=== PATIENT | female | born 1960 | race Caucasian/White ===

== ENCOUNTER 2019-11-18 21:12 | Emergency (ER) | payer OTHER, SELFPAY ==
--- NOTE | ~2019-11-18 | XR_ITS ---
XR chest 2V DATE: 11/18/2019 22:25 INDICATION: Cough, pruritus. Dizziness, nausea. COPD, current smoker. TECHNIQUE: PA and lateral views COMPARISON: 08/21/2011 PA and lateral views FINDINGS: Heart size is normal. Coronary artery stent is noted. There is no hilar or mediastinal enla rgement. No pulmonary infiltrate or consolidation, pleural effusion or pulmonary vascular congestion or pneumo thorax is detected. Diffuse osteopenia. Thoracolumbar scoliosis. IMPRESSION: No active cardiopulmonary disease Coronary artery stent Reviewed, dictated and finalized at location A.
[2019-11-18 21:16] VITALS: BP 169/93; PULSE 107; RESP 20; TEMP 36.3; O2SAT 99
[2019-11-18] MEDS: methylPREDNISolone SOD SUCC 125 MG VIAL IV PUSH (21:58)
[2019-11-18] MEDS: diphenhydrAMINE HCl INJ 50 MG/ML VIAL IV PUSH (21:58)
[2019-11-18] MEDS: FAMOTIDINE 20 MG/2 ML VIAL IV PUSH (21:58)
[2019-11-18 22:10] LABS: Basophils Percent Auto 0.4 % (0.2-1.2); Eosinophils Absolute Auto 0.2 K/mm3 (0-0.3); Eosinophils Percent Auto 1.5 % (0-4.4); Hematocrit 42.3 % (37.0-47.0); Hemoglobin 13.6 g/dL (12.0-15.0); Immature Granulocyte Absolute 0.05 K/mm3 (0.00-0.031); Immature Granulocyte Percent A 0.5 % (0-0.5); Lymphocytes Absolute Auto 2.77 K/mm3 (0.9-3.2); Lymphocytes Percent Auto 27.7 % (18.3-44.2); Mean Corpuscular HGB Conc 32.2 g/dl (32-36); Mean Corpuscular Hemoglobin 30.1 pg (26-34); Mean Corpuscular Volume 93.6 fl (80-100); Mean Platelet Volume 12.4 fl (7.4-10.4); Monocytes Absolute Auto 0.7 K/mm3 (0.1-0.6); Monocytes Percent Auto 6.9 % (2.6-8.5); Neutrophils Absolute Auto 6.3 K/mm3 (1.3-6.7); Platelet Count Result 242 k/mm3 (150-375); Red Blood Count 4.52 M/mm3 (4.2-5.4); Red Cell Distribution Width 17.2 % (11.5-14.5)
[2019-11-18 22:22] LABS: Alanine Aminotransferase 29 U/L (4-35); Albumin Level 4.3 g/dL (3.5-5.1); Alkaline Phosphatase 52 U/L (38-126); Anion Gap 7 mmol/L (8-16); Aspartate Amino Transferase 37 U/L (14-36); Bilirubin,Total 0.4 mg/dL (0.2-1.3); Blood Urea Nitrogen 20 mg/dL (7-17); Carbon Dioxide 22 mmol/L (22-30); Chloride 108 mmol/L (98-107); Estimated CRCL calculation 43 ml/min; Estimated Glomerular Filt Rate 42; Glucose 108 mg/dL (65-105); Magnesium 1.2 mg/dL (1.6-2.3); Potassium 4.3 mmol/L (3.4-5.0); Sodium 137 mmol/L (137-145)
[2019-11-18] MEDS: LACTATED RINGERS 1,000 ML 999 ML IV CONT (23:00)
[2019-11-18] MEDS: MAGNESIUM SULFATE 3GM/D5W100ML 3 GM/100 ML BAG IVPB (23:30)
[2019-11-18 23:35] VITALS: BP 137/83; PULSE 84; RESP 16; O2SAT 99
--- NOTE | 2019-11-18 23:54 | ED.ALLEREA ---
HPI - Allergic Reaction General Chief complaint: Allergic Reaction Stated complaint: allergic reaction Time Seen by Provider: 11/18/19 21:31 Source: patient Mode of arrival: ambulatory History of Present Illness HPI narrative: This patient is a 59 year old female who presents for evaluation of pruritis. She reports she has been having intermittent itching for several months. It has been worse over the past week. She has been taking benadryl and ointments. She reports she recently was given a steroid shot and her itching improved. She does not know of any exacerbating factors. She has not taken any new medications or supplements. She has developed redness to her skin at area in which she is scratching. She denies nausea, vomiting or fever. Symptoms: itching Related Data Home Medications Medication Instructions Recorded Confirmed albuterol sulfate INHALATION DAILY PRN 11/18/19 carvedilol 3.125 mg PO BID 11/18/19 clonazepam 0.5 mg PO HS 11/18/19 fenofibrate 160 mg PO DAILY 11/18/19 fexofenadine 180 mg PO DAILY 11/18/19 gabapentin 800 mg PO TID 11/18/19 isosorbide mononitrate 60 mg PO DAILY 11/18/19 losartan 12.5 mg PO DAILY 11/18/19 magnesium oxide 400 mg PO DAILY 11/18/19 nitrofurantoin monohyd/m-cryst 11/18/19 omeprazole 20 mg PO DAILY 11/18/19 pravastatin 80 mg PO HS 11/18/19 quetiapine 50 mg PO DAILY 11/18/19 ranolazine [Ranexa] 1,000 mg PO BID 11/18/19 ticagrelor [Brilinta] 60 mg PO DAILY 11/18/19 tiotropium bromide [Spiriva with INHALATION 11/18/19 HandiHaler] Allergies Allergy/AdvReac Type Severity Reaction Status Date / Time No Known Allergies Allergy Verified 11/18/19 22:04 Review of Systems Review of Systems: All systems reviewed & are unremarkable except as noted in HPI and below Constitutional: Constitutional: Denies chills and Denies fever(s) ENT: Denies dysphagia, Denies dizziness and Denies sore throat Cardiovascular: Cardiovascular: Denies chest pain Respiratory: Respiratory: Reports dyspnea (chronic) Gastrointestinal: Gastrointestinal: Denies abdominal pain and Denies nausea [facility] Past Medical History Medical History (Updated 11/19/19 @ 00:24 by Joana Henson MD) Anxiety COPD (chronic obstructive pulmonary disease) Heart disease Hypertension Surgical History Surgical History (Updated 11/19/19 @ 00:02 by Joana Henson MD) H/O heart artery stent Social History Social History Smoking status: Smoker, status unknown Alcohol intake: current Gender identity (if verbalized by the patient): Female Exam Const: General: alert Orientation/consciousness: patient oriented x3 Other: patient actively scratching HENMT: Head: normocephalic and atraumatic Face and sinus: normal facial exam, sinuses nontender and face symmetric Mouth: Yes Normal oral and palatal mucosa present, Yes lip normal and Yes oropharynx normal Eyes: Conjunctivae: conjunctivae normal Pupils: Equal, round and reactive pupils present EOM: EOMs intact bilaterally Other: no icteric scleral Resp: Effort & Inspection: normal respiratory effort and no retractions Auscultation: clear to auscultation bilaterally Cardio: Rate: regular rate Rhythm: regular rhythm Heart sounds: no murmurs GI: GI Palp: Yes Soft to palpation, No Tenderness to palpation present (GI), No Guarding due to palpation present (GI), No Rigid due to palpation and No Hernia present Skin: General skin exam: no jaundice Rashes: no rashes Wounds: wound noted Neuro: General: patient oriented x3 and moves all extremities Extrem: General: no pedal edema Course Reevaluation(s) Reevaluation #1: PAtient is sleeping and she feels better. She is no longer scratching. no definite skin lesions seen as cause of itching. Date: 11/19/19 Time: 00:03 Vital Signs Vital signs: Vital Signs Temperature 97.3 F L 11/18/19 21:16 Pulse Rate 107 H 11/18/19 21:16 Respiratory Rate 20 11/18/19 21:16 Blood Pres
[2019-11-19 00:01] LABS: Amphetamine Screen Urine Negative (Negative); Barbiturate Screen Urine Negative (Negative); Benzodiazepines Screen Urine Negative (Negative); Cannabinoid Screen Urine Negative (Negative); Cocaine Screen Urine Negative (Negative); Methadone Screen Urine Negative (Negative); Opiate Screen Urine Negative (Negative); Phencyclidine Screen Urine Negative (Negative)
[2019-11-19 00:48] VITALS: BP 119/53; PULSE 77; RESP 16; O2SAT 97
== END 2019-11-19 00:50 | disposition home or self-care (01) ==
PROVIDERS: Emergency Provider General Practice; PCP Family Medicine
DX: L29.9 Pruritus, unspecified (principal); J44.9 Chronic obstructive pulmonary disease, unspecified; I11.9 Hypertensive heart disease without heart failure; F41.9 Anxiety disorder, unspecified; Z79.02 Long term (current) use of antithrombotics/antiplatelets; Z95.5 Presence of coronary angioplasty implant and graft
CPT/HCPCS: 36415; 51701; 71046; 80048; 80076; 80307; 83735; 84443; 85025; 96365; 96375; 99284; J1200; J2930; J3475; J7120

== ENCOUNTER 2019-11-20 18:59 | Emergency (ER) | payer OTHER, SELFPAY ==
[2019-11-20 19:02] VITALS: BP 192/115; PULSE 117; RESP 18; TEMP 36.7; O2SAT 96
--- NOTE | 2019-11-20 19:21 | PC.NURSE ---
Upon further evaluation, patient stated she denies any suicidal or homicidal ideations. Patient reports she was just upset at the time because she was itching so bad and did not actually mean to state that she wanted to harm herself. Per EDP Kang no psychiatric workup needed.
[2019-11-20] MEDS: FAMOTIDINE 20 MG/2 ML VIAL IV PUSH (20:13)
[2019-11-20] MEDS: SODIUM CHLORIDE 0.9% IV 1,000 ML 999 ML IV CONT (20:15)
[2019-11-20] MEDS: diphenhydrAMINE HCl INJ 50 MG/ML VIAL 25 MG IV PUSH (20:15)
[2019-11-20 20:17] VITALS: BP 173/102; PULSE 86; RESP 14; O2SAT 97
[2019-11-20 20:22] LABS: Anion Gap 9 mmol/L (8-16); Blood Urea Nitrogen 17 mg/dL (7-17); Calcium 10.1 mg/dL (8.4-10.2); Carbon Dioxide 22 mmol/L (22-30); Chloride 107 mmol/L (98-107); Estimated CRCL calculation 59 ml/min; Estimated Glomerular Filt Rate > 60; Glucose 134 mg/dL (65-105); Potassium 5.4 mmol/L (3.4-5.0); Sodium 138 mmol/L (137-145)
[2019-11-20 21:34] VITALS: BP 159/99; PULSE 76; RESP 16; O2SAT 100
--- NOTE | 2019-11-20 21:44 | ED.SKABFB ---
HPI - Skin/Abscess/Foreign Bdy General Chief complaint: Skin/Abscess/Foreign Body Stated complaint: Severe Itching Time Seen by Provider: 11/20/19 19:15 History of Present Illness HPI narrative: Patient is a 59-year-old female who presents ER with diffuse pruritus. Patient has been having this intermittently over the last 3 months. She was seen in the ER couple days ago. She received Solu-Medrol as well as Pepcid and Benadryl with resolution of symptoms. They have since returned. Patient has been taking Benadryl at home without relief. Patient saw her primary care doctor about a week ago and did not have a conversation about her pleuritic issues. She has not seen an picket labor union. No known exposures to chemicals/perfumes/allergens. No actual rash. Patient is developing bruising from constant scratching. Related Data Home Medications Medication Instructions Recorded Confirmed albuterol sulfate INHALATION DAILY PRN 11/18/19 carvedilol 3.125 mg PO BID 11/18/19 clonazepam 0.5 mg PO HS 11/18/19 fenofibrate 160 mg PO DAILY 11/18/19 fexofenadine 180 mg PO DAILY 11/18/19 gabapentin 800 mg PO TID 11/18/19 isosorbide mononitrate 60 mg PO DAILY 11/18/19 losartan 12.5 mg PO DAILY 11/18/19 magnesium oxide 400 mg PO DAILY 11/18/19 nitrofurantoin monohyd/m-cryst 11/18/19 omeprazole 20 mg PO DAILY 11/18/19 pravastatin 80 mg PO HS 11/18/19 quetiapine 50 mg PO DAILY 11/18/19 ranolazine [Ranexa] 1,000 mg PO BID 11/18/19 ticagrelor [Brilinta] 60 mg PO DAILY 11/18/19 tiotropium bromide [Spiriva with INHALATION 11/18/19 HandiHaler] Allergies Allergy/AdvReac Type Severity Reaction Status Date / Time No Known Allergies Allergy Verified 11/18/19 22:04 Review of Systems Review of Systems: All systems reviewed & are unremarkable except as noted in HPI and below Constitutional: Constitutional: Denies chills and Denies fever(s) ENT: Denies nasal congestion and Denies sore throat Respiratory: Respiratory: Denies cough and Denies dyspnea Integumentary/Breasts: Skin/Breast: Reports pruritus, Denies erythema and Denies rash PMFSH Past Medical History Medical History (Updated 11/20/19 @ 23:01 by Surjit Kapadia MD) Anxiety COPD (chronic obstructive pulmonary disease) Heart disease Hypertension Surgical History Surgical History (Updated 11/19/19 @ 00:02 by Joana Henson MD) H/O heart artery stent Social History Social History Smoking status: Smoker, status unknown Alcohol intake: current Gender identity (if verbalized by the patient): Female Exam Narrative: Exam Narrative: GENERAL: Uncomfortable-appearing, well-nourished, and in no acute distress. HEAD: Normocephalic, atraumatic. ENT: Mucous membranes moist. CHEST: Clear to auscultation. No respiratory distress. HEART: Tachycardic and regular. Normal peripheral pulses. EXTREMITIES: Normal range of motion. No edema. SKIN: Warm, dry, redness to the arms and legs as well as bruising related to the patient's constant itching. No urticarial rash or petechiae.. NEURO: Alert and oriented x3. Course Course Emergency Course: Patient feels much improved after steroids/Benadryl/Pepcid. Discharged with Atarax and Medrol Dosepak. Patient now reports that she has a dermatology referral for her skin issue. Vital Signs Vital signs: Vital Signs Temperature 98.1 F 11/20/19 19:02 Pulse Rate 117 H 11/20/19 19:02 Respiratory Rate 18 11/20/19 19:02 Blood Pressure 192/115 H 11/20/19 19:02 Pulse Oximetry 96 11/20/19 19:02 Temperature 98.1 F 11/20/19 19:02 Pulse Rate 76 11/20/19 21:34 Respiratory Rate 16 11/20/19 21:34 Blood Pressure 159/99 H 11/20/19 21:34 Pulse Oximetry 100 11/20/19 21:34 MDM - Skin/Abscess/Foreign Bdy Lab Data Result diagrams: 11/20/19 20:06 Labs: Lab Results 11/20/19 Range/Units 20:06 Sodium 138 (137-145) mmol/L Potassium 5.4 H (3.4-5.0) mmol/L Chloride 107
[2019-11-20] MEDS: methylPREDNISolone SOD SUCC 125 MG VIAL IV PUSH (21:47)
[2019-11-20 23:33] VITALS: BP 166/94; PULSE 84; RESP 12; TEMP 36.6; O2SAT 99
== END 2019-11-20 23:36 | disposition home or self-care (01) ==
PROVIDERS: Emergency Provider Emergency Medicine; PCP Family Medicine
DX: L29.9 Pruritus, unspecified (principal); F41.9 Anxiety disorder, unspecified; J44.9 Chronic obstructive pulmonary disease, unspecified; Z95.5 Presence of coronary angioplasty implant and graft; I11.9 Hypertensive heart disease without heart failure
CPT/HCPCS: 36415; 80048; 96361; 96374; 96375; 99284; J1200; J2930; J7030

== ENCOUNTER 2019-12-10 01:00 | Emergency (ER) | payer OTHER, SELFPAY ==
--- NOTE | ~2019-12-10 | CT_ITS ---
EXAMINATION: CT abdomen pelvis w con DATE: 12/10/2019 02:13 INDICATION: Right upper quadrant abdominal TECHNIQUE: Computed tomography (CT) of the abdomen and pelvis was performed with 100 cc Omnipaque 350 intravenous contrast. The dose-length product was 961.16 mGy-cm. Automated exposure control and iter ative reconstruction technique were employed. COMPARISON: 10/18/2018. FINDINGS: Lung bases are unremarkable. Heart size normal. No significant pleural or pericardial effus ion. No significant vascular abnormality. No lymphadenopathy. Normal appendix. No abnormal pelvic mas ses or fluid collections. Colonic diverticulosis without diverticulitis. Nonobstructive bowel gas pat tern. Fatty infiltration of the liver. The spleen, pancreas, adrenal glands and left kidney are unremarkabl e. There is mild right hydroureter. No obstructing stone or mass is identified. No osteolytic or oste oblastic lesions of the bones. Mild lower thoracic spondylosis. IMPRESSION: 1. No acute abdominal abnormality. Mild right hydroureter, nonspecific. Reviewed, dictated and finalized at location A.
--- NOTE | ~2019-12-10 | XR_ITS ---
EXAMINATION: XR chest 2V 12/10/2019 02:21 INDICATION: Right upper quadrant pain. Chest pain. PROCEDURE: PA and lateral views of the chest COMPARISON: Comparison to multiple prior studies sequentially, with oldest reviewed study dated 05/29. FINDINGS: The lungs are clear. The cardiomediastinal silhouette is within normal limits. There are no pleural effusions. There is no pneumothorax suspected. IMPRESSION: 1: NO ACUTE CARDIOPULMONARY DISEASE. Reviewed, dictated and finalized at location A.
[2019-12-10 01:06] VITALS: BP 123/88; PULSE 87; RESP 16; TEMP 36.5; O2SAT 98
--- NOTE | 2019-12-10 01:22 | ECG_ITS ---
Measurements Intervals [place] Rate: 76 P: 31 ID: [id number] QRS: 5 QRSD: 87 T: 61 QT: 396 QTc: 448 Interpretive Statements SINUS RHYTHM LOW QRS VOLTAGE IN PRECORDIAL LEADS BORDERLINE ST ABNORMALITY- HIGH LATERAL LEADS BASELINE ARTIFACT- III, V6 BORDERLINE ECG Electronically Signed On 12-10-2019 6:59:35 CDT by Tc Mcclelland D.O.
--- NOTE | 2019-12-10 01:22 | ED.ABDPAIN ---
HPI - Abdominal Pain General Chief Complaint: Abdominal Pain Stated Complaint: RUQ PAIN Time Seen by Provider: 12/10/19 01:22 Source: patient Mode of arrival: ambulatory Limitations: no limitations History of Present Illness HPI narrative: Patient is a 59-year-old female with a history of COPD, alcohol abuse who presents for evaluation of right upper quadrant abdominal pain. Patient reports 2 hours of worsening symptoms, pain is severe in the right upper quadrant. Cramping, sharp in nature. No radiation to the back. Patient reports mild associated chest pain. She reports chronic cough without shortness of breath. No fever or chills. Patient denies any vomiting, states she does spit up from from the beer she was drinking earlier. Patient reports approximately 5 alcoholic beverages this evening including beer and white Russians. Patient denies any drug use. She states she is a daily drinker. Patient is very tearful. She denies diarrhea or constipation. She denies any ripping or tearing sensation to the flanks. Related Data Home Medications Medication Instructions Recorded Confirmed albuterol sulfate INHALATION DAILY PRN 11/18/19 carvedilol 3.125 mg PO BID 11/18/19 clonazepam 0.5 mg PO HS 11/18/19 fenofibrate 160 mg PO DAILY 11/18/19 fexofenadine 180 mg PO DAILY 11/18/19 gabapentin 800 mg PO TID 11/18/19 isosorbide mononitrate 60 mg PO DAILY 11/18/19 losartan 12.5 mg PO DAILY 11/18/19 magnesium oxide 400 mg PO DAILY 11/18/19 nitrofurantoin monohyd/m-cryst 11/18/19 omeprazole 20 mg PO DAILY 11/18/19 pravastatin 80 mg PO HS 11/18/19 quetiapine 50 mg PO DAILY 11/18/19 ranolazine [Ranexa] 1,000 mg PO BID 11/18/19 ticagrelor [Brilinta] 60 mg PO DAILY 11/18/19 tiotropium bromide [Spiriva with INHALATION 11/18/19 HandiHaler] Allergies Allergy/AdvReac Type Severity Reaction Status Date / Time No Known Allergies Allergy Verified 11/18/19 22:04 Review of Systems Review of Systems: Narrative: CONSTITUTIONAL: Denies fever, chills, or sweats. ENT: Denies rhinorrhea, congestion CARDIOVASCULAR: Denies chest pain, palpitations, or edema. RESPIRATORY: Denies cough or dyspnea. GASTROINTESTINAL: Reports abdominal pain, nausea GENITOURINARY: Denies dysuria or hematuria. SKIN: Denies rash or itching. MUSCULOSKELETAL: Denies back pain, joint pain, or myalgia. NEUROLOGIC: Denies headache, numbness, or weakness. [facility] Past Medical History Medical History Anxiety COPD (chronic obstructive pulmonary disease) Heart disease Hypertension Surgical History Surgical History (Updated 11/19/19 @ 00:02 by Joana Henson MD) H/O heart artery stent Social History Social History Smoking status: Smoker, status unknown Alcohol intake: current Gender identity (if verbalized by the patient): Female Exam Narrative: Exam Narrative: GENERAL: Awake, alert, tearful HEAD: Normocephalic, atraumatic. EYES: PERRLA and EOMI. ENT: Nares clear, no rhinorrhea or epistaxis. Mucous membranes moist. NECK: Supple. CHEST: No respiratory distress, breathing even and non labored, no wheezing HEART: Regular rate, sinus rhythm ABDOMEN: Obese abdomen, mildly tender in the right upper quadrant, mild epigastric tenderness, no guarding, nonrigid EXTREMITIES: Normal range of motion. No edema. SKIN: Warm, dry, no rash. NEURO:No focal deficits. Alert and oriented x3 Course Vital Signs Vital signs: Vital Signs Temperature 36.5 C 12/10/19 01:06 Pulse Rate 87 12/10/19 01:06 Respiratory Rate 16 12/10/19 01:06 Blood Pressure 123/88 12/10/19 01:06 Pulse Oximetry 98 12/10/19 01:06 Temperature 36.5 C 12/10/19 01:06 Pulse Rate 72 12/10/19 02:55 Respiratory Rate 18 12/10/19 02:55 Blood Pressure 134/75 12/10/19 02:55 Pulse Oximetry 100 12/10/19 02:55 MDM - Abdominal Pain MDM Narrati
[2019-12-10 01:38] LABS: Basophils Percent Auto 0.5 % (0.2-1.2); Eosinophils Absolute Auto 0.2 K/mm3 (0-0.3); Eosinophils Percent Auto 3.7 % (0-4.4); Hematocrit 36.9 % (37.0-47.0); Hemoglobin 11.9 g/dL (12.0-15.0); Immature Granulocyte Absolute 0.04 K/mm3 (0.00-0.031); Immature Granulocyte Percent A 0.6 % (0-0.5); Lymphocytes Absolute Auto 2.49 K/mm3 (0.9-3.2); Lymphocytes Percent Auto 38.7 % (18.3-44.2); Mean Corpuscular HGB Conc 32.2 g/dl (32-36); Mean Corpuscular Hemoglobin 30.7 pg (26-34); Mean Corpuscular Volume 95.3 fl (80-100); Monocytes Absolute Auto 0.8 K/mm3 (0.1-0.6); Neutrophils Absolute Auto 2.9 K/mm3 (1.3-6.7); Neutrophils Percent Auto 44.5 % (45.5-73.1); Platelet Count Result 185 k/mm3 (150-375); Red Blood Count 3.87 M/mm3 (4.2-5.4); Red Cell Distribution Width 16.7 % (11.5-14.5); White Blood Count 6.4 K/mm3 (4.5-10.0)
[2019-12-10] MEDS: ONDANSETRON INJ 4 MG/2 ML VIAL IV PUSH (01:40)
[2019-12-10] MEDS: FAMOTIDINE 20 MG/2 ML VIAL IV PUSH (01:41)
[2019-12-10] MEDS: SODIUM CHLORIDE 0.9% IV 1,000 ML 999 ML IV CONT (01:41)
[2019-12-10] MEDS: MORPHINE SULFATE (*CRX) 4 MG/ML INJ IV PUSH (01:41)
[2019-12-10 01:52] LABS: Alanine Aminotransferase 24 U/L (4-35); Albumin Level 4.1 g/dL (3.5-5.1); Alkaline Phosphatase 47 U/L (38-126); Anion Gap 7 mmol/L (8-16); Aspartate Amino Transferase 30 U/L (14-36); Bilirubin,Total 0.4 mg/dL (0.2-1.3); Blood Urea Nitrogen 14 mg/dL (7-17); Calcium 10.3 mg/dL (8.4-10.2); Carbon Dioxide 21 mmol/L (22-30); Chloride 111 mmol/L (98-107); Estimated Glomerular Filt Rate > 60; Glucose 101 mg/dL (65-105); Lipase 96 U/L (23-300); Potassium 3.7 mmol/L (3.4-5.0); Sodium 139 mmol/L (137-145)
[2019-12-10 02:11] VITALS: TEMP 36.5
[2019-12-10 02:12] LABS: INR 0.9; Prothrombin Time 12.2 Seconds (11.1-14.7)
[2019-12-10 02:13] LABS: Partial Thromboplastin Time 28.1 SECONDS (22.3-36.8)
[2019-12-10 02:15] LABS: Ethanol 226 mg/dL (<10)
[2019-12-10 02:18] LABS: Troponin I < 0.012 ng/mL (0.000-0.034)
[2019-12-10] MEDS: fentaNYL CITRATE INJ (*CRX) 100 MCG/2 ML VIAL 50 MCG IV PUSH (02:30)
[2019-12-10 02:55] VITALS: BP 134/75; PULSE 72; RESP 18; O2SAT 100
[2019-12-10 03:00] VITALS: TEMP 36.5
[2019-12-10 04:44] VITALS: BP 130/85; PULSE 75; RESP 16; O2SAT 99
[2019-12-10 05:07] LABS: Troponin I < 0.012 ng/mL (0.000-0.034)
== END 2019-12-10 05:32 | disposition home or self-care (01) ==
PROVIDERS: Emergency Provider Emergency Medicine; PCP Family Medicine
DX: R10.11 Right upper quadrant pain (principal); F10.10 Alcohol abuse, uncomplicated; Y90.7 Blood alcohol level of 200-239 mg/100 ml; J44.9 Chronic obstructive pulmonary disease, unspecified; Z95.5 Presence of coronary angioplasty implant and graft; F41.9 Anxiety disorder, unspecified; I11.9 Hypertensive heart disease without heart failure; R94.31 Abnormal electrocardiogram [ECG] [EKG]
CPT/HCPCS: 36415; 71046; 74177; 80053; 80307; 83690; 84484; 85025; 85610; 85730; 93005; 96361; 96374; 96375; 99284; J2270; J2405; J3010; J7030; Q9967

== ENCOUNTER 2020-06-13 17:33 | Emergency (ER) | payer OTHER, SELFPAY ==
--- NOTE | 2020-06-13 18:40 | PC.NURSE ---
Patient's name called for triage multiple times, no response at this time.
== END 2020-06-13 18:30 | disposition left against medical advice (07) ==
LOC: ANHED 21:46
PROVIDERS: PCP Family Medicine
DX: Z53.21 Procedure and treatment not carried out due to patient leaving prior to being seen by health care provider (principal)
CPT/HCPCS: 99199

== ENCOUNTER 2021-05-06 11:10 | Emergency (ER) | payer OTHER, SELFPAY ==
[2021-05-06 11:38] VITALS: BP 145/97; PULSE 87; RESP 16; TEMP 36.7; O2SAT 98
[2021-05-06] MEDS: methylPREDNISolone SOD SUCC 125 MG VIAL IV PUSH (13:06)
[2021-05-06] MEDS: FAMOTIDINE 20 MG/2 ML VIAL IV PUSH (13:06)
[2021-05-06] MEDS: diphenhydrAMINE HCl INJ 50 MG/ML VIAL 25 MG IV PUSH ×2 (13:06→13:56)
[2021-05-06] MEDS: SODIUM CHLORIDE 0.9% IV 1,000 ML 999 ML IV CONT (13:13)
--- NOTE | 2021-05-06 13:51 | ED.SKABFB ---
HPI - Skin/Abscess/Foreign Bdy General Chief complaint: Skin/Abscess/Foreign Body <Lyudmila Adbul [employer] - Last Filed: 05/06/21 18:38> Stated complaint: itching, rash <Lyudmila Abdul APRN - Last Filed: 05/06/21 18:38> Time Seen by Provider: 05/06/21 11:48 <Lyudmila Abdul [employer] - Last Filed: 05/06/21 18:38> Source: patient <Lyudmila Abdul [employer] - Last Filed: 05/06/21 18:38> Mode of arrival: wheelchair <Lyudmila Abdul [employer] - Last Filed: 05/06/21 18:38> Limitations: no limitations <Lyudmila Abdul [employer] - Last Filed: 05/06/21 18:38> History of Present Illness HPI narrative: 60-year-old female presents today with complaints of itching and rash all over. Patient with history of similar symptoms in the last year. Patient denies any new soaps, laundry detergents, foods, or medications. Patient previously with similar episodes and unsure of what the cause was. Rash to back, stomach, bilateral legs, and left neck. Patient denies any shortness of breath, difficulty in swallowing. <Lyudmila Abdul APRN - Last Filed: 05/06/21 18:38> Related Data Home medications: Home Medications Medication Instructions Recorded Confirmed albuterol sulfate INHALATION DAILY PRN 11/18/19 carvedilol 3.125 mg PO BID 11/18/19 clonazepam 0.5 mg PO HS 11/18/19 fenofibrate 160 mg PO DAILY 11/18/19 fexofenadine 180 mg PO DAILY 11/18/19 gabapentin 800 mg PO TID 11/18/19 isosorbide mononitrate 60 mg PO DAILY 11/18/19 losartan 12.5 mg PO DAILY 11/18/19 magnesium oxide 400 mg PO DAILY 11/18/19 nitrofurantoin monohyd/m-cryst 11/18/19 omeprazole 20 mg PO DAILY 11/18/19 pravastatin 80 mg PO HS 11/18/19 quetiapine 50 mg PO DAILY 11/18/19 ranolazine [Ranexa] 1,000 mg PO BID 11/18/19 ticagrelor [Brilinta] 60 mg PO DAILY 11/18/19 tiotropium bromide [Spiriva with INHALATION 11/18/19 HandiHaler] <Lyudmila Abdul APRN - Last Filed: 05/06/21 18:38> Allergies/Adverse reactions: Allergies Allergy/AdvReac Type Severity Reaction Status Date / Time No Known Allergies Allergy Verified 11/18/19 22:04 <Lyudmila Abdul APRN - Last Filed: 05/06/21 18:38> Review of Systems Review of Systems: CONSTITUTIONAL: Denies fever, chills, or sweats. EYES: Denies visual changes, redness, or discharge. ENT: Denies rhinorrhea, congestion, sore throat, or otalgia. Denies difficutly in swallowing. CARDIOVASCULAR: Denies chest pain, palpitations, or edema. RESPIRATORY: Denies cough or dyspnea. GASTROINTESTINAL: Denies abdominal pain, nausea, vomiting, or diarrhea. GENITOURINARY: Denies dysuria or hematuria. SKIN: rash with itching to back, abdomen, lower extremities, and neck. MUSCULOSKELETAL: Denies back pain, joint pain, or myalgia. NEUROLOGIC: Denies headache, numbness, dizziness, or weakness. PSYCHIATRIC: Denies anxiety or depression. <Lyudmila Abdul APRN - Last Filed: 05/06/21 18:38> [facility] Past Medical History Medical History: Medical History Anxiety COPD (chronic obstructive pulmonary disease) Heart disease Hypertension <Lyudmila Abdul APRN - Last Filed: 05/06/21 18:38> Surgical History Surgical History: Surgical History H/O heart artery stent <Lyudmila Abdul APRN - Last Filed: 05/06/21 18:38> Social History Social History: Social History Smoking status: Smoker, status unknown Alcohol intake: current Gender identity (if verbalized by the patient): Female <Lyudmila Abdul APRN - Last Filed: 05/06/21 18:38> Exam Narrative: GENERAL: Well-appearing, well-nourished, and in no acute distress. HEAD: Normocephalic, atraumatic. EYES: PERRLA and EOMI. ENT: Nares clear, no rhinorrhea or epistaxis. Mucous membranes moist. Oropharynx without tonsillar hypertrophy exudate or other lesions. NECK: Supple. No adenopa
[2021-05-06 15:20] VITALS: BP 136/92; PULSE 82; RESP 18; TEMP 36.6; O2SAT 97
== END 2021-05-06 15:21 | disposition home or self-care (01) ==
PROVIDERS: Emergency Provider Nurse Practitioner Family; PCP Nurse Practitioner Adult Health
DX: L29.9 Pruritus, unspecified (principal); J44.9 Chronic obstructive pulmonary disease, unspecified; I11.9 Hypertensive heart disease without heart failure; F41.9 Anxiety disorder, unspecified
CPT/HCPCS: 96361; 96374; 96375; 96376; 99284; J1200; J2930; J7030

== ENCOUNTER 2021-07-06 14:47 | Emergency (ER) | payer OTHER, SELFPAY ==
--- NOTE | ~2021-07-06 | XR_ITS ---
EXAMINATION: XR wrist RT min 3V DATE: 07/06/2021 15:14 INDICATION: Right wrist pain and swelling post fall TECHNIQUE: Posteroanterior, ulnar deviation, oblique, and lateral views of the right wrist were obtai taqueria. COMPARISON: none FINDINGS: Nondisplaced fracture, likely intra-articular at the distal right radius with no significant fracture gap or incongruity at the articular surface. No other fractures identified. Alignment remains essent ially anatomic. Mild osteoarthritis at the triscaphe joint. Mild soft tissue swelling about the dista l forearm. IMPRESSION: 1. Nondisplaced intra-articular fracture of the distal right radius. Reviewed, dictated and finalized at location A.
[2021-07-06 14:56] VITALS: BP 114/66; PULSE 73; RESP 16; TEMP 36.4; O2SAT 100
--- NOTE | 2021-07-06 17:08 | ED.GENADULT ---
HPI - General Adult General Chief complaint: Extremity Injury, Upper Stated complaint: wrist injury Time Seen by Provider: 07/06/21 16:35 History of Present Illness HPI narrative: 60-year-old female presented to the emergency department for evaluation of right wrist pain after having a ground level fall approximately 1 week ago. Patient states that she fell backward landing on her outstretched hand injuring her wrist. Patient denies any pain in the elbow. Patient denies striking head denies any loss of consciousness. Patient did wait for the pain to improve but states that the pain has been persistent and is worsened with movement. Patient denies any associated numbness or weakness. Patient does have history of hypertension and COPD. Related Data Home Medications Medication Instructions Recorded Confirmed albuterol sulfate INHALATION DAILY PRN 11/18/19 carvedilol 3.125 mg PO BID 11/18/19 clonazepam 0.5 mg PO HS 11/18/19 fenofibrate 160 mg PO DAILY 11/18/19 fexofenadine 180 mg PO DAILY 11/18/19 gabapentin 800 mg PO TID 11/18/19 isosorbide mononitrate 60 mg PO DAILY 11/18/19 losartan 12.5 mg PO DAILY 11/18/19 magnesium oxide 400 mg PO DAILY 11/18/19 nitrofurantoin monohyd/m-cryst 11/18/19 omeprazole 20 mg PO DAILY 11/18/19 pravastatin 80 mg PO HS 11/18/19 quetiapine 50 mg PO DAILY 11/18/19 ranolazine [Ranexa] 1,000 mg PO BID 11/18/19 ticagrelor [Brilinta] 60 mg PO DAILY 11/18/19 tiotropium bromide [Spiriva with INHALATION 11/18/19 HandiHaler] Allergies Allergy/AdvReac Type Severity Reaction Status Date / Time No Known Allergies Allergy Verified 07/06/21 16:49 Review of Systems Review of Systems: CONSTITUTIONAL: Denies fever, chills, or sweats. EYES: Denies visual changes, redness, or discharge. ENT: Denies rhinorrhea, congestion, sore throat, or otalgia. CARDIOVASCULAR: Denies chest pain, palpitations, or edema. RESPIRATORY: Denies cough or dyspnea. GASTROINTESTINAL: Denies abdominal pain, nausea, vomiting, or diarrhea. GENITOURINARY: Denies dysuria or hematuria. SKIN: Denies rash or itching. MUSCULOSKELETAL: See HPI NEUROLOGIC: Denies headache, numbness, or weakness. [facility] Past Medical History Medical History Anxiety COPD (chronic obstructive pulmonary disease) Heart disease Hypertension Surgical History Surgical History H/O heart artery stent Social History Social History Smoking status: Smoker, status unknown Alcohol intake: current Gender identity (if verbalized by the patient): Female Exam Narrative: APPEARANCE: Well appearing, no pain, no distress, well-nourished. HEAD: normocephalic, atraumatic. EYES: PERRLA/EOMI, conjunctivae clear. NOSE: Normal no drainage NECK: Supple. No adenopathy, no masses. RESPIRATORY: Airway patent, respirations nonlabored. Clear to auscultation bilaterally, no rales, rhonchi, wheezing. CARDIOVASCULAR: Regular rate and rhythm without murmurs rubs or gallops. ABDOMINAL: Soft, nontender, nondistended, normal bowel sounds MUSCULOSKELETAL: Tenderness at wrist. Limited range of motion. Neurovascular intact. NEURO: Alert. Cranial nerves II through XII intact. Grossly intact SKIN: Warm, dry. Normal Color PSYCHIATRIC: Normal affect/mood. Course Course Emergency Course: X-ray did show a fracture of the wrist. Patient was splinted and encouraged to have close follow-up with orthopedics. All questions and concerns were addressed. Patient was well-appearing at time of discharge from the emergency department. Vital Signs Vital signs: Vital Signs Temperature 97.6 F 07/06/21 14:56 Pulse Rate 73 07/06/21 14:56 Respiratory Rate 16 07/06/21 14:56 Blood Pressure 114/66 07/06/21 14:56 Pulse Oximetry 100 07/06/21 14:56 Temperature 97.6 F 07/06/21 14:56 Pulse Rate
[2021-07-06] MEDS: HYDROcodone/acetaminophen (*CRX) 5-325 MG TABLET 1 TAB PO (18:11)
== END 2021-07-06 18:29 | disposition home or self-care (01) ==
PROVIDERS: Emergency Provider Emergency Medicine; PCP Nurse Practitioner Adult Health
DX: S52.571A Other intraarticular fracture of lower end of right radius, initial encounter for closed fracture (principal); J44.9 Chronic obstructive pulmonary disease, unspecified; I11.9 Hypertensive heart disease without heart failure; F41.9 Anxiety disorder, unspecified; Z95.5 Presence of coronary angioplasty implant and graft; W18.30XA Fall on same level, unspecified, initial encounter
CPT/HCPCS: 29125; 73110; 99284; A9270

== ENCOUNTER 2022-06-18 13:55 | Outpatient (CLI) | payer OTHER, SELFPAY ==
[2022-06-18 21:31] LABS: Thyroid Stimulating Hormone 0.801 uIU/mL (0.465-4.680)
== END 2022-06-18 13:56 | disposition home or self-care (01) ==
LOC: ANHGOSHLAB 13:56
PROVIDERS: PCP Internal Medicine; Visit Provider Nurse Practitioner
DX: R41.3 Other amnesia (principal)
CPT/HCPCS: 36415; 82607; 84443

== ENCOUNTER 2022-06-21 14:57 | Outpatient (CLI) | payer OTHER, SELFPAY ==
--- NOTE | ~2022-06-21 | CT_ITS ---
EXAMINATION: CT abdomen pelvis w con INDICATION: Left sided abdominal pain TECHNIQUE: Computed tomographic images of the abdomen and pelvis were obtained after the administrati on of 100 cc of Omnipaque 350 intravenous contrast. The dose-length product (DLP) was 1086.86 mGy-cm. Automated exposure control and iterative reconstruction technique were employed. COMPARISON: 12/10/2019 FINDINGS: Minimal dependent atelectasis is present in the lung bases. The heart size is normal. Stone s are present in the nondistended gallbladder. The liver, spleen, pancreas, and adrenal glands are no rmal. The kidneys are unremarkable. No pathologically enlarged abdominal or pelvic lymph nodes are id entified. There is calcified atherosclerosis of the aorta and many of the other arteries. No free int raperitoneal gas or evidence of bowel obstruction. Sigmoid diverticulosis is present without evidence of diverticulitis. The appendix is normal. There is mild lumbar spondylosis. IMPRESSION: 1. No CT correlate for the patient's symptoms. Reviewed, dictated and finalized at location B.
[2022-06-21 15:43] LABS: Estimated Glomerular Filt Rate 46
== END 2022-06-21 14:58 | disposition home or self-care (01) ==
PROVIDERS: PCP Internal Medicine; Visit Provider Clinical Nurse Specialist
DX: R10.9 Unspecified abdominal pain (principal)
CPT/HCPCS: 74177; Q9967

== ENCOUNTER 2022-09-13 11:23 | Outpatient (CLI) | payer OTHER, SELFPAY ==
[2022-09-13 15:25] LABS: Basophils Absolute Auto 0.1 K/mm3 (0.0-0.1); Basophils Percent Auto 0.9 % (0.2-1.2); Eosinophils Absolute Auto 0.2 K/mm3 (0-0.3); Eosinophils Percent Auto 3.2 % (0-4.4); Hemoglobin 11.9 g/dL (12.0-15.0); Immature Granulocyte Absolute 0.04 K/mm3 (0.00-0.031); Immature Granulocyte Percent A 0.7 % (0-0.5); Lymphocytes Absolute Auto 1.42 K/mm3 (0.9-3.2); Mean Corpuscular HGB Conc 31.3 g/dl (32-36); Mean Corpuscular Hemoglobin 29.3 pg (26-34); Mean Corpuscular Volume 93.6 fl (80-100); Monocytes Absolute Auto 0.5 K/mm3 (0.1-0.6); Monocytes Percent Auto 9.3 % (2.6-8.5); Neutrophils Absolute Auto 3.5 K/mm3 (1.3-6.7); Neutrophils Percent Auto 60.9 % (45.5-73.1); Platelet Count Result 193 k/mm3 (150-375); Red Blood Count 4.06 M/mm3 (4.2-5.4); Red Cell Distribution Width 15.8 % (11.5-14.5); White Blood Count 5.7 K/mm3 (4.5-10.0)
[2022-09-13 15:51] LABS: Alanine Aminotransferase 32 U/L (6-35); Albumin Level 4.2 g/dL (3.5-5.1); Alkaline Phosphatase 38 U/L (38-126); Anion Gap 6 mmol/L (8-16); Aspartate Amino Transferase 70 U/L (14-36); Bilirubin,Total 0.6 mg/dL (0.2-1.3); Blood Urea Nitrogen 22 mg/dL (7-17); Calcium 9.8 mg/dL (8.4-10.2); Carbon Dioxide 28 mmol/L (22-30); Chloride 104 mmol/L (98-107); Estimated Glomerular Filt Rate 56; Glucose 93 mg/dL (65-110); Potassium 4.7 mmol/L (3.4-5.0); Sodium 138 mmol/L (137-145)
== END 2022-09-13 11:24 | disposition home or self-care (01) ==
LOC: ANHGOSHLAB 11:24
PROVIDERS: PCP Internal Medicine; Visit Provider Clinical Nurse Specialist
DX: K82.9 Disease of gallbladder, unspecified (principal); I10 Essential (primary) hypertension
CPT/HCPCS: 36415; 80053; 85025

== ENCOUNTER 2022-09-24 09:22 | Emergency (ER) | payer OTHER, SELFPAY ==
--- NOTE | ~2022-09-24 | CT_ITS ---
EXAMINATION: CT abdomen pelvis wo con DATE: 09/24/2022 10:59 INDICATION: Right flank pain. TECHNIQUE: Computed tomography (CT) of the abdomen and pelvis was performed without intravenous contr ast. Automated exposure control and iterative reconstruction technique were employed. The dose-length product was 495.59 mGy-cm. COMPARISON: 06/21/2022 FINDINGS: Groundglass opacities at the bilateral dependent lung bases, right greater than left most likely rela pee to atelectasis or linear discoid atelectasis in the right middle lobe and lingula. Heart size is normal. Atherosclerotic coronary artery calcific location. No pericardial or pleural effusion. Severa l small calcified nodules in the partially decompressed normal gallbladder. Liver, spleen, pancreas a nd bilateral adrenal glands are normal. Kidneys and ureters are normal with no urolithiasis, hydroure teronephrosis or perinephric/ureteral stranding. Unchanged tiny phleboliths versus atherosclerotic ca lcifications along the bilateral misty ligaments. Mild sigmoid diverticulosis without adjacent from tra ce stranding to suggest appendicitis. Small bowel and appendix are normal. Bladder, uterus and bilate ral adnexa are unremarkable. No free intraperitoneal gas or fluid. No pathologically enlarged abdomin al or pelvic lymphadenopathy. Mild thoracolumbar levocurvature with mild to moderate spondylosis. IMPRESSION: 1. No urolithiasis or other acute intra-abdominal/pelvic process. 2. Cholelithiasis. Reviewed, dictated and finalized at location A.
[2022-09-24 09:24] VITALS: BP 151/116; PULSE 70; RESP 16; TEMP 35.7; O2SAT 100
[2022-09-24 09:44] VITALS: BP 130/92; PULSE 60; RESP 14; O2SAT 98
--- NOTE | 2022-09-24 09:48 | ED.BACK ---
HPI - Back Pain/Injury General Chief Complaint: Back Pain/Injury Stated Complaint: BACK PAIN X2D, DIFF URINATING Time Seen by Provider: 09/24/22 09:29 Source: patient Mode of arrival: ambulatory Limitations: no limitations History of Present Illness HPI Narrative: This is a 61-year-old female that presents to the emergency department for right-sided low back pain. Present over the last 2 days. No known injury or trauma. Reports the pain is worse with movement and relieved with rest. She has not been taking any pain medication. She was initially evaluated at urgent care and sent to the emergency department. They were concerned she may have a kidney stone. Does report history of kidney stones. Denies fevers, abdominal pain, vomiting, diarrhea, dysuria, or hematuria. Related Data Home Medications Medication Instructions Recorded Confirmed albuterol sulfate 90 mcg/actuation inhalation DAILY PRN Shortness Of 11/18/19 09/13/22 aerosol inhaler Breath carvedilol 3.125 mg tablet 3.125 mg PO BID 11/18/19 09/13/22 fenofibrate 160 mg tablet 160 mg PO DAILY 11/18/19 09/13/22 ranolazine 1,000 mg 1,000 mg PO BID 11/18/19 09/13/22 tablet,extended release,12 hr (Ranexa) ticagrelor 60 mg tablet (Brilinta) 60 mg PO DAILY 11/18/19 09/13/22 albuterol sulfate 2.5 mg/3 mL 2.5 mg continuous nebulization QID 03/20/22 09/13/22 (0.083 %) solution for nebulization ezetimibe 10 mg tablet 10 mg PO DAILY 03/20/22 09/13/22 losartan 25 mg tablet 25 mg PO DAILY 03/20/22 09/13/22 melatonin 10 mg capsule 10 mg PO QHS 03/20/22 09/13/22 nitroglycerin 0.4 mg sublingual 0.4 mg sublingual Q5M PRN chest 03/20/22 09/13/22 tablet pain tiotropium 2.5 mcg-olodaterol 2.5 2 puff inhalation BID 03/20/22 09/13/22 mcg/actuation mist for inhalation (Stiolto Respimat) cholecalciferol (vitamin D3) 25 2,000 unit PO DAILY 05/02/22 09/13/22 mcg (1,000 unit) capsule isosorbide mononitrate 60 mg 60 mg PO BID 05/02/22 09/13/22 tablet,extended release 24 hr omega-3 fatty acids 1,000 mg 1,000 mg PO BID 05/02/22 09/13/22 capsule Allergies Allergy/AdvReac Type Severity Reaction Status Date / Time No Known Allergies Allergy Verified 09/24/22 09:47 Review of Systems Review of Systems: CONSTITUTIONAL: Denies fever GASTROINTESTINAL: Denies abdominal pain, nausea, vomiting, or diarrhea. GENITOURINARY: Denies dysuria or hematuria. SKIN: Denies rash MUSCULOSKELETAL: Reports back pain NEUROLOGIC: Denies numbness, or weakness. All systems reviewed & are unremarkable except as noted in HPI and below PMFSH Past Medical History Medical History Anxiety COPD (chronic obstructive pulmonary disease) Coronary artery disease Gallbladder disease GERD (gastroesophageal reflux disease) Heart disease Hypertension Nondisplaced fracture of distal end of right radius radial styloid Surgical History Surgical History H/O heart artery stent Family History Family History Father Alcoholism Cancer Depression Anxiety Mother Cancer Anxiety Alcoholism Depression Sibling Alcoholism Anxiety Cancer Depression Hypertension Heart disease Other Alcoholism Anxiety Depression Social History Social History Smoking status: Current every day smoker Tobacco type: e-cigarettes/vaping Alcohol intake: current Alcohol use details: beer once or twice a week Substance use: never Lack of Transportation: No Lack of Food: Never True Current Housing: I Have Housing Concerned About Future Housing: No Difficulty Paying Gas/Electric Bills: No Difficulty Paying for Meds: No Currently Unemployed: No Education: High School Diploma/GED Difficulty w/ Childcare or Family Care: No Living arrangements: alone Occupat
[2022-09-24 09:59] LABS: Basophils Percent Auto 0.8 % (0.2-1.2); Eosinophils Absolute Auto 0.2 K/mm3 (0-0.3); Eosinophils Percent Auto 3.2 % (0-4.4); Hematocrit 40.1 % (37.0-47.0); Hemoglobin 12.5 g/dL (12.0-15.0); Immature Granulocyte Absolute 0.04 K/mm3 (0.00-0.031); Immature Granulocyte Percent A 0.8 % (0-0.5); Lymphocytes Absolute Auto 1.21 K/mm3 (0.9-3.2); Lymphocytes Percent Auto 24.3 % (18.3-44.2); Mean Corpuscular HGB Conc 31.2 g/dl (32-36); Mean Corpuscular Hemoglobin 29.4 pg (26-34); Mean Corpuscular Volume 94.4 fl (80-100); Mean Platelet Volume 12.6 fl (7.4-10.4); Monocytes Absolute Auto 0.4 K/mm3 (0.1-0.6); Monocytes Percent Auto 7.6 % (2.6-8.5); Neutrophils Absolute Auto 3.1 K/mm3 (1.3-6.7); Neutrophils Percent Auto 63.3 % (45.5-73.1); Platelet Count Result 177 k/mm3 (150-375); Red Blood Count 4.25 M/mm3 (4.2-5.4); Red Cell Distribution Width 16.6 % (11.5-14.5)
[2022-09-24 10:07] LABS: Alanine Aminotransferase 30 U/L (6-35); Albumin Level 4.5 g/dL (3.5-5.1); Alkaline Phosphatase 37 U/L (38-126); Anion Gap 6 mmol/L (8-16); Aspartate Amino Transferase 42 U/L (14-36); Bilirubin,Total 0.6 mg/dL (0.2-1.3); Blood Urea Nitrogen 20 mg/dL (7-17); Calcium 9.2 mg/dL (8.4-10.2); Carbon Dioxide 25 mmol/L (22-30); Chloride 105 mmol/L (98-107); Estimated CRCL calculation 54 ml/min; Estimated Glomerular Filt Rate 56; Glucose 96 mg/dL (65-110); Lipase 96 U/L (23-300); Potassium 4.4 mmol/L (3.4-5.0); Sodium 136 mmol/L (137-145)
[2022-09-24] MEDS: ACETAMINOPHEN 500 MG TABLET 1000 MG PO (10:22)
[2022-09-24] MEDS: diazePAM INJ (*CRX) 10 MG/2 ML SYRINGE 5 MG IV PUSH (10:22)
[2022-09-24 11:58] VITALS: BP 130/95; PULSE 84; RESP 18; O2SAT 100
[2022-09-24 12:40] LABS: Appearance Urine Clear (Clear); Bacteria Urine None Seen /hpf; Bilirubin Urine Negative (Negative); Blood Urine Negative (Negative); Color Urine Yellow (Yellow); Glucose Urine UA Negative (Negative); Ketones Urine Negative (Negative); Leukocyte Esterase Ur Trace LEU/UL (Negative); Nitrate Urine Negative (Negative); Non Pathogenic Casts 0-2; Protein Urine Negative (Negative); RBC Urine 0-2 /hpf (0-2); Specific Grav Ur 1.011 (1.001-1.035); Squamous Epithelial Cell Urine None seen /hpf (Few); WBC Urine 0-5 /hpf; pH Urine 6.5 (5.0-9.0)
[2022-09-24 12:47] LABS: Add Urine Microscopic? YES
[2022-09-24 13:30] VITALS: BP 130/90; PULSE 80; RESP 18; TEMP 36.3; O2SAT 100
== END 2022-09-24 13:31 | disposition home or self-care (01) ==
PROVIDERS: Emergency Provider Physician Assistant; PCP Internal Medicine
DX: M54.50 Low back pain, unspecified (principal); F17.290 Nicotine dependence, other tobacco product, uncomplicated; F41.9 Anxiety disorder, unspecified; J44.9 Chronic obstructive pulmonary disease, unspecified; I25.10 Atherosclerotic heart disease of native coronary artery without angina pectoris; K21.9 Gastro-esophageal reflux disease without esophagitis; I10 Essential (primary) hypertension
CPT/HCPCS: 36415; 74176; 80053; 81001; 83690; 85025; 96374; 99284; A9270; J3360

== ENCOUNTER 2022-11-11 00:38 | Inpatient (IN) | payer OTHER, SELFPAY ==
[2022-11-11] VITALS (25 sets, daily range): BP systolic 105–140; BP diastolic 70–94; PULSE 60–91; RESP 13–23; TEMP 36.2–36.9; O2SAT 91–100; BMI 36.8
--- NOTE | ~2022-11-11 | CT_ITS ---
Non-contrast Head CT History: Status post fall COMPARISON: 06/28/2016 Technique: Axial non-contrast imaging of the brain was performed. Dose reduction technique was used on this scan by utilizing automated exposure control and iterative reconstruction technique. The dose -length product (DLP) was 681.00 mGy-cm. Findings: There is no evidence of intracranial hemorrhage, mass lesion, or acute infarct. Brain par enchyma appears normal. The ventricles and subarachnoid spaces are normal in size. The calvarium ap pears normal. The visualized paranasal sinuses and mastoid air cells are clear. Impression: No significant abnormality seen. Reviewed, dictated and finalized at location . Impression: No significant abnormality seen.
--- NOTE | ~2022-11-11 | CT_ITS ---
Non-contrast CT scan of the Pelvis Clinical indication: Status post fall Technique: 2.5 mm axial scans were obtained through the abdomen and pelvis without intravenous or or al contrast. Dose reduction technique was used on this scan by utilizing automated exposure control a nd iterative reconstruction technique. The dose-length product (DLP) was 778.28 mGy-cm. Findings: There are atherosclerotic calcifications of the aorta. Visualized bowel loops are unremarka ble. No ascites. Urinary bladder unremarkable. No adnexal mass seen. There are focal nondisplaced fractures of left superior and inferior pubic rami. Focal irregularity l eft sacral alae suggest nondisplaced fracture. Visualized musculature is grossly unremarkable for non contrast CT scan. No soft tissue mass or fluid collection identified. Impression: Focal nondisplaced fractures of the left superior and inferior pubic rami. Focal irregularity of the left sacral alae suggest nondisplaced fracture. Reviewed, dictated and finalized at [facility]. Impression: Focal nondisplaced fractures of the left superior and inferior pubic rami. Focal irregularity of the left sacral alae suggest nondisplaced fracture.
--- NOTE | ~2022-11-11 | XR_ITS ---
AP view of the pelvis and AP and lateral views of the left hip Clinical history: Pain Findings: Questional focal irregularity at the superior left pubic ramus, which could indicate nondis placed fracture. No femoral neck fracture seen. Bilateral hip and SI joint spaces are preserved. Soft tissues are unremarkable. Impression: Questionable nondisplaced left superior pubic ramus fracture. No femoral neck fracture seen. Reviewed, dictated and finalized at location . Impression: Questionable nondisplaced left superior pubic ramus fracture. No femoral neck fracture seen.
[2022-11-11] MEDS: HYDROcodone/acetaminophen (*CRX) 7.5-325 MG TABLET 1 TAB PO (02:10)
--- NOTE | 2022-11-11 02:29 | ED.FALL ---
HPI - Fall General Chief Complaint: Fall <Mj Chowdhury PA-C - Last Filed: 11/11/22 03:56> Stated Complaint: fall, hip pain <Mj Chowdhury PA-C - Last Filed: 11/11/22 03:56> Time Seen by Provider: 11/11/22 00:55 <Mj Chowdhury PA-C - Last Filed: 11/11/22 03:56> Source: patient <EDILMA Pompa Last Filed: 11/11/22 03:56> Mode of arrival: EMS <EDILMA Pompa Last Filed: 11/11/22 03:56> Limitations: no limitations <EDILMA Pompa Last Filed: 11/11/22 03:56> History of Present Illness HPI Narrative: This is a 62-year-old female who presents to the ED via EMS with chief complaint of a ground-level mechanical fall that occurred just prior to arrival. Patient states that she went outside to smoke. She was on the back porch area. She states she bent over to mixing picker tender her ladder off the ground when she lost her balance and slipped off the edge of the porch area. She reports that the porch is about 2 inches off the ground. She reports that she fell onto her left side and now has left hip pain along with some headache. Denies LOC. She is not on blood thinners. Denies any numbness, weakness, neck pain or any further site of pain or injury. <EDILMA Pompa Last Filed: 11/11/22 03:56> Related Data Home Medications: Home Medications Medication Instructions Recorded Confirmed albuterol sulfate 90 mcg/actuation inhalation DAILY PRN Shortness Of 11/18/19 09/13/22 aerosol inhaler Breath carvedilol 3.125 mg tablet 3.125 mg PO BID 11/18/19 09/13/22 ranolazine 1,000 mg 1,000 mg PO BID 11/18/19 09/13/22 tablet,extended release,12 hr (Ranexa) ticagrelor 60 mg tablet (Brilinta) 60 mg PO DAILY 11/18/19 09/13/22 albuterol sulfate 2.5 mg/3 mL 2.5 mg continuous nebulization QID 03/20/22 09/13/22 (0.083 %) solution for nebulization ezetimibe 10 mg tablet 10 mg PO DAILY 03/20/22 09/13/22 losartan 25 mg tablet 25 mg PO DAILY 03/20/22 09/13/22 melatonin 10 mg capsule 10 mg PO QHS 03/20/22 09/13/22 nitroglycerin 0.4 mg sublingual 0.4 mg sublingual Q5M PRN chest 03/20/22 09/13/22 tablet pain tiotropium 2.5 mcg-olodaterol 2.5 2 puff inhalation BID 03/20/22 09/13/22 mcg/actuation mist for inhalation (Stiolto Respimat) cholecalciferol (vitamin D3) 25 2,000 unit PO DAILY 05/02/22 09/13/22 mcg (1,000 unit) capsule isosorbide mononitrate 60 mg 60 mg PO BID 05/02/22 09/13/22 tablet,extended release 24 hr omega-3 fatty acids 1,000 mg 1,000 mg PO BID 05/02/22 09/13/22 capsule <Mj Chowdhury PA-C - Last Filed: 11/11/22 03:56> Allergies/Adverse Reactions: Allergies Allergy/AdvReac Type Severity Reaction Status Date / Time No Known Allergies Allergy Verified 11/11/22 00:44 <Mj Chowdhury PA-C - Last Filed: 11/11/22 03:56> Review of Systems Review of Systems: All systems as dictated in HPI <Mj Chowdhury PA-C - Last Filed: 11/11/22 03:56> [facility] Past Medical History Medical History: Medical History (Updated 11/11/22 @ 05:09 by Michael Jean-Baptiste MD) Anxiety COPD (chronic obstructive pulmonary disease) Coronary artery disease Depression Emphysema lung Gallbladder disease GERD (gastroesophageal reflux disease) Heart disease History of blood transfusion Hyperlipemia Hypertension Kidney stones Nondisplaced fracture of distal end of right radius radial styloid <Mj Chowdhury PA-C - Last Filed: 11/11/22 03:56> Surgical History Surgical History: Surgical History (Updated 10/11/22 @ 13:42 by Jo Delgado) H/O heart artery stent S/P foot surgery <Mj Chowdhury PA-C - Last Filed: 11/11/22 03:56> Family History Family History: Family History Father Alcoholism Cancer Depression Anxiety Mother Cancer Anxiety Alcoholism Depression Sibling Alcoholism Anxiety Cancer Depression Hypertension Heart disease Other [place]
[2022-11-11] MEDS: MORPHINE SULFATE (*CRX) 2 MG/ML INJ IV PUSH ×2 (04:46→21:57)
[2022-11-11 04:51] LABS: Basophils Percent Auto 0.5 % (0.2-1.2); Eosinophils Absolute Auto 0.2 K/mm3 (0-0.3); Eosinophils Percent Auto 2.6 % (0-4.4); Hematocrit 39.1 % (37.0-47.0); Hemoglobin 12.5 g/dL (12.0-15.0); Immature Granulocyte Absolute 0.11 K/mm3 (0.00-0.031); Immature Granulocyte Percent A 1.3 % (0-0.5); Lymphocytes Absolute Auto 1.81 K/mm3 (0.9-3.2); Lymphocytes Percent Auto 21.6 % (18.3-44.2); Mean Corpuscular Hemoglobin 30.9 pg (26-34); Mean Corpuscular Volume 96.8 fl (80-100); Monocytes Absolute Auto 0.6 K/mm3 (0.1-0.6); Monocytes Percent Auto 7.5 % (2.6-8.5); Neutrophils Absolute Auto 5.6 K/mm3 (1.3-6.7); Neutrophils Percent Auto 66.5 % (45.5-73.1); Platelet Count Result 214 k/mm3 (150-375); Red Blood Count 4.04 M/mm3 (4.2-5.4); Red Cell Distribution Width 16.4 % (11.5-14.5); White Blood Count 8.4 K/mm3 (4.5-10.0)
[2022-11-11 05:01] LABS: Alanine Aminotransferase 43 U/L (6-35); Albumin Level 4.3 g/dL (3.5-5.1); Alkaline Phosphatase 23 U/L (38-126); Anion Gap 5 mmol/L (8-16); Aspartate Amino Transferase 80 U/L (14-36); Bilirubin,Total 0.8 mg/dL (0.2-1.3); Blood Urea Nitrogen 14 mg/dL (7-17); Calcium 9.2 mg/dL (8.4-10.2); Carbon Dioxide 21 mmol/L (22-30); Chloride 103 mmol/L (98-107); Estimated CRCL calculation 65 ml/min; Estimated Glomerular Filt Rate > 60; Glucose 84 mg/dL (65-110); Potassium 4.5 mmol/L (3.4-5.0); Sodium 129 mmol/L (137-145)
[2022-11-11 05:07] LABS: INR 0.9; Prothrombin Time 12.8 Seconds (11.1-14.7)
--- NOTE | 2022-11-11 05:58 | PC.NURSE ---
Patient called nurse to the room. Patient had pulled out her IV. Patient had IV with tip intact on floor. Patient was yelling at this nurse and heavy truck technician stating give me more fucking pain medicine! This nurse informed her that the physician did not have anything ordered at this time, but I will let the provider know. Patient did allow this RN to place another IV in her right AC. ERP notified of patients request for pain medication. This nurse and heavy truck technician went back into room to change patient from wet clothes and place on an air mattress. Patient then began yelling at this nurse I want to fucking leave, I want a fucking drink and I can take my own fucking pain medicine when I fucking want to!! This nurse informed patient that she has a room upstairs and is about to go upstairs. Patient continues to yell at this nurse Get me the fucking doctor! I want to leave cause I can take my own fucking pain medication when I fucking want to!! This RN walked out of room and informed ERP and patients primary nurse. ERP went to speak with patient.
--- NOTE | 2022-11-11 06:03 | PC.NURSE ---
clarified medication with Ray significant other confirmed medication list is up to date.
[2022-11-11] MEDS: MORPHINE SULFATE (*CRX) 4 MG/ML INJ 2 MG IV PUSH ×3 (06:14→11:32)
--- NOTE | 2022-11-11 08:07 | PM.IMHP ---
H&P: HPI History of Present Illness Date/Time: 11/11/22 08:07 Chief Complaint: Left hip pain Narrative: This is a 62-year-old female who presents to the ED via EMS with chief complaint of a ground-level mechanical fall that occurred just prior to arrival.? Patient states that she went outside to smoke.? She was on the back porch area.? She states she bent over to waste picker her ladder off the ground when she lost her balance and slipped off the edge of the porch area.? She reports? that the porch is about 2 inches off the ground.? She reports that she fell onto her left side and now has left hip pain along with some headache.? Denies LOC.? She is not on blood thinners.? Denies any numbness, weakness, neck pain or any further site of pain or injury.? Vitals stable. CT head was negative for any acute findings. Patient unable to ambulate without significant pain. X-ray showed probable pelvic fracture without evidence of hip fracture. CT pelvis without contrast showed left pubic body nondisplaced fracture and left sacral ala fracture. Admitted for further evaluation and management. Review of Systems Review of Systems: - CONSTITUTIONAL: Denies weight loss, fever and chills. - HEENT: Denies changes in vision and hearing - RESPIRATORY: Denies SOB and cough. - CV: Denies palpitations and CP. - GI: Denies abdominal pain, nausea, vomiting and diarrhea. - : Denies dysuria and urinary frequency. - MSK: Denies myalgia and reports left hip pain - SKIN: Denies rash and pruritus. - NEUROLOGICAL: Denies headache and syncope. - PSYCHIATRIC: Denies recent changes in mood. Denies anxiety and depression. [facility] Past Medical History Medical History (Updated 11/11/22 @ 05:09 by Michael Jean-Baptiste MD) Anxiety COPD (chronic obstructive pulmonary disease) Coronary artery disease Depression Emphysema lung Gallbladder disease GERD (gastroesophageal reflux disease) Heart disease History of blood transfusion Hyperlipemia Hypertension Kidney stones Nondisplaced fracture of distal end of right radius radial styloid Surgical History Surgical History (Updated 10/11/22 @ 13:42 by Jo Delgado) H/O heart artery stent S/P foot surgery Family History Family History Father Alcoholism Cancer Depression Anxiety Mother Cancer Anxiety Alcoholism Depression Sibling Alcoholism Anxiety Cancer Depression Hypertension Heart disease Other Alcoholism Anxiety Depression Social History Social History Smoking status: Current every day smoker Tobacco type: e-cigarettes/vaping Alcohol intake: current Alcohol use details: beer once or twice a week Substance use: never Substance use type: does not use Lack of Transportation: No Lack of Food: Never True Current Housing: I Have Housing Concerned About Future Housing: No Difficulty Paying Gas/Electric Bills: No Difficulty Paying for Meds: No Currently Unemployed: No Education: High School Diploma/GED Difficulty w/ Childcare or Family Care: No Living arrangements: alone Occupation/Education: other Gender identity (if verbalized by the patient): Female Spiritual care concerns: No Meds Home Medications and Allergies Home Medications Medication Instructions Recorded Confirmed Type albuterol sulfate 90 mcg/actuation inhalation DAILY PRN Shortness Of 11/18/19 09/13/22 History aerosol inhaler Breath carvedilol 3.125 mg tablet 3.125 mg PO BID 11/18/19 11/11/22 History ranolazine 1,000 mg 1,000 mg PO BID 11/18/19 11/11/22 History tablet,extended release,12 hr (Ranexa) ticagrelor 60 mg tablet (Brilinta) 60 mg PO DAILY 11/18/19 11/11/22 History albuterol sulfate 2.5 mg/3 mL 2.5 mg continuous nebulization QID 03/20/22 11/11/22 History (0.083 %) solution for nebulization ezetimibe 10 mg ta
[2022-11-11] MEDS: carvediloL 3.125 MG TABLET PO ×2 (08:47→20:33)
[2022-11-11] MEDS: GABAPENTIN 400 MG CAPSULE 800 MG PO ×3 (08:47→16:27)
[2022-11-11] MEDS: RANOLAZINE 500 MG TAB.ER.12H 1000 MG PO ×2 (08:47→20:33)
[2022-11-11] MEDS: OMEGA 3 POLYUNSAT FATTY ACIDS 1 GM CAP PO ×2 (08:47→16:27)
[2022-11-11] MEDS: LOSARTAN POTASSIUM 25 MG TABLET PO (08:47)
[2022-11-11] MEDS: CHOLECALCIFEROL 1,000 UNITS TABLET 2000 UNITS PO (08:48)
[2022-11-11] MEDS: PANTOPRAZOLE 40 MG TABLET PO (08:48)
[2022-11-11] MEDS: EZETIMIBE 10 MG TABLET PO (08:55)
[2022-11-11] MEDS: TICAGRELOR 60 MG TABLET PO (08:55)
[2022-11-11] MEDS: FLUTICASONE PROPIONATE 0.05% NA SPR 16 GM BTL (*BKC) 2 SPRAY NASAL (09:30)
[2022-11-11] MEDS: ISOSORBIDE MONONITRATE 60 MG TAB.ER.24H PO ×2 (09:30→16:27)
[2022-11-11] MEDS: HYDROcodone/acetaminophen (*CRX) 10-325 MG TABLET 1 TAB PO ×3 (12:08→20:41)
[2022-11-11] MEDS: UMECLIDINIUM/VILANTEROL 62.5-25 MCG ELLIPTA 1 PUFF INHALATION (14:19)
--- NOTE | 2022-11-11 16:15 | PM.CNOR ---
Assessment and Plan Assessment and plan (1) Closed pelvic fracture: Code(s): S32.9XXA - Fracture of unspecified parts of lumbosacral spine and pelvis, initial encounter for closed fracture <EMILIA Hawkins - Last Filed: 11/12/22 11:03> Status: Acute <EMILIA Hawkins - Last Filed: 11/12/22 11:03> Assessment and Plan: Patient seen and examined. Discussed care plan with Leonora Arora PA-C. Radiographic images reviewed personally. Agree with conservative care plan. <Michel Arzate MD - Last Filed: 11/11/22 17:13> (2) Tobacco abuse: Code(s): Z72.0 - Tobacco use <EMILIA Hawkins - Last Filed: 11/12/22 11:03> Status: Acute <EMILIA Hawkins - Last Filed: 11/12/22 11:03> Assessment and Plan: Left nondisplaced superior and inferior pubic rami fractures confirmed on CT scan. Possible non-displaced sacral fracture. These can be treated non-operatively. She may start PT/OT as able. Will likely need inpatient rehab at discharge. Will follow up in office in 1 month with xrays. <EMILIA Hawkins - Last Filed: 11/12/22 11:03> History of Present Illness HPI Consult date: 11/12/22 <EMILIA Hawkins - Last Filed: 11/12/22 11:03> 11/11/22 <Michel Arzate MD - Last Filed: 11/11/22 17:13> Chief complaint: Left pubic body fracture left sacral alae fracture <EMILIA Hawkins - Last Filed: 11/12/22 11:03> Narrative: Patient fell 11/10/22. She states she was outside smoking. She dropped her gallery host off her deck that is about 2 inches off the ground. She went to grab it, got dizzy and fell. She fell onto her left side. She states she is on a blood thinner. She states she hit her head but did not lose consciousness. Pain in her left groin and pelvic area. She has other bruises on her legs and mosquito bites on her legs. Notes increased pain. Not controlled well with medications. <EMILIA Hawkins - Last Filed: 11/12/22 11:03> Review of Systems Review of Systems: All systems reviewed & are unremarkable except as noted in HPI and below <EMILIA Hawkins - Last Filed: 11/12/22 11:03> [facility] Past Medical History Medical History: Medical History (Updated 11/11/22 @ 05:09 by Michael Jean-Baptiste MD) Anxiety COPD (chronic obstructive pulmonary disease) Coronary artery disease Depression Emphysema lung Gallbladder disease GERD (gastroesophageal reflux disease) Heart disease History of blood transfusion Hyperlipemia Hypertension Kidney stones Nondisplaced fracture of distal end of right radius radial styloid <EMILIA Hawkins - Last Filed: 11/12/22 11:03> Surgical History Surgical History: Surgical History (Updated 10/11/22 @ 13:42 by Jo Delgado) H/O heart artery stent S/P foot surgery <EMILIA Hawkins - Last Filed: 11/12/22 11:03> Family History Family History: Family History Father Alcoholism Cancer Depression Anxiety Mother Cancer Anxiety Alcoholism Depression Sibling Alcoholism Anxiety Cancer Depression Hypertension Heart disease Other Alcoholism Anxiety Depression <EMILIA Hawkins - Last Filed: 11/12/22 11:03> Social History Social History: Social History Smoking status: Current every day smoker Tobacco type: e-cigarettes/vaping Alcohol intake: current Alcohol use details: beer once or twice a week Substance use: never Substance use type: does not use Lack of Transportation: No Lack of Food: Never True Current Housing: I Have Housing Concerned About Future Housing: No Difficulty Paying Gas/Electric Bills: No Difficulty Paying for Meds: No Currently Unemployed: No Education: High School Diploma/GED Difficulty w/ Childcare or Family Car
[2022-11-11] MEDS: MELATONIN 5 MG TABLET 10 MG PO (20:33)
[2022-11-11] MEDS: rOPINIRole HCL 1 MG TABLET PO (20:33)
[2022-11-12] MEDS: BENZONATATE 100 MG CAPSULE 200 MG PO ×4 (00:46→16:20)
[2022-11-12] MEDS: HYDROcodone/acetaminophen (*CRX) 10-325 MG TABLET 1 TAB PO ×5 (00:46→20:12)
[2022-11-12] MEDS: guaiFENesin 600 MG/DEXTROMETHORPHAN 30 MG SR TAB 12 HR 1 TAB PO ×3 (00:46→22:25)
[2022-11-12] MEDS: MORPHINE SULFATE (*CRX) 2 MG/ML INJ IV PUSH ×4 (02:30→16:26)
[2022-11-12 06:00] VITALS: BP 125/78; PULSE 80; RESP 20; TEMP 36.8; O2SAT 99
[2022-11-12 06:31] LABS: Basophils Percent Auto 0.6 % (0.2-1.2); Eosinophils Absolute Auto 0.2 K/mm3 (0-0.3); Eosinophils Percent Auto 3.9 % (0-4.4); Hematocrit 37.2 % (37.0-47.0); Hemoglobin 11.8 g/dL (12.0-15.0); Immature Granulocyte Absolute 0.04 K/mm3 (0.00-0.031); Immature Granulocyte Percent A 0.8 % (0-0.5); Lymphocytes Absolute Auto 1.28 K/mm3 (0.9-3.2); Lymphocytes Percent Auto 24.1 % (18.3-44.2); Mean Corpuscular HGB Conc 31.7 g/dl (32-36); Mean Corpuscular Hemoglobin 30.8 pg (26-34); Mean Corpuscular Volume 97.1 fl (80-100); Mean Platelet Volume 12.6 fl (7.4-10.4); Monocytes Absolute Auto 0.6 K/mm3 (0.1-0.6); Monocytes Percent Auto 10.9 % (2.6-8.5); Neutrophils Absolute Auto 3.2 K/mm3 (1.3-6.7); Neutrophils Percent Auto 59.7 % (45.5-73.1); Platelet Count Result 157 k/mm3 (150-375); Red Blood Count 3.83 M/mm3 (4.2-5.4); Red Cell Distribution Width 16.4 % (11.5-14.5); White Blood Count 5.3 K/mm3 (4.5-10.0)
[2022-11-12 06:41] LABS: Alanine Aminotransferase 32 U/L (6-35); Albumin Level 4.1 g/dL (3.5-5.1); Alkaline Phosphatase 35 U/L (38-126); Anion Gap 7 mmol/L (8-16); Aspartate Amino Transferase 45 U/L (14-36); Bilirubin,Total 0.8 mg/dL (0.2-1.3); Blood Urea Nitrogen 18 mg/dL (7-17); Calcium 9.6 mg/dL (8.4-10.2); Carbon Dioxide 21 mmol/L (22-30); Chloride 106 mmol/L (98-107); Estimated CRCL calculation 46 ml/min; Estimated Glomerular Filt Rate 46; Glucose 105 mg/dL (65-110); Magnesium 1.9 mg/dL (1.6-2.3); Potassium 4.3 mmol/L (3.4-5.0); Sodium 134 mmol/L (137-145)
[2022-11-12] MEDS: RANOLAZINE 500 MG TAB.ER.12H 1000 MG PO ×2 (08:37→22:25)
[2022-11-12] MEDS: CHOLECALCIFEROL 1,000 UNITS TABLET 2000 UNITS PO (08:38)
[2022-11-12] MEDS: PANTOPRAZOLE 40 MG TABLET PO (08:38)
[2022-11-12] MEDS: LOSARTAN POTASSIUM 25 MG TABLET PO (08:38)
[2022-11-12] MEDS: ISOSORBIDE MONONITRATE 60 MG TAB.ER.24H PO ×2 (08:38→16:20)
[2022-11-12] MEDS: OMEGA 3 POLYUNSAT FATTY ACIDS 1 GM CAP PO ×2 (08:38→16:20)
[2022-11-12] MEDS: TICAGRELOR 60 MG TABLET PO (08:38)
[2022-11-12] MEDS: GABAPENTIN 400 MG CAPSULE 800 MG PO ×3 (08:38→16:20)
[2022-11-12] MEDS: EZETIMIBE 10 MG TABLET PO (08:38)
[2022-11-12 08:39] VITALS: PULSE 60
[2022-11-12] MEDS: carvediloL 3.125 MG TABLET PO ×2 (08:39→22:26)
[2022-11-12] MEDS: UMECLIDINIUM/VILANTEROL 62.5-25 MCG ELLIPTA 1 PUFF INHALATION (09:13)
--- NOTE | 2022-11-12 10:43 | PCOTNOTE ---
Initiated occupational therapy evaluation. Pt. currently refusing to get out of bed due to pain and anxiety. Nursing aware.
--- NOTE | 2022-11-12 11:03 | PM.PNORT ---
Progress Note: A&P Assessment and Plan (1) Closed pelvic fracture: Qualifiers: Encounter type: subsequent encounter Pelvic bone location: pubis Code(s): S32.9XXA - Fracture of unspecified parts of lumbosacral spine and pelvis, initial encounter for closed fracture Status: Acute (2) Fall: Code(s): W19.XXXA - Unspecified fall, initial encounter Status: Acute Plan ? Left nondisplaced superior and inferior pubic rami fractures confirmed on CT scan. Possible non-displaced sacral fracture. These can be treated non-operatively. She may start PT/OT as able. Will likely need inpatient rehab at discharge. Will follow up in office in 1 month with xrays.?? Pain more tolerable today. She feels ready to work with formal physical therapy. She is more optimistic today. Subjective Subjective Date/Time Seen: 11/12/22 11:03 Interval history: Patient resting comfortably in bed today. She states pain is better controlled. She feels like she could do some therapy today. Review of Systems Review of Systems: All systems reviewed & are unremarkable except as noted in HPI and below Exam Narrative: 62 y/o overweight female. Resting in bed comfortably. Scattered bruises and mosquito bites on her legs. Pain at the pelvis. Able to wiggle toes. Light touch sensation intact. Distal neurovascularly intact. Objective Data Vital Signs Vital Signs: Vital Signs - 24 hr 11/11/22 14:00 11/11/22 20:33 11/11/22 20:00 Temperature 97.1 F L Pulse Rate 73 78 Respiratory Rate 17 Blood Pressure 125/82 Pulse Oximetry 96 Oxygen Delivery Room Air 11/11/22 22:00 11/11/22 22:00 11/12/22 06:00 Temperature 97.7 F 98.2 F Pulse Rate 91 80 Respiratory Rate 22 H 20 Blood Pressure 140/70 125/78 Pulse Oximetry 98 99 Oxygen Delivery 11/12/22 08:39 11/12/22 09:13 Temperature Pulse Rate 60 Respiratory Rate Blood Pressure Pulse Oximetry Oxygen Delivery Room Air Intake/Output Intake/Output: Intake & Output 11/09/22 11/10/22 11/11/22 11/12/22 23:59 23:59 23:59 23:59 Intake Total 681 448 Output Total 500 125 Balance 181 323 Meds/Results Medications: Active Medications Generic Name Dose Route Start Last Admin Trade Name Freq PRN Reason Stop Dose Admin Hydrocodone Bitart/Acetaminophen 1 tab 11/11/22 11:52 11/12/22 08:55 Hydrocodone/Acetaminophen (*Crx) 10-325 Mg Tablet PO 1 tab Q4H PRN Administration Pain Rated 7-10 Albuterol 2.5 mg 11/11/22 17:34 Albuterol Sulfate Neb 2.5 Mg/3 Ml Inh INHALATION Q6HRT PRN Wheezing Benzonatate 200 mg 11/12/22 00:00 11/12/22 08:38 Benzonatate 100 Mg Capsule PO 200 mg TID DAVID Administration Carvedilol 3.125 mg 11/11/22 09:00 11/12/22 08:39 Carvedilol 3.125 Mg Tablet PO 3.125 mg Q12HR DAVID Administration Ezetimibe 10 mg 11/11/22 09:00 11/12/22 08:38 Ezetimibe 10 Mg Tablet PO 10 mg DAILY DAVID Administration Fish Oil 1 gm 11/11/22 09:00 11/12/22 08:38 [place] 3 Polyunsat Fatty Acids 1 Gm Cap PO 1 gm BID DAVID Administration Fluticasone Propionate 2 spray 11/11/22 09:00 11/11/22 09:30 Fluticasone Propionate 0.05% Na Spr 16 Gm Btl (*Bkc) NASAL 2 spray DAILY DAVID Administration Gabapentin 800 mg 11/11/22 09:00 11/12/22 08:38 Gabapentin 400 Mg Capsule PO 800 mg TID DAVID Administration Guaifenesin/Dextromethorphan 1 tab 11/12/22 00:00 11/12/22 08:38 Guaifenesin 600 Mg/Dextromethorphan 30 Mg Sr Tab 12 Hr PO 1 tab Q12HR DAVID Administration Isosorbide Mononitrate 60 mg 11/11/22 09:00 11/12/22 08:38 Isosorbide Mononitrate 60 Mg Tab.Er.24h PO 60 mg BID DAVID Administration Losartan Potassium 25 mg 11/11/22 09:00 11/12/22 08:38 Losartan Potassium 25 Mg Tablet PO 25 mg DAILY DAVID Administration Melatonin 10 mg 11/11/22 21:00 11/11/22 20:33 Melatonin 5 Mg Tablet PO 10 mg QHS DAVID Administration [place]
--- NOTE | 2022-11-12 13:59 | PM.IMPN ---
Progress Note: A&P Assessment and Plan (1) Closed pelvic fracture: Code(s): S32.9XXA - Fracture of unspecified parts of lumbosacral spine and pelvis, initial encounter for closed fracture Status: Acute (2) Restless leg syndrome: Code(s): G25.81 - Restless legs syndrome Status: Acute (3) Back Pain: Qualifiers: Back pain location: low back pain Chronicity: chronic Back pain laterality: bilateral Sciatica presence: without sciatica Qualified Code(s): M54.50 - Low back pain, unspecified; G89.29 - Other chronic pain Code(s): M54.9 - Dorsalgia, unspecified Status: Acute (4) Fall: Code(s): W19.XXXA - Unspecified fall, initial encounter Status: Acute Plan Mechanical fall Left superior and inferior pubic rami fracture and left sacral ala fracture. Orthopedic consulted. Pain control and non operative management. PT OT evaluating. Needs rehab placement Hypertension History of osteopenia/osteoporosis on alendronate which will be held Elevated LFTs mild hyponatremia mild COPD Coronary artery disease Hyperlipidemia GERD Restless leg syndrome DVT prophylaxis Lovenox Code status full code Subjective Date/time seen: 11/12/22 13:59 Interval history: Working with therapy today. Pain is controlled. Denies any chest pain or shortness of breath. Review of Systems Review of Systems: All systems reviewed & are unremarkable except as noted in HPI and below Exam Narrative: GENERAL: Well-appearing, well-nourished, and in no acute distress. HEAD: Normocephalic, atraumatic. EYES: PERRLA and EOMI. ENT: Nares clear, no rhinorrhea or epistaxis.? Mucous membranes moist.? Oropharynx without tonsillar hypertrophy exudate or other lesions. NECK: Supple.? No adenopathy or masses.? CHEST: No respiratory distress. Clear to auscultation. No wheezes rales or rhonchi HEART: Regular rate and rhythm.? No murmur heard.? Normal peripheral pulses. ABDOMEN: Soft, nontender, nondistended, normal active bowel sounds. MSK: LLE: Pain with logroll of the left hip.? Lateral tenderness of the left hip.? Passive range of motion limited due to pain.? Leg lengths equal.? No deformities throughout the extremity.? No knee tenderness. RLE: Benign SKIN: Warm, dry, no rash.? No skin wounds or ecchymotic lesions. NEURO: Alert and oriented x3. No focal deficits.? PSYCH: Normal mood and affect. Objective Data Vital Signs Vital Signs: Vital Signs - 24 hr 11/11/22 14:00 11/11/22 20:33 11/11/22 20:00 Temperature 97.1 F L Pulse Rate 73 78 Respiratory Rate 17 Blood Pressure 125/82 Pulse Oximetry 96 Oxygen Delivery Room Air 11/11/22 22:00 11/11/22 22:00 11/12/22 06:00 Temperature 97.7 F 98.2 F Pulse Rate 91 80 Respiratory Rate 22 H 20 Blood Pressure 140/70 125/78 Pulse Oximetry 98 99 Oxygen Delivery 11/12/22 08:39 11/12/22 09:13 Temperature Pulse Rate 60 Respiratory Rate Blood Pressure Pulse Oximetry Oxygen Delivery Room Air Intake/Output Intake/Output: Intake & Output 11/09/22 11/10/22 11/11/22 11/12/22 23:59 23:59 23:59 23:59 Intake Total 681 568 Output Total 500 125 Balance 181 443 Meds/Results Medications: Active Medications Generic Name Dose Route Start Last Admin Trade Name Freq PRN Reason Stop Dose Admin Hydrocodone Bitart/Acetaminophen 1 tab 11/11/22 11:52 11/12/22 08:55 Hydrocodone/Acetaminophen (*Crx) 10-325 Mg Tablet PO 1 tab Q4H PRN Administration Pain Rated 7-10 Albuterol 2.5 mg 11/11/22 17:34 Albuterol Sulfate Neb 2.5 Mg/3 Ml Inh INHALATION Q6HRT PRN Wheezing Benzonatate 200 mg 11/12/22 00:00 11/12/22 12:17 Benzonatate 100 Mg Capsule PO 200 mg TID DAVID Administration Carvedilol 3.125 mg 11/11/22 09:00 11/12/22 08:39 Carvedilol 3.125 Mg Tablet PO 3.125 mg Q12HR DAVID Administration Ezetimibe 10 mg 11/11/22 09:00 11/12/22 08:38 Ezetimibe 10 Mg Tablet
[2022-11-12 14:00] VITALS: BP 127/85; PULSE 70; RESP 14; TEMP 36.8; O2SAT 100
--- NOTE | 2022-11-12 16:45 | PC.NURSE ---
pt angry in room throughout the day. pt not happy with food selection. pt not happy with pain control. pt requesting Q1hr pain medicine. pt states she wants to be able to sleep through the pain. pt educated on pain management. pt states she is unhappy with bed alarm. pt was educated that she was admitted because of a fx from a fall. pt states she is being treated like a baby because she is on fall precautions. pt refusing to let staff in room while she is placed on a commode. pt will tell therapy to come back later when they attempt to see her. pt refused dinner stating she just had her morphine and wants no one in her room so she can sleep.
--- NOTE | 2022-11-12 19:07 | PC.NURSE ---
This nurse has reviewed the charting of the orienting license pending nurse and agree with the findings
[2022-11-12 21:37] VITALS: O2SAT 96
[2022-11-12 22:00] VITALS: BP 119/64; PULSE 81; RESP 18; TEMP 36; O2SAT 96
[2022-11-12 22:26] VITALS: PULSE 81
[2022-11-12] MEDS: rOPINIRole HCL 1 MG TABLET PO (22:26)
[2022-11-12] MEDS: MELATONIN 5 MG TABLET 10 MG PO (22:27)
[2022-11-12] MEDS: ONDANSETRON INJ 4 MG/2 ML VIAL IV PUSH (23:28)
[2022-11-12] MEDS: polyethylene glycoL 3350 17 GM POWD.PACK PO (23:34)
[2022-11-13] MEDS: HYDROcodone/acetaminophen (*CRX) 10-325 MG TABLET 1 TAB PO ×6 (00:17→20:12)
[2022-11-13 06:00] VITALS: BP 122/89; PULSE 78; RESP 18; TEMP 35.9; O2SAT 95
[2022-11-13] MEDS: FLUTICASONE PROPIONATE 0.05% NA SPR 16 GM BTL (*BKC) 2 SPRAY NASAL (08:43)
[2022-11-13] MEDS: EZETIMIBE 10 MG TABLET PO (08:44)
[2022-11-13] MEDS: CHOLECALCIFEROL 1,000 UNITS TABLET 2000 UNITS PO (08:44)
[2022-11-13 08:45] VITALS: PULSE 80
[2022-11-13] MEDS: TICAGRELOR 60 MG TABLET PO (08:45)
[2022-11-13] MEDS: LOSARTAN POTASSIUM 25 MG TABLET PO (08:45)
[2022-11-13] MEDS: guaiFENesin 600 MG/DEXTROMETHORPHAN 30 MG SR TAB 12 HR 1 TAB PO (08:45)
[2022-11-13] MEDS: carvediloL 3.125 MG TABLET PO ×2 (08:45→20:13)
[2022-11-13] MEDS: ISOSORBIDE MONONITRATE 60 MG TAB.ER.24H PO ×2 (08:45→16:09)
[2022-11-13] MEDS: GABAPENTIN 400 MG CAPSULE 800 MG PO ×3 (08:45→16:08)
[2022-11-13] MEDS: PANTOPRAZOLE 40 MG TABLET PO (08:45)
[2022-11-13] MEDS: BENZONATATE 100 MG CAPSULE 200 MG PO ×3 (08:45→16:09)
[2022-11-13] MEDS: RANOLAZINE 500 MG TAB.ER.12H 1000 MG PO ×2 (08:45→20:12)
[2022-11-13] MEDS: OMEGA 3 POLYUNSAT FATTY ACIDS 1 GM CAP PO ×2 (08:47→16:09)
[2022-11-13] MEDS: UMECLIDINIUM/VILANTEROL 62.5-25 MCG ELLIPTA 1 PUFF INHALATION (08:47)
--- NOTE | 2022-11-13 11:21 | PM.PNORT ---
Progress Note: A&P Assessment and Plan (1) Closed pelvic fracture: Qualifiers: Encounter type: subsequent encounter Pelvic bone location: pubis Code(s): S32.9XXA - Fracture of unspecified parts of lumbosacral spine and pelvis, initial encounter for closed fracture Status: Acute (2) Fall: Code(s): W19.XXXA - Unspecified fall, initial encounter Status: Acute Plan ? Left nondisplaced superior and inferior pubic rami fractures confirmed on CT scan. Possible non-displaced sacral fracture. These can be treated non-operatively. She may start PT/OT as able. Will likely need inpatient rehab at discharge. Okay for discharge from orthopedic standpoint. Will follow up in office in 1 month with xrays.?? Pain intermittent, worse with activity. Pain tolerable with oral pain medications. She has been working with formal physical therapy. She is motivated. She understands that smoking cigarette and nicotine can delay healing. Subjective Subjective Date/Time Seen: 11/13/22 11:21 Interval history: Patient resting comfortably in bed. Notes pain is intermittent but controlled with pain medications. She has been walking with formal physical therapy. No other complaints. Review of Systems Review of Systems: All systems reviewed & are unremarkable except as noted in HPI and below Exam Narrative: 62 y/o overweight female. Resting in bed comfortably. Scattered bruises and mosquito bites on her legs. Pain at the pelvis. Able to wiggle toes. Decreased range of motion due to pain. Fires quad. Light touch sensation intact. Distal neurovascularly intact. Objective Data Vital Signs Vital Signs: Vital Signs - 24 hr 11/12/22 14:00 11/12/22 22:00 11/12/22 22:26 Temperature 98.2 F 96.8 F L Pulse Rate 70 81 81 Respiratory Rate 14 18 Blood Pressure 127/85 119/64 Pulse Oximetry 100 96 Oxygen Delivery 11/12/22 20:00 11/12/22 21:37 11/13/22 06:00 Temperature 96.7 F L Pulse Rate 78 Respiratory Rate 18 Blood Pressure 122/89 Pulse Oximetry 96 95 Oxygen Delivery Room Air Room Air 11/13/22 08:45 Temperature Pulse Rate 80 Respiratory Rate Blood Pressure Pulse Oximetry Oxygen Delivery Intake/Output Intake/Output: Intake & Output 11/10/22 11/11/22 11/12/22 11/13/22 23:59 23:59 23:59 23:59 Intake Total 681 1268 590 Output Total 500 1025 350 Balance 181 243 240 Meds/Results Medications: Active Medications Generic Name Dose Route Start Last Admin Trade Name Freq PRN Reason Stop Dose Admin Hydrocodone Bitart/Acetaminophen 1 tab 11/11/22 11:52 11/13/22 08:46 Hydrocodone/Acetaminophen (*Crx) 10-325 Mg Tablet PO 1 tab Q4H PRN Administration Pain Rated 7-10 Albuterol 2.5 mg 11/11/22 17:34 Albuterol Sulfate Neb 2.5 Mg/3 Ml Inh INHALATION Q6HRT PRN Wheezing Benzonatate 200 mg 11/12/22 00:00 11/13/22 08:45 Benzonatate 100 Mg Capsule PO 200 mg TID DAVID Administration Carvedilol 3.125 mg 11/11/22 09:00 11/13/22 08:45 Carvedilol 3.125 Mg Tablet PO 3.125 mg Q12HR DAVID Administration Ezetimibe 10 mg 11/11/22 09:00 11/13/22 08:44 Ezetimibe 10 Mg Tablet PO 10 mg DAILY DAVID Administration Fish Oil 1 gm 11/11/22 09:00 11/13/22 08:47 [place] 3 Polyunsat Fatty Acids 1 Gm Cap PO 1 gm BID DAVID Administration Fluticasone Propionate 2 spray 11/11/22 09:00 11/13/22 08:43 Fluticasone Propionate 0.05% Na Spr 16 Gm Btl (*Bkc) NASAL 2 spray DAILY DAVID Administration Gabapentin 800 mg 11/11/22 09:00 11/13/22 08:45 Gabapentin 400 Mg Capsule PO 800 mg TID DAVID Administration Guaifenesin/Dextromethorphan 1 tab 11/12/22 00:00 11/13/22 08:45 Guaifenesin 600 Mg/Dextromethorphan 30 Mg Sr Tab 12 Hr PO 1 tab Q12HR DAVID Administration Isosorbide Mononitrate 60 mg 11/11/22 09:00 11/13/22 08:45 Isosorbide Mononitrate 60 Mg Tab.Er.24h PO 60 mg BID DAVID Administration Losartan
--- NOTE | 2022-11-13 12:22 | PCOTNOTE ---
Attempted to see Patient at this time. Patient refused to participate in any activities at this time due to her pain is bad and she will attempt again when given morphine. Per RN, Patient just recently received oral pain medications and she would like to to try to participating. Will check back at a later time.
--- NOTE | 2022-11-13 12:44 | PM.IMPN ---
Progress Note: A&P Assessment and Plan (1) Closed pelvic fracture: Qualifiers: Encounter type: subsequent encounter Pelvic bone location: pubis Code(s): S32.9XXA - Fracture of unspecified parts of lumbosacral spine and pelvis, initial encounter for closed fracture Status: Acute Assessment and Plan: Stable on current medication. Continue current treatment. Ortho consult noted. (2) Restless leg syndrome: Code(s): G25.81 - Restless legs syndrome Status: Acute Assessment and Plan: Stable on current medication. Continue current treatment. (3) Back Pain: Qualifiers: Back pain location: low back pain Chronicity: chronic Back pain laterality: bilateral Sciatica presence: without sciatica Qualified Code(s): M54.50 - Low back pain, unspecified; G89.29 - Other chronic pain Code(s): M54.9 - Dorsalgia, unspecified Status: Acute Assessment and Plan: Stable on current medication. Continue current treatment. (4) Fall: Code(s): W19.XXXA - Unspecified fall, initial encounter Status: Acute Assessment and Plan: Pain control, gait training. Plan Mechanical fall Left superior and inferior pubic rami fracture and left sacral ala fracture. Orthopedic consulted. Pain control and non operative management. PT OT evaluating. Needs rehab placement Hypertension History of osteopenia/osteoporosis on alendronate which will be held Elevated LFTs mild hyponatremia mild COPD Coronary artery disease Hyperlipidemia GERD Restless leg syndrome DVT prophylaxis Lovenox Code status full code Subjective Date/time seen: 11/13/22 12:44 Interval history: Patient was seen during the morning rounds today. Pain is under control. No shortness of breath or chest pain. No Abdominal pain, no nausea, no vomiting. Mood stable. Review of Systems Review of Systems: - CONSTITUTIONAL: Denies weight loss, fever and chills. - HEENT: Denies changes in vision and hearing - RESPIRATORY: Denies SOB and cough. - CV: Denies palpitations and CP. - GI: Denies abdominal pain, nausea, vomiting and diarrhea. - : Denies dysuria and urinary frequency. - MSK: Denies myalgia and reports left hip pain - SKIN: Denies rash and pruritus. - NEUROLOGICAL: Denies headache and syncope. - PSYCHIATRIC: Denies recent changes in mood. Denies anxiety and depression. All systems reviewed & are unremarkable except as noted in HPI and below Exam Narrative: GENERAL: Well-appearing, well-nourished, and in no acute distress. HEAD: Normocephalic, atraumatic. EYES: PERRLA and EOMI. ENT: Nares clear, no rhinorrhea or epistaxis.? Mucous membranes moist.? Oropharynx without tonsillar hypertrophy exudate or other lesions. NECK: Supple.? No adenopathy or masses.? CHEST: No respiratory distress. Clear to auscultation. No wheezes rales or rhonchi HEART: Regular rate and rhythm.? No murmur heard.? Normal peripheral pulses. ABDOMEN: Soft, nontender, nondistended, normal active bowel sounds. MSK: LLE: Pain with logroll of the left hip.? Lateral tenderness of the left hip.? Passive range of motion limited due to pain.? Leg lengths equal.? No deformities throughout the extremity.? No knee tenderness. RLE: Benign SKIN: Warm, dry, no rash.? No skin wounds or ecchymotic lesions. NEURO: Alert and oriented x3. No focal deficits.? PSYCH: Normal mood and affect. Objective Data Vital Signs Vital Signs: Vital Signs - 24 hr 11/12/22 14:00 11/12/22 22:00 11/12/22 22:26 Temperature 36.8 C 36.0 C L Pulse Rate 70 81 81 Respiratory Rate 14 18 Blood Pressure 127/85 119/64 Pulse Oximetry 100 96 Oxygen Delivery 11/12/22 20:00 11/12/22 21:37 11/13/22 06:00 Temperature 35.9 C L Pulse Rate 78 Respiratory Rate 18 Blood Pressure 122/89 Pulse Oximetry 96 95 Oxygen Delivery Room Air Room Air 11/13/22 08:45 Temperature Pulse Rate 80 Respiratory Rate B
[2022-11-13 14:28] VITALS: BP 104/91; PULSE 71; RESP 18; TEMP 36.6; O2SAT 99
[2022-11-13 20:13] VITALS: PULSE 80
[2022-11-13] MEDS: rOPINIRole HCL 1 MG TABLET PO (20:13)
[2022-11-13] MEDS: MELATONIN 5 MG TABLET 10 MG PO (20:13)
[2022-11-13 21:07] VITALS: BP 106/68; PULSE 70; RESP 17; TEMP 35.9; O2SAT 94
[2022-11-14] MEDS: HYDROcodone/acetaminophen (*CRX) 10-325 MG TABLET 1 TAB PO ×4 (02:08→15:26)
[2022-11-14] MEDS: polyethylene glycoL 3350 17 GM POWD.PACK PO (02:10)
[2022-11-14 04:45] VITALS: BP 99/66; PULSE 76; RESP 20; TEMP 35.9; O2SAT 97
[2022-11-14 07:07] LABS: Alanine Aminotransferase 28 U/L (6-35); Albumin Level 4.3 g/dL (3.5-5.1); Alkaline Phosphatase 39 U/L (38-126); Anion Gap 10 mmol/L (8-16); Aspartate Amino Transferase 37 U/L (14-36); Bilirubin,Total 0.7 mg/dL (0.2-1.3); Blood Urea Nitrogen 33 mg/dL (7-17); Calcium 9.5 mg/dL (8.4-10.2); Carbon Dioxide 23 mmol/L (22-30); Chloride 98 mmol/L (98-107); Estimated CRCL calculation 27 ml/min; Estimated Glomerular Filt Rate 24; Glucose 109 mg/dL (65-110); Potassium 4.7 mmol/L (3.4-5.0); Sodium 131 mmol/L (137-145)
--- NOTE | 2022-11-14 08:27 | PM.IMPN ---
Progress Note: A&P Assessment and Plan (1) Closed pelvic fracture: Qualifiers: Encounter type: subsequent encounter Pelvic bone location: pubis Code(s): S32.9XXA - Fracture of unspecified parts of lumbosacral spine and pelvis, initial encounter for closed fracture Status: Acute Assessment and Plan: Stable on current medication. Continue current treatment. Ortho consult noted. (2) Restless leg syndrome: Code(s): G25.81 - Restless legs syndrome Status: Acute Assessment and Plan: Stable on current medication. Continue current treatment. (3) Back Pain: Qualifiers: Back pain laterality: bilateral Back pain location: low back pain Chronicity: chronic Sciatica presence: without sciatica Qualified Code(s): M54.50 - Low back pain, unspecified; G89.29 - Other chronic pain Code(s): M54.9 - Dorsalgia, unspecified Status: Acute Assessment and Plan: Stable on current medication. Continue current treatment. (4) Fall: Code(s): W19.XXXA - Unspecified fall, initial encounter Status: Acute Assessment and Plan: Pain control, gait training. Plan Mechanical fall Left superior and inferior pubic rami fracture and left sacral ala fracture. Orthopedic consulted. Pain control and non operative management. PT OT evaluating. Needs rehab placement Hypertension History of osteopenia/osteoporosis on alendronate which will be held Elevated LFTs mild hyponatremia mild COPD Coronary artery disease, stable, no chest pain, Hold Imdur because of soft blood pressure Hypertension Hold losartan because blood pressure is soft Hyperlipidemia GERD Restless leg syndrome DVT prophylaxis Lovenox Code status full code Patient will be discharged to rehab today Subjective Date/time seen: 11/14/22 08:27 Interval history: Pain is uncontrolled, blood pressure soft, new issue even the night. Patient ambulates with assistance Exam Narrative: GENERAL: Well-appearing, well-nourished, and in no acute distress. HEAD: Normocephalic, atraumatic. EYES: PERRLA and EOMI. ENT: Nares clear, no rhinorrhea or epistaxis.? Mucous membranes moist.? Oropharynx without tonsillar hypertrophy exudate or other lesions. NECK: Supple.? No adenopathy or masses.? CHEST: No respiratory distress. Clear to auscultation. No wheezes rales or rhonchi HEART: Regular rate and rhythm.? No murmur heard.? Normal peripheral pulses. ABDOMEN: Soft, nontender, nondistended, normal active bowel sounds. MSK: LLE: Pain with logroll of the left hip.? Lateral tenderness of the left hip.? Passive range of motion limited due to pain.? Leg lengths equal.? No deformities throughout the extremity.? No knee tenderness. Patient ambulates with assistance RLE: Benign SKIN: Warm, dry, no rash.? No skin wounds or ecchymotic lesions. NEURO: Alert and oriented x3. No focal deficits.? PSYCH: Normal mood and affect. Objective Data Vital Signs Vital Signs: Vital Signs - 24 hr 11/13/22 08:45 11/13/22 14:28 11/13/22 20:13 Temperature 97.9 F Pulse Rate 80 71 80 Respiratory Rate 18 Blood Pressure 104/91 H Pulse Oximetry 99 Oxygen Delivery 11/13/22 21:07 11/13/22 20:00 11/14/22 04:45 Temperature 96.6 F L 96.7 F L Pulse Rate 70 76 Respiratory Rate 17 20 Blood Pressure 106/68 99/66 L Pulse Oximetry 94 97 Oxygen Delivery Room Air Intake/Output Intake/Output: Intake & Output 11/11/22 11/12/22 11/13/22 11/14/22 23:59 23:59 23:59 23:59 Intake Total 681 1268 1310 600 Output Total 500 1025 425 150 Balance 181 243 885 450 Meds/Results Medications: Active Medications Generic Name Dose Route Start Last Admin Trade Name Freq PRN Reason Stop Dose Admin Hydrocodone Bitart/Acetaminophen 1 tab 11/11/22 11:52 11/14/22 06:27 Hydrocodone/Acetaminophen (*Crx) 10-325 Mg Tablet PO 1 tab Q4H PRN Administration Pain Rated 7-10 Albuterol 2.5 mg 11/11
[2022-11-14 08:32] VITALS: O2SAT 97
[2022-11-14 09:31] VITALS: BP 121/74; PULSE 74
[2022-11-14] MEDS: CHOLECALCIFEROL 1,000 UNITS TABLET 2000 UNITS PO (09:32)
[2022-11-14] MEDS: TICAGRELOR 60 MG TABLET PO (09:32)
[2022-11-14] MEDS: OMEGA 3 POLYUNSAT FATTY ACIDS 1 GM CAP PO (09:32)
[2022-11-14] MEDS: EZETIMIBE 10 MG TABLET PO (09:32)
[2022-11-14] MEDS: RANOLAZINE 500 MG TAB.ER.12H 1000 MG PO (09:32)
[2022-11-14] MEDS: PANTOPRAZOLE 40 MG TABLET PO (09:33)
[2022-11-14] MEDS: BENZONATATE 100 MG CAPSULE 200 MG PO ×2 (09:33→14:20)
[2022-11-14] MEDS: GABAPENTIN 400 MG CAPSULE 800 MG PO ×2 (09:33→14:19)
[2022-11-14 09:34] VITALS: PULSE 74
[2022-11-14] MEDS: carvediloL 3.125 MG TABLET PO (09:34)
--- NOTE | 2022-11-14 11:00 | PM.PNORT ---
Progress Note: A&P Assessment and Plan (1) Closed pelvic fracture: Qualifiers: Encounter type: subsequent encounter Pelvic bone location: pubis Code(s): S32.9XXA - Fracture of unspecified parts of lumbosacral spine and pelvis, initial encounter for closed fracture Status: Acute (2) Fall: Code(s): W19.XXXA - Unspecified fall, initial encounter Status: Acute Plan ? Left nondisplaced superior and inferior pubic rami fractures confirmed on CT scan. Possible non-displaced sacral fracture. These can be treated non-operatively. She may start PT/OT as able. Will likely need inpatient rehab at discharge. Okay for discharge from orthopedic standpoint. Will follow up in office in 1 month with xrays.?? Pain intermittent, worse with activity. Pain tolerable with oral pain medications. She has been working with formal physical therapy. She is motivated. She understands that smoking cigarette and nicotine can delay healing. No changes in condition since yesterday. Subjective Subjective Date/Time Seen: 11/14/22 11:00 Interval history: Patient resting comfortably in bed. Notes pain is intermittent but controlled with pain medications. She has been walking with formal physical therapy. Was able to walk the halls yesterday. No other complaints. Review of Systems Review of Systems: All systems reviewed & are unremarkable except as noted in HPI and below Exam Narrative: 62 y/o overweight female. Resting in bed comfortably. Scattered bruises and mosquito bites on her legs. Pain at the pelvis. Able to wiggle toes. Decreased range of motion due to pain. Fires quad. Light touch sensation intact. Distal neurovascularly intact. Objective Data Vital Signs Vital Signs: Vital Signs - 24 hr 11/13/22 14:28 11/13/22 20:13 11/13/22 21:07 Temperature 97.9 F 96.6 F L Pulse Rate 71 80 70 Respiratory Rate 18 17 Blood Pressure 104/91 H 106/68 Pulse Oximetry 99 94 Oxygen Delivery 11/13/22 20:00 11/14/22 04:45 11/14/22 08:32 Temperature 96.7 F L Pulse Rate 76 Respiratory Rate 20 Blood Pressure 99/66 L Pulse Oximetry 97 97 Oxygen Delivery Room Air Room Air 11/14/22 09:31 11/14/22 09:34 11/14/22 08:00 Temperature Pulse Rate 74 74 Respiratory Rate Blood Pressure 121/74 Pulse Oximetry Oxygen Delivery Room Air Intake/Output Intake/Output: Intake & Output 11/11/22 11/12/22 11/13/22 11/14/22 23:59 23:59 23:59 23:59 Intake Total 681 1268 1310 720 Output Total 500 1025 425 150 Balance 181 243 885 570 Meds/Results Medications: Active Medications Generic Name Dose Route Start Last Admin Trade Name Freq PRN Reason Stop Dose Admin Hydrocodone Bitart/Acetaminophen 1 tab 11/11/22 11:52 11/14/22 06:27 Hydrocodone/Acetaminophen (*Crx) 10-325 Mg Tablet PO 1 tab Q4H PRN Administration Pain Rated 7-10 Albuterol 2.5 mg 11/11/22 17:34 Albuterol Sulfate Neb 2.5 Mg/3 Ml Inh INHALATION Q6HRT PRN Wheezing Benzonatate 200 mg 11/12/22 00:00 11/14/22 09:33 Benzonatate 100 Mg Capsule PO 200 mg TID DAVID Administration Carvedilol 3.125 mg 11/11/22 09:00 11/14/22 09:34 Carvedilol 3.125 Mg Tablet PO 3.125 mg Q12HR DAVID Administration Ezetimibe 10 mg 11/11/22 09:00 11/14/22 09:32 Ezetimibe 10 Mg Tablet PO 10 mg DAILY DAVID Administration Fish Oil 1 gm 11/11/22 09:00 11/14/22 09:32 [place] 3 Polyunsat Fatty Acids 1 Gm Cap PO 1 gm BID DAVID Administration Fluticasone Propionate 2 spray 11/11/22 09:00 11/13/22 08:43 Fluticasone Propionate 0.05% Na Spr 16 Gm Btl (*Bkc) NASAL 2 spray DAILY DAVID Administration Gabapentin 800 mg 11/11/22 09:00 11/14/22 09:33 Gabapentin 400 Mg Capsule PO 800 mg TID DAVID Administration Guaifenesin/Dextromethorphan 1 tab 11/12/22 00:00 11/14/22 09:34 Guaifenesin 600 Mg/Dextromethorphan 30 Mg Sr Tab 12 Hr PO Not Given Q12HR DAVID Melatonin 10
--- NOTE | 2022-11-14 11:46 | PM.DS ---
DS: Admitting Diagnosis Discharge Date 11/14/22 Admitting Diagnosis (1) Closed pelvic fracture: ?Qualifiers: ?Encounter type:?subsequent encounter??Pelvic bone location:?pubis ?Code(s): S32.9XXA - Fracture of unspecified parts of lumbosacral spine and pelvis, initial encounter for closed fracture ?Status:?Acute ?Assessment and Plan: Stable on current medication.? Continue current treatment. Ortho consult noted. (2) Restless leg syndrome: ?Code(s): G25.81 - Restless legs syndrome ?Status:?Acute ?Assessment and Plan: Stable on current medication.? Continue current treatment. (3) Back Pain: ?Qualifiers: ?Back pain laterality:?bilateral??Back pain location:?low back pain??Chronicity:?chronic??Sciatica presence:?without sciatica? Qualified Code(s):?M54.50 - Low back pain, unspecified; G89.29 - Other chronic pain ?Code(s): M54.9 - Dorsalgia, unspecified ?Status:?Acute ?Assessment and Plan: Stable on current medication.? Continue current treatment. (4) Fall: ?Code(s): W19.XXXA - Unspecified fall, initial encounter DS: Discharge Diagnosis Discharge Diagnosis (1) Closed pelvic fracture: Qualifiers: Encounter type: subsequent encounter Pelvic bone location: pubis Code(s): S32.9XXA - Fracture of unspecified parts of lumbosacral spine and pelvis, initial encounter for closed fracture Status: Acute Assessment and Plan: Stable on current medication. Continue current treatment. Ortho consult noted. (2) Restless leg syndrome: Code(s): G25.81 - Restless legs syndrome Status: Acute Assessment and Plan: Stable on current medication. Continue current treatment. (3) Back Pain: Qualifiers: Back pain location: low back pain Chronicity: chronic Back pain laterality: bilateral Sciatica presence: without sciatica Qualified Code(s): M54.50 - Low back pain, unspecified; G89.29 - Other chronic pain Code(s): M54.9 - Dorsalgia, unspecified Status: Acute Assessment and Plan: Stable on current medication. Continue current treatment. (4) Fall: Code(s): W19.XXXA - Unspecified fall, initial encounter Status: Acute Assessment and Plan: Pain control, gait training. DS: Summary Hospital Course Hospital Course: Per H&P, this is a 62-year-old female who presented to the ED via EMS with chief complaint of a ground-level mechanical fall that occurred just prior to arrival.? Patient states that she went outside to smoke.? She was on the back porch area.? 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 She reports? that the porch is about 2 inches off the ground.? She reports that she fell onto her left side and now has left hip pain along with some headache.? Denies LOC.? She is not on blood thinners.? Denies any numbness, weakness, neck pain or any further site of pain or injury.? Vitals stable.? CT head was negative for any acute findings.? Patient unable to ambulate without significant pain.? X-ray showed probable pelvic fracture without evidence of hip fracture.? CT pelvis without contrast showed left pubic body nondisplaced fracture and left sacral ala fracture.? Admitted for further evaluation and management. The following medical issues have been addressed during hospitalization Mechanical fall Left superior and inferior pubic rami fracture and left sacral ala fracture. Orthopedic consulted. Pain control and non operative management. PT OT evaluating. Needs rehab placement Hypertension History of osteopenia/osteoporosis on alendronate which will be held Elevated LFTs mild hyponatremia mild COPD Coronary artery disease, stable, no chest pain, Hold Imdur because of soft blood pressure Hypertension Hold losartan because blood pressure is soft Hyperlipidemia GERD Restless leg syndrome D
[2022-11-14 14:56] LABS: SARS-CoV-2 RNA PCR Negative (Negative)
== END 2022-11-14 15:56 | DRG 341 ==
LOC: ANHED 05:09 → ANH3MEDSUR 05:45
PROVIDERS: Internal Medicine; Physician Assistant; Admitting Provider Internal Medicine; Emergency Provider Emergency Medicine; PCP Internal Medicine; Visit Provider Hospitalist
DX: S32.89XA Fracture of other parts of pelvis, initial encounter for closed fracture (principal); E87.1 Hypo-osmolality and hyponatremia; S32.19XA Other fracture of sacrum, initial encounter for closed fracture; W19.XXXA Unspecified fall, initial encounter; E78.5 Hyperlipidemia, unspecified; F17.210 Nicotine dependence, cigarettes, uncomplicated; G25.81 Restless legs syndrome; I25.10 Atherosclerotic heart disease of native coronary artery without angina pectoris; I10 Essential (primary) hypertension; J43.9 Emphysema, unspecified; K21.9 Gastro-esophageal reflux disease without esophagitis; M81.0 Age-related osteoporosis without current pathological fracture; Z95.5 Presence of coronary angioplasty implant and graft; Z20.822 Contact with and (suspected) exposure to COVID-19
CPT/HCPCS: 36415; 70450; 72192; 73502; 80053; 83735; 85025; 85610; 87635; 94640; 96374; 96376; 97116; 97161; 97165; 97530; 97535; 99285; A9270; G0378; G0379; J2270; J2405

== ENCOUNTER 2022-12-04 14:49 | Outpatient (CLI) | payer OTHER, SELFPAY ==
[2022-12-04 19:01] LABS: Basophils Percent Auto 0.5 % (0.2-1.2); Eosinophils Absolute Auto 0.2 K/mm3 (0-0.3); Eosinophils Percent Auto 3.4 % (0-4.4); Hematocrit 40.4 % (37.0-47.0); Hemoglobin 12.4 g/dL (12.0-15.0); Immature Granulocyte Absolute 0.03 K/mm3 (0.00-0.031); Immature Granulocyte Percent A 0.5 % (0-0.5); Lymphocytes Absolute Auto 1.58 K/mm3 (0.9-3.2); Lymphocytes Percent Auto 28.4 % (18.3-44.2); Mean Corpuscular HGB Conc 30.7 g/dl (32-36); Mean Corpuscular Hemoglobin 30.2 pg (26-34); Mean Corpuscular Volume 98.3 fl (80-100); Mean Platelet Volume 12.7 fl (7.4-10.4); Monocytes Absolute Auto 0.5 K/mm3 (0.1-0.6); Monocytes Percent Auto 9.7 % (2.6-8.5); Neutrophils Absolute Auto 3.2 K/mm3 (1.3-6.7); Neutrophils Percent Auto 57.5 % (45.5-73.1); Platelet Count Result 230 k/mm3 (150-375); Red Blood Count 4.11 M/mm3 (4.2-5.4); Red Cell Distribution Width 15.3 % (11.5-14.5); White Blood Count 5.6 K/mm3 (4.5-10.0)
[2022-12-04 20:08] LABS: Alanine Aminotransferase 27 U/L (6-35); Albumin Level 4.5 g/dL (3.5-5.1); Alkaline Phosphatase 98 U/L (38-126); Anion Gap 7 mmol/L (8-16); Aspartate Amino Transferase 83 U/L (14-36); Bilirubin,Total 0.7 mg/dL (0.2-1.3); Blood Urea Nitrogen 16 mg/dL (7-17); Calcium 10.3 mg/dL (8.4-10.2); Carbon Dioxide 29 mmol/L (22-30); Chloride 104 mmol/L (98-107); Estimated Glomerular Filt Rate 42; Glucose 100 mg/dL (65-110); Potassium 4.8 mmol/L (3.4-5.0); Sodium 140 mmol/L (137-145)
[2022-12-04 20:18] LABS: Iron 76 ug/dL (37-170)
[2022-12-04 20:27] LABS: Percent Iron Saturation 16 % (20-50)
[2022-12-04 21:03] LABS: Folic Acid 14.7 ng/mL (2.76->20)
== END 2022-12-04 14:50 | disposition home or self-care (01) ==
LOC: ANHGOSHLAB 14:50
PROVIDERS: PCP Internal Medicine; Visit Provider Clinical Nurse Specialist
DX: D64.9 Anemia, unspecified (principal)
CPT/HCPCS: 36415; 80053; 82607; 82728; 82746; 83540; 83550; 85025; 97110; 97112; 97530

== ENCOUNTER → 2022-12-09 14:07 | Outpatient (CLI) | payer OTHER, SELFPAY ==
--- NOTE | ~2022-12-09 | XR_ITS ---
EXAMINATION: [id number] DATE: 12/09/2022 14:21 INDICATION: Left foot pain. TECHNIQUE: 4 views of left foot including standing views were obtained. COMPARISON: None. FINDINGS: Bone alignment is normal. There is diffuse osteopenia. There is plate and screw fixation of distal fibula and screw fixation of medial malleolus. There is mild osteoarthritis of first metatars ophalangeal joint and some of the interphalangeal joints and midfoot joints. There are enthesophytes at the posterior and plantar aspects of calcaneal tuberosity. IMPRESSION: 1. Mild polyarticular osteoarthritis. Reviewed, dictated and finalized at location A.
== END ==
PROVIDERS: PCP Orthopaedic Surgery; Visit Provider Nurse Practitioner
DX: M19.072 Primary osteoarthritis, left ankle and foot (principal)
CPT/HCPCS: 73630

== ENCOUNTER 2022-12-30 15:45 | Outpatient (RCR) | payer OTHER, SELFPAY ==
--- NOTE | 2022-09-26 08:04 | PCPTNOTE ---
Patient called & cancelled scheduled initial evaluation this date due to being in the ER yesterday d/t a pinched nerve. States she will call back to reschedule.
--- NOTE | 2022-11-20 16:49 | OPREHPOC ---
Outpatient Therapy Plan of Care This is a Multidisciplinary Plan of Care that may contain components documented by all disciplines (PT, OT, and ST.) PT Problem 1 PT Problem #1 Knowledge Deficit PT Goal 1 Goal Pt to be IND with issued HEP Target Visit 16 PT Problem 2 PT Problem #2 Pain PT Goal 1 Goal Pt to report hip pain no greater than 3/10 in the last week Target Visit 16 PT Goal 2 Goal Pt to report 75% improvement in overall symptoms. PT Problem 3 PT Problem #3 Impaired Strength PT Goal 1 Goal Pt to demonstrate hip strength grossly 4+/5 to improve functional transfers. Target Visit 16 PT Goal 2 Goal Pt to be able to complete a sit <> stand without UE support Target Visit 16 PT Problem 4 PT Problem #4 Impaired Gait PT Goal 1 Goal Pt to improve 2 min walk distance from 105ft to 225ft Target Visit 16 PT Goal 2 Goal Pt to demonstrate no gait deviations on level surface Target Visit 16 PT Problem 5 PT Problem #5 Impaired Functional Mobil PT Goal 1 Goal Pt to be able to demonstrate bed mobility without assist Target Visit 16 PT Goal 2 Goal Pt to ambulate 5 stairs with a reciprocal pattern Target Visit 16
--- NOTE | 2022-11-20 16:49 | PTOPEVAL1 ---
Assessment and note entered by Javon Zhang, PT, DPT Evaluation Information Assessment Status Evaluation Diagnosis dorsalgia, pelvic fracture Subjective Information Pt states she want bending over to pick something up and lost her balance. She reports 2 weeks ago onto her L side resulting in 3 pelvic fracture. She elected for the non-operative route. She states she went to a SNF for rehab and was there for 2 days before she checked herself out. Pt states she is looking for a home caregiver assisted living. She states 2 years ago she fell backwards down 10 steps and was just not getting recovered. Pt states she would like to get back to cooking and cleaning for herself. She also like to be able to ambulate without a walker. Reported Pain Level Pain Score 5: Self Report Assessment PT Clinical Summary Julia presents to therapy today for her initial evaluation with a diagnosis of back pain after a ground level fall resulting in 3 pelvic fractures. Today she demonstrates significant pain that limits her mobility for the evaluation. She demonstrates hip strength that is grossly 3/5 limited by pain, she is unable to tolerate laying down or on her side d/t pain. She ambulates with decreased swing phase, decreased stride length, and decreased gait speed. Skilled therapy services are indicated to address deficits noted above, to manage pain, and to return to PLOF. Plan of Care Interventions Aquatic Therapy,Electrical Stimulation,Gait Training,Hot Pack/Cold Pack,Manual Therapy,Neuro Re-education,Patient/Caregiver Educati,Therapeutic Activities,Therapeutic Exercise PT Services Indicated Yes Treatment Frequency and 2x/wk for 16 visits Duration These treatments will address the objective and functional deficits as defined above. The patient will be advanced safely and appropriately in order for the patient to progress towards his/her prior level of function. Additional exercises will be introduced and as well as a comprehensive home exercise program upon discharge, if needed, ?to ensure carryover of functional gains achieved in the clinic. This treatment plan has been reviewed and agreement upon by the patient.
--- NOTE | 2022-11-25 10:58 | PCPTNOTE ---
Pt cancelled due to being too sore today.
--- NOTE | 2022-12-06 15:10 | PCPTNOTE ---
Patient called & cancelled scheduled appointment this date due to being in too much pain.
--- NOTE | 2022-12-18 13:26 | PTOPPROGNS ---
Assessment and note entered by Javon Zhang, PT, DPT Evaluation Information Assessment Status Progress Diagnosis dorsalgia, pelvic fracture Subjective Information Pt states her R hip, L shoulder, and L foot have increased in pain in the last few weeks. She states she is still having excruciating pain in her hips. She states she is still taking the pain pills multiple times a day. She rates her L hip pain as a 7/10, R hip as a 10/10, L shoulder as a 5/10, and L ankle as a 7/10. Assessment PT Clinical Summary Julia presents to therapy today for her progress report following 8 visits of skilled therapy to treat with a diagnosis of back pain after a ground level fall resulting in 3 pelvic fractures. Today she demonstrates hip strength that is grossly 3/5. She continues to ambulate with a standard walker and today demonstrates a decreased gait speed d/t not onset of L ankle pain. She does demonstrates improved functional strength today as she is able to perform a sit to stand and bed mobility without assistance. Continuation of skilled therapy services are indicated to address deficits noted above, to manage pain, and to return to [facility]. Plan of Care Interventions Aquatic Therapy,Electrical Stimulation,Gait Training,Hot Pack/Cold Pack,Manual Therapy,Neuro Re-education,Patient/Caregiver Educati,Therapeutic Activities,Therapeutic Exercise PT Services Indicated Yes Treatment Frequency and 2x/wk for 8 visits Duration These treatments will address the objective and functional deficits as defined above. The patient will be advanced safely and appropriately in order for the patient to progress towards his/her prior level of function. Additional exercises will be introduced and as well as a comprehensive home exercise program upon discharge, if needed, ?to ensure carryover of functional gains achieved in the clinic. This treatment plan has been reviewed and agreement upon by the patient.
--- NOTE | 2023-02-07 11:40 | PTOPDC ---
Assessment and note entered by Javon Zhang, PT, DPT Evaluation Information Assessment Status Discharge - Pt Not Present Diagnosis dorsalgia, pelvic fracture Subjective Information Called pt to follow up today. She states therapy was making pain worse and she and her provider decided she does not need to continue therapy. She states she is still using a walker and still afraid of falling but does not want to return. She will be discharged at this time per her request. Assessment PT Clinical Summary Julia completed 9 visits of skilled therapy from to 12/30/22.
== END 2023-02-07 14:08 | disposition home or self-care (01) ==
LOC: ANHGOSHPT 15:45
PROVIDERS: PCP Internal Medicine; Visit Provider Clinical Nurse Specialist
DX: M54.9 Dorsalgia, unspecified (principal)
CPT/HCPCS: 97110; 97112; 97161; 97530

== ENCOUNTER 2023-01-13 13:18 | Outpatient (CLI) | payer OTHER, SELFPAY ==
--- NOTE | ~2023-01-13 | MMUS_ITS ---
EXAMINATION: MM diagnostic star BI w isabel, US breast LT limited HISTORY: Intermittent chest pain in the upper left breast/axilla TECHNIQUE: Craniocaudal, mediolateral, and mediolateral oblique 3-D tomosynthesis images of the breas ts were performed and synthetic 2-D images were generated. CAD analysis was submitted and interpreted . High resolution limited left breast ultrasound was performed. COMPARISON: 11/28/2020, 02/27/2015 BREAST PARENCHYMAL COMPOSITION: The breasts are almost entirely fatty. FINDINGS: MAMMOGRAPHIC FINDINGS: No suspicious mass, calcification, or architectural distortion are identified in either breast to sug gest malignancy. There has been no suspicious interval change. Mammographic correlate is identified f or the patient's reported left breast/axilla pain. ULTRASOUND: There is no evidence of focal abnormal solid or cystic mass in the vicinity of the patient's reported left breast/axilla pain. IMPRESSION: 1. No specific mammographic or sonographic correlate is identified for the patient's reported left br east/axilla pain. Further evaluation at this time should be based on clinical assessment. Continued f ollow-up physical examination is recommended. 2. Recommend routine screening mammography in one year. BI-RADS Category 1: Negative Reviewed, dictated and finalized at location A. IMPRESSION: 1. No specific mammographic or sonographic correlate is identified for the doni ent's reported left breast/axilla pain. Further evaluation at this time should be based on clinical assessment. Continued follow-up physical examination is re commended. 2. Recommend routine screening mammography in one year. BI-RADS Category 1: Negative
== END 2023-01-13 13:19 | disposition home or self-care (01) ==
LOC: ANHIMG 13:20
PROVIDERS: PCP Internal Medicine; Visit Provider Nurse Practitioner
DX: N64.4 Mastodynia (principal)
CPT/HCPCS: 76642; 77062; 77066; G0279

== ENCOUNTER 2023-07-22 15:17 | Outpatient (CLI) | payer OTHER, SELFPAY ==
[2023-07-22 18:48] LABS: Basophils Absolute Auto 0.1 K/mm3 (0.0-0.1); Basophils Percent Auto 0.8 % (0.2-1.2); Eosinophils Absolute Auto 0.2 K/mm3 (0-0.3); Eosinophils Percent Auto 3.5 % (0-4.4); Hematocrit 40.4 % (37.0-47.0); Hemoglobin 12.5 g/dL (12.0-15.0); Immature Granulocyte Absolute 0.05 K/mm3 (0.00-0.031); Immature Granulocyte Percent A 0.8 % (0-0.5); Lymphocytes Absolute Auto 1.38 K/mm3 (0.9-3.2); Lymphocytes Percent Auto 22.1 % (18.3-44.2); Mean Corpuscular HGB Conc 30.9 g/dl (32-36); Mean Corpuscular Hemoglobin 29.6 pg (26-34); Mean Corpuscular Volume 95.7 fl (80-100); Monocytes Absolute Auto 0.7 K/mm3 (0.1-0.6); Monocytes Percent Auto 10.9 % (2.6-8.5); Neutrophils Absolute Auto 3.9 K/mm3 (1.3-6.7); Neutrophils Percent Auto 61.9 % (45.5-73.1); Platelet Count Result 190 k/mm3 (150-375); Red Blood Count 4.22 M/mm3 (4.2-5.4); Red Cell Distribution Width 16.3 % (11.5-14.5); White Blood Count 6.2 K/mm3 (4.5-10.0)
[2023-07-22 19:42] LABS: Iron 79 ug/dL (37-170)
[2023-07-22 19:51] LABS: Percent Iron Saturation 18 % (20-50)
[2023-07-22 20:01] LABS: Alanine Aminotransferase 29 U/L (6-35); Albumin Level 4.2 g/dL (3.5-5.1); Alkaline Phosphatase 52 U/L (38-126); Anion Gap 5 mmol/L (4-12); Aspartate Amino Transferase 76 U/L (14-36); Bilirubin,Total 0.6 mg/dL (0.2-1.3); Blood Urea Nitrogen 16 mg/dL (7-17); Calcium 10.2 mg/dL (8.4-10.2); Carbon Dioxide 27 mmol/L (22-30); Chloride 105 mmol/L (98-107); Estimated Glomerular Filt Rate 50; Glucose 111 mg/dL (65-110); Potassium 4.7 mmol/L (3.4-5.0); Sodium 137 mmol/L (137-145)
[2023-07-23 15:39] LABS: Hemoglobin A1C 4.9 % (<5.7)
== END 2023-07-22 15:18 | disposition home or self-care (01) ==
LOC: ANHGOSHLAB 15:19
PROVIDERS: PCP Internal Medicine; Visit Provider Nurse Practitioner
DX: D64.9 Anemia, unspecified (principal); R73.9 Hyperglycemia, unspecified
CPT/HCPCS: 36415; 80053; 82728; 83036; 83540; 83550; 85025

== ENCOUNTER 2023-10-09 14:45 | Outpatient (CLI) | payer OTHER, SELFPAY ==
--- NOTE | ~2023-10-09 | US_ITS ---
EXAMINATION: US renal BI DATE: 10/09/2023 15:18 INDICATION: N18.31 - Chronic kidney disease, stage 3a TECHNIQUE: Multiple grayscale and Doppler ultrasound images of the kidneys were obtained. COMPARISON: 09/24/2022 FINDINGS: The right kidney measures 9.8 x 5.1 x 5.7 cm. The left kidney measures 10.0 x 4.4 x 4.2 cm. The kidne ys demonstrate normal parenchymal echogenicity. There is no hydronephrosis. The bladder is normal. IMPRESSION: Unremarkable renal sonogram findings. Reviewed, dictated and finalized at location K.
== END 2023-10-09 14:46 | disposition home or self-care (01) ==
LOC: ANHIMG 14:48
PROVIDERS: PCP Internal Medicine; Visit Provider Internal Medicine Nephrology
DX: N18.31 Chronic kidney disease, stage 3a (principal); I12.9 Hypertensive chronic kidney disease with stage 1 through stage 4 chronic kidney disease, or unspecified chronic kidney disease
CPT/HCPCS: 36415; 76775; 80069; 83520; 84155; 84165; 86036; 86038; 86039; 86160; 86225

== ENCOUNTER 2023-10-09 15:25 | Outpatient (CLI) | payer OTHER, SELFPAY ==
[2023-10-09 19:41] LABS: Albumin Level 4.3 g/dL (3.5-5.1); Anion Gap 9 mmol/L (4-12); Blood Urea Nitrogen 12 mg/dL (7-17); Carbon Dioxide 23 mmol/L (22-30); Chloride 103 mmol/L (98-107); Estimated Glomerular Filt Rate > 60; Glucose 103 mg/dL (65-110); Phosphorus 3.2 mg/dL (2.5-4.5); Potassium 3.9 mmol/L (3.4-5.0); Sodium 135 mmol/L (137-145)
[2023-10-09 19:56] LABS: Complement C3 132 mg/dL (88-165)
[2023-10-10 13:13] LABS: Protein, Total 6.3 g/dL (6.1-8.1)
[2023-10-10 16:04] LABS: Albumin 3.9 g/dL (3.8-4.8); Alpha 1 Globulin 0.2 g/dL (0.2-0.3); Alpha 2 Globulin 0.6 g/dL (0.5-0.9); Beta 1 Globulin 0.5 g/dL (0.4-0.6); Gamma Globulin 0.8 g/dL (0.8-1.7)
[2023-10-11 13:34] LABS: Anti Glomerular Basement Memb <1.0 AI
[2023-10-11 14:42] LABS: ANCA Screen NEGATIVE (NEGATIVE)
== END 2023-10-09 15:26 | disposition home or self-care (01) ==
LOC: ANHGOSHLAB 15:26
PROVIDERS: PCP Internal Medicine; Visit Provider Internal Medicine Nephrology
DX: N18.31 Chronic kidney disease, stage 3a (principal); I12.9 Hypertensive chronic kidney disease with stage 1 through stage 4 chronic kidney disease, or unspecified chronic kidney disease
CPT/HCPCS: 36415; 80069; 83520; 84155; 84165; 86036; 86038; 86039; 86160; 86225

== ENCOUNTER 2023-10-10 09:32 | Outpatient (NON) | payer OTHER, SELFPAY ==
[2023-10-10 19:39] LABS: Creatinine Urine 24.9 mg/dL; Total Protein Urine Random 13 mg/dL; Ur Ttl Prot Creatinine Ratio 0.52 mg/mg (0-0.20)
[2023-10-13 14:54] LABS: Creatinine, Random Urine 24 mg/dL (20-275); Total Protein/Creatinine Ratio NOTE mg/g creat (24-184)
== END 2023-10-10 09:33 | disposition home or self-care (01) ==
LOC: ANHGOSHLAB 09:34
PROVIDERS: PCP Internal Medicine; Visit Provider Internal Medicine Nephrology
DX: I12.9 Hypertensive chronic kidney disease with stage 1 through stage 4 chronic kidney disease, or unspecified chronic kidney disease (principal); N18.31 Chronic kidney disease, stage 3a
CPT/HCPCS: 82570; 84156; 84166

== ENCOUNTER 2023-11-21 14:09 | Outpatient (CLI) | payer OTHER, SELFPAY ==
--- NOTE | ~2023-11-21 | MR_ITS ---
EXAMINATION: MR lumbar spine wo con DATE: 11/21/2023 14:35 INDICATION: Dorsalgia, unspecified. TECHNIQUE: Magnetic resonance imaging (MRI) of the lumbar spine was performed without intravenous con trast. Sequences included sagittal T2-weighted FSE, sagittal T2-weighted FS FSE, sagittal T1-weighted FSE, and axial T2-weighted FSE. COMPARISON: None FINDINGS: There is 6 degrees levocurvature of lumbar spine. There is mild chronic anterior wedging of T12 vertebral body. There is mildly decreased disc height at T12-L1. The distal spinal cord signal i ntensity is normal. The conus medullaris is at L1. The following disc levels are specifically discuss ed: L1-L2: The disc does not extend beyond the endplate margin. There is moderate bilateral facet joint o steoarthritis. There is no neural foraminal stenosis. There is no central canal stenosis. L2-L3: The disc does not extend beyond the endplate margin. There is moderate bilateral facet joint o steoarthritis. There is no neural foraminal stenosis. There is no central canal stenosis. L3-L4: The disc is bulging. There is mild bilateral facet joint osteoarthritis. There is mild bilater al neural foraminal stenosis. There is no central canal stenosis. L4-L5: The disc is bulging. There is moderate bilateral facet joint osteoarthritis. There is mild hira ateral neural foraminal stenosis. There is mild central canal stenosis. L5-S1: The disc is bulging. There is severe bilateral facet joint osteoarthritis. There is mild bilat eral neural foraminal stenosis. There is mild central canal stenosis. IMPRESSION: 1. Mild lumbar spondylosis. Reviewed, dictated and finalized at location A. IMPRESSION: 1. Mild lumbar spondylosis.
== END 2023-11-21 14:10 | disposition home or self-care (01) ==
LOC: ANHIMG 14:10
PROVIDERS: PCP Internal Medicine; Visit Provider Anesthesiology Pain Medicine
DX: M47.817 Spondylosis without myelopathy or radiculopathy, lumbosacral region (principal); Z79.01 Long term (current) use of anticoagulants
CPT/HCPCS: 72148

== ENCOUNTER 2023-12-08 08:36 | Inpatient (IN) | payer OTHER, SELFPAY ==
[2023-12-08] VITALS (7 sets, daily range): BP systolic 123–166; BP diastolic 78–130; PULSE 69–81; RESP 14–18; TEMP 36.1–36.6; O2SAT 93–100; BMI 36.5
--- NOTE | ~2023-12-08 | CT_ITS ---
CTA chest PE abdomen pel Ordering provider: Marium Carter PA-C History: . upper abd pain, pleuritic, +dimer, r/o PE . Comparison: None. Technique: CT angiogram chest was performed following timed intravenous injection of contrast. Thin s lice axial images and reformatted coronal images were obtained. Three dimensional reformatted images of the chest were also obtained using a [employer] workstation. Also, CT of the abdomen and pelvis was pe rformed with IV contrast. . Automated exposure control and iterative reconstruction technique were e mployed. The dose-length product was 1910.11 mGy-cm. 100 mL Omnipaque 350 was given IV. FINDINGS: CHEST: --PULMONARY ARTERIES: No pulmonary embolus. --VISUALIZED THORACIC INLET: Normal. --MEDIASTINUM: Aorta/coronary arteries: Mild atheromatous disease. Heart/other: The heart is not enlarged. Heart/other: The heart is not enlarged. Lymph nodes: No mediastinal or hilar adenopathy. --LUNGS: Dependent atelectatic changes. No pulmonary nodules or masses. No infiltrates or effusions. No pneumo thorax. --MUSCULOSKELETAL: Bones: Age appropriate degenerative changes of the spine. Healing ribs fractures in the left hemithor ax. Compression fracture which may be acute or chronic seen in T7. Superficial soft tissues: The superficial soft tissues are normal. ABDOMEN/PELVIS: --MUSCULOSKELETAL: Superficial soft tissues: The superficial soft tissues are normal. Bones: Age appropriate degenerative changes of the spine. Bilateral sacroiliitis. Healing fracture in the left inferior pubic ramus. --UPPER ABDOMINAL ORGANS: Liver: Normal. Gallbladder: Cholelithiasis. Spleen: Normal. Stomach/duodenum: Slightly thickened wall of the stomach. Evaluation for cholecystitis advised. Pancreas: Fat stranding is seen around the head and tail of the pancreas suggestive of pancreatitis. Clinical correlation advised. No evidence of collection seen around the pancreas. Minimal fluid is se en posterior to the duodenum. Adrenals: Normal. Kidneys: Tiny cyst in the right kidney lower pole. --PELVIC ORGANS: The bladder shows slightly thickened wall anteriorly. No bladder stones. --BOWEL AND MESENTERY: Colon: Mild diverticulosis without diverticulitis sigmoid colon. Normal appendix. Small Bowel: Normal. No obstruction. Peritoneum/mesentery: No free air or free fluid. No mesenteric lymphadenopathy. --RETROPERITONEUM: Mild atheromatous disease of the abdominal aorta. Atherosclerotic changes of the origin of the superior mesenteric artery. Narrowing is not excluded. No retroperitoneal lymphadenopat hy. IMPRESSION: CHEST: 1. No pulmonary embolism. 2. No acute cardiopulmonary pathology. ABDOMEN/PELVIS: 1. Acute pancreatitis involving the head and tail of the pancreas. Fat stranding and minimal fluid i s seen around the pancreas. 2. Cholelithiasis. 3. No evidence of appendicitis, diverticulitis or intestinal obstruction. Reviewed, dictated and finalized at location A. IMPRESSION: CHEST: 1. No pulmonary embolism. 2. No acute cardiopulmonary pathology. ABDOMEN/PELVIS: 1. Acute pancreatitis involving the head and tail of the pancreas. Fat strandi ng and minimal fluid is seen around the pancreas. 2. Cholelithiasis. 3. No evidence of appendicitis, diverticulitis or intestinal obstruction.
--- NOTE | ~2023-12-08 | CT_ITS ---
CT abdomen pelvis wo/w con Ordering provider: uJlius Castillo MD History: 63 years Female with . PANCREATITIS, ANEMIA . Comparison: None. Technique: CT abdomen and pelvis without and with IV and without oral contrast. Automated exposure co ntrol and iterative reconstruction technique were employed. The dose-length product was 2438.74 mGy-c m. 100 mL Omnipaque 350 was given IV. Findings: VISUALIZED LOWER CHEST: Dependent atelectatic changes. UPPER ABDOMINAL ORGANS: Liver: Normal. Gallbladder: Status post cholecystectomy. Spleen: Normal. Stomach/duodenum: Normal. Pancreas: Minimal fat stranding is seen around the head of the pancreas which may indicate residual p ancreatitis. The fat stranding is seen in the coronal images. Adrenals: Normal. Kidneys: Fullness of the right renal pelvis and ureter. No definite stones seen in the lower ureter. PELVIC ORGANS: The bladder is normal. Uterus: Normal. BOWEL AND MESENTERY: Colon: Mild sigmoid diverticulosis without diverticulitis. Normal appendix. Fecal material is seen in the right side of the colon suggestive of contrast patient. Small Bowel: Normal. No obstruction. Peritoneum/mesentery: No free air. Minimal Free fluid is seen in the pelvis which is slightly hyperde nse and can be hemorrhagic. Clinical correlation and follow-up advised. No mesenteric lymphadenopathy . RETROPERITONEUM: Mild atheromatous disease of the abdominal aorta. Atherosclerotic changes of the or igin of the celiac and superior mesenteric arteries. No retroperitoneal lymphadenopathy. MUSCULOSKELETAL: Superficial soft tissues: Edema in the subcutaneous tissues which may indicate volume overload. Other gabriel, The superficial soft tissues are normal. Bones: Age appropriate degenerative changes of the spine. 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 IMPRESSION: 1. Minimal fat stranding around the head of the pancreas which may indicate residual of pancreatitis . 2. Minimal fluid which is slightly hypodense cysts seen in the pelvis suggestive of hemorrhagic flui d. Follow-up advised. 3. 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 Further evaluation advised. 4. Constipation. Reviewed, dictated and finalized at location A. IMPRESSION: 1. Minimal fat stranding around the head of the pancreas which may indicate re sidual of pancreatitis. 2. Minimal fluid which is slightly hypodense cysts seen in the pelvis suggesti ve of hemorrhagic fluid. Follow-up advised. 3. Atherosclerotic changes at the origin of the superior mesenteric artery whi ch may be causing mild to moderate narrowing. Further evaluation advised. 4. Constipation.
--- NOTE | ~2023-12-08 | US_ITS ---
Limited ABDOMINAL ULTRASOUND Ordering provider: Marium Carter PA-C History: . choelithiasis, pancreatitis . Comparison: None. FINDINGS: LIVER: Normal size and echotexture. Measures 16.4 cm. No focal hepatic lesions or perihepatic fluid c ollections are identified. Hepatopetal. GALLBLADDER: Cholelithiasis. No evidence for sludge, gallbladder wall thickening or pericholecystic f luid collections. The wall measures 2.4 mm. A negative sonographic Frey's sign was noted. BILIARY DUCTS: No evidence for intra or extrahepatic biliary dilation. Common bile duct measures 3.6 mm in diameter which is within normal limits. PANCREAS: Not well visualized. UPPER ABDOMINAL AORTA: Normal in caliber. IVC: Patent. FREE FLUID: None. IMPRESSION: Cholelithiasis Pancreas is not well demonstrated. Reviewed, dictated and finalized at location A.
--- NOTE | ~2023-12-08 | XR_ITS ---
XR chest 1V portable 12/13/2023 04:47 Indication: Shortness of breath Procedure: AP portable chest Comparison: Comparison to multiple prior studies sequentially, with oldest reviewed study dated 02/14. Findings: Borderline heart size. Mild interstitial edema. No pleural effusion or pneumothorax. No acu te osseous abnormality. Impression: 1: Mild interstitial edema. Reviewed, dictated and finalized at location B. Impression: 1: Mild interstitial edema.
[2023-12-08 09:09] LABS: Basophils Percent Auto 0.6 % (0.2-1.2); Eosinophils Absolute Auto 0.2 K/mm3 (0-0.3); Eosinophils Percent Auto 4.3 % (0-4.4); Hematocrit 41.5 % (37.0-47.0); Hemoglobin 13.9 g/dL (12.0-15.0); Immature Granulocyte Absolute 0.03 K/mm3 (0.00-0.031); Immature Granulocyte Percent A 0.6 % (0-0.5); Immature Platelet Fraction Pct 9.8 % (0.9-11.2); Lymphocytes Absolute Auto 0.95 K/mm3 (0.9-3.2); Lymphocytes Percent Auto 20.3 % (18.3-44.2); Mean Corpuscular HGB Conc 33.5 g/dl (32-36); Mean Corpuscular Hemoglobin 34.8 pg (26-34); Mean Corpuscular Volume 103.8 fl (80-100); Mean Platelet Volume 11.7 fl (7.4-10.4); Monocytes Absolute Auto 0.4 K/mm3 (0.1-0.6); Neutrophils Absolute Auto 3.1 K/mm3 (1.3-6.7); Neutrophils Percent Auto 65.2 % (45.5-73.1); Platelet Count Result 134 k/mm3 (150-375); Red Cell Distribution Width 14.4 % (11.5-14.5); White Blood Count 4.7 K/mm3 (4.5-10.0)
[2023-12-08 09:12] LABS: Alanine Aminotransferase 29 U/L (6-35); Albumin Level 4.3 g/dL (3.5-5.1); Alkaline Phosphatase 46 U/L (38-126); Anion Gap 7 mmol/L (4-12); Aspartate Amino Transferase 50 U/L (14-36); Bilirubin,Total 0.9 mg/dL (0.2-1.3); Blood Urea Nitrogen 13 mg/dL (7-17); Calcium 9.9 mg/dL (8.4-10.2); Carbon Dioxide 24 mmol/L (22-30); Chloride 103 mmol/L (98-107); Estimated CRCL calculation 72 ml/min; Estimated Glomerular Filt Rate > 60; Glucose 100 mg/dL (65-110); Lipase 1256 U/L (23-300); Potassium 4.1 mmol/L (3.4-5.0); Sodium 134 mmol/L (137-145)
[2023-12-08] MEDS: SODIUM CHLORIDE 0.9% IV 1,000 ML 999 ML IV CONT ×2 (09:25→13:16)
--- NOTE | 2023-12-08 09:25 | ECG_ITS ---
Test Date: 2023-12-08 09:39:29 Measurements Intervals Watkins Rate: 63 P: 23 VA: 159 QRS: 1 QRSD: 93 T: 41 QT: 392 QTc: 404 Interpretive Statements SINUS RHYTHM LOW QRS VOLTAGE IN PRECORDIAL LEADS BASELINE ARTIFACT- I, II, AVR BORDERLINE ECG No previous ECG available for comparison Electronically Signed On 12-08-2023 12:19:04 CDT by Tc Mcclelland D.O.
--- NOTE | 2023-12-08 09:28 | ED.ABDPAIN ---
HPI - Abdominal Pain General Chief Complaint: Abdominal Pain Stated Complaint: abd pain Time Seen by Provider: 12/08/23 08:38 Source: patient Mode of arrival: ambulatory Limitations: no limitations History of Present Illness HPI narrative: Patient is a 63-year-old female who presents the ED with report of abdominal pain. Patient reports having left upper abdominal pain, radiating around to her back since last night. She thinks she has had similar pain like this previously related to her gallbladder. She states her gallbladder has needed to be removed for 3 years, but she has had to reschedule several times. Patient has not taken anything for the pain. Pain is worse with deep breathing. Denies CP or feeling SOB. Denies nausea, vomiting, diarrhea, constipation, rectal bleeding, fevers. Denies previous hx of kidney stones. Denies hx of pancreatitis. Does drink ETOH almost daily, up to 15 beers a day at times. Last drink was 2 days ago. Denies hx of WD sxs/sz. Related Data Home Medications Medication Instructions Recorded Confirmed ticagrelor 60 mg tablet (Brilinta) 60 mg PO DAILY 11/18/19 10/21/23 melatonin 10 mg capsule 10 mg PO QHS 03/20/22 10/21/23 nitroglycerin 0.4 mg sublingual 0.4 mg sublingual Q5M PRN chest 03/20/22 10/21/23 tablet pain tiotropium 2.5 mcg-olodaterol 2.5 2 puff inhalation BID 03/20/22 10/21/23 mcg/actuation mist for inhalation (Stiolto Respimat) omega-3 fatty acids 1,000 mg 1,000 mg PO BID 05/02/22 10/21/23 capsule losartan 25 mg tablet 25 mg PO DAILY 11/27/22 10/21/23 albuterol sulfate 2.5 mg/3 mL 2.5 mg continuous nebulization QID 12/23/22 10/21/23 (0.083 %) solution for nebulization PRN isosorbide mononitrate 60 mg 30 mg PO DAILY 12/23/22 10/21/23 tablet,extended release 24 hr carvedilol 3.125 mg tablet 3.125 mg PO DAILY 07/22/23 10/21/23 ranolazine 1,000 mg 1,000 mg PO DAILY 07/22/23 10/21/23 tablet,extended release,12 hr (Ranexa) diphenhydramine HCl 25 mg capsule 50 mg PO QHS PRN 08/19/23 10/21/23 (Benadryl) aspirin 81 mg tablet,delayed 81 mg PO DAILY 10/21/23 10/21/23 release (Adult Low Dose Aspirin) Allergies Allergy/AdvReac Type Severity Reaction Status Date / Time No Known Allergies Allergy Verified 12/08/23 08:36 Review of Systems Review of Systems: All systems reviewed & are unremarkable except as noted in HPI. All systems reviewed & are unremarkable except as noted in HPI and below PMFSH Past Medical History Medical History Anxiety COPD (chronic obstructive pulmonary disease) Coronary artery disease Depression Emphysema lung Gallbladder disease GERD (gastroesophageal reflux disease) Heart disease History of blood transfusion Hyperlipemia Hypertension Kidney stones Nondisplaced fracture of distal end of right radius radial styloid Pubic ramus fracture (~11/11/22) Surgical History Surgical History H/O colonoscopy H/O heart artery stent S/P foot surgery Family History Family History Father Alcoholism Cancer Depression Anxiety Mother Cancer Anxiety Alcoholism Depression Sibling Alcoholism Anxiety Cancer Depression Hypertension Heart disease Other Alcoholism Anxiety Depression Social History Social History Social History: Caffeine- daily Smoking packs per day: 1 Smoking cigarettes per day: 20.0 Smoking status: Current every day smoker Tobacco type: cigarettes Alcohol intake: current Alcohol use details: beer once or twice a week Substance use: never Substance use type: does not use Do You Feel Safe in your Home?: Yes Lack of Transportation: No Lack of Food: Never True Current Housing: I Have Housing Concerned About Future Housing: No Difficul
[2023-12-08] MEDS: MORPHINE SULFATE (*CRX) 4 MG/ML INJ IV PUSH (09:33)
[2023-12-08] MEDS: ONDANSETRON INJ 4 MG/2 ML VIAL IV PUSH (09:33)
[2023-12-08 09:51] LABS: Magnesium 1.7 mg/dL (1.6-2.3); Triglycerides 93 mg/dL (<150)
[2023-12-08] MEDS: PANTOPRAZOLE SODIUM IV 40 MG VIAL IV PUSH (09:51)
[2023-12-08] MEDS: THIAMINE HCL 200 MG/2 ML VIAL 100 MG IV PUSH (09:51)
[2023-12-08 09:56] LABS: Prothrombin Time 13.2 Seconds (11.1-14.7)
[2023-12-08 09:57] LABS: Partial Thromboplastin Time 26.5 Seconds (22.3-36.8)
[2023-12-08 10:03] LABS: Troponin I < 0.012 ng/mL (0.000-0.034)
[2023-12-08 10:04] LABS: D Dimer 0.77 ug/mL (<0.48)
[2023-12-08] MEDS: HYDROmorphone HCL INJ (*CRX) 1 MG/ML SYR 0.5 MG IV PUSH ×3 (10:49→19:40)
[2023-12-08 11:27] LABS: Add Urine Microscopic? NO; Appearance Urine Clear (Clear); Bilirubin Urine Negative (Negative); Blood Urine Negative (Negative); Color Urine Yellow (Yellow); Glucose Urine UA Negative (Negative); Ketones Urine Negative (Negative); Leukocyte Esterase Ur Negative LEU/UL (Negative); Nitrate Urine Negative (Negative); Protein Urine Negative (Negative); Specific Grav Ur > 1.045 (1.001-1.035); pH Urine 6.5 (5.0-9.0)
--- NOTE | 2023-12-08 15:03 | ADMGEN ---
This patient, Julia Lema, was admitted to 3 [facility] Surg Room 327-01. Patient/family oriented to hospital policies and general routines including ID bracelet, bed and alarms, visiting hours, pain management, procedures, bathroom and other care routines, personal items, smoking policy, room service/diet, and visiting hours. Information on how to activate the Rapid Response Team has been discussed. Patient/Family are encouraged to report perceived risks to care and to ask questions if they do not understand what they are told or what they should do.
--- NOTE | 2023-12-08 15:34 | PM.IMHP ---
H&P: HPI History of Present Illness Date/Time: 12/08/23 15:34 Chief Complaint: Abdominal pain Narrative: This is a 63-year-old female with a significant past medical history of anxiety, COPD, emphysema, coronary artery disease status post stent placement, depression, GERD, hyperlipidemia, hypertension, kidney stones, current 1 pack per day smoker who presented to the hospital for evaluation of abdominal pain. Patient reports the following history of presenting illness. Patient states she drank 15 beers on Friday and then started having abdominal pain yesterday with worsening abdominal pain today. Patient denies any fever, chills, nausea, vomiting, diarrhea, shortness of breath, or chest pain. Patient endorses abdominal pain, epigastric region that radiates to back and waxes and wanes in nature. Workup in the hospital includes a chest/abdomen/pelvis CTA which is negative for PE, showed acute pancreatitis involving the head and tail of the pancreas, fat stranding and minimal fluid is seen around the pancreas, cholelithiasis, no evidence of appendicitis, diverticulitis, or intestinal obstruction seen on imaging. Abdominal ultrasound shows cholelithiasis however no evidence of sludge or gallbladder wall thickening or fluid collection. Initial labs showed a normal white blood cell count of 4.7, platelet count 134, D-dimer 0.77, sodium 134, AST 50, troponin negative, lipase 1256. UA showed a urine specific gravity of greater than 1.045. EKG showed sinus rhythm with a rate of 63, QTC 404. Patient was given 2 L of normal saline, 40 mg IV push Protonix, pain medication and anti nausea medication while in the ED. Review of Systems Review of Systems: All systems reviewed & are unremarkable except as noted in HPI and below Constitutional: Constitutional: Reports as per HPI and Reports no additional constitutional complaints Eyes: Eyes: Reports as per HPI and Reports no additional eye complaints ENT: Reports system reviewed and no additional complaints, except as documented and Reports as per HPI Cardiovascular: Cardiovascular: Reports as per HPI and Reports no additional cardiovascular complaints Respiratory: Respiratory: Reports as per HPI and Reports no additional respiratory complaints Gastrointestinal: Gastrointestinal: Reports as per HPI and Reports no additional gastrointestinal complaints Genitourinary: Genitourinary: Reports no additional female genitourinary complaints and Reports as per HPI Musculoskeletal: Musculoskeletal: Reports no additional musculoskeletal complaints and Reports as per HPI Integumentary/Breasts: Skin/Breast: Reports system reviewed and no additional complaints, except as docu and Reports as per HPI Neurologic: Reports system reviewed and no additional complaints, except as documented and Reports as per HPI Psychiatric: Psychiatric: Reports no additional psychiatric complaints and Reports as per HPI [facility] Past Medical History Medical History (Updated 12/08/23 @ 16:15 by Roxie Jerez APRN) Anxiety COPD (chronic obstructive pulmonary disease) Coronary artery disease Depression Emphysema lung Gallbladder disease GERD (gastroesophageal reflux disease) Heart disease History of blood transfusion Hyperlipemia Hypertension Kidney stones Nondisplaced fracture of distal end of right radius radial styloid Pubic ramus fracture (~11/11/22) Surgical History Surgical History H/O colonoscopy H/O heart artery stent S/P foot surgery Family History Family History Father Alcoholism Cancer Depression Anxiety Mother Cancer Anxiety Alcoholism Depression Sibling Alcoholism Anxiety Cancer Depression Hypertension Heart disease Other Alcoholism Anxiety Depression Social History Social History Social History: Caffeine
--- NOTE | 2023-12-08 15:53 | PM.CNGS ---
Assessment and Plan Assessment and plan (1) Acute pancreatitis: Qualifiers: Acute pancreatitis complication: unspecified Pancreatitis type: unspecified pancreatitis type Qualified Code(s): K85.90 - Acute pancreatitis without necrosis or infection, unspecified Code(s): K85.90 - Acute pancreatitis without necrosis or infection, unspecified Status: Acute Assessment and Plan: Continue medical management, IV fluids, and will adjust her analgesics for better pain control. Etiology could be alcohol-induced vs biliary. Cholelithiasis on imaging. May need interval cholecystectomy. Will repeat labs and exam tomorrow and re-evaluate. (2) Gallstones: Code(s): K80.20 - Calculus of gallbladder without cholecystitis without obstruction Status: Acute Assessment and Plan: Cholelithiasis on imaging without evidence of cholecystitis. Likely will need interval cholecystectomy. Will follow along. (3) COPD (chronic obstructive pulmonary disease): Qualifiers: COPD type: unspecified COPD Qualified Code(s): J44.9 - Chronic obstructive pulmonary disease, unspecified Code(s): J44.9 - Chronic obstructive pulmonary disease, unspecified Status: Acute (4) Hypertension: Qualifiers: Hypertension type: primary hypertension Qualified Code(s): I10 - Essential (primary) hypertension Code(s): I10 - Essential (primary) hypertension Status: Chronic (5) Coronary artery disease: Qualifiers: Coronary Disease-Associated Artery/Lesion type: [place] artery [place] vs. transplanted heart: [place] heart Associated angina: without angina Qualified Code(s): I25.10 - Atherosclerotic heart disease of [place] coronary artery without angina pectoris Code(s): I25.10 - Atherosclerotic heart disease of [place] coronary artery without angina pectoris Status: Acute Assessment and Plan: Hx of cardiac stent years ago and was taking Brilinta up until 1 week ago when her Residential Building Inspector stopped this medication. This would be worn off by this time if cholecystectomy is warranted. (6) Tobacco abuse: Code(s): Z72.0 - Tobacco use Status: Acute Assessment and Plan: Recommended cessation (7) Alcohol abuse: Code(s): F10.10 - Alcohol abuse, uncomplicated Status: Acute Assessment and Plan: Recommended cessation Plan I have discussed the patient's case and plan of care with Dr. Chadwick. Thank you for allowing us to see the patient in consultation and we will continue to follow along with you. History of Present Illness Consult details Consult date: 12/08/23 Reason for consult: other (Pancreatitis, cholelithiasis) Requesting physician: Marium Carter PA-C Narrative: This is a 63-year-old woman who we have been asked to see in surgical consultation for cholelithiasis with pancreatitis. She presented to the ED today with complaints of abdominal pain. She reports bloating and epigastric abdominal pain starting yesterday during the day. She cannot recall if the pain started after eating and cannot recall what she ate yesterday. Her pain progressively became more severe throughout the night and it seemed to spread across her entire abdomen. She decided to come into the ED for evaluation this morning. Labs showed a white blood cell count of 4700, LFTs essentially normal, troponin negative, and lipase 1256. UA negative for UTI. D-dimer mildly elevated at 0.77. CTA chest, abdomen, and pelvis was negative for PE, but showed acute pancreatitis involving the head and tail of the pancreas with fat stranding and minimal fluid seen around the pancreas, and findings of cholelithiasis. Right upper quadrant abdominal ultrasound showed cholelithiasis. She was admitted to the hospitalist service. She is now seen on the medical floor in consultation. She has been started on IV fluids. She reports her abdominal pain is currently uncontrolled with IV
[2023-12-08] MEDS: HYDROmorphone HCL INJ (*CRX) 1 MG/ML SYR IV PUSH ×2 (15:56→23:27)
[2023-12-08] MEDS: SODIUM CHLORIDE 0.9% IV 1,000 ML 125 ML IV CONT (15:56)
[2023-12-08] MEDS: GABAPENTIN 400 MG CAPSULE 800 MG PO (17:29)
[2023-12-08 18:04] LABS: Glucose Point of Care 110 mg/dl (65-105)
[2023-12-08] MEDS: MELATONIN 5 MG TABLET 10 MG PO (20:00)
[2023-12-08] MEDS: rOPINIRole HCL 1 MG TABLET PO (20:00)
[2023-12-08] MEDS: traZODone HCL 50 MG TABLET 100 MG PO (20:00)
[2023-12-09] VITALS (22 sets, daily range): BP systolic 112–183; BP diastolic 63–108; PULSE 63–110; RESP 14–20; TEMP 35.9–37.2; O2SAT 93–100
[2023-12-09 00:03] LABS: Glucose Point of Care 120 mg/dl (65-105)
[2023-12-09] MEDS: HYDROmorphone HCL INJ (*CRX) 1 MG/ML SYR 0.5 MG IV PUSH (03:35)
[2023-12-09] MEDS: HYDROmorphone HCL INJ (*CRX) 1 MG/ML SYR IV PUSH ×2 (06:32→21:03)
[2023-12-09 07:09] LABS: Basophils Percent Auto 0.4 % (0.2-1.2); Eosinophils Absolute Auto 0.2 K/mm3 (0-0.3); Eosinophils Percent Auto 3.5 % (0-4.4); Hemoglobin 11.2 g/dL (12.0-15.0); Immature Granulocyte Absolute 0.02 K/mm3 (0.00-0.031); Immature Granulocyte Percent A 0.4 % (0-0.5); Lymphocytes Absolute Auto 1.09 K/mm3 (0.9-3.2); Lymphocytes Percent Auto 22.6 % (18.3-44.2); Mean Corpuscular HGB Conc 31.1 g/dl (32-36); Mean Corpuscular Hemoglobin 33.5 pg (26-34); Mean Corpuscular Volume 107.8 fl (80-100); Mean Platelet Volume 11.9 fl (7.4-10.4); Monocytes Absolute Auto 0.4 K/mm3 (0.1-0.6); Monocytes Percent Auto 7.9 % (2.6-8.5); Neutrophils Absolute Auto 3.2 K/mm3 (1.3-6.7); Neutrophils Percent Auto 65.2 % (45.5-73.1); Platelet Count Result 122 k/mm3 (150-375); Red Blood Count 3.34 M/mm3 (4.2-5.4); Red Cell Distribution Width 14.3 % (11.5-14.5); White Blood Count 4.8 K/mm3 (4.5-10.0)
[2023-12-09 07:20] LABS: Alanine Aminotransferase 24 U/L (6-35); Albumin Level 3.9 g/dL (3.5-5.1); Alkaline Phosphatase 46 U/L (38-126); Anion Gap 5 mmol/L (4-12); Aspartate Amino Transferase 39 U/L (14-36); Bilirubin,Total 0.6 mg/dL (0.2-1.3); Blood Urea Nitrogen 10 mg/dL (7-17); Carbon Dioxide 24 mmol/L (22-30); Chloride 106 mmol/L (98-107); Estimated CRCL calculation 74 ml/min; Estimated Glomerular Filt Rate > 60; Glucose 98 mg/dL (65-110); Lipase 1131 U/L (23-300); Potassium 4.1 mmol/L (3.4-5.0); Sodium 135 mmol/L (137-145)
[2023-12-09 08:02] LABS: Macrocytosis 2+ (NORMAL); Platelet Estimate Slightly Decreased (Adequate); Schistocytes None Seen
[2023-12-09 08:03] LABS: Vitamin D 25 Hydroxy 47.8 ng/mL
[2023-12-09] MEDS: FERROUS SULFATE 325 MG TABLET DR PO (08:11)
[2023-12-09] MEDS: ASPIRIN 81 MG ENTERIC TABLET PO (08:11)
[2023-12-09] MEDS: carvediloL 3.125 MG TABLET PO (08:11)
[2023-12-09] MEDS: ATORVASTATIN 40 MG TABLET PO (08:11)
[2023-12-09] MEDS: GABAPENTIN 400 MG CAPSULE 800 MG PO (08:12)
[2023-12-09] MEDS: THIAMINE HCL 200 MG/2 ML VIAL 400 MG IVPB (08:12)
[2023-12-09] MEDS: ENOXAPARIN 40 MG/0.4 ML SYRINGE SUB-Q (08:12)
[2023-12-09] MEDS: LOSARTAN POTASSIUM 25 MG TABLET PO (08:15)
--- NOTE | 2023-12-09 10:30 | PM.PNGS ---
Progress Note: A&P Assessment and Plan (1) Acute pancreatitis: Qualifiers: Acute pancreatitis complication: unspecified Pancreatitis type: unspecified pancreatitis type Qualified Code(s): K85.90 - Acute pancreatitis without necrosis or infection, unspecified Code(s): K85.90 - Acute pancreatitis without necrosis or infection, unspecified Status: Acute Assessment and Plan: Resolving. Biliary vs alcohol-induced pancreatitis. Lipase down to 1100. Abdominal pain and exam much improved this morning. With cholelithiasis on imaging, Dr. Chadwick would still recommend proceeding with a laparoscopic cholecystectomy. Discussed the option of surgery vs nonoperative management with the patient. She wishes to proceed with surgery. Description of the procedure, risks, benefits, expected outcomes, and expected recovery were discussed with the patient in detail. We discussed the risks of bile leak and bile duct injury, liver/bowel injury, bleeding, and infection. Also discussed the possibility of having to convert to an open procedure if necessary. Will keep her NPO and place pre-operative orders. Proceed with lap cholecystectomy later today. (2) Gallstones: Code(s): K80.20 - Calculus of gallbladder without cholecystitis without obstruction Status: Acute Assessment and Plan: See plan above. (3) COPD (chronic obstructive pulmonary disease): Qualifiers: COPD type: unspecified COPD Qualified Code(s): J44.9 - Chronic obstructive pulmonary disease, unspecified Code(s): J44.9 - Chronic obstructive pulmonary disease, unspecified Status: Acute (4) Coronary artery disease: Qualifiers: Coronary Disease-Associated Artery/Lesion type: [place] artery [place] vs. transplanted heart: [place] heart Associated angina: without angina Qualified Code(s): I25.10 - Atherosclerotic heart disease of [place] coronary artery without angina pectoris Code(s): I25.10 - Atherosclerotic heart disease of [place] coronary artery without angina pectoris Status: Acute Assessment and Plan: She confirms that she has been off of Brilinta for at least 7 days. She is only taking 81 mg aspirin daily. (5) Tobacco abuse: Code(s): Z72.0 - Tobacco use Status: Acute (6) Alcohol abuse: Code(s): F10.10 - Alcohol abuse, uncomplicated Status: Acute Assessment and Plan: Discussed again today the recommendation of avoiding any alcohol use after discharge, which could also cause pancreatitis in the future. Plan I have discussed the patient's case and plan of care with Dr. Chadwick. Subjective Subjective Date/Time Seen: 12/09/23 10:30 Patient reports: feels better, pain is less, tolerating liquids well and afebrile Interval history: Patient had pain throughout the night that was better controlled with the 1mg IV Dilaudid. Her pain has improved this morning and she is actually not feeling any tenderness today. She denies any nausea or vomiting. Labs improved. Lipase down slightly to 1100. She did have a liquid diet at 8 am and ate what was on her tray. Anesthesia is aware. Exam Const: General: comfortable and no acute distress Orientation/consciousness: patient oriented x3 GI: Inspection: non-distended GI Palp: Yes Soft to palpation, No Tenderness to palpation present (GI), No Guarding due to palpation present (GI) and No Rebound tenderness present Auscultation: normal bowel sounds Objective Data Vital Signs Vital Signs: Vital Signs - 24 hr 12/08/23 10:50 12/08/23 13:22 12/08/23 14:51 Temperature 97.8 F 97.0 F L Pulse Rate 70 70 69 Respiratory Rate 14 14 17 Blood Pressure 130/111 H 123/88 160/98 H Pulse Oximetry 100 98 99 Oxygen Delivery 12/08/23 20:03 12/08/23 20:00 12/09/23 05:54 Temperature 97 F L 96.6 F L Pulse Rate 70 70 85 Respiratory Rate 18 18 20 Blood Pressure 138/78 124/79 Pulse Oximetry 93 93 98 Oxygen Delivery Room Air
--- NOTE | 2023-12-09 12:13 | P.PNIM_ITS ---
Progress Note: A&P Assessment and Plan (1) Cholelithiasis: Qualifiers: Biliary obstruction: without biliary obstruction Cholecystitis presence: without cholecystitis Cholelithiasis location: gallbladder Qualified Code(s): K80.20 - Calculus of gallbladder without cholecystitis without obstruction Code(s): K80.20 - Calculus of gallbladder without cholecystitis without obstruction Status: Acute Assessment and Plan: 12/09/23: * Chest/abdomen/pelvis CTA was negative for PE, showed acute pancreatitis involving the head and tail of the pancreas with fat stranding and minimal fluid around the pancreas. Cholelithiasis. No evidence of appendicitis, diverticulitis, or intestinal obstruction. * Abdomen ultrasound showing cholelithiasis, pancreas was not well demonstrated * General surgery consulted * Continue NPO status * Plan for lap cholecystectomy today (2) Acute pancreatitis: Qualifiers: Acute pancreatitis complication: unspecified Pancreatitis type: unspecified pancreatitis type Qualified Code(s): K85.90 - Acute pancreatitis without necrosis or infection, unspecified Code(s): K85.90 - Acute pancreatitis without necrosis or infection, unspecified Status: Acute Assessment and Plan: 12/08/23: * Acute pancreatitis likely due to alcohol abuse * Chest/abdomen/pelvis CTA was negative for PE, showed acute pancreatitis involving the head and tail of the pancreas with fat stranding and minimal fluid around the pancreas. Cholelithiasis. No evidence of appendicitis, diverticulitis, or intestinal obstruction. * Abdomen ultrasound showing cholelithiasis, pancreas was not well demonstrated * Lipase 1256 initially * Continue pain control * Continue nausea control * UA was negative, troponin was negative * Advance diet as tolerated to a heart healthy diet 12/09/23: * Lipase down to 1131 * Continue pain control * Continue nausea control (3) Alcohol abuse: Code(s): F10.10 - Alcohol abuse, uncomplicated Status: Acute Assessment and Plan: 12/08/23: * Continue CIWA protocol * Patient given 2 L of normal saline and 5 minutes while in the ED * Continue thiamin for 100 mg IV piggyback * banana bag ordered * Ativan ordered p.r.n. * Seizure precautions ordered 12/09/23: * No change to current treatment plan (4) Thrombocytopenia: Code(s): D69.6 - Thrombocytopenia, unspecified Status: Acute Assessment and Plan: 12/08/23: * Likely due to alcohol abuse, liver disease * Platelet count 134 on arrival * Patient does not have history of thrombocytopenia in the past * Will check vitamin B12, folate, TSH, BERENICE 12/09/23: * Platelet count 122 * Vitamin B12 414, vitamin-D 47.8, TSH 1.56, BERENICE pending * Continue to trend * Consider hematology/oncology consult (5) Hypertension: Qualifiers: Hypertension type: primary hypertension Qualified Code(s): I10 - Essential (primary) hypertension Code(s): I10 - Essential (primary) hypertension Status: Chronic Assessment and Plan: 12/08/23: * Blood pressure ranging 123/88-130/111 * Continue isosorbide and losartan 12/09/23: * No change to current treatment plan (6) Hyperlipemia: Qualifiers: Hyperlipidemia type: mixed hyperlipidemia Qualified Code(s): E78.2 - Mixed hyperlipidemia Code(s): E78.5 - Hyperlipidemia, unspecified Status: Acute Assessment and Plan: 12/08/23: * Continue aspirin, Zetia, and atorvastatin 12/09/23: * No change to current treatment
--- NOTE | 2023-12-09 12:13 | PM.IMPN ---
Progress Note: A&P Assessment and Plan (1) Cholelithiasis: Qualifiers: Biliary obstruction: without biliary obstruction Cholecystitis presence: without cholecystitis Cholelithiasis location: gallbladder Qualified Code(s): K80.20 - Calculus of gallbladder without cholecystitis without obstruction Code(s): K80.20 - Calculus of gallbladder without cholecystitis without obstruction Status: Acute Assessment and Plan: 12/09/23: Chest/abdomen/pelvis CTA was negative for PE, showed acute pancreatitis involving the head and tail of the pancreas with fat stranding and minimal fluid around the pancreas. Cholelithiasis. No evidence of appendicitis, diverticulitis, or intestinal obstruction. Abdomen ultrasound showing cholelithiasis, pancreas was not well demonstrated General surgery consulted Continue NPO status Plan for lap cholecystectomy today (2) Acute pancreatitis: Qualifiers: Acute pancreatitis complication: unspecified Pancreatitis type: unspecified pancreatitis type Qualified Code(s): K85.90 - Acute pancreatitis without necrosis or infection, unspecified Code(s): K85.90 - Acute pancreatitis without necrosis or infection, unspecified Status: Acute Assessment and Plan: 12/08/23: Acute pancreatitis likely due to alcohol abuse Chest/abdomen/pelvis CTA was negative for PE, showed acute pancreatitis involving the head and tail of the pancreas with fat stranding and minimal fluid around the pancreas. Cholelithiasis. No evidence of appendicitis, diverticulitis, or intestinal obstruction. Abdomen ultrasound showing cholelithiasis, pancreas was not well demonstrated Lipase 1256 initially Continue pain control Continue nausea control UA was negative, troponin was negative Advance diet as tolerated to a heart healthy diet 12/09/23: Lipase down to 1131 Continue pain control Continue nausea control (3) Alcohol abuse: Code(s): F10.10 - Alcohol abuse, uncomplicated Status: Acute Assessment and Plan: 12/08/23: Continue CIWA protocol Patient given 2 L of normal saline and 5 minutes while in the ED Continue thiamin for 100 mg IV piggyback banana bag ordered Ativan ordered p.r.n. Seizure precautions ordered 12/09/23: No change to current treatment plan (4) Thrombocytopenia: Code(s): D69.6 - Thrombocytopenia, unspecified Status: Acute Assessment and Plan: 12/08/23: Likely due to alcohol abuse, liver disease Platelet count 134 on arrival Patient does not have history of thrombocytopenia in the past Will check vitamin B12, folate, TSH, BERENICE 12/09/23: Platelet count 122 Vitamin B12 414, vitamin-D 47.8, TSH 1.56, BERENICE pending Continue to trend Consider hematology/oncology consult (5) Hypertension: Qualifiers: Hypertension type: primary hypertension Qualified Code(s): I10 - Essential (primary) hypertension Code(s): I10 - Essential (primary) hypertension Status: Chronic Assessment and Plan: 12/08/23: Blood pressure ranging 123/88-130/111 Continue isosorbide and losartan 12/09/23: No change to current treatment plan (6) Hyperlipemia: Qualifiers: Hyperlipidemia type: mixed hyperlipidemia Qualified Code(s): E78.2 - Mixed hyperlipidemia Code(s): E78.5 - Hyperlipidemia, unspecified Status: Acute Assessment and Plan: 12/08/23: Continue aspirin, Zetia, and atorvastatin 12/09/23: No change to current treatment plan (7) Insomnia: Qualifiers: Insomnia type: primary Qualified Code(s): F51.01 - Primary insomnia Code(s): G47.00 - Insomnia, unspecified Status: Acute Assessment and Plan: 12/08/23: Continue trazodone 12/09/23: No change to current treatment plan (8) H/O heart artery stent: Code(s): Z95.5 - Presence of coronary angioplasty implant and graft Status: Acute Assessment and Plan: 12/07
[2023-12-09 12:22] LABS: Glucose Point of Care 101 mg/dl (65-105)
--- NOTE | 2023-12-09 12:54 | WPDHPUPDATE1 ---
History and Physical Update Update Date/Time: 12/09/23 12:54 History and Physical has been reviewed, including an updated exam of the patient. There are NO changes in the patient's condition. Risks, benefits, and alternatives have been discussed and questions answered. Patient agrees to proceed with procedure.
[2023-12-09 14:55] LABS: Glucose Point of Care 86 mg/dl (65-105)
[2023-12-09] MEDS: ACETAMINOPHEN 500 MG TABLET 1000 MG PO (15:03)
--- NOTE | 2023-12-09 15:14 | WPDANESEPPF ---
Anes - Initial Pre Proc Eval Procedure: Operation Date: 12/09/23 15:00 Proposed Procedures p Laparoscopic Cholecystectomy - Muna Chadwick MD Date/Time: 12/09/23 15:14 Surgeon: Carrington Calhoun MD Pre Op Diagnosis: Pancreatitis,cholelithiasis,ETOH abuse Patient Data Age: 63 Gender: F Height: 1.57 m Weight: 90.5 kg Last Vital Signs Temp 98.9 F 12/09/23 15:10 Pulse 63 12/09/23 15:10 Resp 20 12/09/23 05:54 BP 136/63 12/09/23 15:10 Pulse Ox 100 12/09/23 15:10 O2 Del Method Room Air 12/09/23 15:10 Allergies Allergy/AdvReac Type Severity Reaction Status Date / Time No Known Allergies Allergy Verified 12/08/23 08:36 Home Medications Medication Instructions Recorded Confirmed Type melatonin 10 mg capsule 10 mg PO QHS 03/20/22 12/08/23 History nitroglycerin 0.4 mg sublingual 0.4 mg sublingual Q5M PRN chest 03/20/22 12/08/23 History tablet pain tiotropium 2.5 mcg-olodaterol 2.5 2 puff inhalation BID 03/20/22 12/08/23 History mcg/actuation mist for inhalation (Stiolto Respimat) losartan 25 mg tablet 25 mg PO DAILY 11/27/22 12/08/23 History albuterol sulfate 2.5 mg/3 mL 2.5 mg continuous nebulization QID 12/23/22 12/08/23 History (0.083 %) solution for nebulization PRN Wheezing fluticasone propionate 50 2 spray intranasal DAILY PRN nasal 05/08/23 12/08/23 Rx mcg/actuation nasal congestion #16 grams spray,suspension (Flonase Allergy Relief) atorvastatin 40 mg tablet 40 mg PO DAILY #90 tabs 07/22/23 12/08/23 Rx carvedilol 3.125 mg tablet 3.125 mg PO DAILY 07/22/23 12/08/23 History ropinirole 1 mg tablet 1 mg PO QHS #90 tabs 07/22/23 12/08/23 Rx trazodone 100 mg tablet 100 mg PO QHS PRN insomnia #90 tabs 07/22/23 12/08/23 Rx ferrous sulfate 325 mg (65 mg 325 mg PO DAILY #90 tabs 07/25/23 12/08/23 Rx iron) tablet (Iron (ferrous sulfate)) diphenhydramine HCl 25 mg capsule 50 mg PO QHS PRN Itching 08/19/23 12/08/23 History (Benadryl) gabapentin 800 mg tablet 800 mg PO TID #270 tabs 09/17/23 12/08/23 Rx omeprazole 20 mg capsule,delayed 20 mg PO DAILY #90 caps 10/20/23 12/08/23 Rx release aspirin 81 mg tablet,delayed 81 mg PO DAILY 10/21/23 12/08/23 History release (Adult Low Dose Aspirin) fenofibrate 160 mg PO DAILY 12/08/23 12/08/23 History Laboratory Tests 12/08/23 12/08/23 12/08/23 08:46 18:01 23:57 WBC RBC Hgb Hct MCV MCH MCHC RDW Plt Count MPV Immature Gran % (Auto) Neut % (Auto) Lymph % (Auto) [place] % (Auto) Eos % (Auto) Baso % (Auto) Lymph # (Auto) [place] # (Auto) Eos # (Auto) Baso # (Auto) Abs Immat Gran (auto) Absolute Neuts (auto) Absolute Nucleated RBC Nucleated RBC % Platelet Estimate Macrocytosis Schistocytes Sodium Potassium Chloride Carbon Dioxide Anion Gap BUN Creatinine Estim Creat Clear Calc Estimated GFR Glucose POC Capillary Glucose 110 H mg/dl 120 H mg/dl (65-105) (65-105) Calcium Total Bilirubin AST ALT Alkaline Phosphatase Total Protein Albumin Lipase Vitamin B12 414.0 pg/mL (239-931) Vitamin D 25-Hydroxy TSH 1.560 uIU/mL (0.465-4.680) BERENICE Screen Pending 12/09/23 12/09/23 12/09/23 06:47 12:13 14:53 WBC 4.8 K/mm3 (4.5-10.0) RBC 3.34 L M/mm3 (4.2-5.4) Hgb 11.2 L g/dL (12.0-15.0) Hct 36.0 L % (37.0-47.0) MCV 107.8 H fl (80-100) MCH 33.5 pg
[2023-12-09] MEDS: IPRATROPIUM 0.5 MG/ALBUTEROL SULFATE 2.5 MG AMPUL.NEB 3 ML INHALATION ×2 (15:20→18:10)
[2023-12-09] MEDS: ceFAZolin 2 GM/D5W 50 ML 2 GM/50 ML BAG IVPB (15:37)
--- NOTE | 2023-12-09 16:30 | W.PM.PROC2 ---
Procedure Note - Detailed Date of Procedure 12/09/23 Pre-op Diagnosis Biliary pancreatitis Post-op Diagnosis Same Procedure Performed Laparoscopic cholecystectomy Surgeon Muna Chadwick MD Anesthesia General and Local Indications 63-year-old female presenting with acute biliary pancreatitis. After admission and supportive care, patient's enzymes are stabilizing and now set up for interval cholecystectomy. Findings Moderate cholecystitis, cholelithiasis Description of Procedure The patient was taken to the operating room placed in the supine position. After adequate induction of general anesthesia, the patient was prepped and draped in normal sterile fashion. A time-out was then performed to verify the patient's identity as well as the procedure being performed. I then made a 5 mm incision in the infraumbilical region. Through this, a Veress needle was placed into the peritoneal cavity and CO2 gas was then insufflated. After adequate pneumoperitoneum was achieved, the Veress needle was removed and a 5 mm optiview trocar was placed through this incision under direct visualization. I then placed the laparoscope through this trocar site and under direct visualization placed a further 12 mm subxiphoid port as well as 2 additional 5 mm ports in the right upper abdomen. The gallbladder was then identified and was noted to be moderately inflamed, distended, and full of gallstones. I was able to place a grasper at the dome of the gallbladder and this was retracted anterior and cephalad up over the liver. A 2nd retractor was then placed at the infundibulum and retracted laterally, this allowed visualization of the triangle of Calot. I then was able to visualize the cystic duct in its entirety from its proximal insertion into the gallbladder, to its distal junction with the common hepatic/common bile duct junction. At this point, I carefully skeletonized the proximal cystic duct with the [place] dissector. I then clipped and transected the proximal cystic duct. Next I visualized the cystic artery. Again the artery was skeletonized, clipped, and transected. I then used the Bovie cautery to take down the peritoneal attachments of the gallbladder off the liver bed. This was somewhat difficult given the amount of inflammation in the posterior space. Once the gallbladder specimen was completely detached, an endo-pouch was placed through the 12 mm port site. I then placed the gallbladder specimen into the Endo pouch and removed the endo-pouch from the 12 mm port site. The specimen will now be sent to pathology for further review. I then copiously irrigated the right upper quadrant. Some mild oozing was noted in the liver bed and this was controlled with the bovie cautery. Hemostasis was noted in the liver bed, the clips were noted to be in good position on both the cystic duct stump and the cystic artery stump. No other pathology was noted in the right upper quadrant. I then moved the laparoscope to the subxiphoid port. No iatrogenic injury or other pathology was noted in the lower abdomen. I then closed the 12 mm trocar site under direct visualization using the Valentin cone and 0 Vicryl suture. At this point, the abdomen was desufflated and all ports removed. All port sites were then closed with 4.O Monocryl subcuticular sutures. Dermabond was placed on each incision. The patient tolerated the procedure well, was extubated in the operating room postoperative and will be transferred to the recovery room in stable condition Estimated Blood Loss 20 Drains No Packing No Pathology Yes Complications No immediate complications Condition Stable Disposition PACU [facility] Billing Surgery - Charge Forward: Surgery Billing
[2023-12-09] MEDS: HYDROmorphone HCL INJ (*CRX) 1 MG/ML SYR 0.25 MG IV PUSH ×8 (16:55→18:28)
[2023-12-09] MEDS: LACTATED RINGERS 1,000 ML 30 ML IV CONT (16:59)
[2023-12-09 17:11] LABS: Glucose Point of Care 91 mg/dl (65-105)
[2023-12-09 20:48] LABS: Glucose Point of Care 89 mg/dl (65-105)
[2023-12-09] MEDS: MELATONIN 5 MG TABLET 10 MG PO (21:03)
[2023-12-09] MEDS: rOPINIRole HCL 1 MG TABLET PO (21:03)
[2023-12-09] MEDS: traZODone HCL 50 MG TABLET 100 MG PO (22:24)
[2023-12-09] MEDS: ALBUTEROL SULFATE (*SP) AEROSOL 1 PUFF 2 PUFF INHALATION (22:45)
[2023-12-09 23:27] LABS: Glucose Point of Care 170 mg/dl (65-105)
[2023-12-10 00:48] VITALS: BP 120/80; PULSE 84; RESP 16; TEMP 36.3; O2SAT 97
[2023-12-10] MEDS: HYDROmorphone HCL INJ (*CRX) 1 MG/ML SYR IV PUSH ×4 (00:56→16:38)
[2023-12-10] MEDS: ONDANSETRON INJ 4 MG/2 ML VIAL IV PUSH (03:19)
[2023-12-10 05:53] VITALS: BP 92/76; PULSE 85; RESP 12; TEMP 36.2; O2SAT 96
[2023-12-10] MEDS: guaiFENesin 12 HR 600 MG TABCR 1200 MG PO ×2 (06:00→20:47)
[2023-12-10 06:11] LABS: Glucose Point of Care 116 mg/dl (65-105)
[2023-12-10 06:29] LABS: Basophils Percent Auto 0.4 % (0.2-1.2); Hematocrit 31.9 % (37.0-47.0); Hemoglobin 9.6 g/dL (12.0-15.0); Immature Granulocyte Absolute 0.05 K/mm3 (0.00-0.031); Immature Granulocyte Percent A 0.6 % (0-0.5); Lymphocytes Absolute Auto 0.78 K/mm3 (0.9-3.2); Lymphocytes Percent Auto 9.5 % (18.3-44.2); Mean Corpuscular HGB Conc 30.1 g/dl (32-36); Mean Corpuscular Hemoglobin 34.2 pg (26-34); Mean Corpuscular Volume 113.5 fl (80-100); Mean Platelet Volume 12.3 fl (7.4-10.4); Monocytes Absolute Auto 0.5 K/mm3 (0.1-0.6); Monocytes Percent Auto 6.5 % (2.6-8.5); Neutrophils Absolute Auto 6.8 K/mm3 (1.3-6.7); Platelet Count Result 146 k/mm3 (150-375); Red Blood Count 2.81 M/mm3 (4.2-5.4); Red Cell Distribution Width 14.2 % (11.5-14.5); White Blood Count 8.2 K/mm3 (4.5-10.0)
[2023-12-10 07:03] LABS: Macrocytosis 2+ (NORMAL); Platelet Estimate Slightly Decreased (Adequate)
[2023-12-10 07:04] LABS: Schistocytes None Seen
[2023-12-10 07:37] LABS: Sodium 131 mmol/L (137-145)
[2023-12-10 07:39] LABS: Alanine Aminotransferase 33 U/L (6-35); Albumin Level 3.8 g/dL (3.5-5.1); Alkaline Phosphatase 33 U/L (38-126); Anion Gap 24 mmol/L (4-12); Aspartate Amino Transferase 97 U/L (14-36); Bilirubin,Total 0.9 mg/dL (0.2-1.3); Blood Urea Nitrogen 13 mg/dL (7-17); Calcium 8.7 mg/dL (8.4-10.2); Carbon Dioxide 12 mmol/L (22-30); Chloride 95 mmol/L (98-107); Estimated CRCL calculation 39 ml/min; Estimated Glomerular Filt Rate 38; Glucose 106 mg/dL (65-110); Potassium 4.7 mmol/L (3.4-5.0)
[2023-12-10] MEDS: THIAMINE HCL 200 MG/2 ML VIAL 400 MG IVPB (07:59)
[2023-12-10] MEDS: FERROUS SULFATE 325 MG TABLET DR PO (07:59)
[2023-12-10] MEDS: GABAPENTIN 400 MG CAPSULE 800 MG PO ×3 (07:59→15:57)
[2023-12-10] MEDS: ASPIRIN 81 MG ENTERIC TABLET PO (07:59)
[2023-12-10] MEDS: ATORVASTATIN 40 MG TABLET PO (08:01)
[2023-12-10 08:06] VITALS: PULSE 75; RESP 20
[2023-12-10 08:08] VITALS: BP 103/65; O2SAT 100
--- NOTE | 2023-12-10 09:48 | PM.PNGS ---
Progress Note: A&P Assessment and Plan (1) Acute biliary pancreatitis: Code(s): K85.10 - Biliary acute pancreatitis without necrosis or infection Status: Acute Assessment and Plan: doing well, cont routine postop care, ok to dc home from surgical standpoint, f/u in 2 wks Subjective Subjective Date/Time Seen: 12/10/23 09:48 Interval history: feels better, some incisional soreness, wants to go home Review of Systems Review of Systems: All systems reviewed & are unremarkable except as noted in HPI and below Exam Const: General: cooperative, comfortable and no acute distress Resp: Auscultation: clear to auscultation bilaterally Cardio: Rate: regular rate Rhythm: regular rhythm GI: Inspection: normal to inspection, distended and incision GI Palp: Yes abdominal tenderness, Yes Soft to palpation and Yes Tenderness to palpation present (GI) Other: incisions C/D/I Objective Data Vital Signs Vital Signs: Vital Signs - 24 hr 12/09/23 15:10 12/09/23 15:20 12/09/23 15:30 Temperature 37.2 C Pulse Rate 63 67 67 Respiratory Rate 20 20 Blood Pressure 136/63 Pulse Oximetry 100 Oxygen Delivery Room Air Oxygen Flow Rate 12/09/23 14:00 12/09/23 16:38 12/09/23 16:45 Temperature 36.2 C L 37.1 C Pulse Rate 79 109 H 99 Respiratory Rate 18 14 14 Blood Pressure 123/70 154/86 H 163/98 H Pulse Oximetry 95 100 100 Oxygen Delivery Simple Face Mask Simple Face Mask Oxygen Flow Rate 8 8 12/09/23 17:00 12/09/23 17:15 12/09/23 17:30 Temperature Pulse Rate 98 98 82 Respiratory Rate 14 16 16 Blood Pressure 183/94 H 172/100 H 140/99 H Pulse Oximetry 99 95 95 Oxygen Delivery Room Air Room Air Room Air Oxygen Flow Rate 12/09/23 17:37 12/09/23 17:45 12/09/23 18:00 Temperature Pulse Rate 82 87 Respiratory Rate 16 16 Blood Pressure 149/102 H 152/108 H Pulse Oximetry 96 96 96 Oxygen Delivery Nasal Cannula Nasal Cannula Room Air Oxygen Flow Rate 2 2 12/09/23 18:15 12/09/23 18:29 12/09/23 18:10 Temperature Pulse Rate 79 83 76 Respiratory Rate 16 15 18 Blood Pressure 130/94 H 133/75 Pulse Oximetry 100 96 Oxygen Delivery Room Air Oxygen Flow Rate 12/09/23 18:20 12/09/23 19:00 12/09/23 19:15 Temperature 36.2 C L 36.1 C L Pulse Rate 79 88 90 Respiratory Rate 18 18 19 Blood Pressure 130/64 125/85 Pulse Oximetry 100 93 Oxygen Delivery Oxygen Flow Rate 12/09/23 21:50 12/09/23 20:00 12/09/23 22:45 Temperature 36.4 C L 36.2 C L Pulse Rate 86 91 110 H Respiratory Rate 18 16 18 Blood Pressure 125/95 H 112/72 Pulse Oximetry 97 97 Oxygen Delivery Oxygen Flow Rate 12/09/23 20:00 12/10/23 00:48 12/10/23 05:53 Temperature 36.3 C L 36.2 C L Pulse Rate 84 85 Respiratory Rate 16 12 Blood Pressure 120/80 92/76 L Pulse Oximetry 97 96 Oxygen Delivery Room Air Oxygen Flow Rate 12/10/23 08:08 12/10/23 08:06 Temperature Pulse Rate 75 Respiratory Rate 20 Blood Pressure 103/65 Pulse Oximetry 100 Oxygen Delivery Oxygen Flow Rate Intake/Output Intake/Output: Intake & Output 12/07/23 12/08/23 12/09/23 12/10/23 23:59 23:59 23:59 23:59 Intake Total 1590 690 250 Balance 1590 690 250 Meds/Results Medications: Active Medications Generic Name Dose Route Start Last Admin Trade Name Freq PRN Reason Stop Dose Admin Acetaminophen 650 mg 12/10/23 09:05 Acetaminophen 325 Mg Tablet PO Q6H PRN Mild Pain (1-3) or Fever Hydrocodone Bitart/Acetaminophen 1 tab 12/09/23 18:36 Hydrocodone/Acetaminophen (*Crx) 5-325 Mg Tablet PO Q4H PRN Pain Rated 4-6 Hydrocodone Bitart/Acetaminophen 1 tab 12/10/23 09:04 Hydrocodone/Acetaminophen (*Crx) 10-325 Mg Tablet PO Q6H PRN Pain Rated 7-10 Albuterol 2 puff 12/09/23 22:32 12/09/23 22:45 Albuterol Sulfate (*Sp) Aerosol 1 Puff INHALATION 2 puff QIDRT PRN Administration Shortness Of Breath Aspirin
[2023-12-10] MEDS: HYDROcodone/acetaminophen (*CRX) 10-325 MG TABLET 1 TAB PO ×2 (12:15→20:47)
--- NOTE | 2023-12-10 12:57 | PM.DS ---
DS: Admitting Diagnosis Discharge Date 12/11/23 Admitting Diagnosis Abdominal pain DS: Discharge Diagnosis Discharge Diagnosis (1) Cholelithiasis: Qualifiers: Biliary obstruction: without biliary obstruction Cholecystitis presence: without cholecystitis Cholelithiasis location: gallbladder Qualified Code(s): K80.20 - Calculus of gallbladder without cholecystitis without obstruction Code(s): K80.20 - Calculus of gallbladder without cholecystitis without obstruction Status: Acute (2) Acute pancreatitis: Qualifiers: Acute pancreatitis complication: unspecified Pancreatitis type: unspecified pancreatitis type Qualified Code(s): K85.90 - Acute pancreatitis without necrosis or infection, unspecified Code(s): K85.90 - Acute pancreatitis without necrosis or infection, unspecified Status: Acute (3) Alcohol abuse: Code(s): F10.10 - Alcohol abuse, uncomplicated Status: Acute (4) Thrombocytopenia: Code(s): D69.6 - Thrombocytopenia, unspecified Status: Acute (5) Hypertension: Qualifiers: Hypertension type: primary hypertension Qualified Code(s): I10 - Essential (primary) hypertension Code(s): I10 - Essential (primary) hypertension Status: Chronic (6) Hyperlipemia: Qualifiers: Hyperlipidemia type: mixed hyperlipidemia Qualified Code(s): E78.2 - Mixed hyperlipidemia Code(s): E78.5 - Hyperlipidemia, unspecified Status: Acute (7) Insomnia: Qualifiers: Insomnia type: primary Qualified Code(s): F51.01 - Primary insomnia Code(s): G47.00 - Insomnia, unspecified Status: Acute (8) H/O heart artery stent: Code(s): Z95.5 - Presence of coronary angioplasty implant and graft Status: Acute DS: Summary Hospital Course Hospital Course: 12/09/23 Chest/abdomen/pelvis CTA was negative for PE, showed acute pancreatitis involving the head and tail of the pancreas with fat stranding and minimal fluid around the pancreas. Cholelithiasis. No evidence of appendicitis, diverticulitis, or intestinal obstruction. Abdomen ultrasound showing cholelithiasis, pancreas was not well demonstrated lap cholecystectomy lipase 1131 12/10/23- home today Status at Discharge Functional status at discharge: independent ambulation Overall status at discharge: patient is progressing back to baseline Time Spent with Patient Time attestation: Total time spent providing and/or coordinating discharge services: Time spent: Greater than 30 minutes Exam Const: General: no acute distress Eyes: Sclera: sclerae normal Neck: Neck: supple Resp: Auscultation: clear to auscultation bilaterally Cardio: Rate: regular rate Rhythm: regular rhythm GI: GI Palp: Yes Soft to palpation Auscultation: normal bowel sounds Skin: Other: Incisions clean dry and intact with ecchymosis around incision sites. Psych: Affect: normal affect DS: Data Data Completed and Pending Pending studies at discharge: Pending at discharge 12/09/23 16:05 Surgical [PTH] Routine Labs on day of discharge: Labs from last 24 hours 12/10/23 12/09/23 12/09/23 06:09 23:24 17:09 WBC 8.2 RBC 2.81 L Hgb 9.6 L Hct 31.9 L MCV 113.5 H D MCH 34.2 H MCHC 30.1 L RDW 14.2 Plt Count 146 L MPV 12.3 H Immature Gran % (Auto) 0.6 H Neut % (Auto) 83.0 H Lymph % (Auto) 9.5 L [place] % (Auto) 6.5 Eos % (Auto) 0.0 Baso % (Auto) 0.4 Lymph # (Auto) 0.78 L [place] # (Auto) 0.5 Eos # (Auto) 0.0 Baso # (Auto) 0.0 Abs Immat Gran (auto) 0.05 H Absolute Neuts (auto) 6.8 H Absolute Nucleated RBC 0.000 Nucleated RBC % 0.0 Platelet Estimate Slightly decreased Macrocytosis 2+ Schistocytes None seen Sodium 131 L Potassium 4.7 Chloride 95 L Carbon Dioxide 12 L Anion Gap 24 H BUN 13 Creatinine 1.40 H Estim Creat Clear Calc
[2023-12-10 13:10] VITALS: BP 94/61
[2023-12-10 15:29] LABS: Alanine Aminotransferase 31 U/L (6-35); Albumin Level 3.6 g/dL (3.5-5.1); Alkaline Phosphatase 41 U/L (38-126); Anion Gap 8 mmol/L (4-12); Aspartate Amino Transferase 66 U/L (14-36); Bilirubin,Total 0.7 mg/dL (0.2-1.3); Blood Urea Nitrogen 17 mg/dL (7-17); Calcium 9.5 mg/dL (8.4-10.2); Carbon Dioxide 22 mmol/L (22-30); Chloride 104 mmol/L (98-107); Estimated CRCL calculation 29 ml/min; Estimated Glomerular Filt Rate 27; Glucose 108 mg/dL (65-110); Potassium 4.7 mmol/L (3.4-5.0); Sodium 134 mmol/L (137-145)
[2023-12-10] MEDS: SODIUM CHLORIDE 0.9% IV 250 ML 100 ML IV CONT (15:53)
--- NOTE | 2023-12-10 16:09 | PM.IMPN ---
Progress Note: A&P Assessment and Plan (1) Cholelithiasis: Qualifiers: Biliary obstruction: without biliary obstruction Cholecystitis presence: without cholecystitis Cholelithiasis location: gallbladder Qualified Code(s): K80.20 - Calculus of gallbladder without cholecystitis without obstruction Code(s): K80.20 - Calculus of gallbladder without cholecystitis without obstruction Status: Acute Assessment and Plan: 12/09/23 Chest/abdomen/pelvis CTA was negative for PE, showed acute pancreatitis involving the head and tail of the pancreas with fat stranding and minimal fluid around the pancreas. Cholelithiasis. No evidence of appendicitis, diverticulitis, or intestinal obstruction. Abdomen ultrasound showing cholelithiasis, pancreas was not well demonstrated lap cholecystectomy lipase 1131 12/10/23 continue pain medications. (2) Acute pancreatitis: Qualifiers: Acute pancreatitis complication: unspecified Pancreatitis type: unspecified pancreatitis type Qualified Code(s): K85.90 - Acute pancreatitis without necrosis or infection, unspecified Code(s): K85.90 - Acute pancreatitis without necrosis or infection, unspecified Status: Acute Assessment and Plan: Acute pancreatitis likely due to alcohol abuse Chest/abdomen/pelvis CTA was negative for PE, showed acute pancreatitis involving the head and tail of the pancreas with fat stranding and minimal fluid around the pancreas. Cholelithiasis. No evidence of appendicitis, diverticulitis, or intestinal obstruction. Abdomen ultrasound showing cholelithiasis, pancreas was not well demonstrated Lipase 1256 initially, decreased to 1131 Continue pain control was negative, troponin was negative - Advance diet as tolerated to a heart healthy diet - monitor labs (3) ION (acute kidney injury): Code(s): N17.9 - Acute kidney failure, unspecified Status: Acute Assessment and Plan: - BUN 17, Creatinine 1.90, GFR 27. - Add NS @100 ml/hr - Encourage hydration - Monitor labs Subjective Date/time seen: 12/10/23 16:09 Interval history: Patient reports abdominal pain that is a 3 , constant, sore, and aching. Patient reports one episode of vomiting tea this morning. Denies chest pain, palpitations, headache, or dizziness. Patient asking about going home today. Review of Systems Review of Systems: All systems reviewed & are unremarkable except as noted in HPI and below Exam Const: Other: Const: General: no acute distress Eyes: Sclera: sclerae no rmal Neck: Neck: supple Resp: Auscultation: shaun r to auscultation bilaterally Cardio: Rate: regular rate Rhythm: regular rhythm GI: GI Palp: Yes Soft to palpation Ausc ultation: normal b owel sounds Skin: Other: Incisions clean dry and int act with ecchymosi s around incision sites. Psych: Affect: normal aff ect Objective Data Vital Signs Vital Signs: Vital Signs - 24 hr 12/09/23 16:38 12/09/23 16:45 12/09/23 17:00 Temperature 98.8 F Pulse Rate 109 H 99 98 Respiratory Rate 14 14 14 Blood Pressure 154/86 H 163/98 H 183/94 H Pulse Oximetry 100 100 99 Oxygen Delivery Simple Face Mask Simple Face Mask Room Air Oxygen Flow Rate 8 8 12/09/23 17:15 12/09/23 17:30 12/09/23 17:37 Temperature Pulse Rate 98 82 Respiratory Rate 16 16 Blood Pressure 172/100 H 140/99 H Pulse Oximetry 95 95 96 Oxygen Delivery Room Air Room Air Nasal Cannula Oxygen Flow Rate 2 12/09/23 17:45 12/09/23 18:00 12/09/23 18:15 [place]
[2023-12-10] MEDS: SODIUM CHLORIDE 0.9% IV 1,000 ML 100 ML IV CONT (18:22)
[2023-12-10 18:55] LABS: Glucose Point of Care 122 mg/dl (65-105)
[2023-12-10] MEDS: rOPINIRole HCL 1 MG TABLET PO (20:46)
[2023-12-10] MEDS: MELATONIN 5 MG TABLET 10 MG PO (20:47)
[2023-12-10 21:04] VITALS: BP 116/74; PULSE 98; RESP 16; TEMP 36.3; O2SAT 100
[2023-12-11] VITALS (7 sets, daily range): BP systolic 90–110; BP diastolic 53–61; PULSE 72–91; RESP 14–20; TEMP 36.4–36.9; O2SAT 97–100
[2023-12-11] MEDS: HYDROcodone/acetaminophen (*CRX) 10-325 MG TABLET 1 TAB PO ×4 (02:44→23:04)
[2023-12-11] MEDS: ACETAMINOPHEN 500 MG TABLET PO ×4 (05:59→23:06)
[2023-12-11 06:00] LABS: Glucose Point of Care 113 mg/dl (65-105)
[2023-12-11] MEDS: SODIUM CHLORIDE 0.9% IV 1,000 ML 100 ML IV CONT (06:08)
[2023-12-11 07:46] LABS: Alanine Aminotransferase 28 U/L (6-35); Albumin Level 3.5 g/dL (3.5-5.1); Alkaline Phosphatase 46 U/L (38-126); Anion Gap 6 mmol/L (4-12); Aspartate Amino Transferase 59 U/L (14-36); Bilirubin,Total 0.6 mg/dL (0.2-1.3); Blood Urea Nitrogen 16 mg/dL (7-17); Calcium 9.6 mg/dL (8.4-10.2); Carbon Dioxide 22 mmol/L (22-30); Chloride 106 mmol/L (98-107); Estimated CRCL calculation 49 ml/min; Estimated Glomerular Filt Rate 50; Glucose 93 mg/dL (65-110); Lipase 402 U/L (23-300); Potassium 4.4 mmol/L (3.4-5.0); Sodium 134 mmol/L (137-145)
[2023-12-11 08:17] LABS: Basophils Percent Auto 0.5 % (0.2-1.2); Eosinophils Absolute Auto 0.2 K/mm3 (0-0.3); Eosinophils Percent Auto 3.1 % (0-4.4); Hematocrit 24.7 % (37.0-47.0); Hemoglobin 7.5 g/dL (12.0-15.0); Immature Granulocyte Absolute 0.02 K/mm3 (0.00-0.031); Immature Granulocyte Percent A 0.3 % (0-0.5); Mean Corpuscular HGB Conc 30.4 g/dl (32-36); Mean Corpuscular Hemoglobin 33.3 pg (26-34); Mean Corpuscular Volume 109.8 fl (80-100); Mean Platelet Volume 12.4 fl (7.4-10.4); Monocytes Absolute Auto 0.5 K/mm3 (0.1-0.6); Monocytes Percent Auto 8.9 % (2.6-8.5); Neutrophils Absolute Auto 3.5 K/mm3 (1.3-6.7); Neutrophils Percent Auto 61.2 % (45.5-73.1); Platelet Count Result 110 k/mm3 (150-375); Red Blood Count 2.25 M/mm3 (4.2-5.4); Red Cell Distribution Width 14.3 % (11.5-14.5); White Blood Count 5.8 K/mm3 (4.5-10.0)
[2023-12-11 08:57] LABS: Hypochromasia 1+; Macrocytosis 2+ (NORMAL); Platelet Estimate Increased (Adequate); Schistocytes None Seen
[2023-12-11] MEDS: ASPIRIN 81 MG ENTERIC TABLET PO (09:11)
[2023-12-11] MEDS: guaiFENesin 12 HR 600 MG TABCR 1200 MG PO ×2 (09:11→21:23)
[2023-12-11] MEDS: ATORVASTATIN 40 MG TABLET PO (09:11)
[2023-12-11] MEDS: PANTOPRAZOLE 40 MG TABLET PO (09:11)
[2023-12-11] MEDS: FERROUS SULFATE 325 MG TABLET DR PO (09:11)
[2023-12-11] MEDS: carvediloL 3.125 MG TABLET PO (09:11)
[2023-12-11] MEDS: GABAPENTIN 400 MG CAPSULE 800 MG PO ×3 (09:11→17:02)
[2023-12-11] MEDS: THIAMINE HCL 200 MG/2 ML VIAL 400 MG IVPB (09:13)
[2023-12-11] MEDS: LOSARTAN POTASSIUM 25 MG TABLET PO (09:16)
[2023-12-11 11:33] LABS: Glucose Point of Care 96 mg/dl (65-105)
[2023-12-11 12:23] LABS: Hematocrit 22.3 % (37.0-47.0); Hemoglobin 7.1 g/dL (12.0-15.0); Immature Platelet Fraction Pct 10.9 % (0.9-11.2); Mean Corpuscular HGB Conc 31.8 g/dl (32-36); Mean Corpuscular Hemoglobin 34.8 pg (26-34); Mean Corpuscular Volume 109.3 fl (80-100); Mean Platelet Volume 12.1 fl (7.4-10.4); Platelet Count Result 101 k/mm3 (150-375); Red Blood Count 2.04 M/mm3 (4.2-5.4); Red Cell Distribution Width 14.3 % (11.5-14.5); White Blood Count 5.1 K/mm3 (4.5-10.0)
[2023-12-11 12:34] LABS: Alanine Aminotransferase 28 U/L (6-35); Albumin Level 3.5 g/dL (3.5-5.1); Alkaline Phosphatase 40 U/L (38-126); Anion Gap 4 mmol/L (4-12); Aspartate Amino Transferase 58 U/L (14-36); Bilirubin,Total 0.7 mg/dL (0.2-1.3); Blood Urea Nitrogen 15 mg/dL (7-17); Calcium 9.3 mg/dL (8.4-10.2); Carbon Dioxide 24 mmol/L (22-30); Chloride 108 mmol/L (98-107); Estimated CRCL calculation 59 ml/min; Estimated Glomerular Filt Rate > 60; Glucose 85 mg/dL (65-110); Potassium 4.4 mmol/L (3.4-5.0); Sodium 136 mmol/L (137-145)
--- NOTE | 2023-12-11 13:58 | PM.IMPN ---
Progress Note: A&P Assessment and Plan (1) Cholelithiasis: Qualifiers: Biliary obstruction: without biliary obstruction Cholecystitis presence: without cholecystitis Cholelithiasis location: gallbladder Qualified Code(s): K80.20 - Calculus of gallbladder without cholecystitis without obstruction Code(s): K80.20 - Calculus of gallbladder without cholecystitis without obstruction Status: Acute Assessment and Plan: 12/09/23 Chest/abdomen/pelvis CTA was negative for PE, showed acute pancreatitis involving the head and tail of the pancreas with fat stranding and minimal fluid around the pancreas. Cholelithiasis. No evidence of appendicitis, diverticulitis, or intestinal obstruction. Abdomen ultrasound showing cholelithiasis, pancreas was not well demonstrated lap cholecystectomy lipase 1131 12/10/23 continue pain medications. 12/11/23 Increase ecchymosis across abdominal wall and abdominal tenderness. Surgery Dr. Castillo aware and seen patient. Will check an abdominal CT with and without IV contrast, monitor patient, and monitor labs. Lipase 402 today. (2) Acute pancreatitis: Qualifiers: Acute pancreatitis complication: unspecified Pancreatitis type: unspecified pancreatitis type Qualified Code(s): K85.90 - Acute pancreatitis without necrosis or infection, unspecified Code(s): K85.90 - Acute pancreatitis without necrosis or infection, unspecified Status: Acute Assessment and Plan: Acute pancreatitis likely due to alcohol abuse Chest/abdomen/pelvis CTA was negative for PE, showed acute pancreatitis involving the head and tail of the pancreas with fat stranding and minimal fluid around the pancreas. Cholelithiasis. No evidence of appendicitis, diverticulitis, or intestinal obstruction. Abdomen ultrasound showing cholelithiasis, pancreas was not well demonstrated Lipase 1256 initially, >1131, Today 402 Continue pain control was negative, troponin was negative - Regular diet with ensure compact - monitor labs (3) ION (acute kidney injury): Code(s): N17.9 - Acute kidney failure, unspecified Status: Acute Assessment and Plan: - 12/10/23:BUN 17, Creatinine 1.90, GFR 27. - 12/11/23:BUN 15, Creatinine 0.90, GFR >60 (Improved) - stop IV fluids - Encourage hydration - Monitor labs (4) Anemia: Qualifiers: Anemia type: iron deficiency Iron deficiency anemia type: unspecified iron deficiency Qualified Code(s): D50.9 - Iron deficiency anemia, unspecified Code(s): D64.9 - Anemia, unspecified Status: Acute Assessment and Plan: 12/09/23: H&H 11.2/36.0 12/10/23: H&H 9.6/31.9 12/11/23: H&H 7.5/24.7> 7.1/22.3>6.5/21.1 (Dr. Castillo aware, will transfuse 1 unit of PRBC's). -Monitor labs. Subjective Date/time seen: 12/11/23 13:58 Interval history: Patient reports abdominal pain that is a 5 , constant, sore, and aching. Patient reports that abdomen feels camejo like pulling and is tender. Denies chest pain, palpitations, nausea, vomiting, headache, or dizziness. Review of Systems Review of Systems: All systems reviewed & are unremarkable except as noted in HPI and below Exam Const: General: uncomfortable Eyes: Sclera: sclerae normal Cardio: Rate: regular rate Rhythm: regular rhythm GI: GI Palp: Yes Firmness to palpation present (GI), Yes Tenderness to palpation present (GI) and Yes Guarding due to palpation present (GI) Auscultation: normal bowel sounds Other: Abdominal wall ecchymosis increased. : Other: voiding without difficulty Skin: Other: incisions clean, dry, and intact. Ecchymosis has spread from around incisions to across abdominal wall. Extrem: General: normal to inspection Psych: Affect: normal affect Objective Data Vital Signs Vital Signs: Vital Signs - 24 hr 12/10/23 21:04 12/11/23 05:35 12/11/23 09:11 Temperature 97.4 F L 97.7 F Pulse Rate 98 84 76 Re
--- NOTE | 2023-12-11 14:51 | PM.PNGS ---
Progress Note: A&P Assessment and Plan (1) Diffuse abdominal pain: Code(s): R10.84 - Generalized abdominal pain Status: Acute Assessment and Plan: Having more pain than I would expect at this point following laparoscopic cholecystectomy. The bruising she has seems to be limited to the abdominal wall and mostly from the trocar sites. With no flank or back ecchymosis, it does not seem to be retroperitoneal such as associated with pancreatitis. Two most likely reasons, other than prolonged postoperative pain, would seem to be persistent pancreatitis or intra-abdominal bleeding. Bile leak post cholecystectomy also possible but usually patients are not eating and are not up walking when this occurs. Will get CT scan with and without IV contrast to better clarify. Discussed with hospitalist, Yun Acosta. (2) Acute biliary pancreatitis: Qualifiers: Acute pancreatitis complication: no infection or necrosis Qualified Code(s): K85.10 - Biliary acute pancreatitis without necrosis or infection Code(s): K85.10 - Biliary acute pancreatitis without necrosis or infection Status: Acute Assessment and Plan: Eating without making pain worse. Lipase today is 420. CT scan pending (3) Anemia: Qualifiers: Anemia type: iron deficiency Iron deficiency anemia type: unspecified iron deficiency Qualified Code(s): D50.9 - Iron deficiency anemia, unspecified Code(s): D64.9 - Anemia, unspecified Status: Acute Assessment and Plan: Hemoglobin and hematocrit have been progressively decreasing since surgery 2 days ago. Patient has a lot of ecchymosis on the anterior abdominal wall as well as significant abdominal pain. CT scan abdomen and pelvis with and without contrast has been ordered. If no evidence of bleeding, decrease in H&H is probably dilutional as patient is 5 L ahead since the . Discussed with hospitalist and, in that case, may consider diuretics. (4) S/P cholecystectomy: Code(s): Z90.49 - Acquired absence of other specified parts of digestive tract Status: Acute Assessment and Plan: Does not appear to be ill enough to have a bile leak or other complication of cholecystectomy. CT scan should help to rule this out as well. Subjective Subjective Date/Time Seen: 12/11/23 14:51 Post Op day: 3 Patient reports: still having pain (Taking hydrocodone as soon as possible around the clock. Pain is diffuse), tolerating a regular diet, no bowel movement and afebrile Interval history: Although eating well, patient has developed large amount of bruising anterior abdominal wall and H&H continues to slowly decrease. Review of Systems Review of Systems: All systems reviewed & are unremarkable except as noted in HPI and below (HPI) Exam Const: General: cooperative, comfortable, no acute distress, alert, awake and obese Orientation/consciousness: patient oriented x3 and No confusion GI: Inspection: abdominal wall ecchymosis (Anterior abdominal wall, most around epigastric trocar), Abdominal wall edema, incision (Dry and healing), obesity and other (No ecchymosis flanks or CVA) GI Palp: Yes Firmness to palpation present (GI), Yes Tenderness to palpation present (GI) (Diffusely tender, more in epigastric area), Yes Guarding due to palpation present (GI), No Hernia present, No Palpable mass present and No Ascites present Neuro: General: patient oriented x3, no focal motor deficits and other (Was walking in room, about to get in wheelchair when I arrived.) Speech: normal speech Gait exam (Neuro): Shuffling gait present and Wide-based gait present Extrem: General: no calf tenderness, no calf tenderness bilaterally and edema Psych: Affect: normal affect Attitude: cooperative Insight: Fair insight present (Psych) Judgement: Fair judgement present (Psych) Objective Data Vital Signs Vital Signs: Vital Signs - 24 hr 12/10/23 21:04 12/11/23 05:35 12/11/23
[2023-12-11 16:22] LABS: Basophils Percent Auto 0.5 % (0.2-1.2); Eosinophils Absolute Auto 0.1 K/mm3 (0-0.3); Eosinophils Percent Auto 3.4 % (0-4.4); Hematocrit 21.1 % (37.0-47.0); Immature Granulocyte Absolute 0.01 K/mm3 (0.00-0.031); Immature Granulocyte Percent A 0.2 % (0-0.5); Lymphocytes Absolute Auto 1.06 K/mm3 (0.9-3.2); Lymphocytes Percent Auto 26.1 % (18.3-44.2); Mean Corpuscular HGB Conc 30.8 g/dl (32-36); Mean Corpuscular Hemoglobin 33.7 pg (26-34); Mean Corpuscular Volume 109.3 fl (80-100); Mean Platelet Volume 12.2 fl (7.4-10.4); Monocytes Absolute Auto 0.4 K/mm3 (0.1-0.6); Monocytes Percent Auto 9.9 % (2.6-8.5); Neutrophils Absolute Auto 2.4 K/mm3 (1.3-6.7); Neutrophils Percent Auto 59.9 % (45.5-73.1); Platelet Count Result 85 k/mm3 (150-375); Red Blood Count 1.93 M/mm3 (4.2-5.4); Red Cell Distribution Width 14.5 % (11.5-14.5); White Blood Count 4.1 K/mm3 (4.5-10.0)
[2023-12-11 16:32] LABS: Hemoglobin 6.5 g/dL (12.0-15.0)
[2023-12-11 16:56] LABS: Hypochromasia 1+; Platelet Estimate Decreased (Adequate); Schistocytes None Seen
[2023-12-11] MEDS: SODIUM CHLORIDE 0.9% IV 250 ML 30 ML IV CONT (17:09)
[2023-12-11 18:09] LABS: Glucose Point of Care 142 mg/dl (65-105)
[2023-12-11] MEDS: MELATONIN 5 MG TABLET 10 MG PO (21:23)
[2023-12-11] MEDS: rOPINIRole HCL 1 MG TABLET PO (21:23)
[2023-12-11] MEDS: traZODone HCL 50 MG TABLET 100 MG PO (21:26)
[2023-12-12] MEDS: ACETAMINOPHEN 500 MG TABLET PO ×4 (05:17→23:31)
[2023-12-12] MEDS: HYDROcodone/acetaminophen (*CRX) 5-325 MG TABLET 1 TAB PO (05:17)
[2023-12-12 05:32] LABS: Glucose Point of Care 88 mg/dl (65-105)
[2023-12-12 05:43] VITALS: BP 107/68; PULSE 69; RESP 18; TEMP 35.7; O2SAT 98
[2023-12-12 06:26] LABS: Basophils Percent Auto 0.6 % (0.2-1.2); Eosinophils Absolute Auto 0.1 K/mm3 (0-0.3); Eosinophils Percent Auto 3.6 % (0-4.4); Hematocrit 27.6 % (37.0-47.0); Hemoglobin 8.5 g/dL (12.0-15.0); Immature Granulocyte Absolute 0.02 K/mm3 (0.00-0.031); Immature Granulocyte Percent A 0.6 % (0-0.5); Immature Platelet Fraction Pct 11.9 % (0.9-11.2); Lymphocytes Absolute Auto 1.18 K/mm3 (0.9-3.2); Lymphocytes Percent Auto 33.1 % (18.3-44.2); Mean Corpuscular HGB Conc 30.8 g/dl (32-36); Mean Corpuscular Hemoglobin 32.1 pg (26-34); Mean Corpuscular Volume 104.2 fl (80-100); Mean Platelet Volume 12.6 fl (7.4-10.4); Monocytes Absolute Auto 0.4 K/mm3 (0.1-0.6); Monocytes Percent Auto 10.6 % (2.6-8.5); Neutrophils Absolute Auto 1.8 K/mm3 (1.3-6.7); Neutrophils Percent Auto 51.5 % (45.5-73.1); Platelet Count Result 89 k/mm3 (150-375); Red Blood Count 2.65 M/mm3 (4.2-5.4); Red Cell Distribution Width 18.2 % (11.5-14.5); White Blood Count 3.6 K/mm3 (4.5-10.0)
[2023-12-12 06:36] LABS: Alanine Aminotransferase 29 U/L (6-35); Albumin Level 3.4 g/dL (3.5-5.1); Alkaline Phosphatase 44 U/L (38-126); Anion Gap 5 mmol/L (4-12); Aspartate Amino Transferase 52 U/L (14-36); Bilirubin,Total 0.6 mg/dL (0.2-1.3); Blood Urea Nitrogen 12 mg/dL (7-17); Calcium 9.5 mg/dL (8.4-10.2); Carbon Dioxide 22 mmol/L (22-30); Chloride 111 mmol/L (98-107); Estimated CRCL calculation 74 ml/min; Estimated Glomerular Filt Rate > 60; Glucose 84 mg/dL (65-110); Lipase 310 U/L (23-300); Potassium 4.1 mmol/L (3.4-5.0); Sodium 138 mmol/L (137-145)
[2023-12-12 08:36] VITALS: PULSE 74
[2023-12-12] MEDS: LOSARTAN POTASSIUM 25 MG TABLET PO (08:36)
[2023-12-12] MEDS: ATORVASTATIN 40 MG TABLET PO (08:36)
[2023-12-12] MEDS: GABAPENTIN 400 MG CAPSULE 800 MG PO ×3 (08:36→17:12)
[2023-12-12] MEDS: FERROUS SULFATE 325 MG TABLET DR PO (08:36)
[2023-12-12] MEDS: guaiFENesin 12 HR 600 MG TABCR 1200 MG PO ×2 (08:36→20:47)
[2023-12-12] MEDS: ASPIRIN 81 MG ENTERIC TABLET PO (08:36)
[2023-12-12] MEDS: carvediloL 3.125 MG TABLET PO (08:36)
[2023-12-12] MEDS: PANTOPRAZOLE 40 MG TABLET PO (08:36)
[2023-12-12] MEDS: polyethylene glycoL 3350 17 GM POWD.PACK PO (08:37)
[2023-12-12] MEDS: THIAMINE HCL 200 MG/2 ML VIAL 400 MG IVPB (08:37)
--- NOTE | 2023-12-12 10:14 | PM.IMPN ---
Progress Note: A&P Assessment and Plan (1) Cholelithiasis: Qualifiers: Biliary obstruction: without biliary obstruction Cholecystitis presence: without cholecystitis Cholelithiasis location: gallbladder Qualified Code(s): K80.20 - Calculus of gallbladder without cholecystitis without obstruction Code(s): K80.20 - Calculus of gallbladder without cholecystitis without obstruction Status: Inactive Assessment and Plan: 12/09/23 Chest/abdomen/pelvis CTA was negative for PE, showed acute pancreatitis involving the head and tail of the pancreas with fat stranding and minimal fluid around the pancreas. Cholelithiasis. No evidence of appendicitis, diverticulitis, or intestinal obstruction. Abdomen ultrasound showing cholelithiasis, pancreas was not well demonstrated lap cholecystectomy lipase 1131 12/10/23 continue pain medications. 12/11/23 Increase ecchymosis across abdominal wall and abdominal tenderness. Surgery Dr. Castillo aware and seen patient. -Checked an abdominal CT with and without IV contrast: IMPRESSION: 1. Minimal fat stranding around the head of the pancreas which may indicate residual of pancreatitis. 2. Minimal fluid which is slightly hypodense cysts seen in the pelvis suggestive of hemorrhagic fluid. Follow-up advised. 3. 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 Further evaluation advised. 4. Constipation. -Lipase 310 today. \ -Bumex 2 mg ivp ordered today by Dr. Castillo. -Monitor labs. (2) Acute pancreatitis: Qualifiers: Acute pancreatitis complication: unspecified Pancreatitis type: unspecified pancreatitis type Qualified Code(s): K85.90 - Acute pancreatitis without necrosis or infection, unspecified Code(s): K85.90 - Acute pancreatitis without necrosis or infection, unspecified Status: Inactive Assessment and Plan: Acute pancreatitis likely due to alcohol abuse Chest/abdomen/pelvis CTA was negative for PE, showed acute pancreatitis involving the head and tail of the pancreas with fat stranding and minimal fluid around the pancreas. Cholelithiasis. No evidence of appendicitis, diverticulitis, or intestinal obstruction. Abdomen ultrasound showing cholelithiasis, pancreas was not well demonstrated Lipase 1256 initially, >1131> 402> today 310 Continue pain control was negative, troponin was negative - Regular diet with ensure compact - monitor labs (3) ION (acute kidney injury): Code(s): N17.9 - Acute kidney failure, unspecified Status: Acute Assessment and Plan: - 12/10/23:BUN 17, Creatinine 1.90, GFR 27. - 12/11/23:BUN 15, Creatinine 0.90, GFR >60. - 12/12/23:BUN 12, Creatinine 0.70, GFR >60 (improved). - Encourage hydration - Monitor labs (4) Anemia: Qualifiers: Anemia type: iron deficiency Iron deficiency anemia type: unspecified iron deficiency Qualified Code(s): D50.9 - Iron deficiency anemia, unspecified Code(s): D64.9 - Anemia, unspecified Status: Acute Assessment and Plan: 12/09/23: H&H 11.2/36.0 12/10/23: H&H 9.6/31.9 12/11/23: H&H 7.5/24.7> 7.1/22.3>6.5/21.1 (Dr. Castillo aware, will transfuse 1 unit of PRBC's). 12/12/23: H&H 8.5/27.6. -Monitor labs. Subjective Date/time seen: 12/12/23 10:14 Interval history: Patient upset this morning when she still had a question for surgeon after he walked out of the room and called desk. Patient heard conversation with surgeon asking if you just want us to tell her that you have already left for the meeting. Patient first wanted to leave AMA. Explained to patient that if she left AMA that she could be stuck paying her hospital bill, I also explained the concerns about her health that I had if she left before stable for discharge. Patient stated she did not feel that she could trust us and wanted to leave and go to [facility] after overhea
[2023-12-12] MEDS: BUMETANIDE INJ 1 MG/4 ML VIAL 2 MG IV PUSH (10:41)
[2023-12-12] MEDS: IBUPROFEN IV 400 MG in SODIUM CHLORIDE 0.9% IV 100 ML 208 MG IVPB (10:44)
--- NOTE | 2023-12-12 10:52 | PM.PNGS ---
Progress Note: A&P Assessment and Plan (1) Diffuse abdominal pain: Code(s): R10.84 - Generalized abdominal pain Status: Acute Assessment and Plan: Still having quite a bit of abdominal pain. Possibly this is from the ecchymosis as well as the surgery. Patient does have a protuberant abdomen and a history of chronic pain especially dorsalgia. Will start IV Calot the lower q.6 hours and changed from hydrocodone to oxycodone with Percocet. Continue morphine backup. Increase ambulation. It also appears that she does have fluid overload 1 being 5 L ahead on KAMLESH and also the subcutaneous findings on CT scan. Will give 2 mg Bumex. Continue to watch CBC and electrolytes. Supplement potassium. (2) Acute biliary pancreatitis: Qualifiers: Acute pancreatitis complication: no infection or necrosis Qualified Code(s): K85.10 - Biliary acute pancreatitis without necrosis or infection Code(s): K85.10 - Biliary acute pancreatitis without necrosis or infection Status: Acute Assessment and Plan: Improved on CT. Lipase decreasing. The this is continuing to cause much in the way of abdominal pain. Suspect chronic pain syndrome playing a role. (3) Anemia: Qualifiers: Anemia type: iron deficiency Iron deficiency anemia type: unspecified iron deficiency Qualified Code(s): D50.9 - Iron deficiency anemia, unspecified Code(s): D64.9 - Anemia, unspecified Status: Acute Assessment and Plan: Still anemic but significantly better after 1 unit packed cells. I suspect the diuresis will improve this also. (4) S/P cholecystectomy: Code(s): Z90.49 - Acquired absence of other specified parts of digestive tract Status: Acute Assessment and Plan: No evidence of complications on CT scan yesterday. Tolerating regular diet. Home when comfortable on oral analgesics but I suspect this may be Friday or Friday. Subjective Subjective Date/Time Seen: 12/12/23 10:52 Post Op day: 4 Patient reports: still having pain, tolerating a regular diet, voiding w/o difficulty, flatus, no bowel movement and afebrile Review of Systems Review of Systems: All systems reviewed & are unremarkable except as noted in HPI and below (HPI) Exam Const: General: cooperative, comfortable, no acute distress, alert, awake and obese; No ill appearing Orientation/consciousness: patient oriented x3 and No confusion GI: Inspection: abdominal wall ecchymosis (At least the same sizes yesterday, possibly a little more extensive), Abdominal wall edema, non-distended, incision (Dry and healing), obesity and other (No hematoma or mass, no oozing from trocar sites) GI Palp: Yes Firmness to palpation present (GI), Yes Tenderness to palpation present (GI) (Diffuse but worse in the upper abdomen near epigastric trocar site), No Guarding due to palpation present (GI), No Hernia present, No Palpable mass present and No Rebound tenderness present Auscultation: normal bowel sounds Neuro: General: patient oriented x3 and no focal motor deficits Extrem: General: no calf tenderness and no edema Psych: Affect: normal affect Insight: Good insight present (Psych) Judgement: Good judgement present (Psych) Objective Data Vital Signs Vital Signs: Vital Signs - 24 hr 12/11/23 19:44 12/11/23 20:00 12/11/23 20:35 Temperature 36.4 C 36.9 C 36.4 C Pulse Rate 72 91 72 Respiratory Rate 20 18 20 Blood Pressure 106/61 91/53 L 106/61 Pulse Oximetry 99 97 99 Oxygen Delivery 12/11/23 21:00 12/11/23 21:19 12/11/23 20:00 Temperature 36.7 C 36.9 C Pulse Rate 78 86 Respiratory Rate 16 20 Blood Pressure 90/60 L 110/60 Pulse Oximetry 98 Oxygen Delivery Room Air 12/12/23 05:43 12/12/23 08:36 Temperature 35.7 C L Pulse Rate 69 74 Respiratory Rate 18 Blood Pressure 107/68 Pulse Oximetry 98 Oxygen Delivery Intake/Output Intake/Output: Intake & Output 12/09/23 12/10/23 12/11/23
[2023-12-12] MEDS: HYDROcodone/acetaminophen (*CRX) 10-325 MG TABLET 1 TAB PO ×2 (11:10→20:51)
[2023-12-12] MEDS: POTASSIUM CHLORIDE 20 MEQ ER TABLET PO (11:10)
[2023-12-12 14:15] VITALS: BP 90/54; PULSE 66; RESP 17; TEMP 36; O2SAT 100
[2023-12-12] MEDS: IBUPROFEN IV 800 MG/200 ML 800 MG/200 ML BAG 400 MG IVPB ×2 (17:12→23:31)
[2023-12-12 20:17] VITALS: BP 130/85; PULSE 76; RESP 18; TEMP 36.8; O2SAT 98
[2023-12-12] MEDS: traZODone HCL 50 MG TABLET 100 MG PO (20:46)
[2023-12-12] MEDS: rOPINIRole HCL 1 MG TABLET PO (20:46)
[2023-12-12] MEDS: SENNA/DOCUSATE SODIUM TABLET 1 TAB PO (20:47)
[2023-12-12] MEDS: MELATONIN 5 MG TABLET 10 MG PO (20:47)
[2023-12-13] MEDS: ALBUTEROL SULFATE (*SP) AEROSOL 1 PUFF 2 PUFF INHALATION (04:35)
[2023-12-13] MEDS: ACETAMINOPHEN 500 MG TABLET PO ×2 (05:08→14:30)
[2023-12-13] MEDS: HYDROcodone/acetaminophen (*CRX) 10-325 MG TABLET 1 TAB PO (05:09)
[2023-12-13 06:00] VITALS: BP 136/86; PULSE 64; RESP 20; TEMP 36.8; O2SAT 100
[2023-12-13 06:30] LABS: Basophils Percent Auto 0.2 % (0.2-1.2); Eosinophils Absolute Auto 0.2 K/mm3 (0-0.3); Eosinophils Percent Auto 3.7 % (0-4.4); Hematocrit 26.7 % (37.0-47.0); Hemoglobin 8.7 g/dL (12.0-15.0); Immature Granulocyte Absolute 0.03 K/mm3 (0.00-0.031); Immature Granulocyte Percent A 0.7 % (0-0.5); Lymphocytes Absolute Auto 0.86 K/mm3 (0.9-3.2); Lymphocytes Percent Auto 21.4 % (18.3-44.2); Mean Corpuscular HGB Conc 32.6 g/dl (32-36); Mean Corpuscular Hemoglobin 33.5 pg (26-34); Mean Corpuscular Volume 102.7 fl (80-100); Monocytes Absolute Auto 0.4 K/mm3 (0.1-0.6); Monocytes Percent Auto 9.5 % (2.6-8.5); Neutrophils Absolute Auto 2.6 K/mm3 (1.3-6.7); Neutrophils Percent Auto 64.5 % (45.5-73.1); Platelet Count Result 106 k/mm3 (150-375); Red Cell Distribution Width 17.9 % (11.5-14.5)
[2023-12-13 06:47] LABS: Alanine Aminotransferase 28 U/L (6-35); Albumin Level 3.5 g/dL (3.5-5.1); Alkaline Phosphatase 49 U/L (38-126); Anion Gap 4 mmol/L (4-12); Aspartate Amino Transferase 52 U/L (14-36); Bilirubin,Total 0.8 mg/dL (0.2-1.3); Blood Urea Nitrogen 11 mg/dL (7-17); Calcium 10.1 mg/dL (8.4-10.2); Carbon Dioxide 25 mmol/L (22-30); Chloride 108 mmol/L (98-107); Estimated CRCL calculation 59 ml/min; Estimated Glomerular Filt Rate > 60; Glucose 99 mg/dL (65-110); Sodium 137 mmol/L (137-145)
[2023-12-13] MEDS: MORPHINE SULFATE (*CRX) 2 MG/ML INJ IV PUSH (06:48)
[2023-12-13] MEDS: diphenhydrAMINE HCl INJ 50 MG/ML VIAL 25 MG IV PUSH (06:55)
[2023-12-13 07:15] VITALS: O2SAT 95
[2023-12-13] MEDS: UMECLIDINIUM/VILANTEROL 62.5-25 MCG ELLIPTA 1 PUFF INHALATION (07:15)
[2023-12-13] MEDS: THIAMINE HCL 200 MG/2 ML VIAL 400 MG IVPB (10:12)
[2023-12-13] MEDS: ATORVASTATIN 40 MG TABLET PO (10:12)
[2023-12-13 10:13] VITALS: PULSE 64
[2023-12-13] MEDS: PANTOPRAZOLE 40 MG TABLET PO (10:13)
[2023-12-13] MEDS: FERROUS SULFATE 325 MG TABLET DR PO (10:13)
[2023-12-13] MEDS: carvediloL 3.125 MG TABLET PO (10:13)
[2023-12-13] MEDS: LOSARTAN POTASSIUM 25 MG TABLET PO (10:14)
[2023-12-13] MEDS: POTASSIUM CHLORIDE 20 MEQ ER TABLET PO (10:14)
[2023-12-13] MEDS: ASPIRIN 81 MG ENTERIC TABLET PO (10:14)
[2023-12-13] MEDS: polyethylene glycoL 3350 17 GM POWD.PACK PO (10:15)
[2023-12-13] MEDS: GABAPENTIN 400 MG CAPSULE 800 MG PO ×2 (10:15→14:30)
--- NOTE | 2023-12-13 11:53 | PM.PNGS ---
Progress Note: A&P Assessment and Plan (1) Acute biliary pancreatitis: Qualifiers: Acute pancreatitis complication: no infection or necrosis Qualified Code(s): K85.10 - Biliary acute pancreatitis without necrosis or infection Code(s): K85.10 - Biliary acute pancreatitis without necrosis or infection Status: Resolved (2) S/P cholecystectomy: Code(s): Z90.49 - Acquired absence of other specified parts of digestive tract Status: Acute Assessment and Plan: Doing better. Patient comfortable on oral analgesics and would like to go home today. Her H&H is stable. She did diuresed significantly yesterday. She appears much more comfortable than she did yesterday. Okay to discharge from surgical standpoint. (3) Diffuse abdominal pain: Code(s): R10.84 - Generalized abdominal pain Status: Acute Assessment and Plan: Much improved. Okay to discharge (4) Tobacco abuse: Code(s): Z72.0 - Tobacco use Status: Chronic Assessment and Plan: Smoking cessation recommended. Increases risks from surgery. Subjective Subjective Date/Time Seen: 12/13/23 11:53 Patient reports: pain is less, tolerating a regular diet, voiding w/o difficulty, flatus and afebrile Interval history: Wants to go home Exam Const: General: comfortable, no acute distress, alert, awake and obese Orientation/consciousness: patient oriented x3 and No confusion GI: Inspection: abdominal wall ecchymosis (No larger but is extensive), Abdominal wall edema, incision (Dry and healing) and obesity GI Palp: Yes Firmness to palpation present (GI), Yes Tenderness to palpation present (GI) (Less than before, mostly in area of ecchymosis and incision), No Hernia present and No Palpable mass present Auscultation: normal bowel sounds Objective Data Vital Signs Vital Signs: Vital Signs - 24 hr 12/12/23 14:15 12/12/23 20:17 12/13/23 06:00 Temperature 36.0 C L 36.8 C 36.8 C Pulse Rate 66 76 64 Respiratory Rate 17 18 20 Blood Pressure 90/54 L 130/85 136/86 Pulse Oximetry 100 98 100 Oxygen Delivery Fraction of Inspired Oxygen 12/13/23 07:15 12/13/23 10:13 Temperature Pulse Rate 64 Respiratory Rate Blood Pressure Pulse Oximetry 95 Oxygen Delivery Room Air Fraction of Inspired Oxygen 21 Intake/Output Intake/Output: Intake & Output 12/10/23 12/11/23 12/12/23 12/13/23 23:59 23:59 23:59 23:59 Intake Total 730 2830 2860 908 Balance 730 2830 2860 908 Meds/Results Medications: Active Medications Generic Name Dose Route Start Last Admin Trade Name Freq PRN Reason Stop Dose Admin Acetaminophen 500 mg 12/11/23 18:00 12/13/23 05:08 Acetaminophen 500 Mg Tablet PO 500 mg Q6HR DAVID Administration Hydrocodone Bitart/Acetaminophen 1 tab 12/12/23 10:45 12/13/23 05:09 Hydrocodone/Acetaminophen (*Crx) 10-325 Mg Tablet PO 1 tab Q6H PRN Administration Pain Rated 7-10 Albuterol 2 puff 12/09/23 22:32 12/13/23 04:35 Albuterol Sulfate (*Sp) Aerosol 1 Puff INHALATION 2 puff QIDRT PRN Administration Shortness Of Breath Aspirin 81 mg 12/09/23 09:00 12/13/23 10:14 Aspirin 81 Mg Enteric Tablet PO 81 mg DAILY DAVID Administration Atorvastatin Calcium 40 mg 12/09/23 09:00 12/13/23 10:12 Atorvastatin 40 Mg Tablet PO 40 mg DAILY DAVID Administration Carvedilol 3.125 mg 12/09/23 09:00 12/13/23 10:13 Carvedilol 3.125 Mg Tablet PO 3.125 mg DAILY DAVID Administration Diphenhydramine HCl 50 mg 12/08/23 17:07 Diphenhydramine Hcl Cap 25 Mg Capsule PO QHS PRN Itching Diphenhydramine HCl 25 mg 12/12/23 10:45 12/13/23 06:55 Diphenhydramine Hcl Inj 50 Mg/Ml Vial IV PUSH 25 mg Q6H PRN Administration Itching Enoxaparin Sodium 40 mg 12/09/23 09:00 12/13/23 09:54 Enoxaparin 40 Mg/0.4 Ml Syringe SUB-Q Not Given DAILY DAVID Ferrous Sulfate 325 mg 12/09/23 09:00 12/13/23 10:13 F
--- NOTE | 2023-12-13 13:24 | PM.DS ---
DS: Admitting Diagnosis Discharge Date 12/13/23 Admitting Diagnosis Abdominal pain DS: Discharge Diagnosis Discharge Diagnosis (1) S/P cholecystectomy: Code(s): Z90.49 - Acquired absence of other specified parts of digestive tract Status: Acute (2) Diffuse abdominal pain: Code(s): R10.84 - Generalized abdominal pain Status: Acute (3) Acute pancreatitis without necrosis or infection, unspecified: Code(s): K85.90 - Acute pancreatitis without necrosis or infection, unspecified Status: Acute (4) ION (acute kidney injury): Code(s): N17.9 - Acute kidney failure, unspecified Status: Acute (5) Anemia: Qualifiers: Anemia type: iron deficiency Iron deficiency anemia type: unspecified iron deficiency Qualified Code(s): D50.9 - Iron deficiency anemia, unspecified Code(s): D64.9 - Anemia, unspecified Status: Acute DS: Summary Hospital Course Hospital Course: 12/09/23 Chest/abdomen/pelvis CTA was negative for PE, showed acute pancreatitis involving the head and tail of the pancreas with fat stranding and minimal fluid around the pancreas. Cholelithiasis. No evidence of appendicitis, diverticulitis, or intestinal obstruction. Abdomen ultrasound showing cholelithiasis, pancreas was not well demonstrated lap cholecystectomy lipase 1131 12/11/23 Increase ecchymosis across abdominal wall and abdominal tenderness. Blood counts decreased to 7.1/21.1. Patient was transfused 1 unit of PRBC's. H&H today 8.7/26.7 (12/13/23). -Checked an abdominal CT with and without IV contrast: IMPRESSION: 1. Minimal fat stranding around the head of the pancreas which may indicate residual of pancreatitis. 2. Minimal fluid which is slightly hypodense cysts seen in the pelvis suggestive of hemorrhagic fluid. Follow-up advised. 3. 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 Further evaluation advised. Pain has improved, no nausea or vomiting. Blood counts stable at 8.7/26.7. Lipase improved to 310. Signed off by surgery. Status at Discharge Functional status at discharge: independent ambulation Overall status at discharge: patient is progressing back to baseline Time Spent with Patient Time attestation: Total time spent providing and/or coordinating discharge services: Time spent: Greater than 30 minutes Exam Const: General: no acute distress Eyes: Sclera: sclerae normal Resp: Effort & Inspection: normal respiratory effort Auscultation: clear to auscultation bilaterally Cardio: Rate: regular rate Rhythm: regular rhythm GI: GI Palp: Yes Firmness to palpation present (GI) (improving) and Yes Tenderness to palpation present (GI) Auscultation: normal bowel sounds Other: ecchymosis across abdominal wall Skin: Other: Incisions clean, dry, and intact. Ecchymosis has spread from around incisions to across abdominal wall. Neuro: General: gait normal Psych: Mental Status: mental status grossly normal Affect: normal affect DS: Data Data Completed and Pending Completed studies during hospitalization: Pending at discharge 12/09/23 16:05 Surgical [PTH] Routine Labs on day of discharge: Labs from last 24 hours 12/13/23 12/13/23 06:12 06:12 WBC 4.0 L RBC 2.60 L Hgb 8.7 L Hct 26.7 L MCV 102.7 H MCH 33.5 MCHC 32.6 RDW 17.9 H Plt Count 106 L MPV 12.0 H Immature Gran % (Auto) 0.7 H Neut % (Auto) 64.5 Lymph % (Auto) 21.4 [place] % (Auto) 9.5 H Eos % (Auto) 3.7 Baso % (Auto) 0.2 Lymph # (Auto) 0.86 L [place] # (Auto) 0.4 Eos # (Auto) 0.2 Baso # (Auto) 0.0 Abs Immat Gran (auto) 0.03 Absolute Neuts (auto) 2.6 Absolute Nucleated RBC 0.000 Nucleated RBC % 0.0 Sodium 137 Potassium 4.0 4.0 Chloride 108 H Carbon Dioxide 25 Anion Gap 4 BUN 11 Creatinine 0.90 Estim Creat Clear Calc 59 Estimated GFR > 60
[2023-12-13 14:03] VITALS: BP 125/66; PULSE 74; RESP 16; TEMP 36.3; O2SAT 99
[2023-12-13] MEDS: oxyCODONE/ACETAMINOPHEN (*CRX) 5-325 MG TABLET 1 TABLET PO (14:39)
== END 2023-12-13 15:05 | disposition home or self-care (01) | DRG 263 ==
LOC: ANHED 09:10 → ANH3MEDSUR 13:33
PROVIDERS: Emergency Medicine; Nurse Practitioner Acute Care; Surgery; Admitting Provider Internal Medicine; Emergency Provider Physician Assistant; PCP Internal Medicine; Visit Provider Nurse Practitioner Family
PROC: 0FT44ZZ Resection of Gallbladder, Percutaneous Endoscopic Approach (ICD-10-PCS; CPT 47562; principal; 2023-12-09 15:00)
DX: K85.10 Biliary acute pancreatitis without necrosis or infection (principal); K85.20 Alcohol induced acute pancreatitis without necrosis or infection; K80.10 Calculus of gallbladder with chronic cholecystitis without obstruction; N17.9 Acute kidney failure, unspecified; F10.10 Alcohol abuse, uncomplicated; D50.9 Iron deficiency anemia, unspecified; J44.9 Chronic obstructive pulmonary disease, unspecified; I25.10 Atherosclerotic heart disease of native coronary artery without angina pectoris; K21.9 Gastro-esophageal reflux disease without esophagitis; E78.5 Hyperlipidemia, unspecified; F41.9 Anxiety disorder, unspecified; F17.210 Nicotine dependence, cigarettes, uncomplicated; Z95.5 Presence of coronary angioplasty implant and graft; E66.9 Obesity, unspecified; Z68.36 Body mass index [BMI] 36.0-36.9, adult; I10 Essential (primary) hypertension; Z87.442 Personal history of urinary calculi; D69.59 Other secondary thrombocytopenia; G47.00 Insomnia, unspecified
CPT/HCPCS: 36415; 36430; 71045; 71275; 74177; 74178; 76705; 80053; 81003; 82306; 82607; 82948; 83690; 83735; 84132; 84443; 84478; 84484; 85025; 85027; 85055; 85380; 85610; 85730; 86038; 86039; 86850; 86900; 86901; 86923; 88304; 93005; 94640; 96361; 96374; 96375; 96376; 99285; A9270; J0330; J0690; J1100; J1170; J1200; J1596; J1650; J1741; J1939; J2250; J2270; J2405; J2470; J2704; J3010; J3411; J3475; J7030; J7050; J7120; P9016; Q9967

== ENCOUNTER 2024-01-06 12:41 | Outpatient (CLI) | payer OTHER, SELFPAY ==
--- NOTE | ~2024-01-06 | US_ITS ---
Please refer to diagnostic mammogram report dated 01/06/2024 for details. Reviewed, dictated and finalized at location B.
--- NOTE | ~2024-01-06 | MM_ITS ---
EXAMINATION: MM diagnostic star BI w isabel HISTORY: Breast pain. Palpable lump right axilla. TECHNIQUE: Additional 3-D tomosynthesis images of the breasts were performed and synthetic 2-D images were generated. CAD analysis was submitted and interpreted. High resolution right Limited breast ult rasound including the axilla was performed. COMPARISON: Comparison to multiple prior studies sequentially, with oldest reviewed study dated 02/14. BREAST PARENCHYMAL COMPOSITION: Not Dense: The breasts are almost entirely fatty. FINDINGS: MAMMOGRAPHIC FINDINGS: There are no suspicious masses, calcifications or architectural distortion in either breast to sugges t malignancy. ULTRASOUND: Limited right breast/axillary ultrasound: There are normal right axillary lymph nodes with no evidenc e for cortical thickening. IMPRESSION: 1. No evidence for malignancy in either breast. 2. Routine yearly screening mammogram and regular clinical breast examination are recommended. BI-RADS Category 2: Benign finding(s). Reviewed, dictated and finalized at location B. IMPRESSION: 1. No evidence for malignancy in either breast. 2. Routine yearly screening mammogram and regular clinical breast examination a re recommended. BI-RADS Category 2: Benign finding(s).
== END 2024-01-06 12:42 | disposition home or self-care (01) ==
LOC: ANHIMG 12:42
PROVIDERS: PCP Obstetrics & Gynecology; Visit Provider Obstetrics & Gynecology
DX: N64.4 Mastodynia (principal)
CPT/HCPCS: 76642; 77062; 77066; G0279

== ENCOUNTER 2024-04-29 13:14 | Outpatient (CLI) | payer OTHER, SELFPAY ==
--- OUTSIDE RECORDS SUMMARY | 2024-04-29 13:20 | XMS_ITS | Referral Summary ---
Author Organization [facility] Address [address] [place] [address] Care Team Providers Care Hvac Commercial Salesperson Name Role Phone Robby Dee MD Unavailable [phone] Surinder Walters DO Primary Care Provider [phone] Encounters Date Type Department Care Team Description 04/20/2024 1:00 PM CHURCH ADMINISTRATOR Office Visit [facility] Pulmonary at [address] [place] [address] Mirian Nickerson NP Centrilobular emphysema (HCC) (Primary Dx); Heterozygous alpha 1-antitrypsin deficiency (CMS/HCC) (HCC); Cigarette nicotine dependence without complication 04/15/2024 3:00 PM CHURCH ADMINISTRATOR Office Visit [facility] [place] [address] [place] [id number] Terrie Napier NP Acute bacterial sinusitis (Primary Dx); COPD exacerbation (HCC); Hordeolum internum left lower eyelid 03/30/2024 Telephone [facility] [address] [place] [address] [address] [place] [address] Marcus Redd MD Med Refill 03/30/2024 Telephone [facility] [address] [facility] [address] [place] [address] Marcus Redd MD 03/02/2024 4:23 PM CHURCH ADMINISTRATOR - 03/02/2024 11:59 PM CHURCH ADMINISTRATOR Hospital Encounter [facility] [address] [place] [address] Nicotine dependence, cigarettes, uncomplicated Discharge Disposition: Discharge to home or self care 03/01/2024 Telephone [facility] [address] [place] [address] Mirian Magana RN from Last 3 Months Allergies No known active allergies Medications fish lke-hoeyl-6-vit C-vit E 2,000-650-12 mg/2.5 gram emulsion in packet Take by mouth. Activ e methocarbamol (ROBAXIN) 750 mg tablet Take 750 mg by mouth 4 (four) times a day. Active cholecalciferol (VITAMIN D-3) 1,000 unit capsule Take by mouth. 05/07/19 17 Active zolpidem CR (AMBIEN CR) 12.5 mg CR tabletIndication s:Insomnia Take by mouth Activ e clonazePAM (KlonoPIN) 0.5 mg tablet Take by mouth 10/18/19 17 Active escitalopram (LEXAPRO) 5 mg tablet Take by mouth. 05/07/19 17 Active melatonin tablet Take 10 tablets (10 mg total) by mouth nightly Active nicotine (NICODERM CQ) 21 mg 06/28/19 18 Active diphenhydrAMINE (BENADRYL) 25 mg capsule Benadryl 25mg 2 tab qhs 05/17/19 17 Active fenofibrate (TRIGLIDE) 160 mg tablet daily. Active aspirin 81 mg tablet daily. Active pentosan polysulfate (ELMIRON) 100 mg capsule Elmiron 100 mg capsule Active gabapentin (NEURONTIN) 100 mg capsule every 8 hours. Acti ve nitroglycerin (NITROSTAT) 0.4 mg SL tablet nitroglycerin 0.[address] 1 tablet by sublingual route. Active gabapentin (NEURONTIN) 300 mg capsule Take 1 capsule (300 mg total) by mouth every 8 hours 06/07/19 18 Active omeprazole (PriLOSEC) 20 mg capsule omeprazole 20 mg capsule,delayed release Active rOPINIRole (REQUIP) 1 mg tablet Take 1 tablet (1 mg total) by mouth 12/05/19 17 Active alendronate (FOSAMAX) 70 mg tablet Take 1 tablet (70 mg total) by mouth every 7 days Take in the morning with a full glass of water, on an empty stomach, and do not take anything else by mouth or lie down for the next 30 min. Active atorvastatin (LIPITOR) 40 mg tablet Take 1 tablet (40 mg total) by mouth daily 90 tablet 3 12/11/19 23 Active FeroSuL 325 mg (65 mg iron) tablet Take 1 tablet (325 mg total) by mouth daily 09/20/19 24 Active fluticasone propionate (FLONASE) 50 mcg/actuation nasal spray Administer 1 spray into each nostril daily Active tiotropium-oloda teroL (Stiolto Respimat) 2.5-2.5 mcg/actuation inhaler Inhale 2 puffs daily 1 each 10/16/19 24 Active losartan (COZAAR) 25 mg tablet Take 1 tablet (25 mg total) by mouth daily 90 tablet 3 01/29/20 24 Active carvediloL (COREG) 3.125 mg tablet Take 1 tablet (3.125 mg total) by mouth daily 90 tablet 1 03/30/19 25 Active ezetimibe (ZETIA) 10 mg tablet Take 1 tablet (10 mg total) by mouth daily 90 tablet 1 03/30/19 25 Active albuterol 2.5 mg /3 mL (0.083 %) nebulizer solution USE 1 VIAL IN NEBULIZER 4 TIMES DAILY NEEDED FOR WHEEZING 02/19/20 24 Active traZODone (DESYREL) 100 mg tablet TAKE 1 TABLET BY MOUTH EVERY DAY AT BEDTIME NEEDED FOR INSOMNIA 04/08/19 25 Active albuterol HFA (PROVENTIL HFA,VENTOLIN HFA,PROAIR HFA) 90 mcg/actuation inhalerIndicatio ns:COPD exacerbation (HCC) Inhale 2 puffs every 4 (four) hours as needed for shortness of breath or wheezing (cough) 18 g 04/15/19 25 Active inhalational spacing device (Aerochamber MV) spacerIndication s:COPD exacerbation (HCC) Use with albuterol inhaler 1 each 04/15/19 25 Active albuterol HFA (PROVENTIL HFA,VENTOLIN HFA) 90 mcg/actuation inhaler Inhale 2 puffs every 6 (six) hours as needed for wheezing 025 Discontinu ed(Alterna te therapy) traZODone (DESYREL) 50 mg tablet Take 1 tablet (50 mg total) by mouth daily as needed 12/11/19 23 025 Discontinu ed(Alterna te therapy) methylPREDNISolo ne (MEDROL DOSEPACK) 4 mg Dosepack Take 1 tablet (4 mg total) by mouth cycled 10/10/19 24 025 Discontinu ed(Therapy completed) amoxicillin-clav ulanate (AUGMENTIN) 875-125 mg per tabletIndication s:Acute bacterial sinusitis Take 1 tablet by mouth 2 (two) times a day for 7 days 14 tablet 04/15/19 25 025 predniSONE (DELTASONE) 20 mg tabletIndication s:COPD exacerbation (HCC) Take 1 tablet (20 mg) by mouth 2 (two) times a day for 5 days 10 tablet 04/15/19 25 025 Additional Information Patient not taking.Reported on 04/20/2024 erythromycin (ILOTYCIN) ophthalmic ointmentIndicati ons:Hordeolum internum left lower eyelid Apply to left eye 4 (four) times a day for 5 days 3.5 g 04/15/19 25 025 Active Problems Problem Noted Date Diagnosed Date Cigarette nicotine dependence without complicati on 04/20/2024 Assessment & Plan (04/20/2024 2:45 PM CHURCH ADMINISTRATOR): - Smoking cessation counseling and techniques reviewed at length - Avoid triggers and use distraction techniques - Information given regarding [place] [employer] [facility]uit line: [phone] for free services - 5 minutes spent discussing cessation She remains pre-contemplative She qualifies for annual screening, next due 02/2025 Heterozygous alpha 1-antitrypsin deficiency (CMS /HCC) 04/20/2024 Assessment & Plan (04/20/2024 2:49 PM CHURCH ADMINISTRATOR): She is MZ with good last levels We have discussed that level should be checked periodically and would changes in condition I will check an alpha-1 level today She is well aware to have siblings and children tested Primary hypertension 12/10/2022 Systolic murmur 12/10/2022 S/P coronary artery stent placement 12/10/2022 Abdominal pain 07/03/2017 Acute gastritis without bleeding 07/03/2017 Body mass index 31.0-31.9, adult 07/03/2017 Coronary atherosclerosis of absentee-[place]nee coronary emily ry 07/03/2017 Cervicalgia 07/03/2017 Chronic pain syndrome 07/03/2017 Closed fracture of part of fibula with tibia Chronic obstructive pulmonary disease 07/03/2017 Assessment & Plan (04/20/2024 2:48 PM CHURCH ADMINISTRATOR): Continue Stiolto two puffs daily for now Check CBC for peripheral eosinophilia. Albuterol as needed only, she is aware of indications for use Alpha1 MZ We have discussed signs and symptoms that would require earlier evaluation or change to her plan of care Disorder of bone density and structure, unspecif ied 07/03/2017 Dizziness 07/03/2017 Encounter for general adult medical examination without abnormal findings 07/03/2017 Encounter for general adult medical examination with abnormal findings 07/03/2017 Esophageal reflux 07/03/2017 Gastritis, unspecified, without bleeding 018 Gastro-esophageal reflux disease without esophag itis 07/03/2017 Generalized anxiety disorder 07/03/2017 Hematuria 07/03/2017 Hypopotassemia 07/03/2017 Impacted cerumen, left ear 07/03/2017 Insomnia, unspecified 07/03/2017 Liver disease 07/03/2017 Lumbago 07/03/2017 Lumbago with sciatica, left side 07/03/2017 Meralgia paresthetica, bilateral lower limbs Mixed hyperlipidemia 07/03/2017 Disorder of bone and cartilage 07/03/2017 Other specified disorders of bone density and structure, multiple sites 07/03/2017 Other spondylosis, lumbar region 07/03/2017 Pain in joint, pelvic region and thigh 8 Pain in right lower leg 07/03/2017 Disorder of pancreatic internal secretion 2017 Restless legs syndrome 07/03/2017 Routine general medical exam ination at a health care facility 07/03/2017 Sleep apnea 07/03/2017 Sleep disorder 07/03/2017 Tobacco use 07/03/2017 Trigger little finger of left hand 04/07/2015 Overview (07/03/2017): Overview: IMO load Trigger middle finger of left hand 04/07/2015 Overview (07/03/2017): Overview: IMO load Trigger middle finger of right hand 04/07/2015 Overview (07/03/2017): Overview: IMO load Dietary counseling and surveillance 10/12/2014 Primary osteoarthritis of fi rst carpometacarpal joint of left hand 08/23/2014 Radial styloid tenosynovitis 08/23/2014 Other chronic pain 06/01/2014 Pain in left wrist 06/01/2014 Pain in right wrist 06/01/2014 Obesity with body mass index 30 or greater 05/19 Hip pain 05/19/2014 Neck pain 05/19/2014 Blood in urine 04/21/2014 Chronic liver disease 02/15/2014 Gastroesophageal reflux disease 02/15/2014 Insomnia 02/15/2014 Mixed incontinence 01/28/2014 Resolved Problems Problem Noted Date Diagnosed Date Resolved Date Atherosclerotic heart diseas e of absentee-shawnee coronary artery without angina pectoris 07/03/2017 12/10/2022 Hyperlipidemia 07/03/2017 12/10/2022 Pure hypertriglyceridemia 07/03/2017 Pure hyperglyceridemia 04/21/201402/11 Coronary arteriosclerosis in absentee-shawnee artery 02/15/2014 02/11/2023 Social History Tobacco Use Types Packs/Day Years Used Date Smoking Tobacco: Every Day Cigarettes 1 53.1 Started: 1971 Smokeless Tobacco: Current Tobacco Cessation:Ready to Q uit: Not Asked; Counseling Given: Not Answered Alcohol Use Standard Drinks/Week Comments Yes 0 (1 standard drink = 0.6 oz pur e alcohol) AUDIT-C Answer Date Recorded Q1: How often do you have a drink containing alc ohol? 2-3 times a week 04/20/2024 Average Number of Drinks Not on file 025 Frequency of Binge Drinking Not on file 06/2024 Comments No Sex and Gender Information Value Date Recorded Sex Assigned at Not on file Legal Sex Female 5:32 PM CHURCH ADMINISTRATOR Gender Identity Not on file Sexual Orientation Not on file Last Filed Vital Signs Vital Sign Reading Time Taken Comments Blood Pressure 129/84 04/20/2024 12:53 PM CHURCH ADMINISTRATOR Pulse 83 04/20/2024 12:53 PM CHURCH ADMINISTRATOR Temperature 36.2 C (97.2 F) 04/20/2024 12:53 PM CHURCH ADMINISTRATOR Respiratory Rate 18 04/20/2024 12:53 PM CHURCH ADMINISTRATOR Oxygen Saturation 99% 04/20/2024 12:53 PM CHURCH ADMINISTRATOR Inhaled Oxygen Concentration - - Weight 84.1 kg (185 lb 6.4 oz) 04/20/2024 12:53 PM CHURCH ADMINISTRATOR Height 157.5 cm (5' 2 ) 04/20/2024 12:53 PM CHURCH ADMINISTRATOR Body Mass Index 33.91 04/20/2024 12:53 PM CHURCH ADMINISTRATOR Plan of Treatment Not on file Medical Devices Implanted Type Area Curriculum Coach Device Identifier Shelf Expiration Date Model / Serial / Lot [employer] Angio-Seal Vip 6fr Closere Device [id number] - [id number] Implanted:Qty: 1 on 01/21/2022 by Blake Ham MD at [facility] [employer] 10/14/2022 [id number] / / [id number] Procedures Procedure Name Priority Date/Time Associated Diagnosis Comments POC INFLUENZA A/B, COVID-19 ANTIGEN Routine 04/15/2024 3:46 PM CHURCH ADMINISTRATOR COPD exacerbation (HCC) CT LUNG CANCER SCREENING Schedule Routine, Read Routine (OP Routine) 03/02/2024 4:42 PM CHURCH ADMINISTRATOR Nicotine dependence, cigarettes, uncomplicated from Last 3 Months Results * POC Influenza A/B, COVID-19 antigen (04/15/2024 3:46 PM CHURCH ADMINISTRATOR) Influenza A Ag, POC Negative Negative [facility] Influenza B Ag, POC Negative Negative [facility] COVID-19 Ag POC Presumptive Negative Presumptive Negative, Invalid [facility] Nasal 04/15/2024 3:46 PM CHURCH ADMINISTRATOR us Terrie Napier NP POINT OF CARE TEST ORDERABLES Final Result [facility] [address] [place] [address] * CT Lung Cancer Screening (03/02/2024 4:42 PM CHURCH ADMINISTRATOR) Anatomical Region Laterality Modality Chest N/A Computed Tomogra phy 03/09/2024 1:20 PM CHURCH ADMINISTRATOR Narrative 03/09/2024 1:25 PM CHURCH ADMINISTRATOR EXAM DESCRIPTION: CT LUNG CANCER SCREENING REASON FOR STUDY: Screening CT of the chest in a current smoker with a 50 pack year smoking history. Additional history: None. TECHNIQUE: Low dose CT scan of the chest was performed without intravenous contrast using helical scanning technique. The exam extends from the lung apices through the lung bases. Automatic exposure control was used as a dose optimization technique. NOTE: This study was performed for the specific purposes of lung cancer screening and is not an alternative to diagnostic chest CT. RADIATION DOSE: CT dose index volume (CTDIvol) = 2.44 mGy COMPARISON: 11/15/2021 FINDINGS: SMOKING RELATED LUNG DISEASE: There are mild emphysematous changes of lungs with scattered mild subsegmental atelectasis and scarring. There are scattered ground-glass centrilobular airspace opacities in the bilateral lungs, which is most significant in the bilateral upper lobes, and probably due to smoking related respiratory bronchiolitis. There is no definite evidence of a pneumothorax. The central airways are grossly patent. There is scattered mild bronchial wall thickening, which is likely related to mild chronic bronchitis/bronchiolitis. There is no definite evidence of a focal consolidation or pleural effusion. LUNG NODULES: There are scattered small pulmonary nodules noted, similar to the prior study. For example, there is a stable subtle subpleural 0.2 cm right upper lobe pulmonary nodule (axial image 26). There is a stable subtle peribronchovascular nodule in the posterior right upper lobe measuring 0.4 cm (axial image 71). There is a stable 0.4 cm right lower lobe pulmonary nodule abutting the right major fissure (axial image 120). There is a stable 0.3 cm pulmonary nodule in the posterior right lower lobe (axial image 183). There is a stable 0.3 cm left lower lobe pulmonary nodule abutting the left major fissure (axial image 106). There is a stable 0.4 cm pulmonary nodule in the central left lower lobe (axial image 177). CORONARY ARTERY CALCIFICATION: Present. OTHER: The heart size is upper limits of normal. There is no definite evidence of pericardial effusion. There are atherosclerotic changes of the thoracic aorta and coronary vessels. There is dilatation of main pulmonary artery measuring up to 3.9 cm, which is concerning for pulmonary arterial hypertension. There is no definite unenhanced CT evidence of mediastinal, hilar, or axillary lymphadenopathy. There are scattered subcentimeter mediastinal lymph nodes noted with largest measuring 0.5 cm in the precarinal region (axial image 96). There is small hiatal hernia. The bilateral adrenal glands are grossly stable and unremarkable. The gallbladder is surgically absent. There is a mild dextroscoliotic curvature of the spine with degenerative changes. IMPRESSION: Redemonstration of scattered small pulmonary nodules measuring up to 0.4 cm, similar to the prior study. No definite evidence of a new suspicious pulmonary nodule. Mild emphysematous changes of lungs with scattered mild subsegmental atelectasis and scarring. Scattered mild bronchial wall thickening, which is likely related to mild chronic bronchitis/bronchiolitis. Scattered ground-glass centrilobular airspace opacities in the bilateral lungs, which is most significant in the bilateral upper lobes, and probably due to smoking related respiratory bronchiolitis. Lung-RADS category 2: Benign appearance or behavior. Recommendation: Low dose Screening CT of chest in 12 months. THIS IS AN ELECTRONICALLY VERIFIED FINAL REPORT 03/09/2024 1:25 PM - Electronically signed by Jnaet Franco D.O. PS: PS Report ID: [id number] Reading Location: [place] [address] Procedure Note Janet Franco DO - 03/09/2024 EXAM DESCRIPTION: CT LUNG CANCER SCREENING REASON FOR STUDY: Screening CT of the chest in a current smoker with a50 pack year smoking history. Additional history: None. TECHNIQUE: Low dose CT scan of the chest was performed without intravenous contrast using helical scanning technique. The exam extends from the lung apices through the lung bases. Automatic exposure control was used as adose optimization technique. NOTE: This study was performed for the specific purposes of lung cancer screening and is not an alternative to diagnostic chest CT. RADIATION DOSE: CT dose index volume (CTDIvol) = 2.44 mGy COMPARISON: 11/15/2021 FINDINGS: SMOKING RELATED LUNG DISEASE: There are mild emphysematous changes oflungs with scattered mild subsegmental atelectasis and scarring. There are scattered ground-glass centrilobular airspace opacities in the bilateral lungs, which is most significant in the bilateral upper lobes, andprobably due to smoking related respiratory bronchiolitis. There is no definite evidence of a pneumothorax. The central airways are grossly patent.There is scattered mild bronchial wall thickening, which is likely related to mild chronic bronchitis/bronchiolitis. There is no definite evidence of afocal consolidation or pleural effusion. LUNG NODULES: There are scattered small pulmonary nodules noted, similarto the prior study. For example, there is a stable subtle subpleural 0.2 cm right upper lobe pulmonary nodule (axial image 26). There is a stablesubtle peribronchovascular nodule in the posterior right upper lobe measuring 0.4cm (axial image 71). There is a stable 0.4 cm right lower lobe pulmonarynodule abutting the right major fissure (axial image 120). There is a stable 0.3cm pulmonary nodule in the posterior right lower lobe (axial image 183).There is a stable 0.3 cm left lower lobe pulmonary nodule abutting the leftmajor fissure (axial image 106). There is a stable 0.4 cm pulmonary nodule inthe central left lower lobe (axial image 177). CORONARY ARTERY CALCIFICATION: Present. OTHER: The heart size is upper limits of normal. There is no definite evidence of pericardial effusion. There are atherosclerotic changes ofthe thoracic aorta and coronary vessels. There is dilatation of mainpulmonary artery measuring up to 3.9 cm, which is concerning for pulmonary arterial hypertension. There is no definite unenhanced CT evidence of mediastinal, hilar, oraxillary lymphadenopathy. There are scattered subcentimeter mediastinal lymphnodes noted with largest measuring 0.5 cm in the precarinal region (axial image96). There is small hiatal hernia. The bilateral adrenal glands are grosslystable and unremarkable. The gallbladder is surgically absent. There is a mild dextroscoliotic curvature of the spine with degenerative changes. IMPRESSION: Redemonstration of scattered small pulmonary nodules measuring up to 0.4cm, similar to the prior study. No definite evidence of a new suspiciouspulmonary nodule. Mild emphysematous changes of lungs with scattered mild subsegmental atelectasis and scarring. Scattered mild bronchial wall thickening, which is likely related to mild chronic bronchitis/bronchiolitis. Scattered ground-glass centrilobular airspace opacities in the bilateral lungs, which is most significant in the bilateral upper lobes, andprobably due to smoking related respiratory bronchiolitis. Lung-RADS category 2: Benign appearance or behavior. Recommendation: Low dose Screening CT of chest in 12 months. THIS IS AN ELECTRONICALLY VERIFIED FINAL REPORT 03/09/2024 1:25 PM - Electronically signed by Janet Franco D.O. PS: PS Report ID: [id number] Reading Location: [place] [address] Ben Stratton MD IMG CT PROCEDURES Final Result from Last 3 Months Insurance [facility] Advance Directives For more information, please contact: [phone] * Full Code (Latest Code Status on File) Date Activated Date Inactivated Comments 01/21/2022 4:32 PM 01/21/2022 8:36 PM Care Teams Hvac Commercial Salesperson Relationship Specialty Start Date End Date Surinder Walters DO PCP - General Internal Medicine 10/30/23 Robby Dee MD Family Medicine 06/27/22
--- OUTSIDE RECORDS SUMMARY | 2024-04-29 13:20 | XMS_ITS | Clinical Summary ---
Author Organization [facility] Address [address] [facility] [place] [address] Care Team Providers Care Base Brander Name Role Phone Unavailable Primary Care Provider Unavailabl e Social History Tobacco Use Types Packs/Day Years Used Date Smoking Tobacco: Never Assessed Comments Unknown Sex and Gender Information Value Date Recorded Sex Assigned at Not on file Legal Sex Female 11:21 AM CDT Gender Identity Not on file Sexual Orientation Not on file Plan of Treatment Health Maintenance Due Date Last Done Comments DTAP/TDAP/TD VACCINES (1 - Tdap) 11/01/1979 CERVICAL CANCER SCREENING 1990 BREAST CANCER SCREENING 2000 COLORECTAL SCREENING 2005 Colorectal Cancer Screening 2005 FIT-DNA Q 3 years 2005 FIT/FOBT Q 1 year 2005 Flex Sig/CT Colonography Q 5 years 2005 ZOSTER VACCINE (1 of 2) 2010 INFLUENZA VACCINE (#1) 2023 RSV VACCINE (60+ or ) (1 - 1-dose 75+ series) 11/01/[address] [facility] PLAN MEDICAID
--- OUTSIDE RECORDS SUMMARY | 2024-04-29 13:20 | XMS_ITS | Clinical Summary ---
Author Organization [facility] Address [address] [place] [address] Care Team Providers Care Social Work Associate Name Role Phone Diana Simmons NP Primary Care Provider [phone] Allergies No known active allergies Medications ezetimibe 10 MG tablet Take 10 mg by mouth daily. Active hydrOXYzine 25 MG tablet Take 25 mg by mouth 2 (two) times daily as needed for Itching. Active rOPINIRole 2 MG tablet Take 1 mg by mouth nightly at bedtime. Active carvedilol 3.125 MG tablet Take 1 tablet (3.125 mg total) by mouth 2 (two) times daily. 60 tablet 1 Active isosorbide mononitrate ER 30 MG 24 hr tablet Take 1 tablet (30 mg total) by mouth daily. 30 tablet 1 Active Additional Information Patient taking differently: 60 mgOralBID, Reported on 03/29/2022 albuterol sulfate HFA 108 (90 Base) MCG/ACT inhaler Inhale 2 puffs into the lungs every 4 (four) hours as needed for Shortness of breath. 18 g 1 Active aspirin EC (ASPIRIN EC) 81 MG tablet Take 81 mg by mouth daily. Active Active Problems Problem Noted Date Diagnosed Date Ankle fracture 04/06/2021 Hypophosphatemia 02/27/2021 Fall from stairs 02/23/2021 Scalp hematoma 02/23/2021 Multiple bruises 02/23/2021 Open fracture dislocation of left ankle 02/24/20 21 Closed fracture of sacrum with routine healing 1 04/26/2020 Open trimalleolar fracture of ankle 02/23/2021 Immunizations Name Administration Dates Next Due Fluzone 6 Months+ Quad (0.5 mL Prefilled Syringe ) 04/09/2021 Tdap (Boostrix) 02/23/2021 Family History Medical History Relation Comments Cancer Father Relation Status Comments Father Mother Social History Tobacco Use Types Packs/Day Years Used Date Smoking Tobacco: Every Day Cigarettes Smokeless Tobacco: Never Tobacco Cessation:Ready to Q uit: Not Asked; Counseling Given: Not Answered Alcohol Use Standard Drinks/Week Comments Yes 25 (1 standard drink = 0.6 oz pu re alcohol) Comments No Sex and Gender Information Value Date Recorded Sex Assigned at Not on file Legal Sex Female 5:50 PM CDT Gender Identity Not on file Sexual Orientation Not on file Last Filed Vital Signs Vital Sign Reading Time Taken Comments Blood Pressure 123/73 10/02/2021 11:59 AM CDT Pulse 64 10/02/2021 11:59 AM CDT Temperature 36.6 C (97.8 F) 10/02/2021 11:59 AM CDT Respiratory Rate 16 10/02/2021 11:59 AM CDT Oxygen Saturation 98% 10/02/2021 11:59 AM CDT Inhaled Oxygen Concentration - - Weight 88.5 kg (195 lb) 03/29/2022 3:22 PM SIGN OUT CLERK Height 158.8 cm (5' 2.5 ) 03/29/2022 3:22 PM SIGN OUT CLERK Body Mass Index 35.1 03/29/2022 3:22 PM SIGN OUT CLERK Plan of Treatment Health Maintenance Due Date Last Done Comments Cervical Cancer Screening Pa p Smear (Age 30 to 64) Every 3 Years 1960 Colorectal Cancer Screening Colonoscopy (10 Years) 1960 Annual Physical 11/01/1963 Pneumococcal Vaccine: Pediatrics (0 to 5 Years) and At-Risk Patients (6 to 64 Years) (1 of 2 - PCV) 1966 Hepatitis C 1978 Cervical Cancer Screening Pa p with HPV Testing (Age 30 to 64) Every 5 Years 1990 Cervical Cancer Screening wi th HPV 1990 Mammogram Screening 2000 Zoster Vaccines (1 of 2) 2010 COVID-19 Vaccine (2023-2 5 season) 2023 08/23/2020, 08/23/2020, 07/26/2020 Influenza Adult (#1) 2023 04/09/2021 DTaP, Tdap and Td Vaccines ( 2 - Td or Tdap) 02/23/2031 02/23/2021 RSV Immunization or 60+ Years (1 - 1-dose 75+ series) 11/01/2035 Meningococcal B Vaccine Aged Out No l onger eligible based on patient's age to complete this topic Meningococcal Vaccine Aged Out No darell brennon eligible based on patient's age to complete this topic RSV Immunizations Under 20 Months Aged Out No longer eligible b ased on patient's age to complete this topic Goals Goal Patient Goal Type Associated Problems Recent Progress Patient-Stated? Author Safety Patient/family will have appropriate support at home upon discharge Izabella Miranda RN Medical Devices Implanted Type Area Polishing Wheel Repairer Device Identifier Shelf Expiration Date Model / Serial / Lot Graft Bone Bonus Triad Cancellous Cortical 5cc Allograft - [id number] Implanted:Qty: 1 on 04/07/2021 by Yuko Nguyễn MD at [facility] [employer] 07/19/2025 [id number] / [id number] / NA Plate Myranda Fibular Distal Lateral 8h 132mm Left - [id number] Implanted:Qty: 1 on 04/07/2021 by Yuko Nguyễn MD at [facility] Plate Left: Ankle [employer] [id number] / / NA Screw Locking Myranda 2.7 X 12mm - [id number] Implanted:Qty: 2 on 04/07/2021 by Yuko Nguyễn MD at [facility] Screw Left: Ankle [employer] [id number] / / NA Screw Locking Myranda 2.7 X 14mm - [id number] Implanted:Qty: 2 on 04/07/2021 by Yuko Nguyễn MD at [facility] Screw Left: Ankle [employer] [id number] / / NA Screw Biomet 4.0 Cancellous Fully Threaded 46mm - [id number] Implanted:Qty: 1 on 04/07/2021 by Yuko Nguyễn MD at [facility] Screw Left: Ankle [employer] [id number] / / NA Screw Biomet 3.5 Cortical 50mm - [id number] Implanted:Qty: 1 on 04/07/2021 by Yuko Nguyễn MD at [facility] Screw Left: Ankle [employer] [id number] / / NA Screw Myranda Elb Fib Periloc 3.8 X 10mm - [id number] Implanted:Qty: 1 on 04/07/2021 by Yuko Nguyễn MD at [facility] Screw Left: Ankle [employer] [id number] / / NA Screw Myranda Elb Fib Periloc 3.5 X 12mm - [id number] Implanted:Qty: 2 on 04/07/2021 by Yuko Nguyễn MD at [facility] Screw Left: Ankle [employer] [id number] / / NA Screw Biomet 4.0 Cancellous Fully Threaded 60mm - [id number] Implanted:Qty: 2 on 04/07/2021 by Yuko Nguyễn MD at [facility] Screw Left: Ankle [employer] [id number] / / NA Glidden Pins 5 X 150 X 40mm Implanted:Qty: 2 on 02/23/2021 by Ben Baig MD at [facility] Left: Ankle [employer] AMY JUDITH [id number] / / Self-Drilling Hybrid Half-Pin, 4/5 X 150mm Implanted:Qty: 1 on 02/23/2021 by Ben Baig MD at [facility] Left: Ankle [employer] 5026-1-150 / / Transfixing Pin, Threaded, 5/6 X 300mm Implanted:Qty: 1 on 02/23/2021 by Ben Baig MD at [facility] Left: Ankle [employer] 5050-4-300 / / End Caps Implanted:Qty: 1 on 02/23/2021 by Ben Baig MD at [facility] Left: Ankle [employer] [id number] / / Delta Coupling, Ferny-To-Ferny Or Ferny-To-Pin, 07/22/10 Ferny Or 5mm Pin Implanted:Qty: 4 on 02/23/2021 by Ben Baig MD at [facility] Left: Ankle [employer] 4922-1-010 / / Delta Coupling, Pin-To-Ferny, 07/22/10 Ferny Or 4/5/6mm Pin Implanted:Qty: 2 on 02/23/2021 by Ben Baig MD at [facility] Left: Ankle [employer] 4922-1-020 / / Connecting Rods Implanted:Qty: 1 on 02/23/2021 by Ben Baig MD at [facility] Left: Ankle [employer] 4922-8-150 / / 5-Hole Pin Clamp W/ Two 11mm 30deg Angled Posts, [id number] Implanted:Qty: 1 on 02/23/2021 by Ben Baig MD at [facility] Left: Ankle [employer] 4922-2-240 / / 11 X 350mm Connecting Rods Implanted:Qty: 2 on 02/23/2021 by Ben Baig MD at [facility] Left: Ankle [employer] 4922-8-350 / / Explanted Type Area Polishing Wheel Repairer Device Identifier Shelf Expiration Date Model / Serial / Lot Drill Bit Myranda 2.7mm - [id number] Explanted:Qty: 1 on 04/07/2021 by Yuko Nguyễn MD at [facility] Drill Left: Ankle [employer] [id number] / / NA Drill Bit Myranda 2.0mm Qc - [id number] Explanted:Qty: 1 on 04/07/2021 by Yuko Nguyễn MD at [facility] Drill Left: Ankle [employer] [id number] / / NA Drill Bit Myranda 2.5mm - [id number] Explanted:Qty: 1 on 04/07/2021 by Yuko Nguyễn MD at [facility] Drill Left: Ankle [employer] [id number] / / NA Drill Cannulated 2.9 X 70mm - [id number] Explanted:Qty: 2 on 04/07/2021 by Yuko Nguyễn MD at [facility] Drill Left: Ankle [employer] [id number] / / NA Wire Myranda Ayala 1.6mm X 150mm - [id number] Explanted:Qty: 3 on 04/07/2021 by Yuko Nguyễn MD at [facility] Wire Left: Ankle [employer] [id number] / / NA K-Wire Threaded Tip 1.6mm - [id number] Explanted:Qty: 3 on 04/07/2021 by Yuko Nguyễn MD at [facility] Wire Left: Ankle [employer] [id number] / / NA Cortical Screw 3.5 X 55mm Explanted:Qty: 1 on 04/07/2021 at [facility] Left: Ankle [employer] [id number] / / NA Description:[facility] [employer] Care Teams Social Work Associate Relationship Specialty Start Date End Date Diana Simmons NP [address] [place] [address] PCP - General NURSE PRACTITIONER 10/02/21
--- OUTSIDE RECORDS SUMMARY | 2024-04-29 13:20 | XMS_ITS | Referral Summary ---
Author Organization [facility] Address [address] [place] [address] Care Team Providers Care Carousel Operator Name Role Phone Robby Dee MD Primary Care Provider [phone] Source Comments [facility],non-owned Affiliates and Associated Physician Practices is amultiple site organization consisting of ambulatory clinics and hospital sitesin [place], [place], [place] and [place]. This disclosure is being madepursuant to the Care Everywhere program and may not contain all information available regarding this patient. Last updated 17.[facility] Active Problems Problem Noted Date Diagnosed Date Trigger middle finger of right hand 04/07/2015 Overview (06/16/2017): IMO load Trigger little finger of left hand 04/07/2015 Overview (06/16/2017): IMO load Trigger middle finger of left hand 04/07/2015 Overview (06/16/2017): IMO load Primary osteoarthritis of fi rst carpometacarpal joint of left hand 08/23/2014 Radial styloid tenosynovitis 08/23/2014 Pain in left wrist 06/01/2014 Other chronic pain 06/01/2014 Pain in right wrist 06/01/2014 Social History Tobacco Use Types Packs/Day Years Used Date Smoking Tobacco: Former Cigarettes Q uit: 08/04/2012 Smokeless Tobacco: Never Alcohol Use Standard Drinks/Week Comments Yes 16.7 (1 standard drink = 0.6 oz pure alcohol) Sex and Gender Information Value Date Recorded Sex Assigned at Not on file Gender Identity Not on file Sexual Orientation Not on file Last Filed Vital Signs Vital Sign Reading Time Taken Comments Blood Pressure 132/92 08/31/2014 12:01 PM CDT Pulse 77 08/31/2014 12:01 PM CDT Temperature 36.1 C (97 F) 08/31/2014 12:01 PM CDT Respiratory Rate 16 08/12/2014 11:25 AM CDT Oxygen Saturation 99% 08/12/2014 11:25 AM CDT Inhaled Oxygen Concentration - - Weight 84.8 kg (187 lb) 08/31/2014 12:01 PM CDT Height 160 cm (5' 3 ) 08/31/2014 12:01 PM CDT Body Mass Index 33.13 08/31/2014 12:01 PM CDT Plan of Treatment Not on file Care Teams Carousel Operator Relationship Specialty Start Date End Date Robby Dee MD [address] [facility] [address] [place] [address] PCP - General 05/10/14
--- OUTSIDE RECORDS SUMMARY | 2024-04-29 13:20 | XMS_ITS | Encounter Summary ---
Author Organization [facility] Address [address] [place] [address] Care Team Providers Care Acute Care Physician Name Role Phone Uziel López MD Primary Care Provider Evan mccain None, Provider Primary Care Provider Diana Zhang NP Primary Care Provider [phone] Encounter Details Date Type Department Care Team (Latest Contact Info) Description 01/20/2018 Abstract [facility] Dano Viveros MD Social History Tobacco Use Types Packs/Day Years Used Date Smoking Tobacco: Never Assessed Comments Unknown Sex and Gender Information Value Date Recorded Sex Assigned at Not on file Legal Sex Female 5:50 PM CDT Gender Identity Not on file Sexual Orientation Not on file documented as of this encounter Plan of Treatment Not on file documented as of this encounter Visit Diagnoses Not on filedocumented in this encounter Additional Health Concerns Infection Onset Date Last Indicated Resolved Time COVID-19 Rule Out 03/02/2021 03/02/2021 03/02/2021 1:20 PM HEDGE FUND MANAGER COVID-19 Rule Out 04/06/2021 04/06/2021 04/07/2021 3:47 PM HEDGE FUND MANAGER COVID-19 Rule Out 10/02/2021 10/02/2021 10/02/2021 1:14 PM CDT documented as of this encounter Care Teams Acute Care Physician Relationship Specialty Start Date End Date Uziel López MD PCP - General 09/27/15 02/20/21 None, ProviderMD PCP - General 02/21/21 10/01/21 Diana Simmons NP [address] [place] [address] PCP - General NURSE PRACTITIONER 10/02/21 documented as of this encounter
--- OUTSIDE RECORDS SUMMARY | 2024-04-29 13:20 | XMS_ITS | Clinical Summary ---
Author Organization [facility] Address [address] [place] [address] Care Team Providers Care Otr Van Cdl Truck Driver Name Role Phone Robby Dee MD Unavailable [phone] Surinder Walters DO Primary Care Provider [phone] Allergies No known active allergies Medications fish pqx-ufbah-5-vit C-vit E 2,000-650-12 mg/2.5 gram emulsion in [...] 04/20/2024 Assessment & Plan (04/20/2024 2:45 PM CABINET BUILDER): - Smoking cessation counseling and techniques reviewed at length - Avoid triggers and use distraction techniques - Information given regarding [place] Tobacco Quit line: [phone] for free services - 5 minutes spent discussing cessation She remains pre-contemplative She qualifies for annual screening, next due 02/2025 Heterozygous alpha 1-antitrypsin deficiency (CMS /HCC) 04/20/2024 Assessment & Plan (04/20/2024 2:49 PM CABINET BUILDER): She is MZ with good last levels [...] index 31.0-31.9, adult 07/03/2017 Coronary atherosclerosis of [place] coronary emily ry 07/03/2017 Cervicalgia 07/03/2017 Chronic pain syndrome 07/03/2017 Closed fracture of part of fibula with tibia Chronic obstructive pulmonary disease 07/03/2017 Assessment & Plan (04/20/2024 2:48 PM CABINET BUILDER): Continue Stiolto two puffs daily for now [...] Resolved Date Atherosclerotic heart diseas e of [place] coronary artery without angina pectoris 07/03/2017 12/10/2022 Hyperlipidemia 07/03/2017 12/10/2022 Pure hypertriglyceridemia 07/03/2017 Pure hyperglyceridemia 04/21/201402/11 Coronary arteriosclerosis in [place] artery 02/15/2014 02/11/2023 Encounters Date Type Department Care Team Description 04/20/2024 1:00 PM CABINET BUILDER Office Visit [facility] at [address] [place] [phone] Mirian Nickerson NP Centrilobular emphysema (HCC) (Primary Dx); Heterozygous alpha 1-antitrypsin deficiency (CMS/HCC) (HCC); Cigarette nicotine dependence without complication 04/15/2024 3:00 PM CABINET BUILDER Office Visit [facility] [place] [address] [place] [phone] Terrie Napier NP Acute bacterial sinusitis (Primary Dx); COPD exacerbation (HCC); Hordeolum internum left lower eyelid 03/30/2024 Telephone [facility] [address] [place] [address] Marcus Redd MD Med Refill 03/30/2024 Telephone [facility] [address] [place] [phone] Marcus Redd MD 03/02/2024 4:23 PM CABINET BUILDER - 03/02/2024 11:59 PM CABINET BUILDER Hospital Encounter [facility] [address] [place] [address] Nicotine dependence, cigarettes, uncomplicated Discharge Disposition: Discharge to home or self care 03/01/2024 Telephone [facility] [address] [address] Mirian Magana RN from Last 3 Months Surgical History Surgery Date Site/Laterality Comments CAROTID STENT 5 stents in chest CARDIAC STENT PLACEMENT /2014/2015 DILATION AND CURETTAGE OF UTERUS 03/10 Medical History Medical History Date Comments Hypertension Depression Emphysema of lung (HCC) Anemia Gastric reflux Poor circulation Scoliosis Osteopenia Coronary artery disease Restless legs syndrome (RLS) Cigarette nicotine dependence without complicati on 04/20/2024 Heterozygous alpha 1-antitrypsin deficiency (CMS /HCC) (HCC) 04/20/2024 Family History Medical History Relation Name Comments Alcohol abuse Father Cancer Father Depression Father Alcohol abuse Mother Anxiety disorder Mother Cancer Mother Bleeding Disorder Neg Hx Heart disease Neg Hx Hypertension Neg Hx Lung disease Neg Hx Mental illness Neg Hx Relation Name Status Comments Father Mother Social History Tobacco [...] on file Legal Sex Female 5:32 PM CABINET BUILDER Gender Identity Not on file Sexual Orientation Not on file Obstetrics History Last Filed Vital Signs Vital Sign Reading Time Taken Comments Blood Pressure 129/84 04/20/2024 12:53 PM CABINET BUILDER Pulse 83 04/20/2024 12:53 PM CABINET BUILDER Temperature 36.2 C (97.2 F) 04/20/2024 12:53 PM CABINET BUILDER Respiratory Rate 18 04/20/2024 12:53 PM CABINET BUILDER Oxygen Saturation 99% 04/20/2024 12:53 PM CABINET BUILDER Inhaled Oxygen Concentration - - Weight 84.1 kg (185 lb 6.4 oz) 04/20/2024 12:53 PM CABINET BUILDER Height 157.5 cm (5' 2 ) 04/20/2024 12:53 PM CABINET BUILDER Body Mass Index 33.91 04/20/2024 12:53 PM CABINET BUILDER Plan of Treatment Health Maintenance Due Date Last Done Comments Breast Cancer Screening-Mammogram 1960 Cervical Cancer Screening 1960 Colon Cancer Screening-Colonoscopy 1960 Depression Screening 1960 Hepatitis C Screening 1960 Pneumococcal vaccine <65 (1 of 2 - PCV) 1966 Hepatitis B Screening 1978 Regular Well Visit/Exam 18-64 1978 Zoster Vaccine (1 of 2) 2010 Covid-19 Vaccine ( season) 11/16/202311/2020, 07/26/2020 Influenza Vaccine (#1) 2023 04/09/2021 Lung Cancer Screening 03/03/2025 03/02/2024 DTaP/Tdap/Td Vaccine (2 - Td or Tdap) 02/23/203112/2020 Medical Devices Implanted Type Area Quality Engineer Device Identifier Shelf Expiration Date Model / Serial / Lot BancABC Angio-Seal Vip 6fr Closere Device [id number] - [id number] Implanted:Qty: 1 on 01/21/2022 by Blake Ham MD at [facility] [employer] 10/14/2022 [id number] / [id number] Procedures Procedure Name Priority Date/Time Associated Diagnosis Comments POC INFLUENZA A/B, COVID-19 ANTIGEN Routine 04/15/2024 3:46 PM CABINET BUILDER COPD exacerbation (HCC) CT LUNG CANCER SCREENING Schedule Routine, Read Routine (OP Routine) 03/02/2024 4:42 PM CABINET BUILDER Nicotine dependence, cigarettes, uncomplicated from Last 3 Months Results * POC Influenza A/B, COVID-19 antigen (04/15/2024 3:46 PM CABINET BUILDER) Influenza A Ag, POC Negative Negative [facility] Influenza B Ag, POC Negative Negative [facility] COVID-19 Ag POC Presumptive Negative Presumptive Negative, Invalid [facility] Nasal 04/15/2024 3:46 PM CABINET BUILDER us Terrie Napier NP POINT OF CARE TEST ORDERABLES Final Result [facility] [address] [place] [address], [facility] * CT Lung Cancer Screening (03/02/2024 4:42 PM CABINET BUILDER) Anatomical Region Laterality Modality Chest N/A Computed Tomogra phy 03/09/2024 1:20 PM CABINET BUILDER Narrative 03/09/2024 1:25 PM CABINET BUILDER EXAM DESCRIPTION: CT LUNG CANCER SCREENING REASON [...] Janet Franco D.O. PS: PS Report ID: [id number] Reading Location: [place] [address] Procedure Note Janet Franco, DO - 03/09/2024 EXAM DESCRIPTION: CT LUNG [...] Janet Franco D.O. PS: PS Report ID: [id number] Reading Location: [place] [address] Ben Stratton MD IM CT PROCEDURES Final Result from Last 3 Months Insurance [id number] [place] [address] [id number] [place] [address] Advance Directives For more information, please contact: [phone] * Full Code (Latest Code Status on File) Date Activated Date Inactivated Comments 01/21/2022 4:32 PM 01/21/2022 8:36 PM Care Teams Otr Van Cdl Truck Driver Relationship Specialty Start Date End Date Surinder Walters DO PCP - General Internal Medicine 10/30/23 Robby Dee MD Family Medicine 06/27/22
--- OUTSIDE RECORDS SUMMARY | 2024-04-29 13:20 | XMS_ITS | Encounter Summary ---
Author Organization [facility] Address [address] [place] [address] Care Team Providers Care Research Administrator Name Role Phone Robby Dee MD Unavailable [phone] Surinder Walters DO Primary Care Provider [phone] Encounter Details Date Type Department Care Team (Late st Contact Info) Description 12/12/[address] [facility] Medical Group [address] [address] Flaca Ann MD [facility] [place] [address] Social History Tobacco Use Types Packs/Day Years Used Date Smoking Tobacco: Every Day Cigarettes 1 53.1 Started: 1971 Smokeless Tobacco: Current Alcohol Use Standard Drinks/Week Comments Yes 0 (1 standard drink = 0.6 oz pur e alcohol) AUDIT-C Answer Date Recorded Q1: How often do you have a drink containing alc ohol? 2-3 times a week 01/21/2022 Q2: How many drinks containi ng alcohol do you have on a typical day when you are drinking? 1 or 2 01/21/2022 Q3: How often do you have si x or more drinks on one occasion? Weekly 01/21/2022 Comments Unknown Sex and Gender Information Value Date Recorded Sex Assigned at Not on file Legal Sex Female 5:32 PM INSTRUMENT ASSEMBLY SUPERVISOR Gender Identity Not on file Sexual Orientation Not on file documented as of this encounter Plan of Treatment Not on file documented as of this encounter Visit Diagnoses Not on filedocumented in this encounter Additional Health Concerns Infection Onset Date Last Indicated Resolved Time COVID: Suspected 04/15/2024 04/15/2024 04/15/2024 3:47 PM INSTRUMENT ASSEMBLY SUPERVISOR documented as of this encounter Care Teams Research Administrator Relationship Specialty Start Date End Date Surinder Walters DO PCP - General Internal Medicine 10/30/23 Robby Dee MD Family Medicine 06/27/22 documented as of this encounter
--- OUTSIDE RECORDS SUMMARY | 2024-04-29 13:20 | XMS_ITS | Continuity of Care Document ---
Author Organization [facility] Address [address] [place] [address] [place] [address] Phone Care Team Providers Care Drill Doctor Name Role Phone Robby Dee MD Unavailable Unavailable Allergies, Adverse Reactions, Alerts Substance Reaction Status Criticality No Known Allergies Active No Inform ation Medications Medication Instructions Dosage Effective Dates (start - stop) Status Comments Zantac 150 mg tablet take 1 tablet by oral route 2 times every day - Active [place] 7.5 mg-325 mg tablet take 1 tablet [...] Diagnoses Date Provider Providers Copied on Encounter [facility], [address] [place], [place], [address], [place] tel:[phone] [facility] No Information 9 Luiz Bustamante. [address], [place], [place], [address] , [place]. tel:[phone] OFFICE/OUTPA TIENT VISIT, [facility], [address], [place], [place], [address], [place] [phone] [facility] osteopenia1 (chief complaint)b ack pain1 (chief complaint)f atigue1 (chief complaint) FatigueOther specified disorder of bone densityChronic pain syndromeGERD w/o esophagitisOther cholelithiasis without obstruction 9 Luiz Bustamante. [address], [place], [place], [address] , [place]. tel:[phone] Referring Provider: Jeanette Roberts [address], [place], [place], [address]. tel:[phone] OFFICE/OUTPA TIENT VISIT, [facility], [address], [place], [place], [address], [place] tel:[phone] [facility] back pain1 (chief complaint)g allstone1 (chief complaint)C AD (chief complaint)a nemia1 (chief complaint)G ERd1 (chief complaint) Lumbago with sciatica, right sideAnemiaCAD of [place] coronary artery without angina pectorisOther cholelithiasis without obstructionGERD w/o esophagitis 9 Luiz Granda [address], [place], [place], [address] , [place]. tel:[phone] Referring Provider: Jeanette Roberts [address], [place], [place], [address]. tel:[phone] OFFICE/OUTPA TIENT VISIT, [facility], [address], [place], [place], [address], [place] tel:[phone] [facility] anxiety1 (chief complaint) InsomniaGeneralize d Anxiety Disorder 9 Luiz Granda [address], [place], [place], [address] , [place]. tel:[phone] Referring Provider: Robby Dee, [address], [place], [place], [address]. tel:[phone] PREV VISIT, EST, AGE 40-64 [facility], [address], [place], [place], [address], [place] [phone] [facility] Physical (chief complaint) Encntr for general adult medical exam w/o abnormal findings 9 Luiz Bustamante. [address], [place], [place], [address] , [place]. [phone] Referring Provider: Jeanette Roberts [address], [place], [place], [address]. tel:[phone] OFFICE/OUTPA TIENT VISIT, [facility], [address], [place], [place], [address], [place] tel:[phone] [facility] back pain1 (chief complaint)H TN (chief complaint) Lumbago with sciatica, left sideEssential (primary) hypertension 8 Luiz Bustamante. [address], [place], [place], [address] , [place]. tel:[phone] Referring Provider: Jeanette Roberts [address], [place], [place], [address]. tel:[phone] OFFICE/OUTPA TIENT VISIT, [facility], [address], [place], [place], [address], [place] tel:[phone] [facility] foot pain1 (chief complaint)r enal1 (chief complaint)i nsomnia1 (chief complaint) Insomnia, unspecifiedRenal diseaseLumbago with sciatica, left sidePain in left foot 8 Luiz Bustamante. [address], [place], [place], [address] , [place]. tel:[phone] Referring Provider: Robby Dee [address], [place], [place], [address]. tel:[phone] OFFICE/OUTPA TIENT VISIT, [facility], [address], [place], [place], [address], [place] tel:[phone] [facility] syncope1 (chief complaint)r ib fracture1 (chief complaint)t obacco1 (chief complaint)e lbow 1 (chief complaint) Syncope and collapseTachycardi aOlecranon bursitis, left elbowRenal disease 8 Luiz Bustamante. [address], [place], [place], [address] , [place]. tel:[phone] Referring Provider: Robby Dee [address], [place], [place], [address]. tel:[phone] PREV VISIT, EST, AGE 40-64 [facility], [address], [place], [place], [address], [place] tel:[phone] [facility] PHysical (chief complaint) Encntr for general adult medical exam w/o abnormal findings 8 Luiz Bustamante. [address], [place], [place], [address] , [place]. tel:[phone] Referring Provider: Jeanette Roberts [address], [place], [place], [address]. tel:[phone] OFFICE/OUTPA TIENT VISIT, [facility], [address], [place], [place], [address], [place] tel:[phone] [facility] insomnia1 (chief complaint)G ERd1 (chief complaint)C OPD1 (chief complaint)a nxiety1 (chief complaint)b ack pain1 (chief complaint)i ncontinnece 1 (chief complaint) GERD w/o esophagitisInsomni aEmphysemaMixed incontinence 7 Luiz Bustamante. [address], [place], [place], [address] , [place]. tel:[phone] Referring Provider: Jeanette Roberts [address], [place], [place], [address]. tel:[phone] OFFICE/OUTPA TIENT VISIT, [facility], [address], [place], [place], [address], [place] tel:[phone] [facility] wrist fracture1 (chief complaint)b ack pain1 (chief complaint)G ERD1 (chief complaint)i nsomnia1 (chief complaint) Insomnia, unspecifiedGERD w/o esophagitisMeralgi a paresthetica, bilateral lower limbsRestless legs syndrome Nov-2 7 Luiz Bustamante. [address], [place], [place], [address] , [place]. tel:[phone] Referring Provider: Robby Dee [address], [place], [place], [address]. tel:[phone] OFFICE/OUTPA TIENT VISIT, [facility], [address], [place], [place], [address], [place] [phone] [facility] back pain1 (chief complaint) Other spondylosis, lumbar regionLumbago Oct- 7 Luiz Bustamante. [address], [place], [place], [address] , [place]. [phone] Referring Provider: Jeanette Roberts [address], [place], [place], [address]. tel:[phone] OFFICE/OUTPA TIENT VISIT, [facility], [address], [place], [place], [address], [place] tel:[phone] [facility] osteopenia1 (chief complaint)b ack pain1 (chief complaint)p ancreatic lesion1 (chief complaint)C OPD1 (chief complaint) Pancreatic endocrine cell hyperplasiaMeralgi a paresthetica, bilateral lower limbsDisorder of bone density and structure, unspecifiedCOPD Oct-0 7 Luiz Granda [address], [place], [place], [address] , [place]. tel:[phone] Referring Provider: Jeanette Roberts [address], [place], [place], [address]. tel:[phone] OFFICE/OUTPA TIENT VISIT, [facility], [address], [place], [place], [address], [place] tel:[phone] [facility] GERD1 (chief complaint)t obacco1 (chief complaint)o steopenia1 (chief complaint)i nsomnia1 (chief complaint) InsomniaOth disrd of bone density and structure, multiple sitesGastritis, unspecified, without bleedingTobacco use 7 Luiz Bustamante. [address], [place], [place], [address] , [place]. tel:[phone] Referring Provider: Jeanette Roberts [address], [place], [place], [address]. tel:[phone] OFFICE/OUTPA TIENT VISIT, [facility], [address], [place], [place], [address], [place] tel:[phone] [facility] Medicine bug left ear (chief complaint)t obacco1 (chief complaint)b ack pain1 (chief complaint)G ERD1 (chief complaint) GERD w/o esophagitisTobacco useLumbagoImpacted cerumen, left ear 7 Luiz Bustamante. [address], [place], [place], [address] , [place]. tel:[phone] Referring Provider: Jeanette Roberts [address], [place], [place], [address]. tel:[phone] OFFICE/OUTPA TIENT VISIT, [facility], [address], [place], [place], [address], [place] tel:[phone] [facility] GERD1 (chief complaint)C AD1 (chief complaint)i nsomnia1 (chief complaint)l umbago1 (chief complaint) Acute gastritis without bleedingLumbago with sciatica, left sideHyperlipidemia Atherosclerotic heart disease of [place] coronary artery without angina pectoris 7 Luiz Bustamante. [address], [place], [place], [address] , [place]. tel:[phone] Referring Provider: Jeanette Roberts [address], [place], [place], [address]. tel:[phone] OFFICE/OUTPA TIENT VISIT, [facility], [address], [place], [place], [address], [place] tel:[phone] [facility] vertigo (chief complaint)v ertigo1 (chief complaint)b ack pain1 (chief complaint)C OPD1 (chief complaint)d izziness1 (chief complaint) DizzinessCOPDLumba go 7 Luiz Bustamante. [address], [place], [place], [address] , [place]. [phone] Referring Provider: Robby Dee, [address] [place] [address] A, [place], [place], [address]. tel:[phone] PREV VISIT, [facility], AGE 40-64 [facility], [address], [place], [place], [address], [place] tel:[phone] [facility] Physical (chief complaint) Encounter for general adult medical exam w abnormal findingsLumbago with sciatica, left sideDizzinessInsom aimee 7 Luiz [facility]ustamante. [address] [facility] [place], [place], [address] , [place]. tel:[phone] Referring Provider: Jeanette Roberts [facility] A, [place], [place], [address]. tel:[phone] OFFICE/OUTPA TIENT VISIT, [facility], [address], [place], [place], [address], [place] tel:[phone] [facility] anxiety1 (chief complaint)G ERD1 (chief complaint)H LP (chief complaint)i nsomnia1 (chief complaint)L FT (chief complaint)k nee pain1 (chief complaint) Chronic pain syndromeGeneralize d anxiety disorderInsomniaLi charles disease 6 Luiz Bustamante. [address], [place], [place], [address] , [place]. tel:[phone] Referring Provider: Jeanette Roberts [facility] A, [place], [place], [address]. tel:[phone] OFFICE/OUTPA TIENT VISIT, [facility], [address], [place], [place], [address], [place] tel:[phone] [facility] anxiety1 (chief complaint)k nee pain1 (chief complaint)s leep disorder1 (chief complaint)C AD (chief complaint) Atherosclerotic heart disease of [place] coronary artery without angina pectorisChronic pain syndromeGeneralize d anxiety disorderSleep disorder 6 Luiz Bustamante. [address], [place], [place], [address] , [place]. [phone] Referring Provider: Robby Dee [address] [place] [address] [place], [address]. tel:[phone] OFFICE/OUTPA TIENT VISIT, [facility], [address], [place], [place], [address], [place] tel:[phone] [facility] anxiety1 (chief complaint)j oint pain1 (chief complaint)G ERD1 (chief complaint)o steopenia1 (chief complaint) Gastro-esophageal reflux disease without esophagitisGeneral ized anxiety disorderChronic pain syndromeOth disrd of bone density and structure, multiple sites 6 Luiz Bustamante. [address] [facility] A, [place], [place], [address] , [place]. [phone] Referring Provider: Robby Dee [address] [facility] A, [place], [place], [address]. tel:[phone] OFFICE/OUTPA TIENT VISIT, [facility], [address], [place], [place], [address], [place] tel:[phone] [facility] insomnia1 (chief complaint)G ERD1 (chief complaint)C AD (chief complaint)c hronic pian1 (chief complaint)a nxiety1 (chief complaint) InsomniaChronic pain syndromeGERD w/o esophagitisGeneral ized anxiety disorder 6 Luiz Bustamante. [address], [place], [place], [address] , [place]. tel:[phone] Referring Provider: Jeanette Roberts [address], [place], [place], [address]. tel:[phone] OFFICE/OUTPA TIENT VISIT, EST [facility], [address], [place], [place], [address], tel:[phone] [facility] leg pain (chief complaint)l eg pain1 (chief complaint)r estless leg1 (chief complaint)H LP1 (chief complaint)s leep study1 (chief complaint) Mixed hyperlipidemiaPain in right lower legRestless Legs SyndromeSleep apnea 5 Luiz Bustamante. [address] [facility] A, [place], [place], [address] , [place]. tel:[phone] Referring Provider: Jeanette Roberts [facility] [address], [place], [place], [address]. tel:[phone] PREV VISIT, EST, AGE 40-64 [facility], [address], [place], [place], [address], [place] tel:[phone] [facility] Physical1 (chief complaint) Encntr for general adult medical exam w/o abnormal findings 5 Luiz Bustamante. [address] [facility] A, [place], [place], [address] , [place]. [phone] Referring Provider: Jeanette Roberts [facility], [place], [place], [address]. tel:[phone] OFFICE/OUTPA TIENT VISIT, EST [facility], [address], [place], [place], [address], [place] tel:[phone] [facility] osteopenia (chief complaint)G ERD (chief complaint)i nsomnia (chief complaint)f ibular fx (chief complaint) Dietary surveillance and counselingEsophage al refluxInsomnia, unspecifiedClosed tibial and fibular fractureOsteopenia 5 Luiz Granda [address], [place], [place], [address] , [place]. [phone] Referring Provider: Robby Dee, [address], [place], [place], [address]. tel:[phone] OFFICE/OUTPA TIENT VISIT, [facility], [address], [place], [place], [address], [place] tel:[phone] [facility] GERD (chief complaint)i nsomia (chief complaint)a bd pain (chief complaint) Dietary surveillance and counselingInsomnia , unspecifiedAbdomin al painHypokalemia 5 Luiz Bustamante. [address], [place], [place], [address] , [place]. [phone] Referring Provider: Jeanette Roberts [address] [facility] A, [place], [place], [address]. tel:[phone] OFFICE/OUTPA TIENT VISIT, [facility], [address], [place], [place], [address], [place] tel:[phone] [facility] hematuria (chief complaint)n brenna pain (chief complaint)o besity (chief complaint) HEMATURIA NOSDietary surveillance and counselingCervical giaBody Mass Index 31.0-31.9, adultPain in joint involving pelvic region and thigh 5 Luiz Bustamante. [address], [place], [place], [address] , [place]. [phone] Referring Provider: Jeanette Roberts [facility] A, [place], [place], [address]. tel:[phone] OFFICE/OUTPA TIENT VISIT, [facility], [address], [place], [place], [address], [place] [phone] [facility] insomnia (chief complaint)L FT (chief complaint)G ERD (chief complaint)h ematuria (chief complaint) HEMATURIA NOSDietary surveillance and counselingInsomnia , OtherHypertriglyce ridemiaGERD 5 Luiz Bustamante. [address], [place], [place], [address] , [place]. [phone] Referring Provider: Jeanette Roberts [address], [place], [place], [address]. tel:[phone] OFFICE/OUTPA TIENT VISIT, EST [facility], [address] [place], [place], [address], tel:[phone] [facility] insomnia (chief complaint)G ERD (chief complaint)C AD (chief complaint)l iver (chief complaint) Dietary surveillance and counselingInsomnia , OtherGERDUnspecifi ed chronic liver disease without mention of alcoholCAD, [place] 4 Luiz Bustamante. [address], [place], [place], [address] , [place]. tel:[phone] Referring Provider: Robby Dee, [address] [facility] A, [place], [place], [address]. tel:[phone] PREV VISIT, NEW, AGE 40-64 [facility], [address] [place], [address], [place] tel:[phone] [facility] PHysical (chief complaint) Dietary surveillance and counselingRoutine Medical ExamRoutine Medical Exam 4 Luiz Bustamante. [address], [place], [place], [address] , [place]. tel:[phone] Family History Family Member Type Diagnosis Age At Onset Mother Problem (finding) respiratory failure Brother Problem (finding) Hypertension Father Problem (finding) Cancer, lung Payers Payer name Insurance type Covered constitution party ID Authoriza tion(s) No Information Social [...] Paniagua MD [address]
[place], [address] Ordered: Referrals: Eduardo Paniagua MD. Evaluate and treat ordered Referral Ordered: Eduardo Paniagua -[facility]opathic [facility] Osteopathic Physicians : Neurological Surgery (related to Lumbago with sciatica, left side) ordered Referral Referred To: Eduardo Paniagua [address] [place], [phone] Ordered: Referrals: [facility] : Neurological Surgery. Eduardo Paniagua. Evaluate and treat ordered Referral Ordered: Vinnie Kessler -[facility] : Orthopaedic Surgery (related to Olecranon bursitis, left elbow) ordered Referral Referred To: Vinnie Kessler [facility] [address] AUREA Freeman [facility] [address] [place], [place] [phone] Ordered: Referrals: [facility]opathic Physicians : Orthopaedic Surgery. Vinnie Kessler. Evaluate and treat ordered Referral Ordered: [facility] K[facility] ordered Referral Ordered: Vinnie Kessler (related to GERD w/o esophagitis) ordered Referral Referred To: Vinnie Kessler [facility] [address] AUREA Freeman [facility] [address] [place], [phone] Ordered: Referrals: Vinnie Kessler. Evaluate and treat [...] any bleeding CAD Pt recently went to [place] due to her daughter. Pt had another episode of chest pain while in [place] and was diagnosed with NSTEMI pt just [...] out that her daughter who lives in [place] committed suicide several days ago. Pt feels extremely sad and she can not stop crying. ,Pt has been having panic attacks. Pt wants some nerve pills for short term to help her with above. Pt is off klonopin. Pt has difficulty sleeping and she feels extremely anxious. Pt wants to try some valium, which helped her in the past Pt is traveling to [place] tomorrow and she could not get in [...] Pt denies any hemoptysis, acute worsening sob HTN Pt takes losarta n and coreg Pt has not slept well last night Pt denies any chest pain or headache back pain1 Pt has low back pain with left sciatica. Pt c/o left leg numbness. Pt failed PT. Pt has not heard from neurosurgery. Pt denies any loss of bladder control. Pt denies any worsening pain. Pt failed NSAID and ultram renal1 Pt has mild bord vanessa low [...] cover. Pt needs pad due to leakage GERD1 Pt states that o meprzole works [...] prescribing OT but she changed insurance to [employer] and she needs a new ortho and [...] that norco and robaxin are not helping [facility] for her pain osteopenia1 Pt has [...] Pt unable to sleep due to GERD. CAD1 Pt has CAD with stent. Pt [...] cover omperzole. Pt yayo any abd pain vertigo vertigo1 Pt states that s he [...] doing ok. Pt denies any spontaneous fx CAD Pt has history o f HTN [...] Pt denies any sucidal or homicidal thought. GERD1 Pt has mild etta riris. Pt has chronic GERD. Pt has been taking omeprazole 40 mg daily and no symptoms. NO abd pain insomnia1 Pt has chornic i nsomnia. Pt states that she snores and sometimes has trouble with breathing at night. Pt never did the sleep study leg pain1 Pt has midial ri ght ankle and heel pain and some radiation of pain to her right lower leg. pt denies any calf pain. Pt states that she feels pain most likely around tibfib Pt states that she had the pain for several months Pt notices the pain after returning from [place]. Pt denies any calf pain. No injury leg pain sleep study1 Pt c/o snorning [...] Pt takes lipitor. Pt denies any myalgia Physical1 Pt needs annual physical. Pt c/o [...] o Body mass index (BMI) 31.0-31.9, adult Special diet education Related t o [...]
--- OUTSIDE RECORDS SUMMARY | 2024-04-29 13:20 | XMS_ITS | Patient Health Summary ---
Author Organization [facility] Address [address] [place] [address] Care Team Providers Care Security Management Specialist Name Role Phone Robby Dee MD Primary Care Provider [phone] Note from [facility],non-owned Affiliates and Associated Physician Practices is amultiple site organization consisting of ambulatory clinics and hospital sitesin [place], [place], [place] and [place]. This disclosure is being madepursuant to the Care Everywhere program and may not contain all information available regarding this patient. Last updated 17.[facility] Active Problems Problem Noted Date Diagnosed Date Trigger middle finger of right hand 04/07/2015 Trigger little finger of left hand 04/07/2015 Trigger middle finger of left hand 04/07/2015 Primary osteoarthritis of fi rst carpometacarpal joint [...] Mass Index 33.13 08/31/2014 12:01 PM CDT Procedures * BASIC METABOLIC PANEL (CALCIUM TOTAL)(Performed 08/12/2014) * XR WRIST RIGHT 3VW OR MORE(Performed 06/01/2014) * XR WRIST LEFT 3VW OR MORE(Performed 06/01/2014) * CULTURE URINE(Performed 08/23/2013) Results * (ABNORMAL) BASIC METABOLIC PANEL (CALCIUM TOTAL) (08/12/2014 8:51 AM CDT) BUN 17 7 - 26 mg/dL [facility] Creatinine 0.9 0.6 - 1.2 mg/dL [facility] Sodium 140 136 - 145 mmol/L [facility] Potassium 4.3 3.5 - 4.5 mmol/L [facility] Chloride 108(H) 98 - 107 mmol/L [facility] CO2 24 22 - 29 mmol/L [facility] Glucose 96 70 - 115 mg/dL [facility] Calcium 10.2 8.4 - 10.2 mg/dL [facility] Anion Gap 12 8 - 18 [facility] BUN/Creatinine Ratio 19 7 - 23 [facility] Osmolality Calculated 277 270 - 300 mOsm/kg [facility] eGFR >60 >60 mL/min/1.7 3 m2 [facility] Blood specimen (specimen) BLOOD SPECIMEN / Unknown 08/12/2014 8:51 AM CDT 08/12/2014 8:55 AM CDT Irwin Barba DO LAB - CHEMISTRY ORDERABLES [facility] [address] [phone] * XR WRIST RIGHT 3VW OR MORE (06/01/2014 12:39 PM CDT) Anatomical Region Laterality Modality Wrist / Hand Other Impressions 06/01/2014 12:53 PM CDT Impression: Moderate left and mild right base of thumb and triscaphe osteoarthritis with soft tissue swelling about both wrists. This report was electronically signed by MARY COLON M.D. on 06/01/2014 12:53 PM . Narrative 06/01/2014 12:53 PM CDT Examination: 1. Left wrist minimum 3 views 2. Right wrist minimum 3 views History: Bilateral wrist pain Findings: 3 views of both breasts were performed without comparison. On the left, there is moderate base of thumb and triscaphe osteoarthritis. Radiocarpal and remaining intercarpal joint spaces appear preserved. No acute fracture is seen. Wrist appears swollen. No erosion is identified. On the right, there is mild base of thumb and triscaphe osteoarthritis. Radiocarpal and remaining intercarpal joint spaces appear preserved. No erosion is identified. No acute fracture is seen. The wrist appears swollen. Procedure Note Mary Colon MD - 06/14/2017 Examination: 1. Left wrist minimum 3 views 2. Right wrist minimum 3 views History: Bilateral wrist pain Findings: 3 views of both breasts were performed without comparison. On the left, there is moderate base of thumb and triscaphe osteoarthritis.Radiocarpal and remaining intercarpal joint spaces appear preserved. Noacute fracture is seen. Wrist appears swollen. No erosion is identified. On the right, there is mild base of thumb and triscaphe osteoarthritis.Radiocarpal and remaining intercarpal joint spaces appear preserved. Noerosion is identified. No acute fracture is seen. The wrist appearsswollen. IMPRESSION Impression: Moderate left and mild right base of thumb and triscaphe osteoarthritiswith soft tissue swelling about both wrists. This report was electronically signed by MARY COLON M.D. on06/01/2014 12:53 PM . Jaida Nieves MD DIAGNOSTIC IMAGING O RDERABLES * XR WRIST LEFT 3VW OR MORE (06/01/2014 12:38 PM CDT) Anatomical Region Laterality Modality Wrist / Hand Other Impressions 06/01/2014 12:53 PM CDT Impression: Moderate left and mild right base of thumb and triscaphe osteoarthritis with soft tissue swelling about both wrists. This report was electronically signed by MARY COLON M.D. on 06/01/2014 12:53 PM . Narrative 06/01/2014 12:53 PM CDT Examination: 1. Left wrist minimum 3 views 2. Right wrist minimum 3 views History: Bilateral wrist pain Findings: 3 views of both breasts were performed without comparison. On the left, there is moderate base of thumb and triscaphe osteoarthritis. Radiocarpal and remaining intercarpal joint spaces appear preserved. No acute fracture is seen. Wrist appears swollen. No erosion is identified. On the right, there is mild base of thumb and triscaphe osteoarthritis. Radiocarpal and remaining intercarpal joint spaces appear preserved. No erosion is identified. No acute fracture is seen. The wrist appears swollen. Procedure Note Mary Colon MD - 06/14/2017 Examination: 1. Left wrist minimum 3 views 2. Right wrist minimum 3 views History: Bilateral wrist pain Findings: 3 views of both breasts were performed without comparison. On the left, there is moderate base of thumb and triscaphe osteoarthritis.Radiocarpal and remaining intercarpal joint spaces appear preserved. Noacute fracture is seen. Wrist appears swollen. No erosion is identified. On the right, there is mild base of thumb and triscaphe osteoarthritis.Radiocarpal and remaining intercarpal joint spaces appear preserved. Noerosion is identified. No acute fracture is seen. The wrist appearsswollen. IMPRESSION Impression: Moderate left and mild right base of thumb and triscaphe osteoarthritiswith soft tissue swelling about both wrists. This report was electronically signed by MARY COLON M.D. on06/01/2014 12:53 PM . Jaida Nieves MD DIAGNOSTIC IMAGING O RDERABLES * CULTURE URINE (08/23/2013 7:00 PM CDT) Culture Urine Less than 10,000 CFU/ML of Normal Fecal Brianda [facility] Comment:. Urine specimen (specimen) URINE SPECIMEN OBTAINED BY CLEAN CATCH PROCEDURE / Unknown 08/23/2013 7:00 PM CDT 08/25/2013 1:50 PM CDT Narrative [facility] - 08/26/2013 1:16 PM CDT Stan#[id number] Jim Loc/Rm/Bed: ED// CLN CATCH U Historical Provider LAB - MICROBIOLOG Y ORDERABLES [place] [id number] [address] [phone] Care Teams Security Management Specialist Relationship Specialty Start Date End Date Robby Dee MD [address] [facility] [address] [place] [address] PCP - General 05/10/14
--- OUTSIDE RECORDS SUMMARY | 2024-04-29 13:20 | XMS_ITS | Clinical Summary ---
Author Organization [facility] Address [address] [place] [address] Care Team Providers Care Toy Consultant Name Role Phone Robby Dee MD Primary Care Provider [phone] Source Comments [facility],non-owned Affiliates and Associated Physician Practices is amultiple site organization consisting of ambulatory clinics and hospital sitesin [place], [place], [place] and [place]. This disclosure is being madepursuant to the Care Everywhere program and may not contain all information available regarding this patient. Last updated 17.[facility] [employer] Active Problems Problem Noted Date Diagnosed Date [...] 08/31/2014 12:01 PM CDT Plan of Treatment Health Maintenance Due Date Last Done Comments COLOGUARD (AGES 45-75) - COL ON CA SCREENING 1960 COLON MONITORING 1960 COLONOSCOPY - COLON CA SCREENING 1960 CT COLONOGRAPHY - COLON CA SCREENING 1960 Colorectal Cancer Screening 1960 FIT - COLON CA SCREENING 1960 FLEX SIG - COLON CA SCREENING 1960 LIPID TESTING 1960 MAMMOGRAM 1960 PAP SMEAR 1960 HIV SCREENING 11/01/1975 HEPATITIS C SCREENING 10/27/1978 DTAP/TDAP/TD VACCINES (1 - Tdap) 11/01/1979 PNEUMOCOCCAL VACCINE 50+ (1 of 1 - PCV) 2010 ZOSTER VACCINE (1 of 2) 2010 COVID-19 VACCINE (1 - 2023-2 5 season) 2023 INFLUENZA VACCINE (#1) 2023 DEPRESSION SCREENING 03/17/2024 Respiratory Syncytial Virus (RSV) Vaccine Pt: or over 60 yrs (1 - 1-dose 75+ series) 11/01/2035 HEPATITIS B VACCINE Aged Out No longe r eligible based on patient's age to complete this topic HIB VACCINE Aged Out No longer eligi ble based on patient's age to complete this topic HPV VACCINE Aged Out No longer eligi ble based on patient's age to complete this topic MENINGOCOCCAL (Group B) VACCINE Aged Out No longer eligible based on patient's age to complete this topic MENINGOCOCCAL VACCINE Aged Out No darell brennon eligible based on patient's age to complete this topic PNEUMOCOCCAL VACCINE Aged Out No long er eligible based on patient's age to complete this topic Care Teams Toy Consultant Relationship Specialty Start Date End Date Robby Dee MD [address] [facility] [address] [place] [address] PCP - General 05/10/14
[2024-04-29 14:11] LABS: Albumin Level 4.2 g/dL (3.5-5.1); Anion Gap 6 mmol/L (4-12); Blood Urea Nitrogen 12 mg/dL (7-17); Calcium 10.3 mg/dL (8.4-10.2); Carbon Dioxide 27 mmol/L (22-30); Chloride 103 mmol/L (98-107); Estimated Glomerular Filt Rate > 60; Glucose 100 mg/dL (65-110); Phosphorus 3.5 mg/dL (2.5-4.5); Potassium 5.8 mmol/L (3.4-5.0); Sodium 136 mmol/L (137-145)
== END 2024-04-29 13:15 | disposition home or self-care (01) ==
LOC: ANHLAB 13:15
PROVIDERS: PCP Internal Medicine; Visit Provider Internal Medicine Nephrology
DX: I12.9 Hypertensive chronic kidney disease with stage 1 through stage 4 chronic kidney disease, or unspecified chronic kidney disease (principal); N18.2 Chronic kidney disease, stage 2 (mild)
CPT/HCPCS: 36415; 80069

== ENCOUNTER 2024-05-03 16:09 | Outpatient (CLI) | payer OTHER, SELFPAY ==
[2024-05-03 16:47] LABS: Creatinine Urine 140.6 mg/dL; Total Protein Urine Random 8 mg/dL; Ur Ttl Prot Creatinine Ratio 0.06 mg/mg (0-0.20)
--- OUTSIDE RECORDS SUMMARY | 2024-05-03 18:22 | XMS_ITS | Clinical Summary ---
Author Organization [facility] Address [address] [place] [address] Care Team Providers Care Agent Spa Desk Name Role Phone Robby Dee MD Primary Care Provider [phone] Source Comments [facility],non-owned Affiliates and Associated Physician Practices is amultiple site organization consisting of ambulatory clinics and hospital sitesin [place], [place], [place] and [place]. This disclosure is being madepursuant to the Care Everywhere program and may not contain all information available regarding this patient. Last updated 17.[facility] [employer] Active Problems Problem Noted Date Diagnosed Date [...] age to complete this topic Care Teams Agent Spa Desk Relationship Specialty Start Date End Date Robby Dee MD [address] [place] [address] PCP - General 05/10/14
--- OUTSIDE RECORDS SUMMARY | 2024-05-03 18:22 | XMS_ITS | Referral Summary ---
Author Organization [facility] Address [address] [place] [address] Care Team Providers Care Drilling Superintendent Name Role Phone Robby Dee MD Primary Care Provider [phone] Source Comments [facility],non-owned Affiliates and Associated Physician Practices is amultiple site organization consisting of ambulatory clinics and hospital sitesin [place], [place], [place] and [place]. This disclosure is being madepursuant to the Care Everywhere program and may not contain all information available regarding this patient. Last updated 17.[facility] Active Problems Problem Noted Date Diagnosed Date [...] of Treatment Not on file Care Teams Drilling Superintendent Relationship Specialty Start Date End Date Robby Dee MD [address] [facility] [address] [place] [address] PCP - General 05/10/14
--- OUTSIDE RECORDS SUMMARY | 2024-05-03 18:22 | XMS_ITS | Encounter Summary ---
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
--- OUTSIDE RECORDS SUMMARY | 2024-05-03 18:23 | XMS_ITS | Clinical Summary ---
Author Organization [facility] Address [address] [facility] [place] [address] Care Team Providers Care Director Of Home Care Hospice Name Role Phone Unavailable Primary Care Provider [...] (1 - 1-dose 75+ series) 11/01/2035 Insurance [facility] [employer] MEDICAID
--- OUTSIDE RECORDS SUMMARY | 2024-05-03 18:23 | XMS_ITS | Patient Health Summary ---
Author Organization [facility] Address [address] [place] [address] Care Team Providers Care Cane Packer Name Role Phone Robby Dee MD Primary Care Provider [phone] Note from [facility],non-owned Affiliates and Associated Physician Practices is amultiple site organization consisting of ambulatory clinics and hospital sitesin [place], [place], [place] and [place]. This disclosure is being madepursuant to the Care Everywhere program and may not contain all information available regarding this patient. Last updated 17.[facility] Active Problems Problem Noted Date Diagnosed [...] CDT) BUN 17 7 - 26 mg/dL [facility] Creatinine 0.9 0.6 - 1.2 mg/dL [facility] Sodium 140 136 - 145 mmol/L [facility] Potassium 4.3 3.5 - 4.5 mmol/L [facility] Chloride 108(H) 98 - 107 mmol/L [facility] CO2 24 22 - 29 mmol/L [facility] Glucose 96 70 - 115 mg/dL [facility] Calcium 10.2 8.4 - 10.2 mg/dL [facility] Anion Gap 12 8 - 18 [facility] BUN/Creatinine Ratio 19 7 - 23 [facility] Osmolality Calculated 277 270 - 300 mOsm/kg [facility] eGFR >60 >60 mL/min/1.7 3 m2 [facility] Blood specimen (specimen) BLOOD SPECIMEN / Unknown 08/12/2014 8:51 AM CDT 08/12/2014 8:55 AM CDT Irwin Barba DO LAB - CHEMISTRY ORDERABLES [facility] [address] [phone] * XR WRIST RIGHT 3VW OR MORE [...] than 10,000 CFU/ML of Normal Fecal Brianda [facility] Comment:. Urine specimen (specimen) URINE SPECIMEN OBTAINED BY CLEAN CATCH PROCEDURE / Unknown 08/23/2013 7:00 PM CDT 08/25/2013 1:50 PM CDT Narrative [facility] - 08/26/2013 1:16 PM CDT Stan#[id number] Jim Loc/Rm/Bed: ED// CLN CATCH U Historical Provider LAB - MICROBIOLOG Y ORDERABLES [place] [address] [phone] Care Teams Cane Packer Relationship Specialty Start Date End Date Robby Dee MD [address] [facility] [address] [place] [address] PCP - General 05/10/14
--- OUTSIDE RECORDS SUMMARY | 2024-05-03 18:23 | XMS_ITS | Clinical Summary ---
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 CAR DRIVER Height 158.8 cm (5' 2.5 ) 03/29/2022 3:22 PM ESCORT CAR DRIVER Body Mass Index 35.1 03/29/2022 3:22 PM ESCORT CAR DRIVER Plan of Treatment Health Maintenance Due Date [...] Miranda RN Medical Devices Implanted Type Area Produce Department Supervisor Device Identifier Shelf Expiration Date Model / Serial / Lot Graft Bone Bonus Triad Cancellous Cortical 5cc Allograft - [id number] Implanted:Qty: 1 on 04/07/2021 by Yuko Nguyễn MD at [facility] Bone [employer] 07/19/2025 [id number] / [id number] / NA Plate Myranda Fibular Distal Lateral 8h 132mm Left - [id number] Implanted:Qty: 1 on 04/07/2021 by Yuko Nguyễn MD at [facility] Plate Left: Ankle [employer] [id number] / / NA Screw Locking Myranda 2.7 X 12mm - [id number] Implanted:Qty: 2 on 04/07/2021 by Yuko Nguyễn MD at [facility] Screw Left: Ankle [employer] [id number] / / NA Screw Locking Myranda 2.7 X 14mm - [id number] Implanted:Qty: 2 on 04/07/2021 by Yuko Nguyễn MD at [facility] Screw Left: Ankle [employer] [id number] / / NA Screw Biomet 4.0 Cancellous Fully Threaded 46mm - [id number] Implanted:Qty: 1 on 04/07/2021 by Yuko Nguyễn MD at [facility] Screw Left: Ankle [employer] [id number] / / NA Screw Biomet 3.5 Cortical 50mm - [id number] Implanted:Qty: 1 on 04/07/2021 by Yuko Nguyễn MD at [facility] Screw Left: Ankle [employer] [id number] / / NA Screw Myranda Elb Fib Periloc 3.8 X 10mm - [id number] Implanted:Qty: 1 on 04/07/2021 by Yuko Nguyễn MD at [facility] Screw Left: Ankle [employer] [id number] / / NA Screw Myranda Elb Fib Periloc 3.5 X 12mm - [id number] Implanted:Qty: 2 on 04/07/2021 by Yuko Nguyễn MD at [facility] Screw Left: Ankle [employer] [id number] / / NA Screw Biomet 4.0 Cancellous Fully Threaded 60mm - [id number] Implanted:Qty: 2 on 04/07/2021 by Yuko Nguyễn MD at [facility] Screw Left: Ankle [employer] [id number] / / NA Gracey Pins 5 X 150 X 40mm Implanted:Qty: 2 on 02/23/2021 by Ben Baig MD at [facility] Left: Ankle [employer] AM[employer]ITH 5018-5-150 / / Self-Drilling Hybrid Half-Pin, 4/5 X 150mm Implanted:Qty: 1 on 02/23/2021 by Ben Baig MD at [facility] Left: Ankle [employer] 5026-1-150 / / Transfixing Pin, Threaded, 5/6 X 300mm Implanted:Qty: 1 on 02/23/2021 by Ben Baig MD at [facility] Left: Ankle [employer] 5050-4-300 / / End Caps Implanted:Qty: 1 on 02/23/2021 by Ben Baig MD at [facility] Left: Ankle [employer] 5027-1-050 / / Delta Coupling, Ferny-To-Ferny Or Ferny-To-Pin, 07/22/10 Ferny Or 5mm Pin Implanted:Qty: 4 on 02/23/2021 by Ben Baig MD at [facility] Left: Ankle [employer] 4922-1-010 / / Delta Coupling, Pin-To-Ferny, 07/22/10 Feryn Or 4/5/6mm Pin Implanted:Qty: 2 on 02/23/2021 by Ben Baig MD at [facility] Left: Ankle [employer] 4922-1-020 / / Connecting Rods Implanted:Qty: 1 on 02/23/2021 by Ben Baig MD at [facility] Left: Ankle [employer] 4922-8-150 / / 5-Hole Pin Clamp W/ Two 11mm 30deg Angled Posts, [id number] Implanted:Qty: 1 on 02/23/2021 by Ben Baig MD at [facility] Left: Ankle [employer] 4922-2-240 / / 11 X 350mm Connecting Rods Implanted:Qty: 2 on 02/23/2021 by Ben Baig MD at [facility] Left: Ankle [employer] 4922-8-350 / / Explanted Type Area Produce Department Supervisor Device Identifier Shelf Expiration Date Model / Serial / Lot Drill Bit Myranda 2.7mm - [id number] Explanted:Qty: 1 on 04/07/2021 by Yuko Nguễyn MD at [facility] Drill Left: Ankle [employer] [id number] / / NA Drill Bit Myradna 2.0mm Qc - [id number] Explanted:Qty: 1 on 04/07/2021 by Yuko Nguyễn MD at [facility] Drill Left: Ankle [employer] [id number] / / NA Drill Bit Myranda 2.5mm - [id number] Explanted:Qty: 1 on 04/07/2021 by Yuko Nguyễn MD at [facility] Drill Left: Ankle [employer] [id number] / / NA Drill Cannulated 2.9 X 70mm - [id number] Explanted:Qty: 2 on 04/07/2021 by Yuko Nguyễn MD at [facility] Drill Left: Ankle [employer] [id number] / / NA Wire Myranda Ayala 1.6mm X 150mm - [id number] Explanted:Qty: 3 on 04/07/2021 by Yuko Nguyễn MD at [facility] Wire Left: Ankle [employer] [id number] / / NA K-Wire Threaded Tip 1.6mm - [id number] Explanted:Qty: 3 on 04/07/2021 by Yuko Nguyễn MD at [facility] Wire Left: Ankle [employer] [id number] / / NA Cortical Screw 3.5 X 55mm Explanted:Qty: 1 on 04/07/2021 at [facility] Left: Ankle [employer] [id number] / / NA Description:[facility] Care Teams Nursing Service Administrator Relationship Specialty Start Date End Date Diana Simmons NP [address] [place] [address] PCP - General NURSE PRACTITIONER 10/02/21
--- OUTSIDE RECORDS SUMMARY | 2024-05-03 18:23 | XMS_ITS | Continuity of Care Document ---
Author Organization [facility] Address [address] [place] [address] [place] [address] Phone Care Team Providers Care Manager Package Name Role Phone Robby Dee MD Unavailable Unavailable Allergies, Adverse Reactions, Alerts Substance Reaction Status Criticality No Known Allergies Active No Inform ation Medications Medication Instructions Dosage Effective Dates (start - stop) Status Comments Zantac 150 mg tablet take 1 tablet by oral route 2 times every day - Active [place] 7.5 mg-325 mg tablet take 1 tablet [...] Diagnoses Date Provider Providers Copied on Encounter [facility], [address], [place], [address], [place] tel:[phone] [facility] No Information 9 Luiz Bustamante. [address], [place], [place], [address] , [place]. tel:[phone] OFFICE/OUTPA TIENT VISIT, [facility], [address], [place], [place], [address], [place] [phone] [facility] osteopenia1 (chief complaint)b ack pain1 (chief complaint)f atigue1 (chief complaint) FatigueOther specified disorder of bone densityChronic pain syndromeGERD w/o esophagitisOther cholelithiasis without obstruction 9 Luiz Bustamante. [address], [place], [place], [address] , [place]. tel:[phone] Referring Provider: Jeanette [address], [place], [place], [address]. tel:[phone] OFFICE/OUTPA TIENT VISIT, [facility], [address], [place], [place], [address], [place] tel:[phone] [facility] back pain1 (chief complaint)g allstone1 (chief complaint)C AD (chief complaint)a nemia1 (chief complaint)G ERd1 (chief complaint) Lumbago with sciatica, right sideAnemiaCAD of [place] coronary artery without angina pectorisOther cholelithiasis without obstructionGERD w/o esophagitis 9 Luiz Granda [address], [place], [place], [address] , [place]. tel:[phone] Referring Provider: Jeanette Roberts [address], [place], [place], [address]. tel:[phone] OFFICE/OUTPA TIENT VISIT, [facility], [address], [place], [place], [address], [place] tel:[phone] [facility] anxiety1 (chief complaint) InsomniaGeneralize d Anxiety Disorder 9 Luiz Granda [address], [place], [place], [address] , [place]. tel:[phone] Referring Provider: Robby Dee, [address], [place], [place], [address]. tel:[phone] PREV VISIT, EST, AGE 40-64 [facility], [address], [place], [place], [address], [place] [phone] [facility] Physical (chief complaint) Encntr for general adult medical exam w/o abnormal findings 9 Luiz Bustamante. [address], [place], [place], [address] , [place]. tel:[phone] Referring Provider: Jeanette [address], [place], [place], [address]. tel:[phone] OFFICE/OUTPA TIENT VISIT, [facility], [address], [place], [place], [address], [place] tel:[phone] [facility] back pain1 (chief complaint)H TN (chief complaint) Lumbago with sciatica, left sideEssential (primary) hypertension 8 Luiz Bustamante. [address], [place], [place], [address] , [place]. tel: [phone] Referring Provider: Jeanette [address], [place], [place], [address]. tel:[phone] OFFICE/OUTPA TIENT VISIT, [facility], [address], [place], [place], [address], [place] tel:[phone] [facility] foot pain1 (chief complaint)r enal1 (chief complaint)i nsomnia1 (chief complaint) Insomnia, unspecifiedRenal diseaseLumbago with sciatica, left sidePain in left foot 8 Luiz Bustamante. [address], [place], [place], [address] , [place]. [phone] Referring Provider: Robby Dee [address], [place], [place], [address]. tel:[phone] OFFICE/OUTPA TIENT VISIT, [facility], [address], [place], [place], [address], [place] tel:[phone] [facility] syncope1 (chief complaint)r ib fracture1 (chief complaint)t obacco1 (chief complaint)e lbow 1 (chief complaint) Syncope and collapseTachycardi aOlecranon bursitis, left elbowRenal disease 8 Luiz Bustamante. [address], [place], [place], [address] , [place]. tel:[phone] Referring Provider: Robby Dee [address], [place], [place], [address]. tel:[phone] PREV VISIT, EST, AGE 40-64 [facility], [address], [place], [place], [address], [place] tel:[phone] [facility] PHysical (chief complaint) Encntr for general adult medical exam w/o abnormal findings 8 Luiz Bustamante. [address], [place], [place], [address] , [place]. tel:[phone] Referring Provider: Jeanette [address], [place], [place], [address]. tel:[phone] OFFICE/OUTPA TIENT VISIT, [facility], [address], [place], [place], [address], [place] tel:[phone] [facility] insomnia1 (chief complaint)G ERd1 (chief complaint)C OPD1 (chief complaint)a nxiety1 (chief complaint)b ack pain1 (chief complaint)i ncontinnece 1 (chief complaint) GERD w/o esophagitisInsomni aEmphysemaMixed incontinence 7 Luiz Bustamante. [address], [place], [place], [address] , [place]. tel:[phone] Referring Provider: Jeanette [address], [place], [place], [address]. tel:[phone] OFFICE/OUTPA TIENT VISIT, [facility], [address], [place], [place], [address], [place] tel:[phone] [facility] wrist fracture1 (chief complaint)b ack pain1 (chief complaint)G ERD1 (chief complaint)i nsomnia1 (chief complaint) Insomnia, unspecifiedGERD w/o esophagitisMeralgi a paresthetica, bilateral lower limbsRestless legs syndrome Nov-2 7 Luiz Bustamante. [address], [place], [place], [address] , [place]. tel:[phone] Referring Provider: Robby Dee [address], [place], [place], [address]. tel:[phone] OFFICE/OUTPA TIENT VISIT, [facility], [address], [place], [place], [address], [place] [phone] [facility] back pain1 (chief complaint) Other spondylosis, lumbar regionLumbago Oct- 7 Luiz Bustamante. [address], [place], [place], [address] , [place]. [phone] Referring Provider: Jeanette [address], [place], [place], [address]. tel:[phone] OFFICE/OUTPA TIENT VISIT, [facility], [address], [place], [place], [address], [place] tel:[phone] [facility] osteopenia1 (chief complaint)b ack pain1 (chief complaint)p ancreatic lesion1 (chief complaint)C OPD1 (chief complaint) Pancreatic endocrine cell hyperplasiaMeralgi a paresthetica, bilateral lower limbsDisorder of bone density and structure, unspecifiedCOPD Oct-0 7 Luiz Granda [address], [place], [place], [address] , [place]. tel:[phone] Referring Provider: Jeanette Roberts [address], [place], [place], [address]. tel:[phone] OFFICE/OUTPA TIENT VISIT, [facility], [address], [place], [place], [address], [place] tel:[phone] [facility] GERD1 (chief complaint)t obacco1 (chief complaint)o steopenia1 (chief complaint)i nsomnia1 (chief complaint) InsomniaOth disrd of bone density and structure, multiple sitesGastritis, unspecified, without bleedingTobacco use 7 Luiz Bustamante. [address], [place], [place], [address] , [place]. tel:[phone] Referring Provider: Jeanette Roberts [address], [place], [place], [address]. tel:[phone] OFFICE/OUTPA TIENT VISIT, [facility], [address], [place], [place], [address], [place] tel:[phone] [facility] Medicine bug left ear (chief complaint)t obacco1 (chief complaint)b ack pain1 (chief complaint)G ERD1 (chief complaint) GERD w/o esophagitisTobacco useLumbagoImpacted cerumen, left ear 7 Luiz Bustamante. [address], [place], [place], [address] , [place]. tel:[phone] Referring Provider: Jeanette [address], [place], [place], [address]. tel:[phone] OFFICE/OUTPA TIENT VISIT, [facility], [address], [place], [place], [address], [place] tel:[phone] [facility] GERD1 (chief complaint)C AD1 (chief complaint)i nsomnia1 (chief complaint)l umbago1 (chief complaint) Acute gastritis without bleedingLumbago with sciatica, left sideHyperlipidemia Atherosclerotic heart disease of [place] coronary artery without angina pectoris 7 Luiz Bustamante. [address], [place], [place], [address] , [place]. tel:[phone] Referring Provider: Jeanette [address], [place], [place], [address]. tel:[phone] OFFICE/OUTPA TIENT VISIT, [facility], [address], [place], [place], [address], [place] tel:[phone] [facility] vertigo (chief complaint)v ertigo1 (chief complaint)b ack pain1 (chief complaint)C OPD1 (chief complaint)d izziness1 (chief complaint) DizzinessCOPDLumba go 7 Luiz Bustamante. [address], [place], [place], [address] , [place]. [phone] Referring Provider: Robby Dee, [address] [place] [address] A, [place], [place], [address]. tel:[phone] PREV VISIT, [facility], AGE 40-64 [facility], [address], [place], [place], [address], [place] tel:[phone] [facility] Physical (chief complaint) Encounter for general adult medical exam w abnormal findingsLumbago with sciatica, left sideDizzinessInsom aimee 7 Luiz [facility]ustamante. [address] [facility], [place], [place], [address] , [place]. tel:[phone] Referring Provider: Jeanette Roberts [facility] A, [place], [place], [address]. tel:[phone] OFFICE/OUTPA TIENT VISIT, [facility], [address], [place], [place], [address], [place] tel:[phone] [facility] anxiety1 (chief complaint)G ERD1 (chief complaint)H LP (chief complaint)i nsomnia1 (chief complaint)L FT (chief complaint)k nee pain1 (chief complaint) Chronic pain syndromeGeneralize d anxiety disorderInsomniaLi charles disease 6 Luiz Bustamante. [address], [place], [place], [address] , [place]. tel:[phone] Referring Provider: Jeanette Roberts [facility] A, [place], [place], [address]. tel:[phone] OFFICE/OUTPA TIENT VISIT, [facility], [address], [place], [place], [address], [place] tel:[phone] [facility] anxiety1 (chief complaint)k nee pain1 (chief complaint)s leep disorder1 (chief complaint)C AD (chief complaint) Atherosclerotic heart disease of [place] coronary artery without angina pectorisChronic pain syndromeGeneralize d anxiety disorderSleep disorder 6 Luiz Bustamante. [address], [place], [place], [address] , [place]. [phone] Referring Provider: Robby Dee [address] [place] [address] [place], [address]. tel:[phone] OFFICE/OUTPA TIENT VISIT, [facility], [address], [place], [place], [address], [place] tel:[phone] [facility] anxiety1 (chief complaint)j oint pain1 (chief complaint)G ERD1 (chief complaint)o steopenia1 (chief complaint) Gastro-esophageal reflux disease without esophagitisGeneral ized anxiety disorderChronic pain syndromeOth disrd of bone density and structure, multiple sites 6 Luiz Bustamante. [address] [facility] A, [place], [place], [address] , [place]. [phone] Referring Provider: Robby Dee [address] [facility] A, [place], [place], [address]. tel:[phone] OFFICE/OUTPA TIENT VISIT, [facility], [address], [place], [place], [address], [place] tel:[phone] [facility] insomnia1 (chief complaint)G ERD1 (chief complaint)C AD (chief complaint)c hronic pian1 (chief complaint)a nxiety1 (chief complaint) InsomniaChronic pain syndromeGERD w/o esophagitisGeneral ized anxiety disorder 6 Luiz Bustamante. [address], [place], [place], [address] , [place]. tel:[phone] Referring Provider: Jeanette Roberts [address], [place], [place], [address]. tel:[phone] OFFICE/OUTPA TIENT VISIT, EST [facility], [address], [place], [place], [address], tel:[phone] [facility] leg pain (chief complaint)l eg pain1 (chief complaint)r estless leg1 (chief complaint)H LP1 (chief complaint)s leep study1 (chief complaint) Mixed hyperlipidemiaPain in right lower legRestless Legs SyndromeSleep apnea 5 Luiz Bustamante. [address] [facility] A, [place], [place], [address] , [place]. tel:[phone] Referring Provider: Jeanette Roberts [facility] [address], [place], [place], [address]. tel:[phone] PREV VISIT, EST, AGE 40-64 [facility], [address], [place], [place], [address], [place] tel:[phone] [facility] Physical1 (chief complaint) Encntr for general adult medical exam w/o abnormal findings 5 Luiz Bustamante. [address] [facility] A, [place], [place], [address] , [place]. [phone] Referring Provider: Jeanette Roberts [facility], [place], [place], [address]. tel:[phone] OFFICE/OUTPA TIENT VISIT, EST [facility], [address], [place], [place], [address], [place] tel:[phone] [facility] osteopenia (chief complaint)G ERD (chief complaint)i nsomnia (chief complaint)f ibular fx (chief complaint) Dietary surveillance and counselingEsophage al refluxInsomnia, unspecifiedClosed tibial and fibular fractureOsteopenia 5 Luiz Granda [address], [place], [place], [address] , [place]. [phone] Referring Provider: Robby Dee, [address], [place], [place], [address]. tel:[phone] OFFICE/OUTPA TIENT VISIT, [facility], [address], [place], [place], [address], [place] tel:[phone] [facility] GERD (chief complaint)i nsomia (chief complaint)a bd pain (chief complaint) Dietary surveillance and counselingInsomnia , unspecifiedAbdomin al painHypokalemia 5 Luiz Bustamante. [address], [place], [place], [address] , [place]. [phone] Referring Provider: Jeanette Roberts [address] [facility] A, [place], [place], [address]. tel:[phone] OFFICE/OUTPA TIENT VISIT, [facility], [address], [place], [place], [address], [place] tel:[phone] [facility] hematuria (chief complaint)n brenna pain (chief complaint)o besity (chief complaint) HEMATURIA NOSDietary surveillance and counselingCervical giaBody Mass Index 31.0-31.9, adultPain in joint involving pelvic region and thigh 5 Luiz Bustamante. [address], [place], [place], [address] , [place]. [phone] Referring Provider: Jeanette Roberts [facility] A, [place], [place], [address]. tel:[phone] OFFICE/OUTPA TIENT VISIT, [facility], [address], [place], [place], [address], [place] [phone] [facility] insomnia (chief complaint)L FT (chief complaint)G ERD (chief complaint)h ematuria (chief complaint) HEMATURIA NOSDietary surveillance and counselingInsomnia , OtherHypertriglyce ridemiaGERD 5 Luiz Bustamante. [address], [place], [place], [address] , [place]. [phone] Referring Provider: Jeanette Roberts [address], [address]. tel:[phone] OFFICE/OUTPA TIENT VISIT, EST [facility], [address] [place], [address], tel:[phone] [facility] Medicine insomnia (chief complaint)G ERD (chief complaint)C AD (chief complaint)l iver (chief complaint) Dietary surveillance and counselingInsomnia , OtherGERDUnspecifi ed chronic liver disease without mention of alcoholCAD, [place] 4 Luiz Bustamante. [address], [place], [place], [address] , [place]. tel:[phone] Referring Provider: Robby Dee, [address] [facility] [address], [place], [place], [address]. tel:[phone] PREV VISIT, NEW, AGE 40-64 [facility], [address], [address], [place] tel:[phone] [facility] Medicine PHysical (chief complaint) Dietary surveillance and counselingRoutine Medical ExamRoutine Medical Exam 4 Luiz Bustamante. [address], [place], [place], [address] , [place]. tel:[phone] Family History Family Member Type Diagnosis Age [...] Paniagua MD [address]
[place], [address] Ordered: Referrals: Eduardo Paniagua MD. Evaluate and treat ordered Referral Ordered: Eduardo Paniagua -[facility]opathic [facility] Osteopathic Physicians : Neurological Surgery (related to Lumbago with sciatica, left side) ordered Referral Referred To: Eduardo Paniagua [address] [place], [phone] Ordered: Referrals: [facility] Phys[facility] : Neurological Surgery. Eduardo Paniagua. Evaluate and treat ordered Referral Ordered: Vinnie Kessler -[facility]opathic Physicians : Orthopaedic Surgery (related to Olecranon bursitis, left elbow) ordered Referral Referred To: Vinnie Kessler [facility] [address] [facility] [address] [place], [place] [phone] Ordered: Referrals: [facility]opathic [facility] Osteopathic Physicians : Orthopaedic Surgery. Vinnie Kessler. Evaluate and treat ordered Referral Ordered: [facility] KIDNEY ordered Referral Ordered: Vinnie Kessler (related to GERD w/o esophagitis) ordered Referral Referred To: Vinnie Kessler [facility] [address] [facility] [address] [place], [phone] Ordered: Referrals: Vinnie Kessler. Evaluate and treat [...] any bleeding CAD Pt recently went to [place] due to her daughter. Pt had another episode of chest pain while in [place] and was diagnosed with NSTEMI pt just [...] out that her daughter who lives in [place] committed suicide several days ago. Pt feels extremely sad and she can not stop crying. ,Pt has been having panic attacks. Pt wants some nerve pills for short term to help her with above. Pt is off klonopin. Pt has difficulty sleeping and she feels extremely anxious. Pt wants to try some valium, which helped her in the past Pt is traveling to [place] tomorrow and she could not get in [...] worsening pain. Pt failed NSAID and ultram insomnia1 Pt has chronic i nsomnia. Pt does not have sleep apnea. Pt takes ambien qhs PRn and doing ok. Pt has not received any ambien lately due to she is getting klonopin from her pulmonary. Pt states that she usually takes klonopin to keep her calm and ambien to actually put her to sleep foot pain1 Pt c/o sharp cecilia n [...] left sciatica. Pt wants to see neurosurgery. renal1 Pt has mild bord vanessa low renal function. Pt has normal UO Pt has normal renal ultrasound syncope1 Pt recently had syncope episode while [...] prescribing OT but she changed insurance to [employer] and she needs a new ortho and [...] that norco and robaxin are not helping [facility] for her pain osteopenia1 Pt has been adrianna grayson calcium and vitamin D Pt had bone [...] only now. Pt denies any acute sob insomnia1 Pt has chornic i nsomnia. Pt [...] prophylactic meds. for COPD GERD1 Pt has chronic G ERD Pt unable to tolerate zantac. her insurance does not cover omeprazole. Pt states that she has GERD without omeprazole osteopenia1 Pt has osteopeni a. Pt has been taking calicum and vitamin D and is doing weight bearing exercise. Pt denies any fracture bug left ear Pt notices bug i [...] night. Pt never did the sleep study anxiety1 Pt has been havi ng anxiety [...] daily and no symptoms. NO abd pain sleep study1 Pt c/o snorning and [...] lipitor. Pt denies any myalgia leg pain leg pain1 Pt has midial ri ght [...] seeing ortho now and is wearing boot insomia Pt has insomnia. Pt takes ambien qhs PRN and doing ok abd pain Pt has intermitt ent left flank pain and also some vague pelvic pain for several months. Pt denies any diarrhea, nauea, vomiting. Pt had benign CT recenlty. Pt had benign colonosocpy and EGD last year. GERD Additional infor mation:Pt takes omerapzole and doing ok. Pt denies any abd pain or GERd symptoms. Instructions Date Instruction Additional Infor mation Increase physical activity Relat ed to Fatigue Special diet education Related t o Body mass index (BMI) 31.0-31.9, adult Quit smoking Related to Fatig ue Weight [...]
== END 2024-05-03 16:10 | disposition home or self-care (01) ==
PROVIDERS: PCP Internal Medicine; Visit Provider Internal Medicine Nephrology
DX: N18.31 Chronic kidney disease, stage 3a (principal)
CPT/HCPCS: 82570; 84156

== ENCOUNTER 2024-07-27 09:08 | Outpatient (CLI) | payer OTHER, SELFPAY ==
--- OUTSIDE RECORDS SUMMARY | 2024-07-27 09:15 | XMS_ITS | Referral Summary ---
Author Organization [facility] Address [address] [place] [address] Care Team Providers Care Belting And Webbing Inspector Name Role Phone Robby Dee MD Unavailable [phone] Surinder Walters DO Primary Care Provider [phone] Encounters Date Type Department Care Team Description 07/24/2024 2:44 PM CDT - 07/24/2024 6:19 PM CDT Emergency [facility] Emergency Department [address] [place] [address] Acute intractable tension-type headache (Primary Dx); Thrombocytopenia; Macrocytosis associated with alcohol Discharge Disposition: Discharge to home or self care 07/21/2024 Results Follow-Up [facility] - [address] [place] [phone] Mirian Nickerson NP 07/20/2024 Telephone [facility] Pulmonary at [address] [place] [phone] Yue Salazar LPN Prior Auth (Nicotine patches ) 07/20/2024 2:00 PM CDT Lab [address] Heterozygous alpha 1-antitrypsin deficiency (HCC); Centrilobular emphysema (HCC) 07/20/2024 1:30 PM CDT Office Visit [facility] Pulmonary at [address] [place] [phone] Mirian Nickerson NP Centrilobular emphysema (HCC) (Primary Dx); Heterozygous alpha 1-antitrypsin deficiency (HCC); Oral charles; Cigarette nicotine dependence without complication 07/15/2024 Telephone [facility] [place] [address] Dusty Wheeler, ZHANG 06/28/2024 Telephone [facility] Vascular and Vein Surgery at [address] [place] [phone] Jo Moreno 06/22/2024 Plan of Care Documentation [facility] [place] [address] 06/22/2024 3:00 PM CDT Therapy [facility] Physical Therapy [place] [address] Randell Guzman, PT Spinal stenosis, lumbar region with neurogenic claudication (Primary Dx); Spondylosis without myelopathy or radiculopathy, lumbosacral region 06/03/2024 2:00 PM CDT Office Visit [facility] Medical [facility] [address] [place] [phone] Kasey Lopes, KWADWO Atherosclerosis of [place] coronary artery of [place] heart with stable angina pectoris (Primary Dx); Carotid atherosclerosis, unspecified laterality from Last 3 Months Allergies No known active allergies Medications fish ewp-axikn-6-vit C-vit E 2,000-650-12 mg/2.5 gram emulsion in packet Take by mouth. Activ e cholecalciferol (VITAMIN D-3) 1,000 unit capsule Take by mouth. 05/07/19 17 Active melatonin tablet Take 10 tablets (10 mg total) by mouth nightly Active diphenhydrAMINE (BENADRYL) 25 mg capsule Benadryl 25mg 2 tab qhs 05/17/19 17 Active aspirin 81 mg tablet daily. Active gabapentin (NEURONTIN) 400 mg tablet Take 2 tablets (800 mg total) by mouth 3 (three) times a day 06/07/19 18 Active omeprazole (PriLOSEC) 20 mg capsule omeprazole 20 mg capsule,delayed release Active rOPINIRole (REQUIP) 1 mg tablet Take 1 tablet (1 mg total) by mouth 12/05/19 17 Active atorvastatin (LIPITOR) 40 mg tablet Take [...] inhaler Inhale 2 puffs daily 1 each 11 10/16/19 24 Active losartan (COZAAR) 25 mg [...] albuterol inhaler 1 each 04/15/19 25 Active nitroglycerin (NITROSTAT) 0.4 mg SL tabletIndication s:Atherosclerosi s of [place] coronary artery of [place] heart with stable angina pectoris Place 1 tablet (0.4 mg total) under the tongue every 5 (five) minutes as needed for chest pain May take up to 3 doses 25 tablet 3 06/04/19 25 Active nicotine (NICODERM CQ) [address] 1 patch on the skin daily for 24 hours 30 patch 07/21/19 25 025 Active nicotine (NICODERM CQ) [address] 1 patch on the skin daily for 24 hours 30 patch 1 07/21/19 25 025 Active nicotine (NICODERM CQ) [address] 1 patch on the skin daily for 24 hours 30 patch 1 07/21/19 25 025 Active nystatin 100,000 unit/mL suspension Take 5 mL (500,000 Units total) by mouth 4 (four) times a day for 10 days 200 mL 07/21/19 25 025 Active dexAMETHasone (DECADRON) 4 mg tabletIndication s:Acute intractable tension-type headache,Thrombo cytopenia Take 1 tablet (4 mg total) by mouth daily with breakfast for 7 days Collaborating physician Surinder Oreilly MD 7 tablet 07/25/19 25 025 Active traMADoL (ULTRAM) 50 mg tabletIndication s:Acute intractable tension-type headache Take 1 tablet (50 mg total) by mouth every 8 (eight) hours as needed for pain Take 500 mg of acetaminophen with each dose. Take with food. Collaborating physician Surinder Oreilly MD 15 tablet 07/25/19 25 Active metoclopramide (REGLAN) 5 mg tabletIndication s:Acute intractable tension-type headache Take 1 tablet (5 mg total) by mouth 4 (four) times a day Take as directed to help treat headache and occasional nausea. Collaborating physician Surinder Oreilly MD 20 tablet 07/25/19 25 Active folic acid (FOLVITE) 1 mg tabletIndication s:Macrocytosis associated with alcohol Take 1 tablet (1 mg total) by mouth daily Collaborating physician Surinder Oreilly MD 30 tablet 1 07/25/19 25 026 Active cyanocobalamin (Vitamin B-12) 250 mcg tabletIndication s:Macrocytosis associated with alcohol Take 1 tablet (250 mcg total) by mouth daily Collaborating physician Surinder Oreilly MD 30 tablet 1 07/25/19 25 026 Active Active Problems Problem Noted Date Diagnosed Date Acute intractable tension-type headache 07/25/19 25 Thrombocytopenia 07/24/2024 Macrocytosis associated with alcohol 07/24/2024 Oral charles 07/20/2024 Assessment & Plan (07/20/2024 2:52 PM CDT): I have reinforced rinse and spit after inhaler use I have sent an order for nystatin swish and swallow today to her pharmacy and we have discussed measures to prevent thrush recurrence in the future Cigarette nicotine dependence without complicati on 04/20/2024 Assessment & Plan (07/20/2024 2:55 PM CDT): - Smoking cessation counseling and techniques reviewed at length - Avoid triggers and use distraction techniques - Information given regarding [place] [employer] Quit line: 7-769-RVMJ-YES for free services - 6 minutes spent discussing cessation She has tried and failed Wellbutrin, varenicline, lozenges, gum, generic patches The only thing she had success with in the past was the Nicoderm CQ patches I have placed an order for these today in a titrating fashion She qualifies for annual screening, next due 02/2025 Assessment & Plan (04/20/2024 2:45 PM AUTOMOTIVE ELECTRICAL FITTER): - Smoking cessation counseling and techniques reviewed at length - Avoid triggers and use distraction techniques - Information given regarding [place] Tobacco Quit line: 8-660-KKUF-YES for free services - 5 minutes spent discussing cessation She remains pre-contemplative She qualifies for annual screening, next due 02/2025 Heterozygous alpha 1-antitrypsin deficiency 06/2024 Assessment & Plan (07/20/2024 2:54 PM CDT): She is MZ I will check an alpha-1 level, I have printed out her lab order today She is well aware to have siblings and children tested Assessment & Plan (04/20/2024 2:49 PM AUTOMOTIVE ELECTRICAL FITTER): She is MZ with good last levels [...] index 31.0-31.9, adult 07/03/2017 Coronary atherosclerosis of [place] coronary emily ry 07/03/2017 Cervicalgia 07/03/2017 Chronic pain syndrome 07/03/2017 Closed fracture of part of fibula with tibia Chronic obstructive pulmonary disease 07/03/2017 Assessment & Plan (07/20/2024 2:53 PM CDT): Continue Stiolto two puffs daily at the same time Check CBC for peripheral eosinophilia, I have printed the order for this today Albuterol 2 puffs every 4-6 hours as needed only, she is aware of indications for use Alpha1 MZ She does not have frequent exacerbations and has been stable on Stiolto at this time We have discussed signs and symptoms that would require earlier evaluation or change to her plan of care Assessment & Plan (04/20/2024 2:48 PM AUTOMOTIVE ELECTRICAL FITTER): Continue Stiolto two puffs daily for now [...] Resolved Date Atherosclerotic heart diseas e of [place] coronary artery without angina pectoris 07/03/2017 12/10/2022 Hyperlipidemia 07/03/2017 12/10/2022 Pure hypertriglyceridemia 07/03/2017 Pure hyperglyceridemia 04/21/201402/11 Coronary arteriosclerosis in [place] artery 02/15/2014 02/11/2023 Social History Tobacco Use Types Packs/Day Years Used Date Smoking Tobacco: Every Day Cigarettes 0.8 53.4 Started: 1971 Smokeless Tobacco: Current Tobacco Cessation:Ready [...] of Binge Drinking Not on file 06/2024 Personal Safety Answer Date Recorded Have you ever been in or are you currently in a harmful physical or emotional relationship or is someone making you feel afraid or unsafe? Denies 07/24/2024 Comments No Sex and Gender Information Value Date Recorded Sex Assigned at Not on file Legal Sex Female 5:32 PM AUTOMOTIVE ELECTRICAL FITTER Gender Identity Not on file Sexual Orientation Not on file Last Filed Vital Signs Vital Sign Reading Time Taken Comments Blood Pressure 162/98 07/24/2024 6:18 PM CDT Pulse 62 07/24/2024 5:53 PM CDT Temperature 36.6 C (97.8 F) 07/24/2024 12:52 PM CDT Respiratory Rate 15 07/24/2024 5:53 PM CDT Oxygen Saturation 97% 07/24/2024 5:53 PM CDT Inhaled Oxygen Concentration - - Weight 79.8 kg (176 lb) 07/24/2024 12:52 PM CDT Height 157.5 cm (5' 2 ) 07/24/2024 12:52 PM CDT Body Mass Index 32.19 07/24/2024 12:52 PM CDT Plan of Treatment Not on file Medical Devices Implanted Type Area Greenhouse Technician Device Identifier Shelf Expiration Date Model / Serial / Lot [employer] Angio-Seal Vip 6fr Closere Device [id number] - [id number] Implanted:Qty: 1 on 01/21/2022 by Blake Ham MD at [facility] [employer] 10/14/2022 [id number] / / [id number] Procedures Procedure Name Priority Date/Time Associated Diagnosis Comments BLOOD SMEAR REVIEW STAT 07/24/2024 4: 19 PM CDT EGFR STAT 07/24/2024 4:19 PM CDT DIFFERENTIAL AUTO STAT 07/24/2024 4:1 9 PM CDT CARBOXYHEMOGLOBIN, VENOUS STAT 07/24/2024 4:19 PM CDT CRP (ACUTE PHASE) STAT 07/24/2024 4:1 9 PM CDT ERYTHROCYTE SEDIMENTATION RATE STAT 07/24/2024 4:19 PM CDT AMMONIA STAT 07/24/2024 4:19 PM CDT COMPREHENSIVE METABOLIC PANEL STAT 07/24/2024 4:19 PM CDT CBC WITH AUTO DIFFERENTIAL STAT 07/24/2024 4:[address] HEAD WO CONTRAST ED 07/24/2024 3 :23 PM CDT DIFFERENTIAL AUTO Routine 07/20/2024 1:5 3 PM CDT Centrilobular emphysema (HCC) CBC WITH AUTO DIFFERENTIAL Routine 07/20/2024 1:53 PM CDT Centrilobular emphysema (HCC) [id number] Routine 07/20/2024 1 :53 PM CDT Heterozygous alpha 1-antitrypsin deficiency (HCC) CT LUNG CANCER SCREENING Schedule Routine, Read Routine (OP Routine) 03/02/2024 4:42 PM AUTOMOTIVE ELECTRICAL FITTER Nicotine dependence, cigarettes, uncomplicated from Last 3 Months or Most Recently Relevant to Health Maintenance Results * (ABNORMAL) Carboxyhemoglobin, venous (07/24/2024 4:19 PM CDT) Carboxyhemoglob in, venous 5.7(H) 0.0 - 2.9 % Comment:Non-Smokers: <3.0%; Smokers <9.0% Blood 07/24/2024 4:19 PM CDT 07/24/2024 4:21 PM CDT Andrew NIETO LAB BLOOD ORDERABLES Final R esult YAEL ELIZABETH) [address] [place] [address] * (ABNORMAL) Blood smear review (07/24/2024 4:19 PM CDT) RBC morphology Consistent with RBC Indicies Anisocytosis Slight(A) YAEL TILLMAN (MAY) Platelet estimate Automated Count Confirmed YAEL TILLMAN (MAY) Blood 07/24/2024 4:19 PM CDT 07/24/2024 4:21 PM CDT Andrew NIETO LAB BLOOD ORDERABLES Final R esult Performing Organization Address City/[facility]/ZIP Co de Phone Number YAEL TILLMAN (MAY) [address] [place] [address] * eGFR (07/24/2024 4:19 PM CDT) eGFR >90 >=60 mL/min/1. 73 m2 Comment: Interpretive Data Reference Interval Normal >/= 90 mL/min/1.73m2 Mildly decreased* 60 - 89 mL/min/1.73m2 Mildly to moderately decreased 45 - 59 mL/min/1.73m2 Moderately to severely decreased 30 - 44 mL/min/1.73m2 Severely decreased 15 - 29 mL/min/1.73m2 Kidney Failure < 15 mL/min/1.73m2 *Relative to young adult level Estimated glomerular filtration rate is determined by the 2020 CKD-EPI equation recommended by the National Kidney Foundation (A Unifying Approach to GFR Estimation: Recommendations of the NKF-ASK Task Force on Reassessing the Inclusion of Race in Diagnosing Kidney Disease, JASN 2020). The CKD-EPI equation should not be used for patients with unstable renal function and has not been validated in children and those over 70. Current interpretive data was last reviewed 2021. Blood 07/24/2024 4:19 PM CDT 07/24/2024 4:23 PM CDT us Andrew NIETO LAB BLOOD ORDERABLES Final R esult YAEL TILLMAN (MAY) 1 [facility] Department [place] [address] * Differential, auto (07/24/2024 4:19 PM CDT) Neutrophil abs 3.16 1.50 - 6.50 K/cumm Imm gran abs 0.02 0.00 - 0.10 K/cumm [facility] ([place]) Lymphocyte abs 1.57 0.80 - 3.30 K/cumm [facility] ([place]) Monocyte abs 0.45 0.20 - 0.80 K/cumm [facility] ([place]) Eosinophil abs 0.18 0.00 - 0.50 K/cumm [facility] ([place]) Basophil abs 0.04 0.00 - 0.10 K/cumm [facility] ([place]) Neutrophil pct 58.3 % [facility] ([place]) Comment: Interpretive Data Percent cell count reference ranges are not reported, since discordance with absolute values may lead to misinterpretation of CBC data. Current Interpretive Data was last revised on 2017. Imm gran pct 0.4 % [facility] ([place]) Comment: Interpretive Data Percent cell count reference ranges are not reported, since discordance with absolute values may lead to misinterpretation of CBC data. Current Interpretive Data was last revised on 2017. Lymphocyte pct 29.0 % [facility] ([place]) Comment: Interpretive Data Percent cell count reference ranges are not reported, since discordance with absolute values may lead to misinterpretation of CBC data. Current Interpretive Data was last revised on 2017. Monocyte pct 8.3 % [facility] ([place]) Comment: Interpretive Data Percent cell count reference ranges are not reported, since discordance with absolute values may lead to misinterpretation of CBC data. Current Interpretive Data was last revised on 2017. Eosinophil pct 3.3 % [facility] ([place]) Comment: Interpretive Data Percent cell count reference ranges are not reported, since discordance with absolute values may lead to misinterpretation of CBC data. Current Interpretive Data was last revised on 2017. Basophil pct 0.7 % [facility] ([place]) Comment: Interpretive Data Percent cell count reference ranges are not reported, since discordance with absolute values may lead to misinterpretation of CBC data. Current Interpretive Data was last revised on 2017. Blood 07/24/2024 4:19 PM CDT 07/24/2024 4:21 PM CDT Andrew NIETO LAB BLOOD ORDERABLES Final R esult [facility] ([place]) 1 [facility] Department [place] [address] * (ABNORMAL) CBC with auto differential (07/24/2024 4:19 PM CDT) WBC 5.42 3.80 - 9.90 K/cumm Hgb 14.8 11.9 - 15.5 g/dL [facility] ([place]) Hct 45.3 35.6 - 45.5 % [facility] ([place]) Plt 133(L) 150 - 400 K/cumm [facility] ([place]) MPV 12.6(H) 9.1 - 12.3 fL [facility] ([place]) RBC 4.40 3.90 - 5.20 M/cumm [facility] ([place]) MCV 103.0(H) 81.3 - 96.4 fL [facility] ([place]) MCH 33.6(H) 27.1 - 33.3 pg [facility] ([place]) MCHC 32.7 32.3 - 35.7 g/dL [facility] ([place]) RDW CV 12.7 11.1 - 14.9 % [facility] ([place]) RDW SD 48.5(H) 35.7 - 48.1 fL [facility] ([place]) NRBC abs 0.00 0.00 - 0.01 K/cumm [facility] ([place]) Blood 07/24/2024 4:19 PM CDT 07/24/2024 4:21 PM CDT Andrew NIETO LAB BLOOD ORDERABLES Final R esult YAEL TILLMAN (MAY) 1 [facility] [place] [address] * Erythrocyte sedimentation rate (07/24/2024 4:19 PM CDT) Erythrocyte sedimentation rate 21 1 - 30 mm/hr Blood 07/24/2024 4:19 PM CDT 07/24/2024 4:21 PM CDT Andrew NIETO LAB BLOOD ORDERABLES Final R esult Performing Organization Address City/[facility] Co de Phone Number YAEL TILLMAN (MAY) 1 [facility] [place] [address] * CRP (acute phase) (07/24/2024 4:19 PM CDT) CRP <3.0 <=10.0 mg/L Blood 07/24/2024 4:19 PM CDT 07/24/2024 4:21 PM CDT Andrew NIETO LAB BLOOD ORDERABLES Final R esult Performing Organization Address City/[facility]/ZIP Co de Phone Number YAEL TILLMAN (MAY) 1 [facility] [place] [address] * Ammonia (07/24/2024 4:19 PM CDT) Ammonia 24 <=50 mcmol/L Blood 07/24/2024 4:19 PM CDT 07/24/2024 4:21 PM CDT Andrew NIETO LAB BLOOD ORDERABLES Final R esult YAEL TILLMAN (MAY) 1 [facility] [place] [address] * (ABNORMAL) Comprehensive metabolic panel (07/24/2024 4:19 PM CDT) Sodium 138 135 - 145 mmol/L Potassium, pl 4.0 3.3 - 4.9 mmol/L [facility] ([place]) Chloride 102 97 - 110 mmol/L [facility] ([place]) CO2 23 22 - 32 mmol/L [facility] ([place]) Anion gap 13 2 - 15 mmol/L [facility] ([place]) BUN 17 6 - 25 mg/dL [facility] ([place]) Creatinine 0.73 0.60 - 1.10 mg/dL [facility] ([place]) Glucose 104 70 - 199 mg/dL [facility] ([place]) Comment: Interpretive Data Fasting glucose >/= 126 mg/dl is diagnostic for diabetes. Fasting is defined as no caloric intake for at least 8 hours. Fasting glucose between 100 mg/dl to 125 mg/dl is diagnostic of prediabetes. In a patient with classic symptoms of hyperglycemia or hyperglycemic crisis, a random glucose >/= 200 mg/dl is diagnostic for diabetes. In the absence of unequivocal hyperglycemia, results should be confirmed by repeat testing. The classification and Diagnosis of Diabetes Diabetes Care 2021; 46: S19-S40. Current interpretive data was last revised 2022. Calcium 10.8(H) 8.5 - 10.3 mg/dL [facility] ([place]) Bilirubin, total 0.4 0.1 - 1.2 mg/dL [facility] ([place]) Protein, pl 7.3 6.5 - 8.5 g/dL [facility] ([place]) Albumin 3.9 3.5 - 5.0 g/dL [facility] ([place]) Alk phos 85 40 - 130 Units/L [facility] ([place]) ALT 48(H) 7 - 45 Units/L [facility] ([place]) AST 61(H) 10 - 45 Units/L [facility] ([place]) Blood 07/24/2024 4:19 PM CDT 07/24/2024 4:21 PM CDT Andrew NIETO LAB BLOOD ORDERABLES Final R esult [facility] [place] 1 [facility] Department [place] [address] * CT Head WO Contrast (07/24/2024 3:23 PM CDT) Anatomical Region Laterality Modality Head and Neck N/A Computed Tomogra phy 07/24/2024 3:55 PM CDT Narrative 07/24/2024 3:57 PM CDT EXAM DESCRIPTION: CT HEAD WO CONTRAST REASON FOR STUDY: Headache, increasing frequency or severity Pt has been having headaches for the last couple of weeks, increased in the last 3 days. Pt states her platelet count is low and she has been bruising easily. TECHNIQUE: Axial images acquired through the brain without intravenous contrast. Images stored on PACS. Automated exposure control was used as a dose optimization technique for this examination. COMPARISON: None FINDINGS: BRAIN: No hemorrhage, edema or mass effect. No recent infarct. There is mild chronic microangiopathy and generalized atrophy. No hydrocephalus. EXTRA-AXIAL SPACES: No fluid collections. No masses. CALVARIUM: No fracture. SINUSES/MASTOIDS: No fluid or mucosal thickening. ORBITS: No significant abnormality. OTHER: No other significant abnormality. IMPRESSION: No acute intracranial findings. THIS IS AN ELECTRONICALLY VERIFIED FINAL REPORT 07/24/2024 3:57 PM - Electronically signed by Neto Macias M.D. AM: AM Report ID: [id number] Reading Location: [id number] Procedure Note Neto Macias MD - 07/24/2024 EXAM DESCRIPTION: CT HEAD WO CONTRAST REASON FOR STUDY: Headache, increasing frequency or severity Pt has been having headaches for the last couple of weeks, increased inthe last 3 days. Pt states her platelet count is low and she has been bruising easily. TECHNIQUE: Axial images acquired through the brain without intravenous contrast. Images stored on PACS. Automated exposure control was used asa dose optimization technique for this examination. COMPARISON: None FINDINGS: BRAIN: No hemorrhage, edema or mass effect. No recent infarct. Thereis mild chronic microangiopathy and generalized atrophy. No hydrocephalus. EXTRA-AXIAL SPACES: No fluid collections. No masses. CALVARIUM: No fracture. SINUSES/MASTOIDS: No fluid or mucosal thickening. ORBITS: No significant abnormality. OTHER: No other significant abnormality. IMPRESSION: No acute intracranial findings. THIS IS AN ELECTRONICALLY VERIFIED FINAL REPORT 07/24/2024 3:57 PM - Electronically signed by Neto Macias M.D. AM: AM Report ID: [id number] Reading Location: [place] [address] Ramana Marroquin MD IMG CT PROCEDURES Final Resu lt * Differential, auto (07/20/2024 1:53 PM CDT) Neutrophil abs 2.53 1.50 - 6.50 K/cumm Imm gran abs 0.01 0.00 - 0.10 K/cumm [facility] ([place]) Lymphocyte abs 1.23 0.80 - 3.30 K/cumm [facility] ([place]) Monocyte abs 0.46 0.20 - 0.80 K/cumm [facility] ([place]) Eosinophil abs 0.12 0.00 - 0.50 K/cumm [facility] ([place]) Basophil abs 0.03 0.00 - 0.10 K/cumm [facility] ([place]) Neutrophil pct 57.8 % [facility] ([place]) Comment: Interpretive Data Percent cell count reference ranges are not reported, since discordance with absolute values may lead to misinterpretation of CBC data. Current Interpretive Data was last revised on 2017. Imm gran pct 0.2 % [facility] ([place]) Comment: Interpretive Data Percent cell count reference ranges are not reported, since discordance with absolute values may lead to misinterpretation of CBC data. Current Interpretive Data was last revised on 2017. Lymphocyte pct 28.1 % [facility] ([place]) Comment: Interpretive Data Percent cell count reference ranges are not reported, since discordance with absolute values may lead to misinterpretation of CBC data. Current Interpretive Data was last revised on 2017. Monocyte pct 10.5 % [facility] ([place]) Comment: Interpretive Data Percent cell count reference ranges are not reported, since discordance with absolute values may lead to misinterpretation of CBC data. Current Interpretive Data was last revised on 2017. Eosinophil pct 2.7 % [facility] ([place]) Comment: Interpretive Data Percent cell count reference ranges are not reported, since discordance with absolute values may lead to misinterpretation of CBC data. Current Interpretive Data was last revised on 2017. Basophil pct 0.7 % [facility] ([place]) Comment: Interpretive Data Percent cell count reference ranges are not reported, since discordance with absolute values may lead to misinterpretation of CBC data. Current Interpretive Data was last revised on 2017. Blood 07/20/2024 1:53 PM CDT 07/20/2024 3:49 PM CDT us Mirian Nickerson NON PROFIT DIRECTOR LAB BLOOD ORDERABLES Final Result [facility] ([place]) 1 [facility] Department [place] [address] * (ABNORMAL) CBC with auto differential (07/20/2024 1:53 PM CDT) WBC 4.38 3.80 - 9.90 K/cumm Hgb 14.3 11.9 - 15.5 g/dL [facility] ([place]) Hct 43.6 35.6 - 45.5 % [facility] ([place]) Plt 118(L) 150 - 400 K/cumm [facility] ([place]) MPV 12.4(H) 9.1 - 12.3 fL [facility] ([place]) RBC 4.19 3.90 - 5.20 M/cumm [facility] ([place]) MCV 104.1(H) 81.3 - 96.4 fL [facility] ([place]) MCH 34.1(H) 27.1 - 33.3 pg [facility] ([place]) MCHC 32.8 32.3 - 35.7 g/dL [facility] ([place]) RDW CV 13.1 11.1 - 14.9 % [facility] ([place]) RDW SD 50.2(H) 35.7 - 48.1 fL YAEL TILL[facility] ([place]) NRBC abs 0.00 0.00 - 0.01 K/cumm YAEL TILL[facility] ([place]) Blood 07/20/2024 1:53 PM CDT 07/20/2024 3:49 PM CDT us Mirian Nickerson NON PROFIT DIRECTOR LAB BLOOD ORDERABLES Final Result YAEL TILLMAN (MAY) 1 [facility] Department [place] [address] * [id number] (07/20/2024 1:53 PM CDT) alpha-1 antitrypsin 123 90 - 200 mg/dL Comment:Testing performed by : [facility], [address] [place]., [address] Blood 07/20/2024 1:53 PM CDT 07/20/2024 7:00 PM CDT us Mirian Nickerson NON PROFIT DIRECTOR LAB BLOOD ORDERABLES Final Result Performing Organization Address City/[facility] Co de Phone Number YAEL TILLMAN (MAY) [facility] [facility] [place] [address] * CT Lung Cancer Screening (03/02/2024 4:42 PM AUTOMOTIVE ELECTRICAL FITTER) Anatomical Region Laterality Modality Chest N/A Computed Tomogra phy 03/09/2024 1:20 PM AUTOMOTIVE ELECTRICAL FITTER Narrative 03/09/2024 1:25 PM AUTOMOTIVE ELECTRICAL FITTER EXAM DESCRIPTION: CT LUNG CANCER SCREENING REASON [...] Janet Franco D.O. PS: PS Report ID: [id number] Reading Location: [id number] Procedure Note Janet Franco, DO - 03/09/2024 [...] Janet Franco D.O. PS: PS Report ID: [id number] Reading Location: [place] [address] Ben Stratton MD IMG CT PROCEDURES Final Result from Last 3 Months or Most Recently Relevant to Health Maintenance Insurance [id number] [place] [id number] [place] [address] Advance Directives For more information, please contact: [phone] * Full Code (Latest Code Status on File) Date Activated Date Inactivated Comments 01/21/2022 4:32 PM 01/21/2022 8:36 PM Care Teams Belting And Webbing Inspector Relationship Specialty Start Date End Date Surinder Walters DO PCP - General Internal Medicine 10/30/23 Robby Dee MD Family Medicine 06/27/22
--- OUTSIDE RECORDS SUMMARY | 2024-07-27 09:15 | XMS_ITS | Encounter Summary ---
Author Organization [facility] Address [address] [place] [address] Care Team Providers Care Director Of Cloud Services Name Role Phone Uziel López MD Primary Care Provider Evan mccain None, Provider Primary Care Provider Diana Zhang NP Primary Care Provider [phone] Encounter Details Date Type Department Care Team (Latest Contact Info) Description 01/20/2018 Abstract [facility] Dano Viveros MD [...] Rule Out 03/02/2021 03/02/2021 03/02/2021 1:20 PM VICE PRESIDENT OF COMMUNICATIONS COVID-19 Rule Out 04/06/2021 04/06/2021 04/07/2021 3:47 PM VICE PRESIDENT OF COMMUNICATIONS COVID-19 Rule Out 10/02/2021 10/02/2021 10/02/2021 1:14 PM CDT documented as of this encounter Care Teams Director Of Cloud Services Relationship Specialty Start Date End Date Uziel López MD PCP - General 09/27/15 02/20/21 None, ProviderMD PCP - General 02/21/21 10/01/21 Diana Simmons NP [address] [place] [address] PCP - General NURSE PRACTITIONER 10/02/21 documented as of this encounter
--- OUTSIDE RECORDS SUMMARY | 2024-07-27 09:15 | XMS_ITS | Continuity of Care Document ---
Author Organization [facility] Address [address] [place] [address] [place] [address] Phone Care Team Providers Care Tavern Operator Name Role Phone Robby Dee MD Unavailable Unavailable Allergies, Adverse Reactions, Alerts Substance Reaction Status Criticality No Known Allergies Active No Inform ation Medications Medication Instructions Dosage Effective Dates (start - stop) Status Comments Durant 7.5 mg-325 mg tablet take 1 tablet by oral route every 4 - 6 hours as needed for pain as needed - Active PRN for pain, avoid driving or operate machines Zantac 150 mg tablet take 1 tablet by oral route 2 times every day - Active Seroquel 50 mg tablet take [...] route every day 20 MG - Active losartan 25 mg tablet take 0.5 tablet by oral route every day 12.5 MG - Active Coreg 3.125 mg tablet take 1 tablet by oral route 2 times every day with food 3.125 MG - Active Imdur 30 mg tablet,extended [...] Diagnoses Date Provider Providers Copied on Encounter [facility], [address] [place], [place], [address], [place] tel:[phone] [facility] No Information 9 Luiz Bustamante. [address], [place], [place], [address] , [place]. tel:[phone] OFFICE/OUTPA TIENT VISIT, [facility], [address], [place], [place], [address], [place] [phone] [facility] osteopenia1 (chief complaint)b ack pain1 (chief complaint)f atigue1 (chief complaint) FatigueOther specified disorder of bone densityChronic pain syndromeGERD w/o esophagitisOther cholelithiasis without obstruction 9 Luiz Bustamante. [address], [place], [place], [address] , [place]. tel:[phone] Referring Provider: Jeanette Roberts [address], [place], [place], [address]. tel:[phone] OFFICE/OUTPA TIENT VISIT, [facility], [address], [place], [place], [address], [place] tel:[phone] [facility] back pain1 (chief complaint)g allstone1 (chief complaint)C AD (chief complaint)a nemia1 (chief complaint)G ERd1 (chief complaint) Lumbago with sciatica, right sideAnemiaCAD of [place] coronary artery without angina pectorisOther cholelithiasis without obstructionGERD w/o esophagitis 9 Luiz Granda [address], [place], [place], [address] , [place]. tel:[phone] Referring Provider: Jeanette Roberts [address], [place], [place], [address]. tel:[phone] OFFICE/OUTPA TIENT VISIT, [facility], [address], [place], [place], [address], [place] tel:[phone] [facility] anxiety1 (chief complaint) InsomniaGeneralize d Anxiety Disorder 9 Luiz Granda [address], [address], [place], [place], [address] , [place]. tel:[phone] Referring Provider: Robby Dee, [address], [place], [place], [address]. tel:[phone] PREV VISIT, EST, AGE 40-64 [facility], [address], [place], [place], [address], [place] [phone] [facility] Physical (chief complaint) Encntr for general adult medical exam w/o abnormal findings 9 Luiz Bustamante. [address], [place], [place], [address] , [place]. tel:[phone] Referring Provider: Jeanette Roberts [address], [place], [place], [address]. tel:[phone] OFFICE/OUTPA TIENT VISIT, [facility], [address], [place], [place], [address], [place] tel:[phone] [facility] back pain1 (chief complaint)H TN (chief complaint) Lumbago with sciatica, left sideEssential (primary) hypertension 8 Luiz Bustamante. [address], [place], [place], [address] , [place]. tel:[phone] Referring Provider: Jeanette Roberts [address], [place], [place], [address]. tel:[phone] OFFICE/OUTPA TIENT VISIT, [facility], [address], [place], [place], [address], [place] tel:[phone] [facility] foot pain1 (chief complaint)r enal1 (chief complaint)i nsomnia1 (chief complaint) Insomnia, unspecifiedRenal diseaseLumbago with sciatica, left sidePain in left foot 8 Luiz Bustamante. [address], [place], [place], [address] , [place]. [phone] Referring Provider: Robby Dee [address], [place], [place], [address]. tel:[phone] OFFICE/OUTPA TIENT VISIT, [facility], [address], [place], [place], [address], [place] tel:[phone] [facility] syncope1 (chief complaint)r ib fracture1 (chief complaint)t obacco1 (chief complaint)e lbow 1 (chief complaint) Syncope and collapseTachycardi aOlecranon bursitis, left elbowRenal disease 8 Luiz Bustamante. [address], [place], [place], [address] , [place]. tel:[phone] Referring Provider: Robby Dee [address], [place], [place], [address]. tel:[phone] PREV VISIT, EST, AGE 40-64 [facility], [address], [place], [place], [address], [place] tel:[phone] [facility] PHysical (chief complaint) Encntr for general adult medical exam w/o abnormal findings 8 Luiz Bustamante. [address], [place], [place], [address] , [place]. tel:[phone] Referring Provider: Jeanette Roberts [address], [place], [place], [address]. tel:[phone] OFFICE/OUTPA TIENT VISIT, [facility], [address], [place], [place], [address], [place] tel:[phone] [facility] insomnia1 (chief complaint)G ERd1 (chief complaint)C OPD1 (chief complaint)a nxiety1 (chief complaint)b ack pain1 (chief complaint)i ncontinnece 1 (chief complaint) GERD w/o esophagitisInsomni aEmphysemaMixed incontinence 7 Luiz Bustamante. [address], [place], [place], [address] , [place]. tel:[phone] Referring Provider: Jeanette Roberts [address], [place], [place], [address]. tel:[phone] OFFICE/OUTPA TIENT VISIT, [facility], [address], [place], [place], [address], [place] tel:[phone] [facility] wrist fracture1 (chief complaint)b ack pain1 (chief complaint)G ERD1 (chief complaint)i nsomnia1 (chief complaint) Insomnia, unspecifiedGERD w/o esophagitisMeralgi a paresthetica, bilateral lower limbsRestless legs syndrome Nov-2 7 Luiz Bustamante. [address], [place], [place], [address] , [place]. tel:[phone] Referring Provider: Robby Dee [address], [place], [place], [address]. tel:[phone] OFFICE/OUTPA TIENT VISIT, [facility], [address], [place], [place], [address], [place] [phone] [facility] back pain1 (chief complaint) Other spondylosis, lumbar regionLumbago Oct- 7 Luiz Bustamante. [address], [place], [place], [address] , [place]. [phone] Referring Provider: Jeanette Roberts [address], [place], [place], [address]. tel:[phone] OFFICE/OUTPA TIENT VISIT, [facility], [address], [place], [place], [address], [place] tel:[phone] [facility] osteopenia1 (chief complaint)b ack pain1 (chief complaint)p ancreatic lesion1 (chief complaint)C OPD1 (chief complaint) Pancreatic endocrine cell hyperplasiaMeralgi a paresthetica, bilateral lower limbsDisorder of bone density and structure, unspecifiedCOPD Oct-0 7 Luiz Granda [address], [place], [place], [address] , [place]. tel:[phone] Referring Provider: Jeanette Roberts [address], [place], [place], [address]. tel:[phone] OFFICE/OUTPA TIENT VISIT, [facility], [address], [place], [place], [address], [place] tel:[phone] [facility] GERD1 (chief complaint)t obacco1 (chief complaint)o steopenia1 (chief complaint)i nsomnia1 (chief complaint) InsomniaOth disrd of bone density and structure, multiple sitesGastritis, unspecified, without bleedingTobacco use 7 Luiz Bustamante. [address], [place], [place], [address] , [place]. tel:[phone] Referring Provider: Jeanette Roberts [address], [place], [place], [address]. tel:[phone] OFFICE/OUTPA TIENT VISIT, [facility], [address], [place], [place], [address], [place] tel:[phone] [facility] Medicine bug left ear (chief complaint)t obacco1 (chief complaint)b ack pain1 (chief complaint)G ERD1 (chief complaint) GERD w/o esophagitisTobacco useLumbagoImpacted cerumen, left ear 7 Luiz Bustamante. [address], [place], [place], [address] , [place]. tel:[phone] Referring Provider: Jeanette Roberts [address], [place], [place], [address]. tel:[phone] OFFICE/OUTPA TIENT VISIT, [facility], [address], [place], [place], [address], [place] tel:[phone] [facility] GERD1 (chief complaint)C AD1 (chief complaint)i nsomnia1 (chief complaint)l umbago1 (chief complaint) Acute gastritis without bleedingLumbago with sciatica, left sideHyperlipidemia Atherosclerotic heart disease of [place] coronary artery without angina pectoris 7 Luiz Bustamante. [address], [place], [place], [address] , [place]. tel:[phone] Referring Provider: Jeanette Roberts [address], [place], [place], [address]. tel:[phone] OFFICE/OUTPA TIENT VISIT, [facility], [address], [place], [place], [address], [place] tel:[phone] [facility] vertigo (chief complaint)v ertigo1 (chief complaint)b ack pain1 (chief complaint)C OPD1 (chief complaint)d izziness1 (chief complaint) DizzinessCOPDLumba go 7 Luiz Bustamante. [address], [place], [place], [address] , [place]. [phone] Referring Provider: Robby Dee, [address] [place] [address] A, [place], [place], [address]. tel:[phone] PREV VISIT, [facility], AGE 40-64 [facility], [address], [place], [place], [address], [place] tel:[phone] [facility] Physical (chief complaint) Encounter for general adult medical exam w abnormal findingsLumbago with sciatica, left sideDizzinessInsom aimee 7 Luiz [address]ustamante. [address] [facility] [address], [place], [place], [address] , [place]. tel:[phone] Referring Provider: Jeanette Roberts [facility] A, [place], [place], [address]. tel:[phone] OFFICE/OUTPA TIENT VISIT, [facility], [address], [place], [place], [address], [place] tel:[phone] [facility] anxiety1 (chief complaint)G ERD1 (chief complaint)H LP (chief complaint)i nsomnia1 (chief complaint)L FT (chief complaint)k nee pain1 (chief complaint) Chronic pain syndromeGeneralize d anxiety disorderInsomniaLi charles disease 6 Luiz Bustamante. [address], [place], [place], [address] , [place]. tel:[phone] Referring Provider: Jeanette Roberts [facility] A, [place], [place], [address]. tel:[phone] OFFICE/OUTPA TIENT VISIT, [facility], [address], [place], [place], [address], [place] tel:[phone] [facility] anxiety1 (chief complaint)k nee pain1 (chief complaint)s leep disorder1 (chief complaint)C AD (chief complaint) Atherosclerotic heart disease of [place] coronary artery without angina pectorisChronic pain syndromeGeneralize d anxiety disorderSleep disorder 6 Luiz Bustamante. [address], [place], [place], [address] , [place]. [phone] Referring Provider: Robby Dee [address] [place] [address] [place], [place], [address]. tel:[phone] OFFICE/OUTPA TIENT VISIT, [facility], [address], [place], [place], [address], [place] tel:[phone] [facility] anxiety1 (chief complaint)j oint pain1 (chief complaint)G ERD1 (chief complaint)o steopenia1 (chief complaint) Gastro-esophageal reflux disease without esophagitisGeneral ized anxiety disorderChronic pain syndromeOth disrd of bone density and structure, multiple sites 6 Luiz Bustamante. [address], [facility] A, [place], [place], [address] , [place]. [phone] Referring Provider: Robby Dee [address] [facility] A, [place], [place], [address]. tel:[phone] OFFICE/OUTPA TIENT VISIT, [facility], [address], [place], [place], [address], [place] tel:[phone] [facility] insomnia1 (chief complaint)G ERD1 (chief complaint)C AD (chief complaint)c hronic pian1 (chief complaint)a nxiety1 (chief complaint) InsomniaChronic pain syndromeGERD w/o esophagitisGeneral ized anxiety disorder 6 Luiz Bustamante. [address], [place], [place], [address] , [place]. tel:[phone] Referring Provider: Jeanette Roberts [address], [place], [place], [address]. tel:[phone] OFFICE/OUTPA TIENT VISIT, EST [facility], [address], [place], [place], [address], tel:[phone] [facility] leg pain (chief complaint)l eg pain1 (chief complaint)r estless leg1 (chief complaint)H LP1 (chief complaint)s leep study1 (chief complaint) Mixed hyperlipidemiaPain in right lower legRestless Legs SyndromeSleep apnea 5 Luiz Bustamante. [address] [facility] A, [place], [place], [address] , [place]. tel:[phone] Referring Provider: Jeanette Roberts [facility] [address]ie, [place], [place], [address]. tel:[phone] PREV VISIT, EST, AGE 40-64 [facility], [address], [place], [place], [address], [place] tel:[phone] [facility] Physical1 (chief complaint) Encntr for general adult medical exam w/o abnormal findings 5 Luiz Bustamante. [address] [facility] [address], [place], [place], [address] , [place]. [phone] Referring Provider: Jeanette Roberts [facility], [place], [place], [address]. tel:[phone] OFFICE/OUTPA TIENT VISIT, EST [facility], [address], [place], [place], [address], [place] tel:[phone] [facility] osteopenia (chief complaint)G ERD (chief complaint)i nsomnia (chief complaint)f ibular fx (chief complaint) Dietary surveillance and counselingEsophage al refluxInsomnia, unspecifiedClosed tibial and fibular fractureOsteopenia 5 Luiz Granda [address], [place], [place], [address] , [place]. [phone] Referring Provider: Robby Dee, [address], [place], [place], [address]. tel:[phone] OFFICE/OUTPA TIENT VISIT, [facility], [address], [place], [place], [address], [place] tel:[phone] [facility] GERD (chief complaint)i nsomia (chief complaint)a bd pain (chief complaint) Dietary surveillance and counselingInsomnia , unspecifiedAbdomin al painHypokalemia 5 Luiz Bustamante. [address], [place], [place], [address] , [place]. [phone] Referring Provider: Jeanette Roberts [address] [facility] A, [place], [place], [address]. tel:[phone] OFFICE/OUTPA TIENT VISIT, [facility], [address], [place], [place], [address], [place] tel:[phone] [facility] hematuria (chief complaint)n brenna pain (chief complaint)o besity (chief complaint) HEMATURIA NOSDietary surveillance and counselingCervical giaBody Mass Index 31.0-31.9, adultPain in joint involving pelvic region and thigh 5 Luiz Bustamante. [address], [place], [place], [address] , [place]. [phone] Referring Provider: Jeanette Roberts [facility] A, [place], [place], [address]. tel:[phone] OFFICE/OUTPA TIENT VISIT, [facility], [address], [place], [place], [address], [place] [phone] [facility] insomnia (chief complaint)L FT (chief complaint)G ERD (chief complaint)h ematuria (chief complaint) HEMATURIA NOSDietary surveillance and counselingInsomnia , OtherHypertriglyce ridemiaGERD 5 Luiz Bustamante. [address], [place], [place], [address] , [place]. [phone] Referring Provider: Jeanette Roberts [address] [place], [address]. tel:[phone] OFFICE/OUTPA TIENT VISIT, EST [facility], [address] [place], [address], tel:[phone] [facility] Medicine insomnia (chief complaint)G ERD (chief complaint)C AD (chief complaint)l iver (chief complaint) Dietary surveillance and counselingInsomnia , OtherGERDUnspecifi ed chronic liver disease without mention of alcoholCAD, [place] 4 Luiz Bustamante. [address], [place], [place], [address] , [place]. tel:[phone] Referring Provider: Robby Dee, [address] [facility] A, [place], [place], [address]. tel:[phone] PREV VISIT, NEW, AGE 40-64 [facility], [address] [place], [address], [place] tel:[phone] [facility] Medicine PHysical (chief complaint) Dietary surveillance and counselingRoutine Medical ExamRoutine Medical Exam 4 Luiz Bustamante. [address], [place], [place], [address] , [place]. tel:[phone] Family History Family Member Type Diagnosis Age [...] Paniagua MD [address]
[place], [address] Ordered: Referrals: Eduardo Paniagua MD. Evaluate and treat ordered Referral Ordered: Eduardo Paniagua -Allopathic & Osteopathic Physicians : Neurological Surgery (related to Lumbago with sciatica, left side) ordered Referral Referred To: Eduardo Paniagua [address] [place], [phone] Ordered: Referrals: Allopathic & Osteopathic Physicians : Neurological Surgery. Eduardo Paniagua. Evaluate and treat ordered Referral Ordered: Vinnie Kessler -Allopathic & Osteopathic Physicians : Orthopaedic Surgery (related to Olecranon bursitis, left elbow) ordered Referral Referred To: Vinnie Kessler [facility] [address] [facility] [address] [place], [place] [id number] Ordered: Referrals: Allopathic & Osteopathic Physicians : Orthopaedic Surgery. Vinnie Kessler. Evaluate and treat ordered Referral Ordered: [place] KIDNEY ordered Referral Ordered: Vinnie Kessler (related to GERD w/o esophagitis) ordered Referral Referred To: Vinnie Kessler [facility] [address] [facility] [address] [place], [phone] Ordered: Referrals: Vinnie Kessler. Evaluate and treat [...] prescribing OT but she changed insurance to [employer] and she needs a new ortho and [...] that norco and robaxin are not helping [facility] for her pain osteopenia1 Pt has [...] adult Increase physical activity Relat ed to Insomnia Quit smoking Related to Insom aimee Weight management Related to Ins omnia Special diet education Related t o Body [...] sle ep Related to GERD w/o esophagitis Prescribed Diet Educ ation/Lifestyle Education Regarding Diet Related to Dietary Surveillance and Counseling Increase physical activity Relat ed to Insomnia, unspecified Quit smoking Related to Insom aimee, unspecified Weight management Related to Ins omnia, unspecified Prescribed Activity and Exercise Education Related [...]
--- OUTSIDE RECORDS SUMMARY | 2024-07-27 09:15 | XMS_ITS | Clinical Summary ---
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 Place 1 [...] use distraction techniques - Information given regarding [place] Tobacco Quit line: 7-885-NWQD-YES for free services - 6 minutes spent discussing cessation She has tried and failed Wellbutrin, varenicline, lozenges, gum, generic patches The only thing she had success with in the past was the Nicoderm CQ patches I have placed an order for these today in a titrating fashion She qualifies for annual screening, next due 02/2025 Assessment & Plan (04/20/2024 2:45 PM PRODUCTION CONTROLLER): - Smoking cessation counseling and techniques reviewed at length - Avoid triggers and use distraction techniques - Information given regarding [place] Tobacco Quit line: 4-586-WPXT-YES for free services - 5 minutes spent [...] tested Assessment & Plan (04/20/2024 2:49 PM PRODUCTION CONTROLLER): She is MZ with good last levels [...] index 31.0-31.9, adult 07/03/2017 Coronary atherosclerosis of [place] coronary emily ry 07/03/2017 Cervicalgia 07/03/2017 Chronic [...] care Assessment & Plan (04/20/2024 2:48 PM PRODUCTION CONTROLLER): Continue Stiolto two puffs daily for now [...] Resolved Date Atherosclerotic heart diseas e of [place] coronary artery without angina pectoris 07/03/2017 12/10/2022 Hyperlipidemia 07/03/2017 12/10/2022 Pure hypertriglyceridemia 07/03/2017 Pure hyperglyceridemia 04/21/201402/11 Coronary arteriosclerosis in [place] artery 02/15/2014 02/11/2023 Encounters Date Type Department Care Team Description 07/24/2024 2:44 PM CDT - 07/24/2024 6:19 PM CDT Emergency [facility] Emergency Department [address] [place] [address] Acute intractable tension-type headache (Primary Dx); Thrombocytopenia; Macrocytosis associated with alcohol Discharge Disposition: Discharge to home or self care 07/21/2024 Results Follow-Up [facility] E[facility] Specialists - [facility] [address] [facility] [address] [place] [address] Mirian Nickerson NP 07/20/2024 2:00 PM CDT Lab [address] Heterozygous alpha 1-antitrypsin deficiency (HCC); Centrilobular emphysema (HCC) 07/20/2024 1:30 PM CDT Office Visit [facility] Pulmonary at [address] [place] [address] Mirian Nickerson NP Centrilobular emphysema (HCC) (Primary Dx); Heterozygous alpha 1-antitrypsin deficiency (HCC); Oral charles; Cigarette nicotine dependence without complication 07/20/2024 Telephone [facility] Pulmonary at [address] [place] [address] Yue Salazar LPN Prior Auth (Nicotine patches ) 07/15/2024 Telephone [facility] [place] [address] Dusty Wheeler, ZHANG 06/28/2024 Telephone [facility] Vascular and Vein Surgery at [address] [place] [address] Jo Moreno 06/22/2024 3:00 PM CDT Therapy [facility] [place] [address] Randell Guzman, PT Spinal stenosis, lumbar region with neurogenic claudication (Primary Dx); Spondylosis without myelopathy or radiculopathy, lumbosacral region 06/22/2024 Plan of Care Documentation [facility] [place] [address] 06/03/2024 2:00 PM CDT Office Visit [facility] Cardiology [address] [place] [address] Kasey Lopes, DIRECTOR EMERGENCY SERVICES Atherosclerosis of [place] coronary artery of [place] heart with stable angina pectoris (Primary Dx); Carotid atherosclerosis, unspecified laterality from Last 3 Months Surgical History Surgery Date Site/Laterality Comments CAROTID STENT 5 stents in chest CARDIAC STENT PLACEMENT /2014/2015 DILATION AND CURETTAGE OF UTERUS 03/10 Medical History Medical History Date Comments Hypertension Depression Emphysema of lung (HCC) Anemia Gastric reflux Poor circulation Scoliosis Osteopenia Coronary artery disease Restless legs syndrome (RLS) Cigarette nicotine dependence without complicati on 04/20/2024 Heterozygous alpha 1-antitrypsin deficiency (HCC ) 04/20/2024 Oral charles 07/20/2024 Family History Medical History Relation Name Comments [...] on file Legal Sex Female 5:32 PM PRODUCTION CONTROLLER Gender Identity Not on file Sexual Orientation [...] 07/24/2024 12:52 PM CDT Plan of Treatment Health Maintenance Due Date Last Done Comments Breast Cancer Screening-Mammogram 1960 Cervical Cancer Screening 1960 Colon Cancer Screening-Colonoscopy 1960 Depression Screening 1960 Hepatitis C Screening 1960 Hepatitis B Screening 1978 Regular Well Visit/Exam 18-64 1978 Pneumococcal vaccine <65 (1 of 2 - PCV) 11/01/1979 Zoster Vaccine (1 of 2) 2010 Covid-19 Vaccine (3 - season) 11/16/202311/2020, 07/26/2020 Influenza Vaccine (Season Ended) 2024 04/09/19 22 Lung Cancer Screening 03/03/2025 03/02/2024 DTaP/Tdap/Td Vaccine (2 - Td or Tdap) 02/23/203112/2020 Medical Devices Implanted Type Area Content Developer Device Identifier Shelf Expiration Date Model / Serial / Lot [employer]ap Angio-Seal Vip 6fr Closere Device [id number] - [id number] Implanted:Qty: 1 on 01/21/2022 by Blake Ham MD at [facility] [employer] 10/14/2022 [id number] / / [id number] Procedures Procedure Name Priority Date/Time Associated Diagnosis [...] 07/20/2024 1:53 PM CDT Centrilobular emphysema (HCC) [id number] Routine 07/20/2024 1 :53 PM CDT Heterozygous alpha 1-antitrypsin deficiency (HCC) CT LUNG CANCER SCREENING Schedule Routine, Read Routine (OP Routine) 03/02/2024 4:42 PM PRODUCTION CONTROLLER Nicotine dependence, cigarettes, uncomplicated from Last 3 Months or Most Recently Relevant to Health Maintenance Results * (ABNORMAL) Carboxyhemoglobin, venous (07/24/2024 4:19 PM CDT) Carboxyhemoglob in, venous 5.7(H) 0.0 - 2.9 % Comment:Non-Smokers: <3.0%; Smokers <9.0% Blood 07/24/2024 4:19 PM CDT 07/24/2024 4:21 PM CDT Andrew NIETO LAB BLOOD ORDERABLES Final R esult [facility] ([place]) [address] [facility] Department [place] [address] * (ABNORMAL) Blood smear review (07/24/2024 4:19 PM CDT) RBC morphology Consistent with RBC Indicies Anisocytosis Slight(A) [facility] ([place]) Platelet estimate Automated Count Confirmed [facility] ([place]) Blood 07/24/2024 4:19 PM CDT 07/24/2024 4:21 PM CDT Andrew NIETO LAB BLOOD ORDERABLES Final R esult [facility] ([place]) 1 [facility] [place] [address] * eGFR (07/24/2024 4:19 PM CDT) eGFR [...] 4:19 PM CDT 07/24/2024 4:23 PM CDT Andrew NIETO LAB BLOOD ORDERABLES Final R esult [facility] ([place]) 1 [facility] [place] [address] * Differential, auto (07/24/2024 4:19 PM CDT) Neutrophil abs 3.16 1.50 - 6.50 K/cumm Imm gran abs 0.02 0.00 - 0.10 K/cumm CARLITAWES TILLMAN ([place]) Lymphocyte abs 1.57 0.80 - 3.30 K/cumm [facility] ([place]) Monocyte abs 0.45 0.20 - 0.80 K/cumm [facility] ([place]) Eosinophil abs 0.18 0.00 - 0.50 K/cumm [facility] ([place]) Basophil abs 0.04 0.00 - 0.10 K/cumm [facility] ([place]) Neutrophil pct 58.3 % [facility] ([place]) Comment: Interpretive Data Percent cell count reference ranges are not reported, since discordance with absolute values may lead to misinterpretation of CBC data. Current Interpretive Data was last revised on 2017. Imm gran pct 0.4 % [facility] ([place]) Comment: Interpretive Data [...] 2017. Monocyte pct 8.3 % [facility] ([place]) Comment: Interpretive Data Percent cell count reference ranges are not reported, since discordance with absolute values may lead to misinterpretation of CBC data. Current Interpretive Data was last revised on 2017. Eosinophil pct 3.3 % [facility] ([place]) Comment: Interpretive [...] 4:19 PM CDT 07/24/2024 4:21 PM CDT us Andrew NIETO LAB BLOOD ORDERABLES Final R esult [facility] ([place]) [address] [facility] Department [place] [address] * (ABNORMAL) CBC with auto differential (07/24/2024 [...] BLOOD ORDERABLES Final R esult [facility] ([place]) [address] [facility] Department [place] [address] * Erythrocyte sedimentation rate (07/24/2024 4:19 PM CDT) Erythrocyte sedimentation rate 21 1 - 30 mm/hr Blood 07/24/2024 4:19 PM CDT 07/24/2024 4:21 PM CDT Andrew NIETO LAB BLOOD ORDERABLES Final R esult [facility] ([place]) 1 [place] [address] * CRP (acute phase) (07/24/2024 4:19 PM CDT) Pathologist [facility] CRP <3.0 <=10.0 mg/L Blood 07/24/2024 4:19 PM CDT 07/24/2024 4:21 PM CDT Andrew NIETO LAB BLOOD ORDERABLES Final R esult [facility] ([place]) 1 [place] [address] * Ammonia (07/24/2024 4:19 PM CDT) Pathologist [facility] Ammonia 24 <=50 mcmol/L Blood 07/24/2024 4:19 PM CDT 07/24/2024 4:21 PM CDT Andrew NIETO LAB BLOOD ORDERABLES Final R esult Performing Organization Address City/[facility]/ZIP Co de Phone Number [facility] ([place]) [address] [place] [address] * (ABNORMAL) Comprehensive metabolic panel (07/24/2024 4:19 PM CDT) Pathologist [facility] Sodium 138 135 - 145 mmol/L Potassium, pl 4.0 3.3 - 4.9 mmol/L [facility] ([place]) Chloride 102 97 - 110 mmol/L [facility] ([place]) CO2 23 22 - 32 mmol/L [facility] ([place]) Anion gap 13 2 - 15 mmol/L [facility] ([place]) BUN 17 6 - 25 mg/dL [facility] ([place]) Creatinine 0.73 0.60 - 1.10 mg/dL [facility] ([place]) Glucose 104 70 - 199 mg/dL [...] 61(H) 10 - 45 Units/L [facility] ([place]) Blood 07/24/2024 4:19 PM CDT 07/24/2024 4:21 PM CDT Andrew NIETO LAB BLOOD ORDERABLES Final R esult [facility] ([place]) [address] [facility] Department [place] [address] * CT Head WO Contrast (07/24/2024 3:23 [...] Neto Macias M.D. AM: AM Report ID: [id number] Reading Location: [id number] Procedure Note Neto Macias MD - 07/24/2024 [...] Neto Macias M.D. AM: AM Report ID: [id number] Reading Location: [id number] us Ramana Marroquin MD IMG CT PROCEDURES Final [...] 07/20/2024 3:49 PM CDT us Mirian Nickerson DIRECTOR EMERGENCY SERVICES LAB BLOOD ORDERABLES Final Result [facility] ([place]) [address] [facility] [place] [address] * (ABNORMAL) CBC with auto differential (07/20/2024 [...] RDW SD 50.2(H) 35.7 - 48.1 fL [facility] ([place]) NRBC abs 0.00 0.00 - 0.01 K/cumm [facility] ([place]) Blood 07/20/2024 1:53 PM CDT 07/20/2024 3:49 PM CDT us Mirian Nickerson DIRECTOR EMERGENCY SERVICES LAB BLOOD ORDERABLES Final Result Performing Organization Address City/[facility]/ZIP Co de Phone Number [facility] ([place]) [address] [facility] Department [place] [address] * [id number] (07/20/2024 1:53 PM CDT) alpha-1 antitrypsin 123 90 - 200 mg/dL Comment:Testing performed by : [facility], [address], [place]., [address] Blood 07/20/2024 1:53 PM CDT 07/20/2024 7:00 PM CDT us Mirian Nickerson DIRECTOR EMERGENCY SERVICES LAB BLOOD ORDERABLES Final Result [facility] ([place]) [address] [facility] Department [place] [address] * CT Lung Cancer Screening (03/02/2024 4:42 PM PRODUCTION CONTROLLER) Anatomical Region Laterality Modality Chest N/A Computed Tomogra phy 03/09/2024 1:20 PM PRODUCTION CONTROLLER Narrative 03/09/2024 1:25 PM PRODUCTION CONTROLLER EXAM DESCRIPTION: CT LUNG CANCER SCREENING REASON [...] Janet Franco D.O. PS: PS Report ID: [id number] Reading Location: [id number] Procedure Note Salvador Janet Ole, DO - 03/09/2024 EXAM DESCRIPTION: CT LUNG [...] Janet Franco D.O. PS: PS Report ID: [id number] Reading Location: [place] [address] Ben Stratton MD IMG CT PROCEDURES Final Result from Last 3 Months or Most Recently Relevant to Health Maintenance Insurance [facility] Advance Directives For more information, please contact: [phone] * Full Code (Latest Code Status on File) Date Activated Date Inactivated Comments 01/21/2022 4:32 PM 01/21/2022 8:36 PM Care Teams Food Writer Relationship Specialty Start Date End Date Surinder Walters DO PCP - General Internal Medicine 10/30/23 Robby Dee MD Family Medicine 06/27/22
--- OUTSIDE RECORDS SUMMARY | 2024-07-27 09:15 | XMS_ITS | Clinical Summary ---
Author Organization [facility] Address [address] [place] [address] Care Team Providers Care Climate Change Risk Assessor Name Role Phone Unavailable Primary Care Provider [...] Comments DTAP/TDAP/TD VACCINES (1 - Tdap) 11/01/1979 HPV/Cotest (21-29) 1981 CERVICAL CANCER SCREENING 1990 HPV/Cotest (30-65) 1990 PAP SMEAR 1990 BREAST CANCER SCREENING 2000 COLORECTAL SCREENING 2005 Colorectal Cancer Screening 2005 FIT-DNA Q 3 years 2005 FIT/FOBT Q 1 year 2005 Flex Sig/CT Colonography Q 5 years 2005 ZOSTER VACCINE (1 of 2) 2010 INFLUENZA VACCINE (#1) 2023 RSV VACCINE (60+ or ) (1 - 1-dose 75+ series) 11/01/2035 Insurance [facility] PL[facility] MEDICAID
--- OUTSIDE RECORDS SUMMARY | 2024-07-27 09:15 | XMS_ITS | Encounter Summary ---
Author Organization [facility] Address [address] [place] [address] Care Team Providers Care Music Coordinator Name Role Phone Robby Dee MD Unavailable [phone] Surinder Walters DO Primary Care Provider [phone] Encounter Details Date Type Department Care Team (Late st Contact Info) Description 12/12/2023 Documentation [facility] [address] [address] Flaca Ann MD [facility] [place] [address] Social History Tobacco Use Types Packs/Day Years Used Date Smoking Tobacco: Every Day Cigarettes 1 53.4 Started: 1971 Smokeless Tobacco: Current Alcohol Use [...] on file Legal Sex Female 5:32 PM SURFACE HYDROLOGIST Gender Identity Not on file Sexual Orientation Not on file documented as of this encounter Plan of Treatment Not on file documented as of this encounter Visit Diagnoses Not on filedocumented in this encounter Additional Health Concerns Infection Onset Date Last Indicated Resolved Time COVID: Suspected 04/15/2024 04/15/2024 04/15/2024 3:47 PM SURFACE HYDROLOGIST documented as of this encounter Care Teams Music Coordinator Relationship Specialty Start Date End Date Surinder Walters DO PCP - General Internal Medicine 10/30/23 Robby Dee MD Family Medicine 06/27/22 documented as of this encounter
--- OUTSIDE RECORDS SUMMARY | 2024-07-27 09:15 | XMS_ITS | Encounter Summary ---
Author Organization [facility] Address [address] [place] [address] Care Team Providers Care Pilot Plant Operator Helper Name Role Phone Robby Dee MD Unavailable [phone] Surinder Walters DO Primary Care Provider [phone] Encounter Details Date Type Department Care Team (Late st Contact Info) Description 07/21/2024 Results Follow-Up [facility] Medical Group ENT Specialists - [facility] [address] [facility] [address] [place] [address] Mirian Nickerson, SUPERVISORY CIVIL ENGINEER [address] [facility] [address] [place] [address] Social History Tobacco Use Types Packs/Day Years Used Date Smoking Tobacco: Every Day Cigarettes 0.8 53.4 Started: 1971 Smokeless Tobacco: Current Alcohol [...] on file Legal Sex Female 5:32 PM STITCH BURNISHER Gender Identity Not on file Sexual Orientation Not on file documented as of this encounter Plan of Treatment Not on file documented as of this encounter Visit Diagnoses Not on filedocumented in this encounter Care Teams Pilot Plant Operator Helper Relationship Specialty Start Date End Date Surinder Walters DO PCP - General Internal Medicine 10/30/23 Robby Dee MD Family Medicine 06/27/22 documented as of this encounter
--- OUTSIDE RECORDS SUMMARY | 2024-07-27 09:15 | XMS_ITS | Clinical Summary ---
Author Organization [facility] Address [address] [place] [address] Care Team Providers Care Ironing Pleater Name Role Phone Robby Dee MD Primary Care Provider [phone] Source Comments [facility],non-owned Affiliates and Associated Physician Practices is amultiple site organization consisting of ambulatory clinics and hospital sitesin [place], [place], [place] and [place]. This disclosure is being madepursuant to the Care Everywhere program and may not contain all information available regarding this patient. Last updated 17.[facility] Active Problems Problem Noted Date Diagnosed Date [...] standard drink = 0.6 oz pure alcohol) Comments Unknown Sex and Gender Information Value Date Recorded Sex Assigned at Not on file Legal Sex Female 6:16 PM PRACTICE OR STUDENT TEACHER Gender Identity Not on file Sexual Orientation [...] VACCINE (1 - 2023-2 5 season) 2023 DEPRESSION SCREENING 03/17/2024 INFLUENZA VACCINE (Season Ended) 2024 Respiratory Syncytial Virus (RSV) Vaccine Pt: or [...] to complete this topic MENINGOCOCCAL (Group B) VACC INE SHARED DECISION-MAKING Aged Out No longer eligibl e based on patient's age to complete this topic MENINGOCOCCAL GROUPS A/C/Y/W VACCINE Aged Out No longer eligible b ased on patient's age to complete this topic Insurance [facility] SELF PAY NO INSURANCE Member Subscriber Plan / Payer (Ef fective for All Dates) Name:Julia Lema Member ID:Not on file Relation to Subscriber:Not on file Name:JULIA LEMA Subscriber ID:Not on file (Home) Address: [address] [place] [address] Payer ID:Not on file Group ID:Not on file Type:Self Pay Address: [place], [place] Care Teams Ironing Pleater Relationship Specialty Start Date End Date Robby Dee MD [address] [facility] [address] [place] [address] PCP - General 05/10/14
--- OUTSIDE RECORDS SUMMARY | 2024-07-27 09:15 | XMS_ITS | Clinical Summary ---
Author Organization [facility] Address [address] [place] [address] Care Team Providers Care Warehouse Packaging Supervisor Name Role Phone Diana Simmons NP Primary Care Provider [phone] Allergies No known active allergies Medications ezetimibe [...] Open trimalleolar fracture of ankle 02/23/2021 Immunizations Immunization Administration Dates Next Due Fluzone 6 Months+ [...] 88.5 kg (195 lb) 03/29/2022 3:22 PM GARMENT SEWING MACHINE OPERATOR Height 158.8 cm (5' 2.5 ) 03/29/2022 3:22 PM GARMENT SEWING MACHINE OPERATOR Body Mass Index 35.1 03/29/2022 3:22 PM GARMENT SEWING MACHINE OPERATOR Plan of Treatment Health Maintenance Due Date Last Done Comments Cervical Cancer Screening Pa p Smear (Age 30 to 64) Every 3 Years 1960 Colorectal Cancer Screening Colonoscopy (10 Years) 1960 Annual Physical 11/01/1963 Hepatitis C 1978 Pneumococcal Vaccine: 50+ Years (1 of 2 - PCV) 11/01/1979 Cervical Cancer Screening Pa p with HPV Testing (Age 30 to 64) Every 5 Years 1990 Cervical Cancer Screening wi th HPV 1990 Mammogram Screening 2000 Zoster Vaccines (1 of 2) 2010 COVID-19 Vaccine (2023-2 5 season) 2023 08/23/2020, 08/23/2020, 07/26/2020 DTaP, Tdap and Td Vaccines ( 2 [...] have appropriate support at home upon discharge General No Izabella Escoto, TERESE Medical Devices Implanted Type Area Soap Maker Device Identifier Shelf Expiration Date Model / Serial / Lot Graft Bone Bonus Triad Cancellous Cortical 5cc Allograft - [id number] Implanted:Qty: 1 on 04/07/2021 by Yuko Nguyễn MD at [facility] Bone [employer] 07/19/2025 [id number] / [id number] / NA Plate Myranda Fibular Distal Lateral 8h 132mm Left - [id number] Implanted:Qty: 1 on 04/07/2021 by Yuko Nguyễn MD at [facility] Plate Left: Ankle [employer] [id number] / / NA Screw Locking Myranda 2.7 X 12mm - [id number] Implanted:Qty: 2 on 04/07/2021 by Yuko Nguyễn MD at [facility] Screw Left: Ankle [employer] [id number] / / NA Screw Locking Myranda 2.7 X 14mm - [id number] Implanted:Qty: 2 on 04/07/2021 by Yuko Nguyễn MD at [facility] Screw Left: Ankle [employer] [id number] / / NA Screw Biomet 4.0 Cancellous Fully Threaded 46mm - [id number] Implanted:Qty: 1 on 04/07/2021 by Yuko Nguyễn MD at [facility] Screw Left: Ankle [employer] [id number] / / NA Screw Biomet 3.5 Cortical 50mm - [id number] Implanted:Qty: 1 on 04/07/2021 by Yuko Nguyễn MD at [facility] Screw Left: Ankle [employer] [id number] / / NA Screw Myranda Elb Fib Periloc 3.8 X 10mm - [id number] Implanted:Qty: 1 on 04/07/2021 by Yuko Nguyễn MD at [facility] Screw Left: Ankle [employer] [id number] / / NA Screw Myranda Elb Fib Periloc 3.5 X 12mm - [id number] Implanted:Qty: 2 on 04/07/2021 by Yuko Nguyễn MD at [facility] Screw Left: Ankle [employer] [id number] / / NA Screw Biomet 4.0 Cancellous Fully Threaded 60mm - [id number] Implanted:Qty: 2 on 04/07/2021 by Yuko Nguyễn MD at [facility] Screw Left: Ankle [employer] [id number] / / NA [place] Pins 5 X 150 X 40mm Implanted:Qty: 2 on 02/23/2021 by Ben Baig MD at [facility] Left: Ankle [employer] 5018-5-150 / / Self-Drilling Hybrid Half-Pin, 4/5 X 150mm Implanted:Qty: 1 on 02/23/2021 by Ben Baig MD at [facility] Left: Ankle [employer] 5026-1-150 / / Transfixing Pin, Threaded, 5/6 X 300mm Implanted:Qty: 1 on 02/23/2021 by Ben Baig MD at [facility] Left: Ankle [employer] 5050-4-300 / / End Caps Implanted:Qty: 1 on 02/23/2021 by Ben Baig MD at [facility] Left: Ankle [employer] 5027-1-050 / / Delta Coupling, Ferny-To-Ferny Or Ferny-To-Pin, 07/22/10 Ferny Or 5mm Pin Implanted:Qty: 4 on 02/23/2021 by Ben Baig MD at [facility] Left: Ankle [employer] MAY JUDITH 4922-1-010 / / Delta Coupling, Pin-To-Ferny, 07/22/10 Ferny Or 4/5/6mm Pin Implanted:Qty: 2 on 02/23/2021 by Ben Baig MD at [facility] Left: Ankle [employer] 4922-1-020 / / Connecting Rods Implanted:Qty: 1 on 02/23/2021 by Ben Baig MD at [facility] Left: Ankle [employer] 4922-8-150 / / 5-Hole Pin Clamp W/ Two 11mm 30deg Angled Posts, [id number] Implanted:Qty: 1 on 02/23/2021 by Ben Baig MD at [facility] Left: Ankle [employer] 4922-2-240 / / 11 X 350mm Connecting Rods Implanted:Qty: 2 on 02/23/2021 by Ben Baig MD at [facility] Left: Ankle [employer] 4922-8-350 / / Explanted Type Area Soap Maker Device Identifier Shelf Expiration Date Model / Serial / Lot Drill Bit Myranda 2.7mm - [id number] Explanted:Qty: 1 on 04/07/2021 by Yuko Nguyễn MD at [facility] Drill Left: Ankle [employer] [id number] / / NA Drill Bit Myranda 2.0mm Qc - [id number] Explanted:Qty: 1 on 04/07/2021 by Yuko Nguyễn MD at [facility] Drill Left: Ankle [employer] [id number] / / NA Drill Bit Myranda 2.5mm - [id number] Explanted:Qty: 1 on 04/07/2021 by Yuko Nguyễn MD at [facility] Drill Left: Ankle [employer] [id number] / / NA Drill Cannulated 2.9 X 70mm - [id number] Explanted:Qty: 2 on 04/07/2021 by Yuko Nguyễn MD at [facility] Drill Left: Ankle [employer] [id number] / / NA Wire Myranda Ayala 1.6mm X 150mm - [id number] Explanted:Qty: 3 on 04/07/2021 by Yuko Nguyễn MD at [facility] Wire Left: Ankle [employer] [id number] / / NA K-Wire Threaded Tip 1.6mm - [id number] Explanted:Qty: 3 on 04/07/2021 by Yuko Nguyễn MD at [facility] Wire Left: Ankle [employer] [id number] / / NA Cortical Screw 3.5 X 55mm Explanted:Qty: 1 on 04/07/[address] [facility] Left: Ankle [employer] [id number] / / NA Description:[employer]ONG [employer] [place] Care Teams Warehouse Packaging Supervisor Relationship Specialty Start Date End Date Diana Simmons NP [address] [place] [address] PCP - General NURSE PRACTITIONER 10/02/21
[2024-07-27 13:15] LABS: Basophils Percent Auto 0.2 % (0.2-1.2); Eosinophils Absolute Auto 0.1 K/mm3 (0-0.3); Eosinophils Percent Auto 0.6 % (0-4.4); Hematocrit 45.2 % (37.0-47.0); Immature Granulocyte Absolute 0.01 K/mm3 (0.00-0.031); Immature Granulocyte Percent A 0.1 % (0-0.5); Immature Platelet Fraction Pct 14.4 % (0.9-11.2); Lymphocytes Absolute Auto 2.37 K/mm3 (0.9-3.2); Lymphocytes Percent Auto 29.2 % (18.3-44.2); Mean Corpuscular Hemoglobin 33.6 pg (26-34); Mean Corpuscular Volume 108.4 fl (80-100); Mean Platelet Volume 13.1 fl (7.4-10.4); Monocytes Absolute Auto 0.7 K/mm3 (0.1-0.6); Monocytes Percent Auto 8.5 % (2.6-8.5); Neutrophils Percent Auto 61.4 % (45.5-73.1); Platelet Count Result 143 k/mm3 (150-375); Red Blood Count 4.17 M/mm3 (4.2-5.4); White Blood Count 8.1 K/mm3 (4.5-10.0)
[2024-07-27 13:54] LABS: Alanine Aminotransferase 72 U/L (6-35); Albumin Level 4.1 g/dL (3.5-5.1); Alkaline Phosphatase 67 U/L (38-126); Anion Gap 7 mmol/L (4-12); Aspartate Amino Transferase 106 U/L (14-36); Bilirubin,Total 0.6 mg/dL (0.2-1.3); Blood Urea Nitrogen 17 mg/dL (7-17); Calcium 10.3 mg/dL (8.4-10.2); Carbon Dioxide 30 mmol/L (22-30); Chloride 105 mmol/L (98-107); Cholesterol 156 mg/dL (0-200); Estimated Glomerular Filt Rate > 60; Glucose 75 mg/dL (65-110); HDL Direct 66 mg/dL; Magnesium 1.7 mg/dL (1.6-2.3); Potassium 3.8 mmol/L (3.4-5.0); Sodium 142 mmol/L (137-145); Triglycerides 107 mg/dL (<150)
[2024-07-27 14:07] LABS: LDL Cholesterol Direct 54 mg/dL
[2024-07-27 14:15] LABS: Macrocytosis 1+ (NORMAL); Platelet Estimate Slightly Decreased (Adequate); Schistocytes None Seen
[2024-07-27 14:32] LABS: Iron 147 ug/dL (37-170)
[2024-07-27 14:51] LABS: Percent Iron Saturation 49 % (20-50)
[2024-07-27 15:23] LABS: Folic Acid 17.2 ng/mL (2.76->20)
[2024-07-27 17:38] LABS: Hemoglobin A1C 4.9 % (<5.7)
== END 2024-07-27 09:09 | disposition home or self-care (01) ==
LOC: ANHGOSHLAB 09:09
PROVIDERS: PCP Internal Medicine; Visit Provider Clinical Nurse Specialist
DX: I12.9 Hypertensive chronic kidney disease with stage 1 through stage 4 chronic kidney disease, or unspecified chronic kidney disease (principal); N18.9 Chronic kidney disease, unspecified; D69.6 Thrombocytopenia, unspecified; D50.9 Iron deficiency anemia, unspecified; J44.9 Chronic obstructive pulmonary disease, unspecified; E78.2 Mixed hyperlipidemia; R73.01 Impaired fasting glucose; R74.8 Abnormal levels of other serum enzymes; R25.2 Cramp and spasm
CPT/HCPCS: 36415; 80053; 80061; 82607; 82728; 82746; 83036; 83540; 83550; 83735; 85025; 85055

== ENCOUNTER 2024-11-03 10:17 | Outpatient (CLI) | payer OTHER, SELFPAY ==
--- OUTSIDE RECORDS SUMMARY | 2018-12-01 05:52 | XMS_ITS | Continuity of Care Document ---
Author Organization [facility] Address [address] [place] [address] [place] [address] Phone Care Team Providers Care Internet Marketing Strategist Name Role Phone Robby Dee MD Unavailable Unavailable Allergies, Adverse Reactions, Alerts Substance Reaction Status Criticality No Known Allergies Active No Inform ation Medications Medication Instructions Dosage Effective Dates (start - stop) Status Comments Zantac 150 mg tablet take 1 tablet by oral route 2 times every day - Active [place] 7.5 mg-325 mg tablet take 1 tablet [...] route every bedtime 1 MG - Active Lexapro 20 mg tablet take 1 tablet by oral route every day 20 MG - Active pravastatin 80 mg tablet take 1 tablet by oral route every day 80 MG - Active Coreg 3.125 mg tablet [...] Diagnoses Date Provider Providers Copied on Encounter [facility], [address], [place], [address], [place] tel:[phone] [facility] No Information 9 Luiz Bustamante. [address], [place], [place], [address] , [place]. tel:[phone] OFFICE/OUTPA TIENT VISIT, [facility], [address], [place], [place], [address], [place] [phone] [facility] osteopenia1 (chief complaint)b ack pain1 (chief complaint)f atigue1 (chief complaint) FatigueOther specified disorder of bone densityChronic pain syndromeGERD w/o esophagitisOther cholelithiasis without obstruction 9 Luiz Bustamante. [address], [place], [place], [address] , [place]. tel:[phone] Referring Provider: Jeanette Roberts [address], [place], [place], [address]. tel:[phone] OFFICE/OUTPA TIENT VISIT, [facility], [address], [place], [place], [address], [place] tel:[phone] [facility] back pain1 (chief complaint)g allstone1 (chief complaint)C AD (chief complaint)a nemia1 (chief complaint)G ERd1 (chief complaint) Lumbago with sciatica, right sideAnemiaCAD of lummi coronary artery without angina pectorisOther cholelithiasis without obstructionGERD w/o esophagitis 9 Luiz Granda [address], [place], [place], [address] , [place]. tel:[phone] Referring Provider: Jeanette Roberts [address], [place], [place], [address]. tel:[phone] OFFICE/OUTPA TIENT VISIT, [facility], [address], [place], [place], [address], [place] tel:[phone] [facility] anxiety1 (chief complaint) InsomniaGeneralize d Anxiety Disorder 9 Luiz Granda [address], [place], [place], [address] , [place]. tel:[phone] Referring Provider: Robby Dee, [address], [place], [place], [address]. tel:[phone] PREV VISIT, EST, AGE 40-64 [facility], [address], [place], [place], [address], [place] [phone] [facility] Physical (chief complaint) Encntr for general adult medical exam w/o abnormal findings 9 Luiz Bustamante. [address], [place], [place], [address] , [place]. [phone] Referring Provider: Jeanette Roberts [address], [place], [place], [address]. tel:[phone] OFFICE/OUTPA TIENT VISIT, [facility], [address], [place], [place], [address], [place] tel:[phone] [facility] back pain1 (chief complaint)H TN (chief complaint) Lumbago with sciatica, left sideEssential (primary) hypertension 8 Luiz Bustamante. [address], [place], [place], [address] , [place]. tel:[phone] Referring Provider: Jeanette Roberts [address], [place], [place], [address]. tel:[phone] OFFICE/OUTPA TIENT VISIT, [facility], [address], [place], [place], [address], [place] tel:[phone] [facility] foot pain1 (chief complaint)r enal1 (chief complaint)i nsomnia1 (chief complaint) Insomnia, unspecifiedRenal diseaseLumbago with sciatica, left sidePain in left foot 8 Luiz Bustamante. [address], [place], [place], [address] , [place]. tel:[phone] Referring Provider: Robby Dee [address], [place], [place], [address]. tel:[phone] OFFICE/OUTPA TIENT VISIT, [facility], [address], [place], [place], [address], [place] tel:[phone] [facility] syncope1 (chief complaint)r ib fracture1 (chief complaint)t obacco1 (chief complaint)e lbow 1 (chief complaint) Syncope and collapseTachycardi aOlecranon bursitis, left elbowRenal disease 8 Luiz Bustamante. [address], [place], [place], [address] , [place]. tel:[phone] Referring Provider: Robby Dee [address], [place], [place], [address]. tel:[phone] PREV VISIT, EST, AGE 40-64 [facility], [address], [place], [place], [address], [place] tel:[phone] [facility] PHysical (chief complaint) Encntr for general adult medical exam w/o abnormal findings 8 Luiz Bustamante. [address], [place], [place], [address] , [place]. tel:[phone] Referring Provider: Jeanette Roberts [address], [place], [place], [address]. tel:[phone] OFFICE/OUTPA TIENT VISIT, [facility], [address], [place], [place], [address], [place] tel:[phone] [facility] insomnia1 (chief complaint)G ERd1 (chief complaint)C OPD1 (chief complaint)a nxiety1 (chief complaint)b ack pain1 (chief complaint)i ncontinnece 1 (chief complaint) GERD w/o esophagitisInsomni aEmphysemaMixed incontinence 7 Luiz Bustamante. [address], [place], [place], [address] , [place]. tel:[phone] Referring Provider: Jeanette Roberts [address], [place], [place], [address]. tel:[phone] OFFICE/OUTPA TIENT VISIT, [facility], [address], [place], [place], [address], [place] tel:[phone] [facility] wrist fracture1 (chief complaint)b ack pain1 (chief complaint)G ERD1 (chief complaint)i nsomnia1 (chief complaint) Insomnia, unspecifiedGERD w/o esophagitisMeralgi a paresthetica, bilateral lower limbsRestless legs syndrome Nov-2 7 Luiz Bustamante. [address], [place], [place], [address] , [place]. tel:[phone] Referring Provider: Robby Dee [address], [place], [place], [address]. tel:[phone] OFFICE/OUTPA TIENT VISIT, [facility], [address], [place], [place], [address], [place] [phone] [facility] back pain1 (chief complaint) Other spondylosis, lumbar regionLumbago Oct- 7 Luiz Bustamante. [address], [place], [place], [address] , [place]. [phone] Referring Provider: Jeanette Roberts [address], [place], [place], [address]. tel:[phone] OFFICE/OUTPA TIENT VISIT, [facility], [address], [place], [place], [address], [place] tel:[phone] [facility] osteopenia1 (chief complaint)b ack pain1 (chief complaint)p ancreatic lesion1 (chief complaint)C OPD1 (chief complaint) Pancreatic endocrine cell hyperplasiaMeralgi a paresthetica, bilateral lower limbsDisorder of bone density and structure, unspecifiedCOPD Oct-0 7 Luiz Granda [address], [place], [place], [address] , [place]. tel:[phone] Referring Provider: Jeanette Roberts [address], [place], [place], [address]. tel:[phone] OFFICE/OUTPA TIENT VISIT, [facility], [address], [place], [place], [address], [place] tel:[phone] [facility] GERD1 (chief complaint)t obacco1 (chief complaint)o steopenia1 (chief complaint)i nsomnia1 (chief complaint) InsomniaOth disrd of bone density and structure, multiple sitesGastritis, unspecified, without bleedingTobacco use 7 Luiz Bustamante. [address], [place], [place], [address] , [place]. tel:[phone] Referring Provider: Jeanette Roberts [address], [place], [place], [address]. tel:[phone] OFFICE/OUTPA TIENT VISIT, [facility], [address], [place], [place], [address], [place] tel:[phone] [facility] bug left ear (chief complaint)t obacco1 (chief complaint)b ack pain1 (chief complaint)G ERD1 (chief complaint) GERD w/o esophagitisTobacco useLumbagoImpacted cerumen, left ear 7 Luiz Bustamante. [address], [place], [place], [address] , [place]. tel:[phone] Referring Provider: Jeanette Roberts [address], [place], [place], [address]. tel:[phone] OFFICE/OUTPA TIENT VISIT, [facility], [address], [place], [place], [address], [place] tel:[phone] [facility] GERD1 (chief complaint)C AD1 (chief complaint)i nsomnia1 (chief complaint)l umbago1 (chief complaint) Acute gastritis without bleedingLumbago with sciatica, left sideHyperlipidemia Atherosclerotic heart disease of lummi coronary artery without angina pectoris 7 Luiz Bustamante. [address], [place], [place], [address] , [place]. tel:[phone] Referring Provider: Jeanette Roberts [address], [place], [place], [address]. tel:[phone] OFFICE/OUTPA TIENT VISIT, [facility], [address], [place], [place], [address], [place] tel:[phone] [facility] vertigo (chief complaint)v ertigo1 (chief complaint)b ack pain1 (chief complaint)C OPD1 (chief complaint)d izziness1 (chief complaint) DizzinessCOPDLumba go 7 Luiz Bustamante. [address], [place], [place], [address] , [place]. [phone] Referring Provider: Robby Dee, [address] [place] [address] A, [place], [place], [address]. tel:[phone] PREV VISIT, [facility], AGE 40-64 [facility], [address], [place], [place], [address], [place] tel:[phone] [facility] Physical (chief complaint) Encounter for general adult medical exam w abnormal findingsLumbago with sciatica, left sideDizzinessInsom aimee 7 Luiz [address]stamante. [address] [facility], [place], [place], [address] , [place]. tel:[phone] Referring Provider: Jeanette Roberts [facility] A, [place], [place], [address]. tel:[phone] OFFICE/OUTPA TIENT VISIT, [facility], [address], [place], [place], [address], [place] tel:[phone] [facility] anxiety1 (chief complaint)G ERD1 (chief complaint)H LP (chief complaint)i nsomnia1 (chief complaint)L FT (chief complaint)k nee pain1 (chief complaint) Chronic pain syndromeGeneralize d anxiety disorderInsomniaLi charles disease 6 Luiz Bustmaante. [address], [place], [place], [address] , [place]. tel:[phone] Referring Provider: Jeanette Roberts [facility] A, [place], [place], [address]. tel:[phone] OFFICE/OUTPA TIENT VISIT, [facility], [address], [place], [place], [address], [place] tel:[phone] [facility] anxiety1 (chief complaint)k nee pain1 (chief complaint)s leep disorder1 (chief complaint)C AD (chief complaint) Atherosclerotic heart disease of lummi coronary artery without angina pectorisChronic pain syndromeGeneralize d anxiety disorderSleep disorder 6 Luiz Bustamante. [address], [place], [place], [address] , [place]. [phone] Referring Provider: Robby Dee [address] [place] [address] [place], [address]. tel:[phone] OFFICE/OUTPA TIENT VISIT, [facility], [address], [place], [place], [address], [place] tel:[phone] [facility] anxiety1 (chief complaint)j oint pain1 (chief complaint)G ERD1 (chief complaint)o steopenia1 (chief complaint) Gastro-esophageal reflux disease without esophagitisGeneral ized anxiety disorderChronic pain syndromeOth disrd of bone density and structure, multiple sites 6 Luiz Bustamante. [address] [facility] A, [place], [place], [address] , [place]. [phone] Referring Provider: Robby Dee [address] [facility] A, [place], [place], [address]. tel:[phone] OFFICE/OUTPA TIENT VISIT, [facility], [address], [place], [place], [address], [place] tel:[phone] [facility] insomnia1 (chief complaint)G ERD1 (chief complaint)C AD (chief complaint)c hronic pian1 (chief complaint)a nxiety1 (chief complaint) InsomniaChronic pain syndromeGERD w/o esophagitisGeneral ized anxiety disorder 6 Luiz Bustamante. [address], [place], [place], [address] , [place]. tel:[phone] Referring Provider: Jeanette Roberts [address], [place], [place], [address]. tel:[phone] OFFICE/OUTPA TIENT VISIT, EST [facility], [address], [place], [place], [address], tel:[phone] [facility] leg pain (chief complaint)l eg pain1 (chief complaint)r estless leg1 (chief complaint)H LP1 (chief complaint)s leep study1 (chief complaint) Mixed hyperlipidemiaPain in right lower legRestless Legs SyndromeSleep apnea 5 Luiz Bustamante. [address] [facility] A, [place], [place], [address] , [place]. tel:[phone] Referring Provider: Jeanette Roberts [facility] [address], [place], [place], [address]. tel:[phone] PREV VISIT, EST, AGE 40-64 [facility], [address], [place], [place], [address], [place] tel:[phone] [facility] Physical1 (chief complaint) Encntr for general adult medical exam w/o abnormal findings 5 Luiz Bustamante. [address] [facility] A, [place], [place], [address] , [place]. [phone] Referring Provider: Jeanette Roberts [facility], [place], [place], [address]. tel:[phone] OFFICE/OUTPA TIENT VISIT, EST [facility], [address], [place], [place], [address], [place] tel:[phone] [facility] osteopenia (chief complaint)G ERD (chief complaint)i nsomnia (chief complaint)f ibular fx (chief complaint) Dietary surveillance and counselingEsophage al refluxInsomnia, unspecifiedClosed tibial and fibular fractureOsteopenia 5 Luiz Granda [address], [place], [place], [address] , [place]. tel:[phone] Referring Provider: Robby Dee, [address], [place], [place], [address]. tel:[phone] OFFICE/OUTPA TIENT VISIT, [facility], [address], [place], [place], [address], [place] tel:[phone] [facility] GERD (chief complaint)i nsomia (chief complaint)a bd pain (chief complaint) Dietary surveillance and counselingInsomnia , unspecifiedAbdomin al painHypokalemia 5 Luiz Bustamante. [address], [place], [place], [address] , [place]. [phone] Referring Provider: Jeanette Roberts [address] [facility] A, [place], [place], [address]. tel:[phone] OFFICE/OUTPA TIENT VISIT, [facility], [address], [place], [place], [address], [place] tel:[phone] [facility] hematuria (chief complaint)n brenna pain (chief complaint)o besity (chief complaint) HEMATURIA NOSDietary surveillance and counselingCervical giaBody Mass Index 31.0-31.9, adultPain in joint involving pelvic region and thigh 5 Luiz Bustamante. [address], [place], [place], [address] , [place]. [phone] Referring Provider: Jeanette Roberts [facility] A, [place], [place], [address]. tel:[phone] OFFICE/OUTPA TIENT VISIT, [facility], [address], [place], [place], [address], [place] [phone] [facility] insomnia (chief complaint)L FT (chief complaint)G ERD (chief complaint)h ematuria (chief complaint) HEMATURIA NOSDietary surveillance and counselingInsomnia , OtherHypertriglyce ridemiaGERD 5 Luiz Bustamante. [address], [place], [place], [address] , [place]. [phone] Referring Provider: Jeanette Roberts [address] [place], [address]. tel:[phone] OFFICE/OUTPA TIENT VISIT, EST [facility], [address] [place] [place], [address], tel:[phone] [facility] insomnia (chief complaint)G ERD (chief complaint)C AD (chief complaint)l iver (chief complaint) Dietary surveillance and counselingInsomnia , OtherGERDUnspecifi ed chronic liver disease without mention of alcoholCAD, [place] [facility] 4 Luiz Bustamante. [address], [place], [place], [address] , [place]. tel:[phone] Referring Provider: Robby Dee, [address] [facility] A, [place], [place], [address]. tel:[phone] PREV VISIT, NEW, AGE 40-64 [facility], [address] [place] [place], [address], [place] tel:[phone] [facility] PHysical (chief complaint) Dietary surveillance and counselingRoutine Medical ExamRoutine Medical Exam 4 Luiz Bustamante. [address], [place], [place], [address] , [place]. tel:[phone] Family History Family Member Type Diagnosis Age At Onset Mother Problem (finding) respiratory failure Brother Problem (finding) Hypertension Father Problem (finding) Cancer, lung Payers Payer name Insurance type Covered republican ID Authoriza tion(s) No Information Social History [...] Paniagua MD [address]
[place], [address] Ordered: Referrals: Eduardo Painagua MD. Evaluate and treat ordered Referral Ordered: Eduardo Paniagua -Allopathic & Osteopathic Physicians : Neurological Surgery (related to Lumbago with sciatica, left side) ordered Referral Referred To: Eduardo Paniagua [address] [place], [phone] Ordered: Referrals: [facility]opathic [facility] Osteopathic Physicians : Neurological Surgery. Eduardo Paniagua. Evaluate and treat ordered Referral Ordered: Vinnie Kessler -[facility]opathic [facility] Osteopathic Physicians : Orthopaedic Surgery (related to Olecranon bursitis, left elbow) ordered Referral Referred To: Vinnie Kessler [facility] [address] AUREA Freeman [facility] [address] [place], [place] [id number] Ordered: Referrals: Allopathic & Osteopathic Physicians : Orthopaedic Surgery. Vinnie Kessler. Evaluate and treat ordered Referral Ordered: US KIDNEY ordered Referral Ordered: Vinnie Kessler (related to GERD w/o esophagitis) ordered Referral Referred To: Vinnie Kessler [facility] [address] AUREA Freeman [facility] [address] [place], [phone] Ordered: Referrals: Vinnie Kessler. Evaluate and treat ordered Referral Ordered: MRI LUMBAR SPINE W/O DYE ordered Referral Ordered: DXA BONE DENSITY, AXIAL ordered Referral Ordered: Physical Therapy (related to Lumbago) ordered Referral Ordered: Otolaryngology (related to Impacted cerumen, left ear) ordered Referral Ordered: Referrals: Otolaryngology. Evaluate and [...] Date Complaint History Of Prese nt Illness back pain1 Pt has chronic l ow back pain with sciatica and leg numbness, Pt has ashlee with ortho spine next week Pt denies any loss of bladder control, Pt need norco refilled. Pt is off klonopin osteopenia1 Pt has osteopeni a. her bone density is slightly worse but still in osteopenia range. Pt takes vitamin D only but not calcium. Pt denies any fracture. fatigue1 Pt has been feel ing fatigue. Pt keeps falling asleep during the day. Pt is seeing pulmonary and she was told that she does not have sleep apnea. Pt had sleep study 2 years ago per pt. Pt does have some anemia and she has not done repeat lab yet pt denies any GI bleeding or vaginal bleeding GERd1 Pt has daily REBEL d Pt failed zantac pt takes omeprazole daily. Pt has daily GERD without omeprazole. Insurance not paying for omeprazole again anemia1 Pt told me she w as found to be anemic while in [place] Pt denies any bleeding CAD Pt recently went to [place] due to her daughter. Pt had another episode of chest pain while in [place] and was diagnosed with NSTEMI pt just seen her cardiology last week and she is doing ok currently pt denies any chest pain. Pt denies any sob gallstone1 Pt has gallstone and she has intermittent right upper quadrant abdominal pain Pt states that she will have gallbladder surgery in two weeks. pt denies any acute pain Pt does have nausea with food. pT denies any fever back pain1 Pt has chronic l ow back pain Pt states that her right leg felt numbness and weak and she fell twice due to right leg given out recently, Pt does have chronic low back pain pt denies any loss of bladder control. Pt denies any injury anxiety1 Pt has chronic a nxiety and depression. Pt takes wellbutrin, lexapro and seroquel. Pt sees psychiatrist. Pt has been under severe stress lately. She just found out that her daughter who lives in [place] committed suicide several days ago. Pt feels extremely sad and she can not stop crying. ,Pt has been having panic attacks. Pt wants some nerve pills for short term to help her with above. Pt is off klonopin. Pt has difficulty sleeping and she feels extremely anxious. Pt wants to try some valium, which helped her in the past Pt is traveling to [place] tomorrow and she could not get in [...] UTI symptoms. Pt denies any fever, chill COPD1 Pt uses incurse. Pt rarely uses [...] cover. Pt needs pad due to leakage insomnia1 Pt t[place] chronic in somnia. Pt takes ambien qhs PRn and doing ok. pt does not have sleep apnea. Pt has restless and she takes requip from her pulmonary GERd1 P has GERd Pt co uld not tolerate zantac or without PPI. Pt takes omepraozle daily and doing ok GERD1 Pt states that o meprzole works very well for her GERD Pt is off all other oTC meds insomnia1 Pt does not want have sleep apnea. Pt has periodic limb movement disorder. Pt takes requip which helps slighlty wrist fracture1 Pt has communite d fracuture left radius as well as nondisplaced ulnar styloid avulsion fracture from fall 6 months ago. Her ortho was prescribing OT but she changed insurance to [employer] and she needs a new ortho and OT order. back pain1 Pt has chronic l ow back pain and bilateral leg numbness and tingling. Pt has nonsurgical MRi of back. Pt denies any loss of bladder control. Pt denies any wrosening pain. Pt states that neurontin helps slighlty back pain1 Pt has chronic l ow back pain with bilateral leg numbness and tingling, worse around buttock and also lateral thigh. pt states that her legs feels shaky sometimes Pt had MRI done which showed DDD. Pt denies any worsening pain. Pt denies any loss of bladder control. Pt states that norco and robaxin are not helping [facility] for her pain osteopenia1 Pt has been [...] using any other prophylactic meds. for COPD bug left ear Pt notices bug i nside left ear canal since last friday. Pt tried to pick on her left ear and notices a bug shape material and then a leg Pt denies any ear pain or bleeding or drainage. Pt denies any hearing loss. Pt notices some left ear stuffiness and hearing loss back pain1 Pt c/o chronic l ow back pain with scaitcia down to left hip pt denies any loss of bowel or bladder control. Pt denies anyworsening pain Pt notices sharp and dullache. Pt had xray done recenlty tobacco1 Pt has not start ed the patch yet. Pt told me she is smoking close to 1 ppd now. Pt wants to know if she needs higher dose of the patch GERD1 Pt has GERd Pt s tates that zantac does not help. pt has severe GERD with zantac and she had to go to ER for it last friday. Pt was given protonix but not covered either. Pt denies any abd pain. Pt unable to sleep due to GERD. lumbago1 Pt has intermitt ent low back pain with left sciatica and left leg numbness for 6 months. No injury. . Pt also has left wrist pain Pt recenlty has left wrsit fracture and she is seeing ortho and is wearing wrist splint now. Pt denies any loss of bladder control GERD1 Pt has chronic G ERD Pt [...] or any trouble with breathing at night vertigo vertigo1 Pt states that s he [...] denies any tinnitusPt denies any other complaints. knee pain1 Pt has knee and hip pain due to arthritis Tylenol #3 does not work LFT Pt has mildly el evated LFT pt has negative hepatitis and ultrasound Pt quit alcohol recently. NO abd pain or jaundice insomnia1 Pt takes ambien qhs PRN and doing ok. Pt had sleep study which failed to show sleep apnea. Pt has limb movement at night and she is seeing sleep physicain for it HLP Pt has HLP. Pt t akes lipitor and doing ok Her lipid profile is normal. Pt denies any myalgia GERD1 Pt has gastritis Pt failed zantac. Pt states that only omeprazole helps her daily GERD symptoms anxiety1 Pt has chronic a nxiety and depression Pt takes celexa and buspar and doing ok .Pt denies any suicidal or homicidal thought anxiety1 Pt has chronic a nxiety and [...] doing ok. Pt denies any spontaneous fx anxiety1 Pt has been havi ng anxiety and panic attacks for several years. Pt feels depressed Pt has crying spells. Pt denies any sucidal or homicidal thought. chronic pian1 Pt c/o bilateral hip pain, worse on right side, right ankle pain for several months. Pt denies any injury. Pt c/o bilatearl knee pain Pt denies any swelling. Pt denies any back pain or any sciatica CAD Pt has history o f HTN and CAD. Pt takes coreg, losartan 100 mg and imdur from cardiology. Pt denies any chest pain or SOB. Pt denies any headache GERD1 Pt has mild etta riris. Pt has chronic GERD. Pt has been taking omeprazole 40 mg daily and no symptoms. NO abd pain insomnia1 Pt has chornic i nsomnia. Pt states that she snores and sometimes has trouble with breathing at night. Pt never did the sleep study HLP1 Pt has mildly el evated TG. Pt takes lipitor. Pt denies any myalgia leg pain sleep study1 Pt c/o snorning and sometimes unable to breath at night. Pt has had the symptmos for several years . Pt feels fatigeu restless leg1 Pt c/o restless leg at night for several months. Pt states that she has difficulty sleeping due to above. Pt has the urge to move both legs at night. leg pain1 Pt has midial ri ght [...] year. Instructions Date Instruction Additional Infor mation Special diet education Related t o Body mass index (BMI) 31.0-31.9, adult Increase physical activity Relat ed to Fatigue Quit smoking Related to Fatig ue Weight management Related to Fat igue Special diet education Related t o Body mass index (BMI) 32.0-32.9, adult Increase physical activity Relat ed to Lumbago with sciatica, right side Quit smoking Related to Lumba go with sciatica, right side Weight management Related to Lum bago with sciatica, right side Weight management Related to Ins omnia Quit smoking Related to Insom aimee Increase physical activity Relat ed to Insomnia Special diet education Related t o Body mass index (BMI) 32.0-32.9, adult Quit smoking. Related to Encnt r for [...]
--- NOTE | ~2024-11-03 | DEXA_ITS ---
Bone Density Report Name: KATYA MAJOR Age: 64 Sex: Female Ethnicity: White Date of : 1960 Indication: osteopenia; height loss; Referring Provider: MIGUELINA AWAN Study: Bone densitometry was performed. Exam Date: November 03, 2024 Accession number: [id number] Bone Density: Region BMD T-score Z-score Classification AP Spine(L1-L4) 0.899 -1.3 0.3 Osteopenia Femoral Neck (Left) 0.576 -2.5 -1.0 Osteoporosis Total Hip (Left) 0.668 -2.2 -1.1 Osteopenia Femoral Neck (Right) 0.580 -2.4 -1.0 Osteopenia Total Hip (Right) 0.677 -2.2 -1.0 Osteopenia Total Hip Mean 0.673 -2.2 -1.1 Osteopenia World Health Organization criteria for BMD impression classify patients as: Normal (T-score at or above -1.0), Osteopenia (T-score between -1.0 and -2.5), or Osteoporosis (T-score at or below -2.5). 10-year Fracture Risk: FRAX not reported because: Some T-score for Spine Total or Hip Total or Femoral Neck at or below -2.5 Previous Exams: Region Exam Age BMD T-score BMD Change BMD Change Date g/cm2 vs Baseline vs Previous AP Spine (L1-L4) 11/03/2024 64 0.899 -1.3 0.042 (4.9%)* 0.042 (4.9%)* 10/11/2016 55 0.857 -1.7 Total Hip(Left) 11/03/2024 64 0.668 -2.2 -0.083 (-11.0% -0.083 (-11.0% 10/11/2016 55 0.751 -1.6 Total Hip(Right) 11/03/2024 64 0.677 -2.2 -0.066 (-8.9%) -0.066 (-8.9%) 10/11/2016 55 0.744 -1.6 *Denotes significance at 95% confidence level, LSC for AP Spine = 0.022 g/cm2, LSC for Total Hip = 0.027 g/cm2 Clinical Information Provided by Patient: Smokes Has used the following medications: Vitamin D Patient maximum height was 63 Menopause Age: 49 No regular weight bearing exercise Drinks caffeinated beverages Onset of menses at age 11 Number of children 5 Impression: The patient has osteoporosis, based on the Left Femoral Neck T-score. The patient has risk factors, including: smoking. The BMD for the Total Hip(Left) decreased, changing by -11.0% since the last DXA exam. The BMD for the Total Hip(Right) decreased, changing by -8.9% since the last DXA exam. Discussion: INCREASED RISK OF FRACTURE. BONE DENSITY IS UNDESIRABLY LOW AT ONE OR MORE SKELETAL SITES, CONSISTENT WITH POSTMENOPAUSAL OSTEOPOROSIS. This patient's lowest T-score meets the World Health Organization's (WHO) criteria for osteoporosis at one or more sites (T-score -2.5 or below). In untreated patients, the risk of osteoporotic fracture increases approximately two-fold for each 1.0 SD decrease in T-score. Low bone density is not the only risk factor for fracture; also consider factors such as patient's age, frailty or poor health, risk of falling, risk of injury, previous osteoporotic fracture, family history of osteoporosis, cigarette smoking, low body weight, etc. Not everyone with low bone mineral density has osteoporosis; osteomalacia and other metabolic bone disorders should also be considered. Patients who have osteoporosis should be evaluated for specific diseases and conditions (secondary causes) that may cause or contribute to bone loss. The [place] Association of Clinical Endocrinologists (AACE) and National Osteoporosis Foundation (NOF) recommend pharmacologic intervention for all postmenopausal women whose T-score is in this range. The patient should follow a healthful lifestyle (good nutrition with adequate calcium and vitamin D, and appropriate weight-bearing exercise). Follow-Up: Consider a repeat BMD and Vertebral Fracture Assessment (VFA) exam in 2 years or sooner if medically necessary, to reassess this patient's status. Reported by: JAMIL on 11/03/2024 10:52:00 AM. Reviewed, dictated and finalized at location A.
--- OUTSIDE RECORDS SUMMARY | 2024-11-03 10:40 | XMS_ITS | Clinical Summary ---
Author Organization [facility] Address [address] [place] [address] Care Team Providers Care Polish Maker Name Role Phone Unavailable Primary Care Provider [...] (1 of 2) 2010 INFLUENZA VACCINE (#1) 2024 RSV VACCINE (60+ or ) (1 - 1-dose 75+ series) 11/01/2035 Insurance [facility] MEDICAID
--- OUTSIDE RECORDS SUMMARY | 2024-11-03 10:40 | XMS_ITS | Clinical Summary ---
Author Organization [facility] Address [address] [place] [address] Care Team Providers Care Aoc Director Intelligence Officer Name Role Phone Diana Simmons NP Primary Care Provider [phone] Allergies No known active allergies Medications ezetimibe [...] 88.5 kg (195 lb) 03/29/2022 3:22 PM ORDER ADMINISTRATOR Height 158.8 cm (5' 2.5) 03/29/2022 3:22 PM ORDER ADMINISTRATOR Body Mass Index 35.1 03/29/2022 3:22 PM ORDER ADMINISTRATOR Plan of Treatment Health Maintenance Due Date [...] Escoto, TERESE Medical Devices Implanted Type Area Accounts Officer Device Identifier Shelf Expiration Date Model / Serial / Lot Graft Bone Bonus Triad Cancellous Cortical 5cc Allograft - [id number] Implanted:Qty: 1 on 04/07/2021 by Yuko Nguyễn MD at [facility] Bone [employer] 07/19/2025 [id number] / [id number] / NA Plate Myranda Fibular Distal Lateral 8h 132mm Left - [id number] Implanted:Qty: 1 on 04/07/2021 by Yuko Nguyễn MD at [facility] Plate Left: Ankle [employer] [id number] / / NA Screw Locking Myranda 2.7 X 12mm - [id number] Implanted:Qty: 2 on 04/07/2021 by Yuko Nguyễn MD at [facility] Screw Left: Ankle [employer] [id number] / / NA Screw Locking Myranda 2.7 X 14mm - [id number] Implanted:Qty: 2 on 04/07/2021 by Yuko Nguyễn MD at [facility] Screw Left: Ankle [employer] [id number] / / NA Screw Biomet 4.0 Cancellous Fully Threaded 46mm - [id number] Implanted:Qty: 1 on 04/07/2021 by Yuko Nguyễn MD at [facility] Screw Left: Ankle [employer] [id number] / / NA Screw Biomet 3.5 Cortical 50mm - [id number] Implanted:Qty: 1 on 04/07/2021 by Yuko Nguyễn MD at [facility] Screw Left: Ankle [employer] [id number] / / NA Screw Myranda Elb Fib Periloc 3.8 X 10mm - [id number] Implanted:Qty: 1 on 04/07/2021 by Yuko Nguyễn MD at [facility] Screw Left: Ankle [employer] [id number] / / NA Screw Myranda Elb Fib Periloc 3.5 X 12mm - [id number] Implanted:Qty: 2 on 04/07/2021 by Yuko Nguyễn MD at [facility] Screw Left: Ankle [employer] [id number] / / NA Screw Biomet 4.0 Cancellous Fully Threaded 60mm - [id number] Implanted:Qty: 2 on 04/07/2021 by Yuko Nguyễn MD at [facility] Screw Left: Ankle [employer] [id number] / / NA [place] Pins 5 X 150 X 40mm Implanted:Qty: 2 on 02/23/2021 by Ben Baig MD at [facility] Left: Ankle [employer] 5018-5-150 / / Self-Drilling Hybrid Half-Pin, 4/5 X 150mm Implanted:Qty: 1 on 02/23/2021 by Ben Baig MD at [facility] Left: Ankle [employer] 5026-1-150 / / Transfixing Pin, Threaded, 5/6 X 300mm Implanted:Qty: 1 on 02/23/2021 by Ben Baig MD at [facility] Left: Ankle [employer] 5050-4-300 / / End Caps Implanted:Qty: 1 on 02/23/2021 by Ben Baig MD at [facility] Left: Ankle [employer] 5027-1-050 / / Delta Coupling, Ferny-To-Ferny Or Ferny-To-Pin, 07/22/10 Ferny Or 5mm Pin Implanted:Qty: 4 on 02/23/2021 by Ben Baig MD at [facility] Left: Ankle [employer] 4922-1-010 / / Delta Coupling, Pin-To-Ferny, 07/22/10 Ferny Or 4/5/6mm Pin Implanted:Qty: 2 on 02/23/2021 by Ben Baig MD at [facility] Left: Ankle [employer] 4922-1-020 / / Connecting Rods Implanted:Qty: 1 on 02/23/2021 by Ben Baig MD at [facility] Left: Ankle [employer] 4922-8-150 / / 5-Hole Pin Clamp W/ Two 11mm 30deg Angled Posts, [id number] Implanted:Qty: 1 on 02/23/2021 by Ben aBig MD at [facility] Left: Ankle [employer] 4922-2-240 / / 11 X 350mm Connecting Rods Implanted:Qty: 2 on 02/23/2021 by Ben Baig MD at [facility] Left: Ankle [employer] 4922-8-350 / / Explanted Type Area Accounts Officer Device Identifier Shelf Expiration Date Model / Serial / Lot Drill Bit Myranda 2.7mm - [id number] Explanted:Qty: 1 on 04/07/2021 by Yuko Nguyễn MD at [facility] Drill Left: Ankle [employer] [id number] / / NA Drill Bit Myranda 2.0mm Qc - [id number] Explanted:Qty: 1 on 04/07/2021 by Yuko Nguyễn MD at [facility] Drill Left: Ankle [employer] [id number] / / NA Drill Bit Myranda 2.5mm - [id number] Explanted:Qty: 1 on 04/07/2021 by Yuko Nguyễn MD at [facility] Drill Left: Ankle [employer] [id number] / / NA Drill Cannulated 2.9 X 70mm - [id number] Explanted:Qty: 2 on 04/07/2021 by Yuko Nguyễn MD at [facility] Drill Left: Ankle [employer] [id number] / / NA Wire Myranda Ayala 1.6mm X 150mm - [id number] Explanted:Qty: 3 on 04/07/2021 by Yuko Nguyễn MD at [facility] Wire Left: Ankle [employer] [id number] / / NA K-Wire Threaded Tip 1.6mm - [id number] Explanted:Qty: 3 on 04/07/2021 by Yuko Nguyễn MD at [facility] Wire Left: Ankle [employer] [id number] / / NA Cortical Screw 3.5 X 55mm Explanted:Qty: 1 on 04/07/2021 at [facility] Left: Ankle [employer] [id number] / / NA Description:WRONG [employer] Insurance [place] Care Teams Aoc Director Intelligence Officer Relationship Specialty Start Date End Date Diana Simmons NP [address] [place] [address] PCP - General NURSE PRACTITIONER 10/02/21
--- OUTSIDE RECORDS SUMMARY | 2024-11-03 10:40 | XMS_ITS | Encounter Summary ---
Author Organization [facility] Address [address] [place] [address] Care Team Providers Care Choral Teacher Name Role Phone Robby Dee MD Unavailable [phone] Surinder Walters DO Primary Care Provider [phone] Encounter Details Date Type Department Care Team (Late st Contact Info) Description 12/12/2023 Documentation [facility] [id number] [place] [address] Flaca Ann MD [facility] [place] [address] Social History Tobacco Use Types Packs/Day Years Used Date Smoking Tobacco: Every Day Cigarettes 1 53.6 Started: 1972 Smokeless Tobacco: Current Alcohol Use Standard Drinks/Week [...] on file Legal 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 Gender Identity Not on file Sexual Orientation Not on file documented as of this encounter Plan of Treatment Not on file documented as of this encounter Visit Diagnoses Not on filedocumented in this encounter Additional Health Concerns Infection Onset Date Last Indicated Resolved Time COVID: Suspected 04/15/2024 04/15/2024 04/15/2024 3:47 PM CONSUMER SCIENCE TEACHER documented as of this encounter Care Teams Choral Teacher Relationship Specialty Start Date End Date Surinder Walters DO PCP - General Internal Medicine 10/30/23 Robby Dee MD Family Medicine 06/27/22 documented as of this encounter
--- OUTSIDE RECORDS SUMMARY | 2024-11-03 10:40 | XMS_ITS | Clinical Summary ---
Author Organization [facility] Address [address] [place] [address] Care Team Providers Care Chemist Instrumentation Name Role Phone Robby Dee MD Unavailable [phone] Surinder Walters DO Primary Care Provider [phone] Allergies No known active allergies Medications fish pjm-egzzw-0-vit C-vit E 2,000-650-12 mg/2.5 gram emulsion in packet Take by mouth. Activ e cholecalciferol (VITAMIN D-3) 1,000 unit capsule Take by mouth. 05/07/19 17 Active melatonin tablet Take 10 tablets (10 mg total) by mouth nightly Active diphenhydrAMINE (BENADRYL) 25 mg capsule Benadryl 25mg 2 tab qhs 05/17/19 17 Active gabapentin (NEURONTIN) 400 mg tablet Take [...] daily 90 tablet 3 01/29/20 24 Active albuterol 2.5 mg /3 mL (0.083 [...] albuterol inhaler 1 each 04/15/19 25 Active nicotine (NICODERM CQ) [address] 1 patch on the skin daily for 24 hours 30 patch 07/21/19 25 Active nicotine (NICODERM CQ) [address] 1 patch on the skin daily for 24 hours 30 patch 1 07/21/19 25 Active nicotine (NICODERM CQ) [address] 1 patch on the skin daily for 24 hours 30 patch 1 07/21/19 25 Active metoclopramide (REGLAN) 5 mg tabletIndication [...] 30 tablet 1 07/25/19 25 026 Active carvediloL (COREG) 3.125 mg tablet Take 1 tablet by mouth once daily 90 tablet 2 09/17/19 25 Active ezetimibe (ZETIA) 10 mg tablet Take 1 tablet (10 mg total) by mouth daily 90 tablet 1 09/17/19 25 Active neomycin-polymyx in-HC (CORTISPORIN) 3.5-10,000-1 mg/mL-unit/mL-% otic suspension Use 2-3 drops in affected ear 4x daily x 7d (only with intact TM) 15 mL 09/18/19 25 Active nitroglycerin (NITROSTAT) 0.4 mg SL tabletIndication s: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 DO NOT EXCEED A TOTAL OF 3 DOSES IN 15 MINUTES 25 tablet 09/28/19 25 Active Active Problems Problem Noted Date Diagnosed [...] use distraction techniques - Information given regarding [place] Tobacco Quit line: 2-024-JBBU-YES for free services - 6 minutes spent discussing cessation She has tried and failed Wellbutrin, varenicline, lozenges, gum, generic patches The only thing she had success with in the past was the Nicoderm CQ patches I have placed an order for these today in a titrating fashion She qualifies for annual screening, next due 02/2025 Assessment & Plan (04/20/2024 2:45 PM STONE PRODUCT FABRICATOR): - Smoking cessation counseling and techniques reviewed at length - Avoid triggers and use distraction techniques - Information given regarding [place] Tobacco Quit line: 1-817-WYOQ-YES for free services - 5 minutes spent [...] tested Assessment & Plan (04/20/2024 2:49 PM STONE PRODUCT FABRICATOR): She is MZ with good last levels [...] index 31.0-31.9, adult 07/03/2017 Coronary atherosclerosis of solomon coronary emily ry 07/03/2017 Cervicalgia 07/03/2017 Chronic [...] care Assessment & Plan (04/20/2024 2:48 PM STONE PRODUCT FABRICATOR): Continue Stiolto two puffs daily for now [...] Resolved Date Atherosclerotic heart diseas e of solomon coronary artery without angina pectoris 07/03/2017 12/10/2022 Hyperlipidemia 07/03/2017 12/10/2022 Pure hypertriglyceridemia 07/03/2017 Pure hyperglyceridemia 04/21/201402/11 Coronary arteriosclerosis in solomon artery 02/15/2014 02/11/2023 Encounters Date Type Department Care Team Description 10/06/2024 10:15 AM CDT Office Visit [facility] [place] [facility] [address] [place] [address] Medical Office [facility] [address] [place] [address] Jay Campos MD Thrombocytopenia (Primary Dx); Pancreatic lesion 10/06/2024 9:[address] [facility] [address] [facility] [address] [place] [address] Thrombocytopenia; Pancreatic lesion 10/05/2024 Telephone [facility] [place] [facility] [address] [place] [address] Office [facility] [address] [place] [address] Tatianna Reese CLT 09/29/2024 Telephone [facility] Cardiology [address] [facility] [address] [place] [id number] Marcus Redd MD 09/19/2024 12:30 PM CDT Office Visit [facility] [place] [address] [facility] [place] [phone] Berta Gill, KWADWO Acute otitis externa of right ear, unspecified type (Primary Dx); Non-recurrent acute suppurative otitis media of left ear with spontaneous rupture of tympanic membrane; Impacted cerumen of right ear 09/17/2024 6:45 PM CDT Telemedicine [facility] Virtual Care [address] [place] [address] Ana Coley MD Acute otitis externa of right ear, unspecified type (Primary Dx) 09/17/2024 Patient Self-Triage [facility] [address] [place] [address] Mychart, Generic Provider 09/03/2024 11:00 AM CDT Office Visit [facility] [place] [facility] [address] [place] [address] Medical Office [address] [place] [address] Jay Campos MD Thrombocytopenia (Primary Dx); Pancreatic lesion 09/03/2024 10:30 AM CDT Lab [address] [place] [address] Thrombocytopenia, unspecified (Primary Dx); Thrombocytopenia; Pancreatic lesion 09/03/2024 Results Follow-Up [facility] [place] [facility] [address] [place] [address] Medical Office [facility] [address] [place] [address] Chana Smith, TERESE CBC with auto differential 08/19/2024 7:33 AM CDT - 08/19/2024 11:59 PM CDT Hospital Encounter [address] [address] Dizziness and giddiness Discharge Disposition: Discharge to home or self care 08/19/2024 7:33 AM CDT - 08/19/2024 11:59 PM CDT Hospital Encounter [address] [address] Upper abdominal pain, unspecified; Thrombocytopenia, unspecified Discharge Disposition: Discharge to home or self care 08/13/2024 Telephone [facility] [place] [facility] [address] [place] [address] Medical Office [facility] [address] [place] [phone] Adwoa Garcia CLT from Last 3 Months Immunizations Immunization Administration Dates Next Due Influenza, Quadrivalent, Spl it, Preservative Free, Intramuscular 04/09/2021 Tdap 02/23/2021 Surgical History Surgery Date Site/Laterality Comments CAROTID STENT 5 stents in chest CARDIAC STENT PLACEMENT / DILATION AND CURETTAGE OF UTERUS 03/10 Medical History Medical History Date Comments Hypertension Depression Emphysema of lung Anemia Gastric reflux Poor circulation Scoliosis Osteopenia Coronary artery disease Restless legs syndrome (RLS) Cigarette nicotine dependence without complicati on 04/20/2024 Heterozygous alpha 1-antitrypsin deficiency (HCC ) 04/20/2024 Oral charles 07/20/2024 Thrombocytopenia Family History Medical History Relation Name Comments Alcohol abuse Father Cancer Father Depression Father Alcohol abuse Mother Anxiety disorder Mother Cancer Mother Bleeding Disorder Neg Hx Heart disease Neg Hx Hypertension Neg Hx Lung disease Neg Hx Mental illness Neg Hx Relation Name Status Comments Father Mother Social History Tobacco Use Types Packs/Day Years Used Date Smoking Tobacco: Every Day Cigarettes 0.8 53.6 Started: 1971 Smokeless Tobacco: Current Tobacco Cessation:Ready [...] on file Legal Sex Female 5:32 PM STONE PRODUCT FABRICATOR Gender Identity Not on file Sexual Orientation Not on file Obstetrics History Last Filed Vital Signs Vital Sign Reading Time Taken Comments Blood Pressure 135/86 10/06/2024 9:58 AM CDT Pulse 74 10/06/2024 9:58 AM CDT Temperature 36.8 C (98.2 F) 10/06/2024 9:58 AM CDT Respiratory Rate 20 10/06/2024 9:58 AM CDT Oxygen Saturation 99% 10/06/2024 9:58 AM CDT Inhaled Oxygen Concentration - - Weight 77.1 kg (170 lb) 10/06/2024 9:45 AM CDT Height 157.5 cm (5' 2) 09/19/2024 12:27 PM CDT Body Mass Index 31.09 09/19/2024 12:27 PM CDT Plan of Treatment Health Maintenance [...] (3 - season) 11/16/202311/2020, 07/26/2020 Influenza Vaccine (#1) 2024 04/09/2021 Lung Cancer Screening 03/03/2025 03/02/2024 DTaP/Tdap/Td Vaccine (2 - Td or Tdap) 02/23/203112/2020 Medical Devices Implanted Type Area Teaseler Device Identifier Shelf Expiration Date Model / Serial / Lot [employer] Angio-Seal Vip 6fr Closere Device [id number] - [id number] Implanted:Qty: 1 on 01/21/2022 by Blake Ham MD at [facility] [employer] 10/14/2022 [id number] / / [id number] Procedures Procedure Name Priority Date/Time Associated Diagnosis Comments MAGNESIUM Routine 10/06/2024 9:00 AM CDT Thrombocytopenia Pancreatic lesion DIFFERENTIAL AUTO Routine 10/06/2024 9:0 0 AM CDT Thrombocytopenia Pancreatic lesion CBC WITH AUTO DIFFERENTIAL Routine 10/06/2024 9:00 AM CDT Thrombocytopenia Pancreatic lesion ND REMOVAL IMPACTED CERUMEN INSTRUMENTATION UNILAT Routine 09/19/2024 12:30 PM CDT Impacted cerumen of right ear PROTIME-INR Routine 09/03/2024 11:35 AM CDT Thrombocytopenia, unspecified Thrombocytopenia Pancreatic lesion FIBRINOGEN Routine 09/03/2024 11:35 AM CDT Thrombocytopenia, unspecified Thrombocytopenia Pancreatic lesion VITAMIN B12 Routine 09/03/2024 11:35 AM CDT Thrombocytopenia, unspecified Thrombocytopenia Pancreatic lesion FOLATE Routine 09/03/2024 11:35 AM CDT Thrombocytopenia, unspecified Thrombocytopenia Pancreatic lesion APTT Routine 09/03/2024 11:35 AM CDT Thrombocytopenia Pancreatic lesion FIBRINOGEN Routine 09/03/2024 11:35 AM CDT Thrombocytopenia Pancreatic lesion MANUAL DIFFERENTIAL Routine 09/03/2024 10:30 AM CDT Thrombocytopenia, unspecified CBC WITH AUTO DIFFERENTIAL Routine 09/03/2024 10:30 AM CDT Thrombocytopenia, unspecified US RUQ Schedule Routine, Read Routine (OP Routine) 08/19/2024 8:51 AM CDT Upper abdominal pain, unspecified Thrombocytopenia, unspecified US CAROTIDS DUPLEX BILATERAL Schedule Routine, Read Routine (OP Routine) 08/19/2024 8:44 AM CDT Dizziness and giddiness CT LUNG CANCER SCREENING Schedule Routine, Read Routine (OP Routine) 03/02/2024 4:42 PM STONE PRODUCT FABRICATOR Nicotine dependence, cigarettes, uncomplicated from Last 3 Months or Most Recently Relevant to Health Maintenance Results * Differential, auto (10/06/2024 9:00 AM CDT) Neutrophil abs 4.22 1.50 - 6.50 K/cumm YAEL TILL[facility] ([place]) Comment:Testing performed by : [facility] [address], Medical Office [facility] [address], [place] [address] Imm gran abs 0.01 0.00 - 0.10 K/cumm YAEL TILLMAN ([place]) Comment:Testing performed by : [facility] [address], Medical Office [facility] [address], [place] [address] Lymphocyte abs 1.25 0.80 - 3.30 K/cumm [facility] ([place]) Comment:Testing performed by : [facility] [address], Medical Office [address], [place] [address] Monocyte abs 0.50 0.20 - 0.80 K/cumm [facility] ([place]) Comment:Testing performed by : [facility] [address], Medical Office [address], [place] [address] Eosinophil abs 0.23 0.00 - 0.50 K/cumm [facility] ([place]) Comment:Testing performed by : [facility] [address], Medical Office [address], [place] [address] Basophil abs 0.05 0.00 - 0.10 K/cumm [facility] ([place]) Comment:Testing performed by : [facility] [address], Medical Office [address], [place] [address] Neutrophil pct 67.3 % [facility] ([place]) Comment: Interpretive Data Percent cell count reference ranges are not reported, since discordance with absolute values may lead to misinterpretation of CBC data. Current Interpretive Data was last revised on 2022. Testing performed by: [facility] [address], Medical Office [facility] [address], [place] [address] Imm gran pct 0.2 % [facility] ([place]) Comment: Interpretive Data Percent cell count reference ranges are not reported, since discordance with absolute values may lead to misinterpretation of CBC data. Current Interpretive Data was last revised on 2022. Testing performed by: [facility] [address], Medical Office [facility] [address], [place] [address] Lymphocyte pct 20.0 % [facility] ([place]) Comment: Interpretive Data Percent cell count reference ranges are not reported, since discordance with absolute values may lead to misinterpretation of CBC data. Current Interpretive Data was last revised on 2022. Testing performed by: [facility] [address], Medical Office [address], [place] [address] Monocyte pct 8.0 % [facility] ([place]) Comment: Interpretive Data Percent cell count reference ranges are not reported, since discordance with absolute values may lead to misinterpretation of CBC data. Current Interpretive Data was last revised on 2022. Testing performed by: [facility] [address], Medical Office [facility] [address], [place] [address] Eosinophil pct 3.7 % ALEXIA TILLMAN ([place]) Comment: Interpretive Data Percent cell count reference ranges are not reported, since discordance with absolute values may lead to misinterpretation of CBC data. Current Interpretive Data was last revised on 2022. Testing performed by: [facility] [address], Medical Office [facility] [address], [place] [address] Basophil pct 0.8 % YAEL TILLMAN ([place]) Comment: Interpretive Data Percent cell count reference ranges are not reported, since discordance with absolute values may lead to misinterpretation of CBC data. Current Interpretive Data was last revised on 2022. Testing performed by: [facility] [address], Medical Office [facility] B [facility] [address], [place] [address] Blood 10/06/2024 9:00 AM CDT 10/06/2024 9:05 AM CDT us Jay Campos MD LAB BLOOD ORDERABLES Final Re sult YAEL T[facility] ([place]) [address] [facility] Department [place] [address] * (ABNORMAL) CBC with auto differential (10/06/2024 9:00 AM CDT) WBC 6.26 3.80 - 9.90 K/cumm YAEL TILL[facility] ([place]) Comment:Testing performed by : [facility] [address], Medical Office [facility] [address], [place] [address] Hgb 13.6 11.9 - 15.5 g/dL YAEL TILLMAN ([place]) Comment:Testing performed by : [facility] [address], Medical Office [facility] [address], [place] [address] Hct 42.0 35.6 - 45.5 % YAEL TILLMAN ([place]) Comment:Testing performed by : [facility] [address], Medical Office [facility] B [facility] [address], [place] [address] Plt 135(L) 150 - 400 K/cumm [facility] ([place]) Comment:Testing performed by : [facility] [address], Medical Office [facility] B [facility] [address], [place] [address] MPV 12.4(H) 9.1 - 12.3 fL [facility] ([place]) Comment:Testing performed by : [facility] [address], Medical Office [facility] B [facility] [address], [place] [address] RBC 4.17 3.90 - 5.20 M/cumm [facility] ([place]) Comment:Testing performed by : [facility] [address], Medical Office [facility] B [facility] [address], [place] [address] MCV 100.7(H) 81.3 - 96.4 fL [facility] ([place]) Comment:Testing performed by : [facility] [address], Medical Office [facility] B [facility] [address], [place] [address] MCH 32.6 27.1 - 33.3 pg [facility] ([place]) Comment:Testing performed by : [facility] [address], Medical Office [facility] B [facility] [address], [place] [address] MCHC 32.4 32.3 - 35.7 g/dL [facility] ([place]) Comment:Testing performed by : [facility] [address], Medical Office [facility] B [facility] [address], [place] [address] RDW CV 13.3 11.1 - 14.9 % [facility] ([place]) Comment:Testing performed by : [facility] [address], Medical Office [facility] B [facility] [address], [place] [address] RDW SD 50.2(H) 35.7 - 48.1 fL [facility] ([place]) Comment:Testing performed by : [facility] [address], Medical Office [facility] B [facility] [address], [place] [address] Blood 10/06/2024 9:00 AM CDT 10/06/2024 9:05 AM CDT Jay Campos MD LAB BLOOD ORDERABLES Final Re sult YAEL T[facility] ([place]) 1 [facility] [place] [address] * Magnesium (10/06/2024 9:00 AM CDT) Magnesium 1.7 1.4 - 2.5 mg/dL Y[facility] ([place]) Blood 10/06/2024 9:00 AM CDT 10/06/2024 11:15 AM CDT Jay Campos MD LAB BLOOD ORDERABLES Final Re sult Performing Organization Address [facility] Co de Phone Number YAEL TILLMAN ([place]) [address] [place] [address] * ND REMOVAL IMPACTED CERUMEN INSTRUMENTATION UNILAT (09/19/2024 12:30 PM CDT) Narrative Berta Gill NP - 09/19/2024 12:30 PM CDT Berta Gill NP 09/19/2024 1:57 PM Ear Cerumen Removal Performed by: Berta Gill NP Authorized by: Berta Gill NP Consent Given by: Patient Verbal consent obtained: Yes Written consent obtained: No Risks, alternatives, and patient questions discussed: Yes Preparation: Patient was prepped using a clean technique Location: R ear R ear cerumen impacted?: Yes R ear method of removal: Instrumentation and magnification R ear instrumentation: Curette R ear magnification: Otoscope Inspection: Cerumen remains Patient tolerance: Patient tolerated the procedure with difficulty Procedure terminated: Procedure terminated at provider discretion Patient tolerated procedure but was experiencing severe pain. Removed all wax that was safe to remove with use of curette. Small amount of wax remains close to TM. us Berta Gill NP IN CLINIC/BEDSIDE ORDERABLES Fin al Result * (ABNORMAL) aPTT (09/03/2024 11:35 AM CDT) aPTT 40(H) 28 - 38 sec YAEL TILLMAN ([place]) Comment: Interpretive Data Heparin therapeutic range: 66.0 - 100.0 seconds. Range based on correlation with therapeutic heparin activity range of 0.3 - 0.7 Units/mL. Current interpretive data was last revised on 2022. Testing performed by: [place], [address] Blood 09/03/2024 11:3 5 AM CDT 09/03/2024 11:45 AM CDT Jay Campos MD LAB BLOOD ORDERABLES Final Re sult Performing Organization Address City/[facility]/ZIP Co de Phone Number CARLITAWES TILLMAN ([place]) [address] [place] [address] [place] [address] * Protime-INR (09/03/2024 11:35 AM CDT) PT 10.9 9.7 - 13.0 sec YAEL TILLMAN ([place]) Comment:Testing performed by : [place], [address] INR 1.01 0.90 - 1.20 YAEL TILLMAN ([place]) Comment: Interpretive data Oral anticoagulant therapeutic ranges: Venous thromboembolism prophylaxis or treatment: 2.0-3.0 CARDIOLOGY Standard range: 2.0-3.0 High-intensity range: 2.5-3.5 Refer to indication-specific guidelines for appropriate target ranges for prosthetic heart valve replacement. Current interpretive data was last revised on 2019. Testing performed by: [place], [address] Blood 09/03/2024 11:3 5 AM CDT 09/03/2024 11:59 AM CDT Jya Campos MD LAB BLOOD ORDERABLES Final Re sult YAEL PRIMO ([place]) [address] [facility] [place] [address] * (ABNORMAL) Fibrinogen (09/03/2024 11:35 AM CDT) Fibrinogen 457(H) 170 - 400 mg/dL YAEL TILLMAN ([place]) Comment:Testing performed by : [facility], [place], [address] Blood 09/03/2024 11:3 5 AM CDT 09/03/2024 11:59 AM CDT Jay Campos MD LAB BLOOD ORDERABLES Final Re sult YAEL TILLMAN ([place]) [address] [place] [address] Department [place] [address] * (ABNORMAL) Fibrinogen (09/03/2024 11:35 AM CDT) Fibrinogen 457(H) 170 - 400 mg/dL YAEL TILLMAN ([place]) Comment:Testing performed by : [place], [address] Blood 09/03/2024 11:3 5 AM CDT 09/03/2024 11:45 AM CDT Jay Campos MD LAB BLOOD ORDERABLES Final Re sult Performing Organization Address [facility]/ZIP Co de Phone Number YAEL TILLMAN ([place]) [address] [place] [address] [place] [address] * Folate (09/03/2024 11:35 AM CDT) Folic acid >20.0 >=5.0 ng/mL Comment: Slightly Hemolyzed Specimen. Results may be affected. Testing performed by: [place], [address] Blood 09/03/2024 11:3 5 AM CDT 09/03/2024 11:59 AM CDT Jay Campos MD LAB BLOOD ORDERABLES Final Re sult YAEL TILLMAN ([place]) [address] [facility] Department [place] [address] * Vitamin B12 (09/03/2024 11:35 AM CDT) Vitamin B12 1,192 230 - 1,250 pg/mL Comment:Testing performed by : [place], [address] Blood 09/03/2024 11:3 5 AM CDT 09/03/2024 11:59 AM CDT Jay Campos MD LAB BLOOD ORDERABLES Final Re sult [facility] ([place]) [address] [facility] Department [place] [address] * (ABNORMAL) CBC with auto differential (09/03/2024 10:30 AM CDT) Pathologist [facility] WBC 5.68 3.80 - 9.90 K/cumm Comment:Testing performed by : [place], [address] Hgb 13.5 11.9 - 15.5 g/dL [facility] ([place]) Comment:Testing performed by : [facility], [place], [address] Hct 41.6 35.6 - 45.5 % [facility] ([place]) Comment:Testing performed by : [place], [address] Plt 141(L) 150 - 400 K/cumm [facility] ([place]) Comment:Testing performed by : [place], [address] MPV 11.9 9.1 - 12.3 fL [facility] ([place]) Comment:Testing performed by : [place], [address] RBC 4.13 3.90 - 5.20 M/cumm [facility] ([place]) Comment:Testing performed by : [place], [address] MCV 100.7(H) 81.3 - 96.4 fL [facility] ([place]) Comment:Testing performed by : [place], [address] MCH 32.7 27.1 - 33.3 pg [facility] ([place]) Comment:Testing performed by : [facility], [place], [address] MCHC 32.5 32.3 - 35.7 g/dL [facility] ([place]) Comment:Testing performed by : [facility], [place], [address] RDW CV 12.8 11.1 - 14.9 % [facility] ([place]) Comment:Testing performed by : [facility], [place], [address] RDW SD 47.5 35.7 - 48.1 fL [facility] ([place]) Comment:Testing performed by : [facility], [place], [address] NRBC abs 0.00 0.00 - 0.01 K/cumm [facility] ([place]) Comment:Testing performed by : [facility], [place], [address] Blood 09/03/2024 10:3 0 AM CDT 09/03/2024 10:39 AM CDT us Jay Campos MD LAB BLOOD ORDERABLES Final Re sult YAEL TILLMAN ([place]) 1 [facility] Department [place] [address] * Manual Differential (09/03/2024 10:30 AM CDT) Differential Manual Comment:Testing performed by : [facility], [place], [address] Cells Counted 100 [facility] ([place]) Comment:Testing performed by : [facility], [place], [address] Neutrophil abs 3.92 1.50 - 6.50 K/cumm [facility] ([place]) Comment:Testing performed by : [facility], [place], [address] Lymphocyte abs 1.53 0.80 - 3.30 K/cumm [facility] ([place]) Comment:Testing performed by : [facility], [place], [address] Monocyte abs 0.23 0.20 - 0.80 K/cumm [facility] ([place]) Comment:Testing performed by : [facility], [place], [address] Neutrophil pct 68.0 % [facility] ([place]) Comment: Interpretive Data Percent cell count reference ranges are not reported, since discordance with absolute values may lead to misinterpretation of CBC data. Current Interpretive Data was last revised on 2017. Testing performed by: [place], [address] Lymphocyte pct 27.0 % [facility] ([place]) Comment: Interpretive Data Percent cell count reference ranges are not reported, since discordance with absolute values may lead to misinterpretation of CBC data. Current Interpretive Data was last revised on 2017. Testing performed by: [place], [address] Monocyte pct 4.0 % [facility] ([place]) Comment: Interpretive Data Percent cell count reference ranges are not reported, since discordance with absolute values may lead to misinterpretation of CBC data. Current Interpretive Data was last revised on 2017. Testing performed by: [facility], [place], [address] Band Neutrophil pct 1.0 0.0 - 5.0 % [facility] ([place]) Comment:Testing performed by : [place], [address] RBC morphology Consistent with RBC Indicies [facility] ([place]) Comment:Testing performed by : [place], [address] Platelet estimate Automated Count Confirmed [facility] ([place]) Comment:Testing performed by : [place], [address] Blood 09/03/2024 10:3 0 AM CDT 09/03/2024 10:39 AM CDT us Jay Campos MD LAB BLOOD ORDERABLES Final Re sult [facility] ([place]) 1 [facility] Department [place] [address] * US RUQ (08/19/2024 8:51 AM CDT) Anatomical Region Laterality Modality Abdomen N/A Ultrasound 08/30/2024 9:06 AM CDT Narrative 08/30/2024 9:08 AM CDT EXAM DESCRIPTION: US RUQ REASON FOR STUDY: F10. D69.6 TECHNIQUE: Ultrasound of the right upper quadrant of the abdomen was performed with grayscale and color doppler interrogation. COMPARISON: None available FINDINGS: LIVER: 15.1 cm length. Increased echogenicity. The main portal vein is patent with hepatopetal flow. GALLBLADDER: Absent. BILIARY: The common duct measures 3.6 mm diameter. PANCREAS: There is a hypoechoic 1.0 x 0.9 x 1.0 cm lesion in the pancreatic head. RIGHT KIDNEY: No hydronephrosis. OTHER: No other significant findings. IMPRESSION: 1. Hypoechoic pancreatic head lesion. Further evaluation with contrast enhanced CT or MRI is recommended. 2. Increased hepatic echogenicity which can be seen with hepatic steatosis. THIS IS AN ELECTRONICALLY VERIFIED FINAL REPORT 08/30/2024 9:08 AM - Electronically signed by David He M.D. JR: Report ID: [id number] Reading Location: [id number] Procedure Note David He MD - 08/30/2024 EXAM DESCRIPTION: US RUQ REASON FOR STUDY: F1010 D69.6 TECHNIQUE: Ultrasound of the right upper quadrant of the abdomen wasperformed with grayscale and color doppler interrogation. COMPARISON: None available FINDINGS: LIVER: 15.1 cm length. Increased echogenicity. The main portal veinis patent with hepatopetal flow. GALLBLADDER: Absent. BILIARY: The common duct measures 3.6 mm diameter. PANCREAS: There is a hypoechoic 1.0 x 0.9 x 1.0 cm lesion in thepancreatic head. RIGHT KIDNEY: No hydronephrosis. OTHER: No other significant findings. IMPRESSION: 1. Hypoechoic pancreatic head lesion. Further evaluation with contrast enhanced CT or MRI is recommended. 2. Increased hepatic echogenicity which can be seen with hepaticsteatosis. THIS IS AN ELECTRONICALLY VERIFIED FINAL REPORT 08/30/2024 9:08 AM - Electronically signed by David He M.D. JR: Report ID: [id number] Reading Location: [place] [address] us Chana Agosto TECHNOLOGY APPLICATIONS ENGINEER IMG US PROCEDURES Final Resu lt * US Carotids Duplex Bilateral (08/19/2024 8:44 AM CDT) Anatomical Region Laterality Modality Vascular Bilateral Ultrasound 08/30/2024 9:04 AM CDT Narrative 08/30/2024 9:06 AM CDT EXAM DESCRIPTION: US CAROTIDS DUPLEX BILATERAL REASON FOR STUDY: R42 TECHNIQUE: Sykes scale, color Doppler and spectral Doppler imaging were performed. Velocity criteria are extrapolated from diameter as defined by the Society of Radiologists in Ultrasound Consensus Conference. All velocity measurements are in cm/sec. COMPARISON: None available FINDINGS: Right: Mild plaque in the internal carotid artery. Distal CCA Peak Systolic Velocity: 85.9 Peak ICA Systolic Velocity: 118.5 Peak ICA/CCA Systolic Ratio: 1.4 Vertebral Artery: Antegrade flow. Left: Calcifications in the common carotid artery and carotid bulb and in the internal carotid artery. Distal CCA Peak Systolic Velocity: 103.4 Peak ICA Systolic Velocity: 91.8 Peak ICA/CCA Systolic Ratio: 0.9 Vertebral Artery: Antegrade flow. IMPRESSION: 1. Velocities correspond to a less than 50% diameter stenosis of the right internal carotid artery. 2. Velocities correspond to a less than 50% diameter stenosis of the left internal carotid artery. 3. Antegrade direction of flow of the bilateral vertebral arteries. REFERENCE: Consensus Panel Sykes-Scale and Doppler US Criteria for Diagnosis of ICA Stenosis. No stenosis: ICA PSV <125*, 0% plaque, ICA/CCA PSV Ratio <2.0, ICA EDV <40*. <50% stenosis: ICA PSV <125*, <50% plaque, ICA/CCA PSV Ratio <2.0, ICA EDV <40*. 50-69% stenosis: ICA PSV 125-230*, >=50% plaque, ICA/CCA PSV Ratio 2.0-4.0, ICA EDV 40-100*. >=70% but less than near occlusion >230, >=50% plaque, ICA/CAA PSV Ratio >4.0, ICA EDV >100*. *cm/sec Plaque estimate (diameter reduction) with sykes-scale and color Doppler US. RSNA 2002 THIS IS AN ELECTRONICALLY VERIFIED FINAL REPORT 08/30/2024 9:06 AM - Electronically signed by David He M.D. JR: Report ID: [id number] Reading Location: [place] [address] Procedure Note David He MD - 08/30/2024 EXAM DESCRIPTION: US CAROTIDS DUPLEX BILATERAL REASON FOR STUDY: R42 TECHNIQUE: Sykes scale, color Doppler and spectral Doppler imaging were performed. Velocity criteria are extrapolated from diameter as defined bythe Society of Radiologists in Ultrasound Consensus Conference. All velocity measurements are in cm/sec. COMPARISON: None available FINDINGS: Right: Mild plaque in the internal carotid artery. Distal CCA Peak Systolic Velocity: 85.9 Peak ICA Systolic Velocity: 118.5 Peak ICA/CCA Systolic Ratio: 1.4 Vertebral Artery: Antegrade flow. Left: Calcifications in the common carotid artery and carotid bulb and inthe internal carotid artery. Distal CCA Peak Systolic Velocity: 103.4 Peak ICA Systolic Velocity: 91.8 Peak ICA/CCA Systolic Ratio: 0.9 Vertebral Artery: Antegrade flow. IMPRESSION: 1. Velocities correspond to a less than 50% diameter stenosis of theright internal carotid artery. 2. Velocities correspond to a less than 50% diameter stenosis of theleft internal carotid artery. 3. Antegrade direction of flow of the bilateral vertebral arteries. REFERENCE: Consensus Panel Sykes-Scale and Doppler US Criteria forDiagnosis of ICA Stenosis. No stenosis: ICA PSV <125*, 0% plaque, ICA/CCA PSV Ratio <2.0, ICA EDV<40*. <50% stenosis: ICA PSV <125*, <50% plaque, ICA/CCA PSV Ratio <2.0, ICA EDV <40*. 50-69% stenosis: ICA PSV 125-230*, >=50% plaque, ICA/CCA PSV Ratio2.0-4.0, ICA EDV 40-100*. >=70% but less than near occlusion >230, >=50% plaque, ICA/CAA PSV Ratio>4.0, ICA EDV >100*. *cm/sec Plaque estimate (diameter reduction) with sykes-scale and color DopplerUS. RSNA 2002 THIS IS AN ELECTRONICALLY VERIFIED FINAL REPORT 08/30/2024 9:06 AM - Electronically signed by David He M.D. JR: Report ID: [id number] Reading Location: [place] [address] us Chana Agosto TECHNOLOGY APPLICATIONS ENGINEER IMG US PROCEDURES Final Resu lt * CT Lung Cancer Screening (03/02/2024 4:42 PM STONE PRODUCT FABRICATOR) Anatomical Region Laterality Modality Chest N/A Computed Tomogra phy 03/09/2024 1:20 PM STONE PRODUCT FABRICATOR Narrative 03/09/2024 1:25 PM STONE PRODUCT FABRICATOR EXAM DESCRIPTION: CT LUNG CANCER SCREENING REASON [...] Janet Franco D.O. PS: PS Report ID: [id number] Reading Location: [id number] Procedure Note Janet Francop, DO - 03/09/2024 EXAM DESCRIPTION: CT LUNG [...] Janet Franco D.O. PS: PS Report ID: [id number] Reading Location: [place] [address] Ben Stratton MD IM CT PROCEDURES Final Result from Last 3 Months or Most Recently Relevant to Health Maintenance Insurance [facility] Advance Directives For more information, please contact: [phone] * Full Code (Latest Code Status on File) Date Activated Date Inactivated Comments 01/21/2022 4:32 PM 01/21/2022 8:36 PM Care Teams Chemist Instrumentation Relationship Specialty Start Date End Date Surinder Walters DO PCP - General Internal Medicine 10/30/23 Robby Dee MD Family Medicine 06/27/22
--- OUTSIDE RECORDS SUMMARY | 2024-11-03 10:40 | XMS_ITS | Encounter Summary ---
Author Organization [facility] Address [address] [place] [address] Phone Care Team Providers Care Drilling Engineering Manager Name Role Phone Robby Dee MD Unavailable [phone] Surinder Walters DO Primary Care Provider [phone] Encounter Details Date Type Department Care Team (Latest Contact Info) Description 09/03/2024 Results Follow-Up [facility] Medicine Physicians [facility] Oncology [address] [place] [address] Medical Office [facility] [address] [address] Chana Smith, TERESE CBC with auto differential Social History Tobacco Use Types Packs/Day Years Used Date Smoking Tobacco: Every Day Cigarettes 0.8 53.6 Started: 1971 Smokeless Tobacco: Current Alcohol Use [...] on file Legal 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
--- OUTSIDE RECORDS SUMMARY | 2024-11-03 10:40 | XMS_ITS | Clinical Summary ---
Author Organization [facility] Address [address] [address] Care Team Providers Care Optician Apprentice Name Role Phone Robby Dee MD Primary Care Provider [phone] Source Comments [facility],non-owned Affiliates and Associated Physician Practices is amultiple site organization consisting of ambulatory clinics and hospital sitesin [place], [place], [place] and [place]. This disclosure is being madepursuant to the Care Everywhere program and may not contain all information available regarding this patient. 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 Gender Identity Not on file Sexual Orientation [...] 12:01 PM CDT Height 160 cm (5' 3) 08/31/2014 12:01 PM CDT Body Mass Index [...] SCREENING 1960 LIPID TESTING 1960 MAMMOGRAM 1960 HIV SCREENING 11/01/1975 HEPATITIS C SCREENING 10/27/1978 DTAP/TDAP/TD VACCINES (1 - Tdap) 11/01/1979 PAP SMEAR 1981 PNEUMOCOCCAL VACCINE 50+ (1 of 1 - PCV) 2010 ZOSTER VACCINE (1 of 2) 2010 COVID-19 VACCINE (1 - 2023-2 5 season) 2023 DEPRESSION SCREENING 03/17/2024 INFLUENZA VACCINE (#1) 2024 Respiratory Syncytial Virus (RSV) Vaccine Pt: [...] patient's age to complete this topic Insurance [facility] SELF PAY NO INSURANCE Member Subscriber Plan / Payer (Ef fective for All Dates) Name:Julia Lema Member ID:Not on file Relation to Subscriber:Not on file Name:JULIA LEMA Subscriber ID:Not on file (Home) Address: [address] [place] [id number] Payer ID:Not on file Group ID:Not on file Type:Self Pay Address: [place], [place] Care Teams Optician Apprentice Relationship Specialty Start Date End Date Robby Dee MD [address] [id number] [facility] - General 05/10/14
--- OUTSIDE RECORDS SUMMARY | 2024-11-03 10:40 | XMS_ITS | Encounter Summary ---
Author Organization [facility] Address [address] [place] [address] Care Team Providers Care Pack Operator Name Role Phone Uziel López MD Primary Care Provider Evan mccain None, Provider Primary Care Provider Diana Zhang NP Primary Care Provider [phone] Encounter Details Date Type Department Care Team (Latest Contact Info) Description 01/20/2018 Abstract [facility] Medical [facility] Dano Viveros MD Social History [...] Rule Out 03/02/2021 03/02/2021 03/02/2021 1:20 PM RESIDENTIAL SALES REPRESENTATIVE COVID-19 Rule Out 04/06/2021 04/06/2021 04/07/2021 3:47 PM RESIDENTIAL SALES REPRESENTATIVE COVID-19 Rule Out 10/02/2021 10/02/2021 10/02/2021 1:14 PM CDT documented as of this encounter Care Teams Pack Operator Relationship Specialty Start Date End Date Uziel López MD PCP - General 09/27/15 02/20/21 None, ProviderMD PCP - General 02/21/21 10/01/21 Diana Simmons NP [address] [place] [address] PCP - General NURSE PRACTITIONER 10/02/21 documented as of this encounter
== END 2024-11-03 10:18 | disposition home or self-care (01) ==
LOC: ANHFOHIMG 10:19
PROVIDERS: PCP Clinical Nurse Specialist; Visit Provider Nurse Practitioner
DX: M81.0 Age-related osteoporosis without current pathological fracture (principal); M85.89 Other specified disorders of bone density and structure, multiple sites; Z78.0 Asymptomatic menopausal state
CPT/HCPCS: 77080

== ENCOUNTER 2024-11-08 11:12 | Outpatient (CLI) | payer OTHER, SELFPAY ==
--- OUTSIDE RECORDS SUMMARY | 2018-12-01 05:52 | XMS_ITS | Continuity of Care Document ---
Author Organization [facility] Address [address] [place] [address] [place] [address] Phone Care Team Providers Care Fitting Room Inspector Name Role Phone Robby Dee MD Unavailable Unavailable Allergies, Adverse Reactions, Alerts Substance Reaction Status Criticality No Known Allergies Active No Inform ation Medications Medication Instructions Dosage Effective Dates (start - stop) Status Comments Zantac 150 mg tablet take 1 tablet by oral route 2 times every day - Active Gilson 7.5 mg-325 mg tablet take 1 tablet by oral route every 4 - 6 hours as needed for pain as needed - Active PRN for pain, avoid driving or operate machines Seroquel 50 mg tablet take 1 tablet by oral route every bedtime 50 MG - Active Wellbutrin XL 150 mg 24 hr tablet, extended release take 1 tablet by oral route every morning 150 MG - Active Neurontin 300 mg capsule [...] Diagnoses Date Provider Providers Copied on Encounter [facility], [address], [place], [address], [place] tel:[phone] [facility] No Information 9 Luiz Bustamante. [address], [place], [place], [address] , [place]. tel:[phone] OFFICE/OUTPA TIENT VISIT, [facility], [place], [facility], [address], [place], [place], [address], [place] [phone] [facility] osteopenia1 (chief complaint)b ack pain1 (chief complaint)f atigue1 (chief complaint) FatigueOther specified disorder of bone densityChronic pain syndromeGERD w/o esophagitisOther cholelithiasis without obstruction 9 Luiz Bustamante. [address], [place], [place], [address] , [place]. tel:[phone] Referring Provider: Jeanette Roberts [address], [place], [place], [address]. tel:[phone] OFFICE/OUTPA TIENT VISIT, [facility], [place], [facility], [address], [place], [place], [address], [place] tel:[phone] [facility] back pain1 (chief complaint)g allstone1 (chief complaint)C AD (chief complaint)a nemia1 (chief complaint)G ERd1 (chief complaint) Lumbago with sciatica, right sideAnemiaCAD of menominee coronary artery without angina pectorisOther cholelithiasis without obstructionGERD w/o esophagitis 9 Luiz Granda [address], [place], [place], [address] , [place]. tel:[phone] Referring Provider: Jeanette Roberts [address], [place], [place], [address]. tel:[phone] OFFICE/OUTPA TIENT VISIT, [facility] [place], [address], [place], [place], [address], [place] tel:[phone] [facility] anxiety1 (chief complaint) InsomniaGeneralize d Anxiety Disorder 9 Luiz Granda [address], [place], [place], [address] , [place]. tel:[phone] Referring Provider: Rboby Dee, [address], [place], [place], [address]. tel:[phone] PREV VISIT, EST, AGE 40-64 [facility], [address], [place], [place], [address], [place] [phone] [facility] Physical (chief complaint) Encntr for general adult medical exam w/o abnormal findings 9 Luiz Bustamante. [address], [place], [place], [address] , [place]. tel:[phone] Referring Provider: Jeanette Roberts [address], [place], [place], [address]. tel:[phone] OFFICE/OUTPA TIENT VISIT, [facility] [place], [address], [place], [place], [address], [place] tel:[phone] [facility] back pain1 (chief complaint)H TN (chief complaint) Lumbago with sciatica, left sideEssential (primary) hypertension 8 Luiz Bustamante. [address], [place], [place], [address] , [place]. tel:[phone] Referring Provider: Jeanette Roberts [address], [place], [place], [address]. tel:[phone] OFFICE/OUTPA TIENT VISIT, [facility] [place], [address], [place], [place], [address], [place] tel:[phone] [facility] foot pain1 (chief complaint)r enal1 (chief complaint)i nsomnia1 (chief complaint) Insomnia, unspecifiedRenal diseaseLumbago with sciatica, left sidePain in left foot 8 Luiz Bustamante. [address], [place], [place], [address] , [place]. tel:[phone] Referring Provider: Robby Dee [address], [place], [place], [address]. tel:[phone] OFFICE/OUTPA TIENT VISIT, [facility] [place], [address], [place], [place], [address], [place] tel:[phone] [facility] syncope1 (chief complaint)r ib fracture1 (chief complaint)t obacco1 (chief complaint)e lbow 1 (chief complaint) Syncope and collapseTachycardi aOlecranon bursitis, left elbowRenal disease 8 Luiz Bustamante. [address], [place], [place], [address] , [place]. tel:[phone] Referring Provider: Robby Dee [address], [place], [place], [address]. tel:[phone] PREV VISIT, EST, AGE 40-64 [facility], [address], [place], [place], [address], [place] tel:[phone] [facility] PHysical (chief complaint) Encntr for general adult medical exam w/o abnormal findings 8 Luiz Bustamante. [address], [place], [place], [address] , [place]. tel:[phone] Referring Provider: Jeanette Roberts [address], [place], [place], [address]. tel:[phone] OFFICE/OUTPA TIENT VISIT, [facility] [place], [address], [place], [place], [address], [place] tel:[phone] [facility] insomnia1 (chief complaint)G ERd1 (chief complaint)C OPD1 (chief complaint)a nxiety1 (chief complaint)b ack pain1 (chief complaint)i ncontinnece 1 (chief complaint) GERD w/o esophagitisInsomni aEmphysemaMixed incontinence 7 Luiz Bustamante. [address], [place], [place], [address] , [place]. tel:[phone] Referring Provider: Jeanette Roberts [address], [place], [place], [address]. tel:[phone] OFFICE/OUTPA TIENT VISIT, [facility] [place], [address], [place], [place], [address], [place] tel:[phone] [facility] wrist fracture1 (chief complaint)b ack pain1 (chief complaint)G ERD1 (chief complaint)i nsomnia1 (chief complaint) Insomnia, unspecifiedGERD w/o esophagitisMeralgi a paresthetica, bilateral lower limbsRestless legs syndrome Nov-2 7 Luiz Bustamante. [address], [place], [place], [address] , [place]. tel:[phone] Referring Provider: Robby Dee [address], [place], [place], [address]. tel:[phone] OFFICE/OUTPA TIENT VISIT, [facility] [place], [address], [place], [place], [address], [place] [phone] [facility] back pain1 (chief complaint) Other spondylosis, lumbar regionLumbago Oct- 7 Luiz Bustamante. [address], [place], [place], [address] , [place]. [phone] Referring Provider: Jeanette Roberts [address], [place], [place], [address]. tel:[phone] OFFICE/OUTPA TIENT VISIT, [facility] [place], [address], [place], [place], [address], [place] tel:[phone] [facility] osteopenia1 (chief complaint)b ack pain1 (chief complaint)p ancreatic lesion1 (chief complaint)C OPD1 (chief complaint) Pancreatic endocrine cell hyperplasiaMeralgi a paresthetica, bilateral lower limbsDisorder of bone density and structure, unspecifiedCOPD Oct-0 7 Luiz Granda [address], [place], [place], [address] , [place]. tel:[phone] Referring Provider: Jeanette Roberts [address], [place], [place], [address]. tel:[phone] OFFICE/OUTPA TIENT VISIT, [facility] [place], [address], [place], [place], [address], [place] tel:[phone] [facility] GERD1 (chief complaint)t obacco1 (chief complaint)o steopenia1 (chief complaint)i nsomnia1 (chief complaint) InsomniaOth disrd of bone density and structure, multiple sitesGastritis, unspecified, without bleedingTobacco use 7 Luiz Bustamante. [address], [place], [place], [address] , [place]. tel:[phone] Referring Provider: Jeanette Roberts [address], [place], [place], [address]. tel:[phone] OFFICE/OUTPA TIENT VISIT, [facility] [place], [address], [place], [place], [address], [place] tel:[phone] [facility] Medicine bug left ear (chief complaint)t obacco1 (chief complaint)b ack pain1 (chief complaint)G ERD1 (chief complaint) GERD w/o esophagitisTobacco useLumbagoImpacted cerumen, left ear 7 Luiz Bustamante. [address], [place], [place], [address] , [place]. tel:[phone] Referring Provider: Jeanette Roberts [address], [place], [place], [address]. 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 [address], [place], [place], [address] , [place]. tel:[phone] Referring Provider: Jeanette Roberts [address], [place], [place], [address]. tel:[phone] OFFICE/OUTPA TIENT VISIT, [facility] [place], [address], [place], [place], [address], [place] tel:[phone] [facility] vertigo (chief complaint)v ertigo1 (chief complaint)b ack pain1 (chief complaint)C OPD1 (chief complaint)d izziness1 (chief complaint) DizzinessCOPDLumba go 7 Luiz Bustamante. [address], [place], [place], [address] , [place]. [phone] Referring Provider: Robby Dee, [address] [place] [address] A, [place], [place], [address]. tel:[phone] PREV VISIT, [facility], AGE 40-64 [facility], [address], [place], [place], [address], [place] tel:[phone] [facility] Physical (chief complaint) Encounter for general adult medical exam w abnormal findingsLumbago with sciatica, left sideDizzinessInsom aimee 7 Luiz [facility]ustamante. [address] [facility] [place], [place], [address] , [place]. tel:[phone] Referring Provider: Jeanette Roberts [facility] A, [place], [place], [address]. tel:[phone] OFFICE/OUTPA TIENT VISIT, [facility] [place], [address], [place], [place], [address], [place] tel:[phone] [facility] anxiety1 (chief complaint)G ERD1 (chief complaint)H LP (chief complaint)i nsomnia1 (chief complaint)L FT (chief complaint)k nee pain1 (chief complaint) Chronic pain syndromeGeneralize d anxiety disorderInsomniaLi charles disease 6 Luiz Bustamante. [address], [place], [place], [address] , [place]. tel:[phone] Referring Provider: Jeanette Roberts [facility] A, [place], [place], [address]. tel:[phone] OFFICE/OUTPA TIENT VISIT, [facility] [place], [address], [place], [place], [address], [place] tel:[phone] [facility] anxiety1 (chief complaint)k nee pain1 (chief complaint)s leep disorder1 (chief complaint)C AD (chief complaint) Atherosclerotic heart disease of menominee coronary artery without angina pectorisChronic pain syndromeGeneralize d anxiety disorderSleep disorder 6 Luiz Bustamante. [address], [place], [place], [address] , [place]. [phone] Referring Provider: Robby Dee [address] [place] [address] [place], [place], [address]. tel:[phone] OFFICE/OUTPA TIENT VISIT, [facility] [place], [address], [place], [place], [address], [place] tel:[phone] [facility] anxiety1 (chief complaint)j oint pain1 (chief complaint)G ERD1 (chief complaint)o steopenia1 (chief complaint) Gastro-esophageal reflux disease without esophagitisGeneral ized anxiety disorderChronic pain syndromeOth disrd of bone density and structure, multiple sites 6 Luiz Bustamante. [address] [facility] A, [place], [place], [address] , [place]. [phone] Referring Provider: Robby Dee [address] [facility] A, [place], [place], [address]. tel:[phone] OFFICE/OUTPA TIENT VISIT, [facility] [place], [address], [place], [place], [address], [place] tel:[phone] [facility] insomnia1 (chief complaint)G ERD1 (chief complaint)C AD (chief complaint)c hronic pian1 (chief complaint)a nxiety1 (chief complaint) InsomniaChronic pain syndromeGERD w/o esophagitisGeneral ized anxiety disorder 6 Luiz Bustamante. [address], [place], [place], [address] , [place]. tel:[phone] Referring Provider: Jeanette Roberts [address], [place], [place], [address]. tel:[phone] OFFICE/OUTPA TIENT VISIT, EST [facility], [address], [place], [place], [address], tel:[phone] [facility] leg pain (chief complaint)l eg pain1 (chief complaint)r estless leg1 (chief complaint)H LP1 (chief complaint)s leep study1 (chief complaint) Mixed hyperlipidemiaPain in right lower legRestless Legs SyndromeSleep apnea 5 Luiz Bustamante. [address] [facility] A, [place], [place], [address] , [place]. [phone] Referring Provider: Jeanette Roberts [facility] [address], [place], [place], [address]. tel:[phone] PREV VISIT, EST, AGE 40-64 [facility], [address], [place], [place], [address], [place] tel:[phone] [facility] Physical1 (chief complaint) Encntr for general adult medical exam w/o abnormal findings 5 Luiz Bustamante. [address] [facility] [address], [place], [place], [address] , [place]. [phone] Referring Provider: Jeanette Roberts [facility], [place], [place], [address]. tel:[phone] OFFICE/OUTPA TIENT VISIT, EST [facility], [address], [place], [place], [address], [place] tel:[phone] [facility] osteopenia (chief complaint)G ERD (chief complaint)i nsomnia (chief complaint)f ibular fx (chief complaint) Dietary surveillance and counselingEsophage al refluxInsomnia, unspecifiedClosed tibial and fibular fractureOsteopenia 5 Luiz Granda [address], [place], [place], [address] , [place]. [phone] Referring Provider: Robby Dee, [address], [place], [place], [address]. tel:[phone] OFFICE/OUTPA TIENT VISIT, [facility] [place], [address], [place], [place], [address], [place] tel:[phone] [facility] GERD (chief complaint)i nsomia (chief complaint)a bd pain (chief complaint) Dietary surveillance and counselingInsomnia , unspecifiedAbdomin al painHypokalemia 5 Luiz Bustamante. [address], [place], [place], [address] , [place]. [phone] Referring Provider: Jeanette Roberts [address] [facility] A, [place], [place], [address]. tel:[phone] OFFICE/OUTPA TIENT VISIT, [facility] [place], [address], [place], [place], [address], [place] tel:[phone] [facility] hematuria (chief complaint)n brenna pain (chief complaint)o besity (chief complaint) HEMATURIA NOSDietary surveillance and counselingCervical giaBody Mass Index 31.0-31.9, adultPain in joint involving pelvic region and thigh 5 Luiz Bustamante. [address], [place], [place], [address] , [place]. [phone] Referring Provider: Jeanette Roberts [facility] A, [place], [place], [address]. tel:[phone] OFFICE/OUTPA TIENT VISIT, [facility] [place], [address], [place], [place], [address], [place] [phone] [facility] insomnia (chief complaint)L FT (chief complaint)G ERD (chief complaint)h ematuria (chief complaint) HEMATURIA NOSDietary surveillance and counselingInsomnia , OtherHypertriglyce ridemiaGERD 5 Luiz Bustamante. [address], [place], [place], [address] , [place]. [phone] Referring Provider: Jeanette Roberts [address], [address]. tel:[phone] OFFICE/OUTPA TIENT VISIT, EST [facility], [address] [place], [place], [address], tel:[phone] [facility] Medicine insomnia (chief complaint)G ERD (chief complaint)C AD (chief complaint)l iver (chief complaint) Dietary surveillance and counselingInsomnia , OtherGERDUnspecifi ed chronic liver disease without mention of alcoholCAD, [place] 4 Luiz Bustamante. [address], [place], [place], [address] , [place]. tel:[phone] Referring Provider: Robby Dee, [address] [facility] A, [place], [place], [address]. tel:[phone] PREV VISIT, NEW, AGE 40-64 [facility], [address], [place], [address], [place] tel:[phone] [facility] Medicine PHysical (chief complaint) Dietary surveillance and counselingRoutine Medical ExamRoutine Medical Exam 4 Luiz Bustamante. [address], [place], [place], [address] , [place]. tel:[phone] Family History Family Member Type Diagnosis Age [...] Paniagua MD [address]
[place], [address] Ordered: Referrals: Eduardo Paniagua MD. Evaluate and treat ordered Referral Ordered: Eduardo Paniagua -Allopathic & Osteopathic Physicians : Neurological Surgery (related to Lumbago with sciatica, left side) ordered Referral Referred To: Eduardo Paniagua [address] [place], [phone] Ordered: Referrals: Allopathic & Osteopathic Physicians : Neurological Surgery. Eduardo Paniagua. Evaluate and treat ordered Referral Ordered: Vinnie Kessler -Allopathic & Osteopathic Physicians : Orthopaedic Surgery (related to Olecranon bursitis, left elbow) ordered Referral Referred To: Vinnie Kessler [facility] [address] [facility] [address] [place], [place] [id number] Ordered: Referrals: Allopathic & Osteopathic Physicians : Orthopaedic Surgery. Vinnie Kessler. Evaluate and treat ordered Referral Ordered: [facility] KIDNEY ordered Referral Ordered: Vinnie Kessler (related to GERD w/o esophagitis) ordered Referral Referred To: Vinnie Kessler [facility] [address] [facility] [address] [place], [phone] Ordered: Referrals: Vinnie Kessler. Evaluate and treat [...] any fever CAD Pt recently went to [place] due to her daughter. Pt had another episode of chest pain while in [place] and was diagnosed with NSTEMI pt just seen her cardiology last week and she is doing ok currently pt denies any chest pain. Pt denies any sob anemia1 Pt told me she w as found to be anemic while in [place] Pt denies any bleeding GERd1 Pt has daily REBEL d Pt failed zantac pt takes omeprazole daily. Pt has daily GERD without omeprazole. Insurance not paying for omeprazole again anxiety1 Pt has chronic a nxiety and depression. Pt takes wellbutrin, lexapro and seroquel. Pt sees psychiatrist. Pt has been under severe stress lately. She just found out that her daughter who lives in [place] committed suicide several days ago. Pt feels extremely sad and she can not stop crying. ,Pt has been having panic attacks. Pt wants some nerve pills for short term to help her with above. Pt is off klonopin. Pt has difficulty sleeping and she feels extremely anxious. Pt wants to try some valium, which helped her in the past Pt is traveling to [place] tomorrow and she could not get in [...] prescribing OT but she changed insurance to [email or web address] and she needs a new ortho and [...] that norco and robaxin are not helping [facility] for her pain osteopenia1 Pt has been [...] Body mass index (BMI) 32.0-32.9, adult Increase activity. Related to En cntr for [...]
--- OUTSIDE RECORDS SUMMARY | 2024-11-08 11:54 | XMS_ITS | Clinical Summary ---
Author Organization [facility] Address [address] [place] [address] Care Team Providers Care Jacquard Fixer Name Role Phone Diana Simmons NP Primary Care Provider [phone] Allergies No known active allergies Medications ezetimibe [...] 88.5 kg (195 lb) 03/29/2022 3:22 PM CLOTH SPREADER Height 158.8 cm (5' 2.5) 03/29/2022 3:22 PM CLOTH SPREADER Body Mass Index 35.1 03/29/2022 3:22 PM CLOTH SPREADER Plan of Treatment Health Maintenance Due Date [...] Escoto, TERESE Medical Devices Implanted Type Area Precast Molder Device Identifier Shelf Expiration Date Model / Serial / Lot Graft Bone Bonus Triad Cancellous Cortical 5cc Allograft - [id number] Implanted:Qty: 1 on 04/07/2021 by Yuko Nguyễn MD at [facility] Bone [employer] 07/19/2025 [id number] / [id number] / NA Plate Myranda Fibular Distal Lateral 8h 132mm Left - [id number] Implanted:Qty: 1 on 04/07/2021 by Yuko Nguyễn MD at [facility] Plate Left: Ankle [employer] [id number] / / NA Screw Locking Myranda 2.7 X 12mm - [id number] Implanted:Qty: 2 on 04/07/2021 by Yuko Nguyễn MD at [facility] Screw Left: Ankle [employer] [id number] / / NA Screw Locking Myranda 2.7 X 14mm - [id number] Implanted:Qty: 2 on 04/07/2021 by Yuko Nguyễn MD at [facility] Screw Left: Ankle [employer] [id number] / / NA Screw Biomet 4.0 Cancellous Fully Threaded 46mm - [id number] Implanted:Qty: 1 on 04/07/2021 by Yuko Nguyễn MD at [facility] Screw Left: Ankle [employer] [id number] / / NA Screw Biomet 3.5 Cortical 50mm - [id number] Implanted:Qty: 1 on 04/07/2021 by Yuko Nguyễn MD at [facility] Screw Left: Ankle [employer] [id number] / / NA Screw Myranda Elb Fib Periloc 3.8 X 10mm - [id number] Implanted:Qty: 1 on 04/07/2021 by Yuko Nguyễn MD at [facility] Screw Left: Ankle [employer] [id number] / / NA Screw Myranda Elb Fib Periloc 3.5 X 12mm - [id number] Implanted:Qty: 2 on 04/07/2021 by Yuko Nguyễn MD at [facility] Screw Left: Ankle [employer] [id number] / / NA Screw Biomet 4.0 Cancellous Fully Threaded 60mm - [id number] Implanted:Qty: 2 on 04/07/2021 by Yuko Nguyễn MD at [facility] Screw Left: Ankle [employer] [id number] / / NA [place] Pins 5 X 150 X 40mm Implanted:Qty: 2 on 02/23/2021 by Ben Baig MD at [facility] Left: Ankle [employer] - DIV AMY JUDITH 5018-5-150 / / Self-Drilling Hybrid Half-Pin, 4/5 X 150mm Implanted:Qty: 1 on 02/23/2021 by Ben Baig MD at [facility] Left: Ankle [employer] DIV AMY JUDITH 5026-1-150 / / Transfixing Pin, Threaded, 5/6 X 300mm Implanted:Qty: 1 on 02/23/2021 by Ben Baig MD at [facility] Left: Ankle [employer] DIV AMY JUDITH 5050-4-300 / / End Caps Implanted:Qty: 1 on 02/23/2021 by Ben Baig MD at [facility] Left: Ankle [employer] DIV AMY JUDITH 5027-1-050 / / Delta Coupling, Ferny-To-Ferny Or Ferny-To-Pin, 07/22/10 Ferny Or 5mm Pin Implanted:Qty: 4 on 02/23/2021 by Ben Baig MD at [facility] Left: Ankle [employer] DIV AMY JUDITH 4922-1-010 / / Delta Coupling, Pin-To-Ferny, 07/22/10 Ferny Or 4/5/6mm Pin Implanted:Qty: 2 on 02/23/2021 by Ben Baig MD at [facility] Left: Ankle [employer] DIV AMY JUDITH 4922-1-020 / / Connecting Rods Implanted:Qty: 1 on 02/23/2021 by Ben Baig MD at [facility] Left: Ankle [employer] DIV AMY JUDITH 4922-8-150 / / 5-Hole Pin Clamp W/ Two 11mm 30deg Angled Posts, [id number] Implanted:Qty: 1 on 02/23/2021 by Ben Baig MD at [facility] Left: Ankle [employer] - DIV AMY JUDITH 4922-2-240 / / 11 X 350mm Connecting Rods Implanted:Qty: 2 on 02/23/2021 by Ben Baig MD at [facility] Left: Ankle [employer] DIV AMY JUDITH 4922-8-350 / / Explanted Type Area Precast Molder Device Identifier Shelf Expiration Date Model / Serial / Lot Drill Bit Myranda 2.7mm - [id number] Explanted:Qty: 1 on 04/07/2021 by Yuko Nguyễn MD at [facility] Drill Left: Ankle [employer] [id number] / / NA Drill Bit Myranda 2.0mm Qc - [id number] Explanted:Qty: 1 on 04/07/2021 by Yuko Nguyễn MD at [facility] Drill Left: Ankle [employer] [id number] / / NA Drill Bit Myranda 2.5mm - [id number] Explanted:Qty: 1 on 04/07/2021 by Yuko Nguyễn MD at [facility] Drill Left: Ankle [employer] [id number] / / NA Drill Cannulated 2.9 X 70mm - [id number] Explanted:Qty: 2 on 04/07/2021 by Yuko Nguyễn MD at [facility] Drill Left: Ankle [employer] [id number] / / NA Wire Myranda Ayala 1.6mm X 150mm - [id number] Explanted:Qty: 3 on 04/07/2021 by Yuko Nguyễn MD at [facility] Wire Left: Ankle [employer] [id number] / / NA K-Wire Threaded Tip 1.6mm - [id number] Explanted:Qty: 3 on 04/07/2021 by Yuko Nguyễn MD at [facility] Wire Left: Ankle [employer] [id number] / / NA Cortical Screw 3.5 X 55mm Explanted:Qty: 1 on 04/07/2021 at [facility] Left: Ankle [employer] [id number] / / NA Description:WRONG [employer] Insurance [employer] Care Teams Jacquard Fixer Relationship Specialty Start Date End Date Diana Simmons NP [address] [place] [address] PCP - General NURSE PRACTITIONER 10/02/21
--- OUTSIDE RECORDS SUMMARY | 2024-11-08 11:54 | XMS_ITS | Clinical Summary ---
Author Organization [facility] Address [address] [place] [address] Care Team Providers Care Network Security Officer Name Role Phone Unavailable Primary Care Provider [...] (1 - 1-dose 75+ series) 11/01/2035 Insurance [facility] MEDICAID
--- OUTSIDE RECORDS SUMMARY | 2024-11-08 11:54 | XMS_ITS | Clinical Summary ---
Author Organization [facility] Address [address] [place] [address] Care Team Providers Care Framing Machine Tender Name Role Phone Robby Dee MD Primary Care Provider [phone] [facility],non-owned Affiliates and Associated Physician Practices is amultiple site organization consisting of ambulatory clinics and hospital sitesin [place], [place], [place] and [place]. This disclosure is being madepursuant to the Care Everywhere program and may not contain all information available regarding this patient. Last updated 17.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 Gender Identity Not on file Sexual Orientation [...] patient's age to complete this topic Insurance [facility] SELF [facility] NO INSURANCE Member Subscriber Plan / Payer (Ef fective for All Dates) Name:Julia Lema Member ID:Not on file Relation to Subscriber:Not on file Name:JULIA LEMA Subscriber ID:Not on file (Home) Address: [address] [place] [phone] Payer ID:Not on file Group ID:Not on file Type:Self Pay Address: [place], [place] Care Teams Framing Machine Tender Relationship Specialty Start Date End Date Robby Dee MD [address] [id number] [facility] - General 05/10/14
--- OUTSIDE RECORDS SUMMARY | 2024-11-08 11:54 | XMS_ITS | Encounter Summary ---
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 Gender Identity Not on file Sexual Orientation Not on file documented as of this encounter Plan of Treatment Not on file documented as of this encounter Visit Diagnoses Not on filedocumented in this encounter Additional Health Concerns Infection Onset Date Last Indicated Resolved Time COVID: Suspected 04/15/2024 04/15/2024 04/15/2024 3:47 PM DATABASE REPORTING CONSULTANT documented as of this encounter Care Teams Certified Adapted Physical Educator Relationship Specialty Start Date End Date Surinder Walters DO PCP - General Internal Medicine 10/30/23 Robby Dee MD Family Medicine 06/27/22 documented as of this encounter
--- OUTSIDE RECORDS SUMMARY | 2024-11-08 11:54 | XMS_ITS | Clinical Summary ---
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 DISSOLVE ONE [...] use distraction techniques - Information given regarding [place] Tobacco Quit line: 5-089-DMFG-YES for free services - 6 minutes spent discussing cessation She has tried and failed Wellbutrin, varenicline, lozenges, gum, generic patches The only thing she had success with in the past was the Nicoderm CQ patches I have placed an order for these today in a titrating fashion She qualifies for annual screening, next due 02/2025 Assessment & Plan (04/20/2024 2:45 PM COST CONTROLLER): - Smoking cessation counseling and techniques reviewed at length - Avoid triggers and use distraction techniques - Information given regarding [place] Tobacco Quit line: 6-043-REUK-YES for free services - 5 minutes spent [...] tested Assessment & Plan (04/20/2024 2:49 PM COST CONTROLLER): She is MZ with good last [...] index 31.0-31.9, adult 07/03/2017 Coronary atherosclerosis of [place] coronary emily ry 07/03/2017 Cervicalgia 07/03/2017 Chronic [...] care Assessment & Plan (04/20/2024 2:48 PM COST CONTROLLER): Continue Stiolto two puffs daily for [...] Resolved Date Atherosclerotic heart diseas e of [place] coronary artery without angina pectoris 07/03/2017 12/10/2022 Hyperlipidemia 07/03/2017 12/10/2022 Pure hypertriglyceridemia 07/03/2017 Pure hyperglyceridemia 04/21/201402/11 Coronary arteriosclerosis in [place] artery 02/15/2014 02/11/2023 Encounters Date Type Department Care Team Description 10/06/2024 10:15 AM CDT Office Visit [facility] [place] [facility] [address] [place] [address] Medical Office [facility] [address] [place] [address] Jay Campos MD Thrombocytopenia (Primary Dx); Pancreatic lesion 10/06/2024 9:45 AM CDT Lab [facility] [address] [facility] [address] [place] [address] Thrombocytopenia; Pancreatic lesion 10/05/2024 Telephone [facility] [place] [facility] [address] [place] [address] Office [facility] [address] [place] [address] Tatianna Reese CLT 09/29/2024 Telephone [facility] Medical [facility] Cardiology [address] [facility] [address] [place] [address] Marcus Redd MD 09/19/2024 12:30 PM CDT Office Visit [facility] Medical Group [facility] [place] [address] Count Includes [facility] [id number] Berta Gill, KWADWO Acute otitis externa of right ear, unspecified type (Primary Dx); Non-recurrent acute suppurative otitis media of left ear with spontaneous rupture of tympanic membrane; Impacted cerumen of right ear 09/17/2024 6:45 PM CDT Telemedicine [facility] Medical [facility] Virtual Care [address] [place] [address] Ana Coley MD Acute otitis externa of right ear, unspecified type (Primary Dx) 09/17/2024 Patient Self-Triage [facility] [address] [place] [address] Mychart, Generic Provider 09/03/2024 11:00 AM CDT Office Visit [facility] [place] [facility] [address] [place] [address] Medical [address] [place] [address] Jay Campos MD Thrombocytopenia (Primary Dx); Pancreatic lesion 09/03/2024 10:30 AM CDT Lab [address] [place] [address] Thrombocytopenia, unspecified (Primary Dx); Thrombocytopenia; Pancreatic lesion 09/03/2024 Results Follow-Up [facility] [place] [facility] [address] [place] [address] Medical Office [facility] [address] [place] [address] Chana Smith, TERESE CBC with auto differential 08/19/2024 7:33 AM CDT - 08/19/2024 11:59 PM CDT Hospital Encounter [address] [address] Dizziness and giddiness Discharge Disposition: Discharge to home or self care 08/19/2024 7:33 AM CDT - 08/19/2024 11:59 PM CDT Hospital Encounter [address] [address] Upper abdominal pain, unspecified; Thrombocytopenia, unspecified Discharge Disposition: Discharge to home or self care 08/13/2024 Telephone [facility] [address] [place] [address] Medical Office [facility] [address] [place] [phone] Adwoa Garcia CLT from Last 3 Months [...] on file Legal Sex Female 5:32 PM COST CONTROLLER Gender Identity Not on file Sexual [...] Tdap) 02/23/203112/2020 Medical Devices Implanted Type Area Chief Jailer Device Identifier Shelf Expiration Date Model / Serial / Lot GlycoPure Angio-Seal Vip 6fr Closere Device [id number] - [id number] Implanted:Qty: 1 on 01/21/2022 by Blake Ham MD at [facility] GlycoPure 10/14/2022 [id number] / / [id number] Procedures Procedure Name Priority Date/Time Associated Diagnosis Comments MAGNESIUM Routine 10/06/2024 9:00 AM CDT Thrombocytopenia Pancreatic lesion DIFFERENTIAL AUTO Routine 10/06/2024 9:0 0 AM CDT Thrombocytopenia Pancreatic lesion CBC WITH AUTO DIFFERENTIAL Routine 10/06/2024 9:00 AM CDT Thrombocytopenia Pancreatic lesion TN REMOVAL IMPACTED CERUMEN INSTRUMENTATION UNILAT Routine 09/19/2024 [...] Read Routine (OP Routine) 03/02/2024 4:42 PM COST CONTROLLER Nicotine dependence, cigarettes, uncomplicated from Last 3 Months or Most Recently Relevant to Health Maintenance Results * Differential, auto (10/06/2024 9:00 AM CDT) Neutrophil abs 4.22 1.50 - 6.50 K/cumm YAEL TILLMAN ([place]) Comment:Testing performed by : [facility] [address], Medical Office [facility] [address], [place] [address] Imm gran abs 0.01 0.00 - 0.10 K/cumm YAEL TILLMAN ([place]) Comment:Testing performed by : [facility] [address], Medical Office [facility] [address], [place] [address] Lymphocyte abs 1.25 0.80 - 3.30 K/cumm [facility] ([place]) Comment:Testing performed by : [facility] [address], Medical Office Bld[address], [place] [address] Monocyte abs 0.50 0.20 - 0.80 K/cumm [facility] ([place]) Comment:Testing performed by : [facility] [address], Medical Office Bld[address], [place] [address] Eosinophil abs 0.23 0.00 - 0.50 K/cumm [facility] ([place]) Comment:Testing performed by : [facility] [address], Medical Office Bldg [address], [place] [address] Basophil abs 0.05 0.00 - 0.10 K/cumm [facility] ([place]) Comment:Testing performed by : [facility] [address], Medical Office dg [address], [place] [address] Neutrophil pct 67.3 % [facility] ([place]) Comment: Interpretive Data Percent cell count reference ranges are not reported, since discordance with absolute values may lead to misinterpretation of CBC data. Current Interpretive Data was last revised on 2022. Testing performed by: [facility] [address], Medical Office [facility] [address], [place] [address] Imm gran pct 0.2 % [facility] ([place]) Comment: Interpretive Data Percent cell count reference ranges are not reported, since discordance with absolute values may lead to misinterpretation of CBC data. Current Interpretive Data was last revised on 2022. Testing performed by: [facility] [address], Medical Office [facility] [address], [place] [address] Lymphocyte pct 20.0 % [facility] ([place]) Comment: Interpretive Data Percent cell count reference ranges are not reported, since discordance with absolute values may lead to misinterpretation of CBC data. Current Interpretive Data was last revised on 2022. Testing performed by: [facility] [address], Medical Office Bldg [address], [place] [address] Monocyte pct 8.0 % [facility] ([place]) Comment: Interpretive Data Percent cell count reference ranges are not reported, since discordance with absolute values may lead to misinterpretation of CBC data. Current Interpretive Data was last revised on 2022. Testing performed by: [facility] [address], Medical Office [facility] [address], [place] [address] Eosinophil pct 3.7 % ALEXIA TILLMAN ([place]) Comment: Interpretive Data Percent cell count reference ranges are not reported, since discordance with absolute values may lead to misinterpretation of CBC data. Current Interpretive Data was last revised on 2022. Testing performed by: [facility] [address], Medical Office [facility] [address], [place] [address] Basophil pct 0.8 % YAEL TILLMAN ([place]) Comment: Interpretive Data Percent cell count reference ranges are not reported, since discordance with absolute values may lead to misinterpretation of CBC data. Current Interpretive Data was last revised on 2022. Testing performed by: [facility] [address], Medical Office [facility] B [facility] [address], [place] [address] Blood 10/06/2024 9:00 AM CDT 10/06/2024 9:05 AM CDT us Jay Campos MD LAB BLOOD ORDERABLES Final Re sult YAEL TILLMAN ([place]) [address] [facility] Department [place] [address] * (ABNORMAL) CBC with auto differential (10/06/2024 9:00 AM CDT) WBC 6.26 3.80 - 9.90 K/cumm YAEL TILLMAN ([place]) Comment:Testing performed by : [facility] [address], Medical Office [facility] [address], [place] [address] Hgb 13.6 11.9 - 15.5 g/dL YAEL TILLMAN ([place]) Comment:Testing performed by : [facility] [address], Medical Office [facility] [address], [place] [address] Hct 42.0 35.6 - 45.5 % YAEL TILLMAN ([place]) Comment:Testing performed by : [facility] [address], Medical Office [facility] B [facility] [address], [place] [address] Plt 135(L) 150 - 400 K/cumm [facility] ([place]) Comment:Testing performed by : [facility] [address], Medical Office [facility] B [facility] [address], [place] [address] MPV 12.4(H) 9.1 - 12.3 fL [facility] ([place]) Comment:Testing performed by : [facility] [address], Medical Office [facility] B [facility] [address], [place] [address] RBC 4.17 3.90 - 5.20 M/cumm [facility] ([place]) Comment:Testing performed by : [facility] [address], Medical Office [facility] B [facility] [address], [place] [address] MCV 100.7(H) 81.3 - 96.4 fL [facility] ([place]) Comment:Testing performed by : [facility] [address], Medical Office [facility] B [facility] [address], [place] [address] MCH 32.6 27.1 - 33.3 pg [facility] ([place]) Comment:Testing performed by : [facility] [address], Medical Office [facility] B [facility] [address], [place] [address] MCHC 32.4 32.3 - 35.7 g/dL [facility] ([place]) Comment:Testing performed by : [facility] [address], Medical Office [facility] B [facility] [address], [place] [address] RDW CV 13.3 11.1 - 14.9 % [facility] ([place]) Comment:Testing performed by : [facility] [address], Medical Office [facility] B [facility] [address], [place] [address] RDW SD 50.2(H) 35.7 - 48.1 fL [facility] ([place]) Comment:Testing performed by : [facility] [address], Medical Office [facility] B [facility] [address], [place] [address] Blood 10/06/2024 9:00 AM CDT 10/06/2024 9:05 AM CDT Jay Campos MD LAB BLOOD ORDERABLES Final Re sult YAEL TILLMAN ([place]) 1 [facility] [place] [address] * Magnesium (10/06/2024 9:00 AM CDT) Magnesium 1.7 1.4 - 2.5 mg/dL YAEL [facility] ([place]) Blood 10/06/2024 9:00 AM CDT 10/06/2024 11:15 AM CDT Jay Campos MD LAB BLOOD ORDERABLES Final Re sult Performing Organization Address [facility] Co de Phone Number YAEL TILLMAN ([place]) [address] [place] [address] * TN REMOVAL IMPACTED CERUMEN INSTRUMENTATION UNILAT (09/19/2024 12:30 [...] 40(H) 28 - 38 sec YAEL TILLMAN ([place]) Comment: Interpretive Data Heparin therapeutic range: 66.0 - 100.0 seconds. Range based on correlation with therapeutic heparin activity range of 0.3 - 0.7 Units/mL. Current interpretive data was last revised on 2022. Testing performed by: [place], [address] Blood 09/03/2024 11:3 5 AM CDT 09/03/2024 11:45 AM CDT Jay Campos MD LAB BLOOD ORDERABLES Final Re sult Performing Organization Address City/[facility]/ZIP Co de Phone Number CARLITAWES TILLMAN ([place]) [address] [place] [address] [place] [address] * Protime-INR (09/03/2024 11:35 AM CDT) PT 10.9 9.7 - 13.0 sec YAEL TILLMAN ([place]) Comment:Testing performed by : [place], [address] INR 1.01 0.90 - 1.20 YAEL TILLMAN ([place]) Comment: Interpretive data Oral anticoagulant therapeutic ranges: Venous thromboembolism prophylaxis or treatment: 2.0-3.0 CARDIOLOGY Standard range: 2.0-3.0 High-intensity range: 2.5-3.5 Refer to indication-specific guidelines for appropriate target ranges for prosthetic heart valve replacement. Current interpretive data was last revised on 2019. Testing performed by: [place], [address] Blood 09/03/2024 11:3 5 AM CDT 09/03/2024 11:59 AM CDT Jay Campos MD LAB BLOOD ORDERABLES Final Re sult YAEL PRIMO ([place]) 1 [facility] [place] [address] * (ABNORMAL) Fibrinogen (09/03/2024 11:35 AM CDT) Fibrinogen 457(H) 170 - 400 mg/dL YAEL TILLMAN ([place]) Comment:Testing performed by : [facility], [place], [address] Blood 09/03/2024 11:3 5 AM CDT 09/03/2024 11:59 AM CDT Jay Campos MD LAB BLOOD ORDERABLES Final Re sult YAEL TILLMAN ([place]) [address] [place] [address] Department [place] [address] * (ABNORMAL) Fibrinogen (09/03/2024 11:35 AM CDT) Fibrinogen 457(H) 170 - 400 mg/dL YAEL TILLMAN ([place]) Comment:Testing performed by : [place], [address] Blood 09/03/2024 11:3 5 AM CDT 09/03/2024 11:45 AM CDT Jay Campos MD LAB BLOOD ORDERABLES Final Re sult Performing Organization Address [facility]/ZIP Co de Phone Number YAEL TILLMAN ([place]) [address] [place] [address] [place] [address] * Folate (09/03/2024 11:35 AM CDT) Folic acid >20.0 >=5.0 ng/mL Comment: Slightly Hemolyzed Specimen. Results may be affected. Testing performed by: [place], [address] Blood 09/03/2024 11:3 5 AM CDT 09/03/2024 11:59 AM CDT Jay Campos MD LAB BLOOD ORDERABLES Final Re sult YAEL TILLMAN ([place]) 1 [facility] [place] [address] * Vitamin B12 (09/03/2024 11:35 AM CDT) Vitamin B12 1,192 230 - 1,250 pg/mL Comment:Testing performed by : [place], [address] Blood 09/03/2024 11:3 5 AM CDT 09/03/2024 11:59 AM CDT Jay Campos MD LAB BLOOD ORDERABLES Final Re sult [facility] ([place]) 1 [facility] [place] [address] * (ABNORMAL) CBC with auto differential (09/03/2024 10:30 AM CDT) Pathologist [facility] WBC 5.68 3.80 - 9.90 K/cumm Comment:Testing performed by : [place], [address] Hgb 13.5 11.9 - 15.5 g/dL [facility] ([place]) Comment:Testing performed by : [facility], [place], [address] Hct 41.6 35.6 - 45.5 % [facility] ([place]) Comment:Testing performed by : [place], [address] Plt 141(L) 150 - 400 K/cumm [facility] ([place]) Comment:Testing performed by : [place], [address] MPV 11.9 9.1 - 12.3 fL [facility] ([place]) Comment:Testing performed by : [place], [address] RBC 4.13 3.90 - 5.20 M/cumm [facility] ([place]) Comment:Testing performed by : [place], [address] MCV 100.7(H) 81.3 - 96.4 fL [facility] ([place]) Comment:Testing performed by : [place], [address] MCH 32.7 27.1 - 33.3 pg [facility] ([place]) Comment:Testing performed by : [facility], [facility], [place], [address] MCHC 32.5 32.3 - 35.7 g/dL [facility] ([place]) Comment:Testing performed by : [facility], [place], [address] RDW CV 12.8 11.1 - 14.9 % [facility] ([place]) Comment:Testing performed by : [facility], [place], [address] RDW SD 47.5 35.7 - 48.1 fL [facility] ([place]) Comment:Testing performed by : [facility], [place], [address] NRBC abs 0.00 0.00 - 0.01 K/cumm [facility] ([place]) Comment:Testing performed by : [facility], [place], [address] Blood 09/03/2024 10:3 0 AM CDT 09/03/2024 10:39 AM CDT us Jay Campos MD LAB BLOOD ORDERABLES Final Re sult YAEL TILLMAN ([place]) 1 [facility] Department [place] [address] * Manual Differential (09/03/2024 10:30 AM CDT) Differential Manual Comment:Testing performed by : [facility], [place], [address] Cells Counted 100 [facility] ([place]) Comment:Testing performed by : [facility], [place], [address] Neutrophil abs 3.92 1.50 - 6.50 K/cumm [facility] ([place]) Comment:Testing performed by : [facility], [place], [address] Lymphocyte abs 1.53 0.80 - 3.30 K/cumm [facility] ([place]) Comment:Testing performed by : [facility], [place], [address] Monocyte abs 0.23 0.20 - 0.80 K/cumm [facility] ([place]) Comment:Testing performed by : [facility], [place], [address] Neutrophil pct 68.0 % [facility] ([place]) Comment: Interpretive Data Percent cell count reference ranges are not reported, since discordance with absolute values may lead to misinterpretation of CBC data. Current Interpretive Data was last revised on 2017. Testing performed by: [place], [address] Lymphocyte pct 27.0 % [facility] ([place]) Comment: Interpretive Data Percent cell count reference ranges are not reported, since discordance with absolute values may lead to misinterpretation of CBC data. Current Interpretive Data was last revised on 2017. Testing performed by: [place], [address] Monocyte pct 4.0 % [facility] ([place]) Comment: Interpretive Data Percent cell count reference ranges are not reported, since discordance with absolute values may lead to misinterpretation of CBC data. Current Interpretive Data was last revised on 2017. Testing performed by: [facility], [place], [address] Band Neutrophil pct 1.0 0.0 - 5.0 % [facility] ([place]) Comment:Testing performed by : [place], [address] RBC morphology Consistent with RBC Indicies YAEL TILLMAN ([place]) Comment:Testing performed by : [place], [address] Platelet estimate Automated Count Confirmed YAEL TILLMAN ([place]) Comment:Testing performed by : [place], [address] Blood 09/03/2024 10:3 0 AM CDT 09/03/2024 10:39 AM CDT us Jay Campos MD LAB BLOOD ORDERABLES Final Re sult YAEL TILLMAN ([place]) 1 [facility] [place] [address] * US RUQ (08/19/2024 8:51 AM CDT) [...] by David He M.D. JR: Report ID: [id number] Reading Location: [id number] Procedure Note David He MD - 08/30/2024 [...] by David He M.D. JR: Report ID: [id number] Reading Location: [place] [address] us Chana Agosto GOAT HERDER IMG US PROCEDURES Final Resu lt * [...] by David He M.D. JR: Report ID: [id number] Reading Location: [place] [address] Procedure Note David He MD - 08/30/2024 [...] by David He M.D. JR: Report ID: [id number] Reading Location: [place] [address] us Chana Agosto GOAT HERDER IMG US PROCEDURES Final Resu lt * CT Lung Cancer Screening (03/02/2024 4:42 PM COST CONTROLLER) Anatomical Region Laterality Modality Chest N/A Computed Tomogra phy 03/09/2024 1:20 PM COST CONTROLLER Narrative 03/09/2024 1:25 PM COST CONTROLLER EXAM DESCRIPTION: CT LUNG CANCER SCREENING [...] Janet Franco D.O. PS: PS Report ID: [id number] Reading Location: [id number] Procedure Note Janet Francop, DO - 03/09/2024 [...] Janet Franco D.O. PS: PS Report ID: [id number] Reading Location: [place] [address] Ben Stratton MD IM CT PROCEDURES Final Result from Last 3 Months or Most Recently Relevant to Health Maintenance Insurance [facility] Advance Directives For more information, please contact: [phone] * Full Code (Latest Code Status on File) Date Activated Date Inactivated Comments 01/21/2022 4:32 PM 01/21/2022 8:36 PM Care Teams Paste Mixer Liquid Relationship Specialty Start Date End Date Surinder Walters DO PCP - General Internal Medicine 10/30/23 Robby Dee MD Family Medicine 06/27/22
--- OUTSIDE RECORDS SUMMARY | 2024-11-08 11:54 | XMS_ITS | Encounter Summary ---
Author Organization [facility] Address [address] [place] [address] Care Team Providers Care Geriatric Nurse Practitioner Name Role Phone Uziel López MD Primary Care Provider Evan mccain None, Provider Primary Care Provider Diana Zhang NP Primary Care Provider [phone] Encounter Details Date Type Department Care Team (Latest Contact Info) Description 01/20/2018 Abstract [facility] Medical Group Dano Viveros MD [...] Rule Out 03/02/2021 03/02/2021 03/02/2021 1:20 PM REEL BLADE BENDER FURNACE TENDER COVID-19 Rule Out 04/06/2021 04/06/2021 04/07/2021 3:47 PM REEL BLADE BENDER FURNACE TENDER COVID-19 Rule Out 10/02/2021 10/02/2021 10/02/2021 1:14 PM CDT documented as of this encounter Care Teams Geriatric Nurse Practitioner Relationship Specialty Start Date End Date Uziel López MD PCP - General 09/27/15 02/20/21 None, ProviderMD PCP - General 02/21/21 10/01/21 Diana Simmons NP [address] [place] [address] PCP - General NURSE PRACTITIONER 10/02/21 documented as of this encounter
[2024-11-08 14:32] LABS: Add Urine Microscopic? NO; Appearance Urine Clear (Clear); Glucose Urine UA Negative (Negative); Leukocyte Esterase Ur Negative LEU/UL (Negative); Nitrate Urine Negative (Negative); Specific Grav Ur 1.011 (1.001-1.035)
[2024-11-08 14:35] LABS: Hematocrit 47.8 % (37.0-47.0); Hemoglobin 15.2 g/dL (12.0-15.0); Immature Granulocyte Percent A 0.4 % (0-0.5); Lymphocytes Absolute Auto 1.46 K/mm3 (0.9-3.2); Mean Corpuscular HGB Conc 31.8 g/dl (32-36); Mean Corpuscular Hemoglobin 32.2 pg (26-34); Mean Corpuscular Volume 101.3 fl (80-100); Nucleated Red Blood Cells Absolute Auto 0.000 K/mm3 (0.0-0.012); Nucleated Red Blood Cells Perc 0.0 % (0.0-0.2); Platelet Count Result 117 k/mm3 (150-375); Red Blood Count 4.72 M/mm3 (4.2-5.4); White Blood Count 5.7 K/mm3 (4.5-10.0)
[2024-11-08 14:43] LABS: Total Protein Urine Random 10 mg/dL; Ur Ttl Prot Creatinine Ratio 0.20 mg/mg (0-0.20)
[2024-11-08 15:07] LABS: Hemoglobin A1C 4.5 % (<5.7)
[2024-11-08 15:40] LABS: Alanine Aminotransferase 50 U/L (6-35); Albumin Level 4.3 g/dL (3.5-5.1); Alkaline Phosphatase 70 U/L (38-126); Amylase 70 U/L (30-110); Anion Gap 5 mmol/L (4-12); Aspartate Amino Transferase 83 U/L (14-36); Bilirubin,Total 0.7 mg/dL (0.2-1.3); Blood Urea Nitrogen 16 mg/dL (7-17); CRP < 0.5 mg/dL (<1.0); Calcium 10.6 mg/dL (8.4-10.2); Carbon Dioxide 28 mmol/L (22-30); Chloride 105 mmol/L (98-107); Estimated Glomerular Filt Rate > 60; Glucose 90 mg/dL (65-110); Potassium 4.7 mmol/L (3.4-5.0); Sodium 138 mmol/L (137-145); Total Protein 7.8 g/dL (6.3-8.2)
[2024-11-08 15:54] LABS: HIV 1/2 Ab P24 Ag Result Negative (Negative)
[2024-11-08 16:09] LABS: Thyroid Stimulating Hormone 1.330 uIU/mL (0.465-4.680)
[2024-11-09 18:08] LABS: ANA by IFA Rfx Titer/Pattern Negative (.)
== END 2024-11-08 11:13 | disposition home or self-care (01) ==
PROVIDERS: PCP Clinical Nurse Specialist; Visit Provider Internal Medicine Nephrology
DX: I12.9 Hypertensive chronic kidney disease with stage 1 through stage 4 chronic kidney disease, or unspecified chronic kidney disease (principal); N18.2 Chronic kidney disease, stage 2 (mild); I25.10 Atherosclerotic heart disease of native coronary artery without angina pectoris; E78.2 Mixed hyperlipidemia; D69.6 Thrombocytopenia, unspecified; R63.4 Abnormal weight loss; N18.31 Chronic kidney disease, stage 3a; D50.9 Iron deficiency anemia, unspecified; M25.541 Pain in joints of right hand; M25.542 Pain in joints of left hand; J44.9 Chronic obstructive pulmonary disease, unspecified; K86.9 Disease of pancreas, unspecified
CPT/HCPCS: 36415; 80053; 81003; 82150; 82570; 83036; 84156; 84443; 85025; 85652; 86038; 86140; 86430; 86703; 86803; G0432

== ENCOUNTER 2024-11-09 08:59 | Outpatient (CLI) | payer OTHER, SELFPAY ==
--- OUTSIDE RECORDS SUMMARY | 2018-12-01 05:52 | XMS_ITS | Continuity of Care Document ---
Author Organization [facility] Address [address] [place] [address] [place] [address] Phone Care Team Providers Care Pick Up And Delivery Driver Name Role Phone Robby Dee MD Unavailable Unavailable Allergies, Adverse Reactions, Alerts Substance Reaction Status Criticality No Known Allergies Active No Inform ation Medications Medication Instructions Dosage Effective Dates (start - stop) Status Comments Zantac 150 mg tablet take 1 tablet by oral route 2 times every day - Active [place] 7.5 mg-325 mg tablet take 1 tablet by oral route every 4 - 6 hours as needed for pain as needed - Active PRN for pain, avoid driving or operate machines Wellbutrin XL 150 mg 24 hr tablet, extended release take 1 tablet by oral route every morning 150 MG - Active Seroquel 50 mg tablet take 1 tablet by oral route every bedtime 50 MG - Active Neurontin 300 mg capsule take 1 capsule by oral route 3 times every day 300 MG - Active avoid driving or operate machines Anoro Ellipta 62.5 mcg-25 mcg/actuation powder for inhalation inhale 1 puff by inhalation route every day at the same time each day 1.00 puff - Active Requip 1 mg tablet take 1 tablet by oral route every bedtime 1 MG - Active pravastatin 80 mg tablet take 1 tablet by oral route every day 80 MG - Active Lexapro 20 mg tablet take 1 tablet by oral route every day 20 MG - Active Coreg 3.125 mg tablet take 1 tablet by oral route 2 times every day with food 3.125 MG - Active losartan 25 mg tablet take 0.5 tablet by oral route every day 12.5 MG - Active Imdur 30 mg tablet,extended release take 1 tablet (30MG) by oral route every day in the morning - Active Procedures Procedure Date OFFICE/OUTPATIENT VISIT, EST OFFICE/OUTPATIENT VISIT, EST OFFICE/OUTPATIENT VISIT, EST PREV VISIT, EST, AGE 40-64 OFFICE/OUTPATIENT VISIT, EST OFFICE/OUTPATIENT VISIT, EST OFFICE/OUTPATIENT VISIT, EST PREV VISIT, EST, AGE 40-64 OFFICE/OUTPATIENT VISIT, EST OFFICE/OUTPATIENT VISIT, EST OFFICE/OUTPATIENT VISIT, EST OFFICE/OUTPATIENT VISIT, EST OFFICE/OUTPATIENT VISIT, EST OFFICE/OUTPATIENT VISIT, EST OFFICE/OUTPATIENT VISIT, EST OFFICE/OUTPATIENT VISIT, EST PREV VISIT, EST, AGE 40-64 OFFICE/OUTPATIENT VISIT, EST OFFICE/OUTPATIENT VISIT, EST OFFICE/OUTPATIENT VISIT, EST OFFICE/OUTPATIENT VISIT, EST OFFICE/OUTPATIENT VISIT, EST OFFICE/OUTPATIENT VISIT, EST PREV VISIT, EST, AGE 40-64 OFFICE/OUTPATIENT VISIT, EST OFFICE/OUTPATIENT VISIT, EST OFFICE/OUTPATIENT VISIT, EST OFFICE/OUTPATIENT VISIT, EST OFFICE/OUTPATIENT VISIT, EST PREV VISIT, NEW, AGE 40-64 Advance Directives Directive Yes / No Effective Date File Name No Information Encounters Encounter Description Practice Location Reason(s) For Visit Diagnoses Date Provider Providers Copied on Encounter [facility], [address], [place] [address], [place] tel:[phone] [facility] No Information 9 Luiz Bustamante. [address], [place], [place], [address] , [place]. tel:[phone] OFFICE/OUTPA TIENT VISIT, [facility], [address], [place], [place], [address], [place] [phone] [facility] osteopenia1 (chief complaint)b ack pain1 (chief complaint)f atigue1 (chief complaint) FatigueOther specified disorder of bone densityChronic pain syndromeGERD w/o esophagitisOther cholelithiasis without obstruction 9 Luiz Bustamante. [address], [place], [place], [address] , [place]. tel:[phone] Referring Provider: Jeanette Roberts [address], [place], [place], [address]. tel:[phone] OFFICE/OUTPA TIENT VISIT, [facility], [address], [place], [place], [address], [place] tel:[phone] [facility] back pain1 (chief complaint)g allstone1 (chief complaint)C AD (chief complaint)a nemia1 (chief complaint)G ERd1 (chief complaint) Lumbago with sciatica, right sideAnemiaCAD of [place] coronary artery without angina pectorisOther cholelithiasis without obstructionGERD w/o esophagitis 9 Luiz Granda [address], [place], [place], [address] , [place]. tel:[phone] Referring Provider: Jeanette Roberts [address], [place], [place], [address]. tel:[phone] OFFICE/OUTPA TIENT VISIT, [facility], [address], [place], [place], [address], [place] tel:[phone] [facility] anxiety1 (chief complaint) InsomniaGeneralize d Anxiety Disorder 9 Luiz Granda [address], [place], [place], [address] , [place]. tel:[phone] Referring Provider: Robby Dee, [address], [place], [place], [address]. tel:[phone] PREV VISIT, EST, AGE 40-64 [facility], [address], [place], [place], [address], [place] [phone] [facility] Physical (chief complaint) Encntr for general adult medical exam w/o abnormal findings 9 Luiz Bustamante. [address], [place], [place], [address] , [place]. tel:[phone] Referring Provider: Jeanette Roberts [address], [place], [place], [address]. tel:[phone] OFFICE/OUTPA TIENT VISIT, [facility], [address], [place], [place], [address], [place] tel:[phone] [facility] back pain1 (chief complaint)H TN (chief complaint) Lumbago with sciatica, left sideEssential (primary) hypertension 8 Luiz Bustamante. [address], [place], [place], [address] , [place]. tel:[phone] Referring Provider: Jeanette Roberts [address], [place], [place], [address]. tel:[phone] OFFICE/OUTPA TIENT VISIT, [facility], [address], [place], [place], [address], [place] tel:[phone] [facility] foot pain1 (chief complaint)r enal1 (chief complaint)i nsomnia1 (chief complaint) Insomnia, unspecifiedRenal diseaseLumbago with sciatica, left sidePain in left foot 8 Luiz Bustamante. [address], [place], [place], [address] , [place]. [phone] Referring Provider: Robby Dee [address], [place], [place], [address]. tel:[phone] OFFICE/OUTPA TIENT VISIT, [facility], [address], [place], [place], [address], [place] tel:[phone] [facility] syncope1 (chief complaint)r ib fracture1 (chief complaint)t obacco1 (chief complaint)e lbow 1 (chief complaint) Syncope and collapseTachycardi aOlecranon bursitis, left elbowRenal disease 8 Luiz Bustamante. [address], [place], [place], [address] , [place]. tel:[phone] Referring Provider: Robby Dee [address], [place], [place], [address]. tel:[phone] PREV VISIT, EST, AGE 40-64 [facility], [address], [place], [place], [address], [place] tel:[phone] [facility] PHysical (chief complaint) Encntr for general adult medical exam w/o abnormal findings 8 Luiz Bustamante. [address], [place], [place], [address] , [place]. tel:[phone] Referring Provider: Jeanette Roberts [address], [place], [place], [address]. tel:[phone] OFFICE/OUTPA TIENT VISIT, [facility], [address], [place], [place], [address], [place] tel:[phone] [facility] insomnia1 (chief complaint)G ERd1 (chief complaint)C OPD1 (chief complaint)a nxiety1 (chief complaint)b ack pain1 (chief complaint)i ncontinnece 1 (chief complaint) GERD w/o esophagitisInsomni aEmphysemaMixed incontinence 7 Luiz Bustamante. [address], [place], [place], [address] , [place]. tel:[phone] Referring Provider: Jeanette Roberts [address], [place], [place], [address]. tel:[phone] OFFICE/OUTPA TIENT VISIT, [facility], [address], [place], [place], [address], [place] tel:[phone] [facility] wrist fracture1 (chief complaint)b ack pain1 (chief complaint)G ERD1 (chief complaint)i nsomnia1 (chief complaint) Insomnia, unspecifiedGERD w/o esophagitisMeralgi a paresthetica, bilateral lower limbsRestless legs syndrome Nov-2 7 Luiz Bustamante. [address], [place], [place], [address] , [place]. tel:[phone] Referring Provider: Robby Dee [address], [place], [place], [address]. tel:[phone] OFFICE/OUTPA TIENT VISIT, [facility], [address], [place], [place], [address], [place] [phone] [facility] back pain1 (chief complaint) Other spondylosis, lumbar regionLumbago Oct- 7 Luiz Bustamante. [address], [place], [place], [address] , [place]. [phone] Referring Provider: Jeanette Roberts [address], [place], [place], [address]. tel:[phone] OFFICE/OUTPA TIENT VISIT, [facility], [address], [place], [place], [address], [place] tel:[phone] [facility] osteopenia1 (chief complaint)b ack pain1 (chief complaint)p ancreatic lesion1 (chief complaint)C OPD1 (chief complaint) Pancreatic endocrine cell hyperplasiaMeralgi a paresthetica, bilateral lower limbsDisorder of bone density and structure, unspecifiedCOPD Oct-0 7 Luiz Granda [address], [place], [place], [address] , [place]. tel:[phone] Referring Provider: Jeanette Roberts [address], [place], [place], [address]. tel:[phone] OFFICE/OUTPA TIENT VISIT, [facility], [address], [place], [place], [address], [place] tel:[phone] [facility] GERD1 (chief complaint)t obacco1 (chief complaint)o steopenia1 (chief complaint)i nsomnia1 (chief complaint) InsomniaOth disrd of bone density and structure, multiple sitesGastritis, unspecified, without bleedingTobacco use 7 Luiz Bustamante. [address], [place], [place], [address] , [place]. tel:[phone] Referring Provider: Jeanette Roberts [address], [place], [place], [address]. tel:[phone] OFFICE/OUTPA TIENT VISIT, [facility], [address], [place], [place], [address], [place] tel:[phone] [facility] Medicine bug left ear (chief complaint)t obacco1 (chief complaint)b ack pain1 (chief complaint)G ERD1 (chief complaint) GERD w/o esophagitisTobacco useLumbagoImpacted cerumen, left ear 7 Luiz Bustamante. [address], [place], [place], [address] , [place]. tel:[phone] Referring Provider: Jeanette Roberts [address], [place], [place], [address]. tel:[phone] OFFICE/OUTPA TIENT VISIT, [facility], [address], [place], [place], [address], [place] tel:[phone] [facility] GERD1 (chief complaint)C AD1 (chief complaint)i nsomnia1 (chief complaint)l umbago1 (chief complaint) Acute gastritis without bleedingLumbago with sciatica, left sideHyperlipidemia Atherosclerotic heart disease of [place] coronary artery without angina pectoris 7 Luiz Bustamante. [address], [place], [place], [address] , [place]. tel:[phone] Referring Provider: Jeanette Roberts [address], [place], [place], [address]. tel:[phone] OFFICE/OUTPA TIENT VISIT, [facility], [address], [place], [place], [address], [place] tel:[phone] [facility] vertigo (chief complaint)v ertigo1 (chief complaint)b ack pain1 (chief complaint)C OPD1 (chief complaint)d izziness1 (chief complaint) DizzinessCOPDLumba go 7 Luiz Bustamante. [address], [place], [place], [address] , [place]. [phone] Referring Provider: Robby Dee, [address] [place] [address] A, [place], [place], [address]. tel:[phone] PREV VISIT, [facility], AGE 40-64 [facility], [address], [place], [place], [address], [place] tel:[phone] [facility] Physical (chief complaint) Encounter for general adult medical exam w abnormal findingsLumbago with sciatica, left sideDizzinessInsom aimee 7 Luiz [facility]ustamante. [address] [facility] [place], [address] , [place]. tel:[phone] Referring Provider: Jeanette Roberts [facility] A, [place], [place], [address]. tel:[phone] OFFICE/OUTPA TIENT VISIT, [facility], [address], [place], [place], [address], [place] tel:[phone] [facility] anxiety1 (chief complaint)G ERD1 (chief complaint)H LP (chief complaint)i nsomnia1 (chief complaint)L FT (chief complaint)k nee pain1 (chief complaint) Chronic pain syndromeGeneralize d anxiety disorderInsomniaLi charles disease 6 Luiz Bustamante. [address], [place], [place], [address] , [place]. tel:[phone] Referring Provider: Jeanette Roberts [facility] A, [place], [place], [address]. tel:[phone] OFFICE/OUTPA TIENT VISIT, [facility], [address], [place], [place], [address], [place] tel:[phone] [facility] anxiety1 (chief complaint)k nee pain1 (chief complaint)s leep disorder1 (chief complaint)C AD (chief complaint) Atherosclerotic heart disease of [place] coronary artery without angina pectorisChronic pain syndromeGeneralize d anxiety disorderSleep disorder 6 Luiz Bustamante. [address], [place], [place], [address] , [place]. [phone] Referring Provider: Robby Dee [address] [place] [address] [place], [address]. tel:[phone] OFFICE/OUTPA TIENT VISIT, [facility], [address], [place], [place], [address], [place] tel:[phone] [facility] anxiety1 (chief complaint)j oint pain1 (chief complaint)G ERD1 (chief complaint)o steopenia1 (chief complaint) Gastro-esophageal reflux disease without esophagitisGeneral ized anxiety disorderChronic pain syndromeOth disrd of bone density and structure, multiple sites 6 Luiz Bustamante. [address], [facility] A, [place], [place], [address] , [place]. [phone] Referring Provider: Robby Dee [address] [facility] A, [place], [place], [address]. tel:[phone] OFFICE/OUTPA TIENT VISIT, [facility], [address], [place], [place], [address], [place] tel:[phone] [facility] insomnia1 (chief complaint)G ERD1 (chief complaint)C AD (chief complaint)c hronic pian1 (chief complaint)a nxiety1 (chief complaint) InsomniaChronic pain syndromeGERD w/o esophagitisGeneral ized anxiety disorder 6 Luiz Bustamante. [address], [place], [place], [address] , [place]. tel:[phone] Referring Provider: Jeanette Roberts [address], [place], [place], [address]. tel:[phone] OFFICE/OUTPA TIENT VISIT, EST [facility], [address], [place], [place], [address], tel:[phone] [facility] leg pain (chief complaint)l eg pain1 (chief complaint)r estless leg1 (chief complaint)H LP1 (chief complaint)s leep study1 (chief complaint) Mixed hyperlipidemiaPain in right lower legRestless Legs SyndromeSleep apnea 5 Luiz Bustamante. [address] [facility] A, [place], [place], [address] , [place]. tel:[phone] Referring Provider: Jeanette Roberts [facility] Emmie, [place], [place], [address]. tel:[phone] PREV VISIT, EST, AGE 40-64 [facility], [address], [place], [place], [address], [place] tel:[phone] [facility] Physical1 (chief complaint) Encntr for general adult medical exam w/o abnormal findings 5 Luiz Bustamante. [address] [facility] A, [place], [place], [address] , [place]. [phone] Referring Provider: Jeanette Roberts [facility], [place], [place], [address]. tel:[phone] OFFICE/OUTPA TIENT VISIT, EST [facility], [address], [place], [place], [address], [place] tel:[phone] [facility] osteopenia (chief complaint)G ERD (chief complaint)i nsomnia (chief complaint)f ibular fx (chief complaint) Dietary surveillance and counselingEsophage al refluxInsomnia, unspecifiedClosed tibial and fibular fractureOsteopenia 5 Luiz Granda [address], [place], [place], [address] , [place]. [phone] Referring Provider: Robby Dee, [address], [place], [place], [address]. tel:[phone] OFFICE/OUTPA TIENT VISIT, [facility], [address], [place], [place], [address], [place] tel:[phone] [facility] GERD (chief complaint)i nsomia (chief complaint)a bd pain (chief complaint) Dietary surveillance and counselingInsomnia , unspecifiedAbdomin al painHypokalemia 5 Luiz Bustamante. [address], [place], [place], [address] , [place]. [phone] Referring Provider: Jeanette Roberts [address] [facility] A, [place], [place], [address]. tel:[phone] OFFICE/OUTPA TIENT VISIT, [facility], [address], [place], [place], [address], [place] tel:[phone] [facility] hematuria (chief complaint)n brenna pain (chief complaint)o besity (chief complaint) HEMATURIA NOSDietary surveillance and counselingCervical giaBody Mass Index 31.0-31.9, adultPain in joint involving pelvic region and thigh 5 Luiz Bustamante. [address], [place], [place], [address] , [place]. [phone] Referring Provider: Jeanette Roberts [facility] A, [place], [place], [address]. tel:[phone] OFFICE/OUTPA TIENT VISIT, [facility], [address], [place], [place], [address], [place] [phone] [facility] insomnia (chief complaint)L FT (chief complaint)G ERD (chief complaint)h ematuria (chief complaint) HEMATURIA NOSDietary surveillance and counselingInsomnia , OtherHypertriglyce ridemiaGERD 5 Luiz Bustamante. [address], [place], [place], [address] , [place]. [phone] Referring Provider: Jeanette Roberts [address] [place], [address]. tel:[phone] OFFICE/OUTPA TIENT VISIT, EST [facility], [address] [place], [address], tel:[phone] [facility] Medicine insomnia (chief complaint)G ERD (chief complaint)C AD (chief complaint)l iver (chief complaint) Dietary surveillance and counselingInsomnia , OtherGERDUnspecifi ed chronic liver disease without mention of alcoholCAD, [place] 4 Luiz Bustamante. [address], [place], [place], [address] , [place]. tel:[phone] Referring Provider: Robby Dee, [address] [facility] A, [place], [place], [address]. tel:[phone] PREV VISIT, NEW, AGE 40-64 [facility], [address] [place], [address], [place] tel:[phone] [facility] Medicine PHysical (chief complaint) Dietary surveillance and counselingRoutine Medical ExamRoutine Medical Exam 4 Luiz uBstamante. [address], [place], [place], [address] , [place]. tel:[phone] Family History Family Member Type Diagnosis Age At Onset Mother Problem (finding) respiratory failure Brother Problem (finding) Hypertension Father Problem (finding) Cancer, lung Payers Payer name Insurance type Covered democrat ID Authoriza tion(s) No Information Social History Type Description Quantity Date Captured Comments Alcohol Use Details Unknown Caffeine Use Details Unknown Tobacco Use Status Smoking Status No Information Sex Female Chief Complaint And Reason For Visit No Information Plan Of Treatment Date Type Action Status Goal Tobacco cessation counseling completed Goal Special diet education compl eted Goal Tobacco cessation counseling completed Goal Special diet education compl eted Goal Special diet education compl eted Goal Special diet education compl eted Goal Tobacco cessation counseling completed Goal Special diet education compl eted Goal Special diet education compl eted Goal Special diet education compl eted Goal Special diet education compl eted Referral Ordered: Physical Therapy (related to Lumbago with sciatica, right side) ordered Referral Referred To: Eduardo Paniagua MD [address]
[place], [address] Ordered: Referrals: Eduardo Paniagua MD. Evaluate and treat ordered Referral Ordered: Eduardo Paniagua -Allopathic & Osteopathic Physicians : Neurological Surgery (related to Lumbago with sciatica, left side) ordered Referral Referred To: Eduardo Paniagua [address] [place], [phone] Ordered: Referrals: Allopathic & Osteopathic Physicians : Neurological Surgery. Eduardo Paniagua. Evaluate and treat ordered Referral Ordered: Vinnie Kessler -[facility]opathic [facility] Osteopathic Physicians : Orthopaedic Surgery (related to Olecranon bursitis, left elbow) ordered Referral Referred To: Vinnie Kessler [facility] [address] [place] [facility] [address] [place], [place] [id number] Ordered: Referrals: Allopathic & Osteopathic Physicians : Orthopaedic Surgery. Vinnie Kessler. Evaluate and treat ordered Referral Ordered: US KIDNEY ordered Referral Ordered: Vinnie Kessler (related to GERD w/o esophagitis) ordered Referral Referred To: Vinnie Kessler [facility] [address] [place] [facility] [address] [place], [phone] Ordered: Referrals: Vinnie Kessler. Evaluate and treat ordered Referral Ordered: MRI LUMBAR SPINE W/O DYE ordered Referral Ordered: DXA BONE DENSITY, AXIAL ordered Referral Ordered: Otolaryngology (related to Impacted cerumen, left ear) ordered Referral Ordered: Physical Therapy (related to Lumbago) ordered Referral Ordered: Referrals: Otolaryngology. Evaluate and treat ordered Referral Referred To: Physical Therapy Ordered: Referrals: Physical Therapy. Evaluate and treat ordered Referral Ordered: LUMBAR XRAY AP AND LAT ONLY ordered Referral Ordered: CT THORAX W/O DYE ordered Referral Ordered: Pulmonology (related to Insomnia) ordered Referral Ordered: Pulmonology (related to Sleep apnea) ordered Referral Ordered: ANKLE XRAY, TWO VIEW Right ordered Referral Ordered: Referrals: Pulmonology. Evaluate and treat ordered Referral Ordered: US VENOUS DOPPLER ordered Referral Ordered: US CAROTID ordered Referral Ordered: MAMMOGRAM, SCREENING ordered Referral Ordered: Physical Therapy (related to Neck pain) ordered Referral Ordered: CERVICAL SPINE XRAY 2 OR 3 VIEWS ordered Referral Referred To: Physical Therapy Ordered: Referral: Physical Therapy. ordered Referral Ordered: CT ABD & PELVIS W/O CONTRAST ordered Referral Ordered: US EXAM, ABDOM, COMPLETE ordered Referral Ordered: Referral: Cardiology. ordered History Of Present Illness Encounter Date Complaint History Of Prese nt Illness fatigue1 Pt has been feel ing fatigue. Pt keeps falling asleep during the day. Pt is seeing pulmonary and she was told that she does not have sleep apnea. Pt had sleep study 2 years ago per pt. Pt does have some anemia and she has not done repeat lab yet pt denies any GI bleeding or vaginal bleeding osteopenia1 Pt has osteopeni a. her bone density is slightly worse but still in osteopenia range. Pt takes vitamin D only but not calcium. Pt denies any fracture. back pain1 Pt has chronic l ow back pain with sciatica and leg numbness, Pt has ashlee with ortho spine next week Pt denies any loss of bladder control, Pt need norco refilled. Pt is off klonopin back pain1 Pt has chronic l ow back pain Pt states that her right leg felt numbness and weak and she fell twice due to right leg given out recently, Pt does have chronic low back pain pt denies any loss of bladder control. Pt denies any injury gallstone1 Pt has gallstone and she has intermittent right upper quadrant abdominal pain Pt states that she will have gallbladder surgery in two weeks. pt denies any acute pain Pt does have nausea with food. pT denies any fever CAD Pt recently went to [place] due to her daughter. Pt had another episode of chest pain while in [place] and was diagnosed with NSTEMI pt just seen her cardiology last week and she is doing ok currently pt denies any chest pain. Pt denies any sob anemia1 Pt told me she w as found to be anemic while in [place] Pt denies any bleeding GERd1 Pt has daily REBEL d Pt failed zantac pt takes omeprazole daily. Pt has daily GERD without omeprazole. Insurance not paying for omeprazole again anxiety1 Pt has chronic a nxiety and depression. Pt takes wellbutrin, lexapro and seroquel. Pt sees psychiatrist. Pt has been under severe stress lately. She just found out that her daughter who lives in [place] committed suicide several days ago. Pt feels extremely sad and she can not stop crying. ,Pt has been having panic attacks. Pt wants some nerve pills for short term to help her with above. Pt is off klonopin. Pt has difficulty sleeping and she feels extremely anxious. Pt wants to try some valium, which helped her in the past Pt is traveling to [place] tomorrow and she could not get in to see her psychiatrist. Pt denies any suicidal or homicidal thought Physical Pt needs annual physical Pt has chronic low back pain Pt has severe DDD on previous MRI Pt c/o left sciatica and left leg numbness. Pt takes neurontin for pain and robaxin PRn and also norco PRN. Pt states that norco does not help so much anymore for her pain. Pt has CAD. Pt takes losartan, pravastatin, coreg, imdur, and she sees cardiology. Pt has chronic GERD. Pt takes omeprazole and doing ok. Pt has COPD Pt takes Anoro and she sees pulmonary. Pt denies any hemoptysis, acute worsening sob back pain1 Pt has low back pain with left sciatica. Pt c/o left leg numbness. Pt failed PT. Pt has not heard from neurosurgery. Pt denies any loss of bladder control. Pt denies any worsening pain. Pt failed NSAID and ultram HTN Pt takes losarta n and coreg Pt has not slept well last night Pt denies any chest pain or headache renal1 Pt has mild bord vanessa low renal function. Pt has normal UO Pt has normal renal ultrasound foot pain1 Pt c/o sharp cecilia n from dorsal left foot radiating to anterior left leg with walking for several months. Pt also has chronic low back pain with left sciatica pt denies any loss of bladder control. Pt has left extremity numbness. Pt denies any calf pain .Pt denies any foot injury. Pt denies any worsening sob or any chest pain .Pt states that the pain from left foot radiating to her left anterior leg is different type of pain from her typical low back pain with left sciatica. Pt wants to see neurosurgery. insomnia1 Pt has chronic i nsomnia. Pt does not have sleep apnea. Pt takes ambien qhs PRn and doing ok. Pt has not received any ambien lately due to she is getting klonopin from her pulmonary. Pt states that she usually takes klonopin to keep her calm and ambien to actually put her to sleep syncope1 Pt recently had syncope episode while in [place] back in [place]uly and she was admitted to hospital and she was drinking alcohol while playing pool. Pt was diagnosed with vasovagal syncope and also SVT. Pt denies any chest pain or palpitation now. pt has history of CAD with multiple stent. Pt has not had any syncope episodes for 2 months. pt renal function was slightly low in hospital but recovered per pt when she left the hospital. pt has normal UO rib fracture1 Pt suffered left side rib fracture from the fall back in july. Pt denies any sob now. Pt does have COPD and she just seen pulmonary and she was instructed to see her cardiology tobacco1 Pt is still smok ing and her LDCT was denied by insurance. Pt may have done one recently by her pulmonary Pt not sure. elbow 1 Pt c/o swelling and pain left elbow for two months Pt not sure if the elbow got injured during the fall 2 months ago. Pt has normal ROM left elbow but it hurts PHysical Pt needs annual physical. Pt has been coughing up phlegm with sob for one week. Pt has COPD pt coughs up green phlegm pt has COPD. Pt is on ANORO now. Pt sees pulmonary. Pt denies any acute sob. Pt has chronic low back pain Pt has spondylosis. Pt has CAD with stent. Pt takes coreg, imdur, and pravastatin. Pt sees cardiology. Pt denies any chest pain. PIt also has chronic insomnia. Pt takes ambien qhs PRN. Pt has chronic GERD. Pt takes omeprazole. Pt failed zantac. Pt has chronic anxiety and depression. Pt takes lexapro and doing ok. Pt denies any suicidal or homicidal thought .Pt denies any crying spells. Pt also notices mild right flank pain recently.. Pt denies any UTI symptoms. Pt denies any fever, chill insomnia1 Pt [place] chronic in somnia. Pt takes ambien qhs PRn and doing ok. pt does not have sleep apnea. Pt has restless and she takes requip from her pulmonary GERd1 P has GERd Pt co uld not tolerate zantac or without PPI. Pt takes omepraozle daily and doing ok COPD1 Pt uses incurse. Pt rarely uses albuterol. Pt still smoking Pt uses albutero 3-4 per month. Pt denies any acute sob anxiety1 Pt has chronic a nxiety and depression. Pt takes lexapro and seroquel and klonpin qhs and doing ok pt deneis any suicidal or homicidal thought back pain1 Pt has chrnoic l ow back pain. pt has bilateral leg numb ness pt denies any loss of bladder control incontinnece1 Pt has stress in continence. Pt sees urology Pt supposes to take elmiron but insurance does not cover. Pt needs pad due to leakage wrist fracture1 Pt has communite d fracuture left radius as well as nondisplaced ulnar styloid avulsion fracture from fall 6 months ago. Her ortho was prescribing OT but she changed insurance to [employer] and she needs a new ortho and OT order. back pain1 Pt has chronic l ow back pain and bilateral leg numbness and tingling. Pt has nonsurgical MRi of back. Pt denies any loss of bladder control. Pt denies any wrosening pain. Pt states that neurontin helps slighlty GERD1 Pt states that o meprzole works very well for her GERD Pt is off all other oTC meds insomnia1 Pt does not want have sleep apnea. Pt has periodic limb movement disorder. Pt takes requip which helps slighlty back pain1 Pt has chronic l ow back pain with bilateral leg numbness and tingling, worse around buttock and also lateral thigh. pt states that her legs feels shaky sometimes Pt had MRI done which showed DDD. Pt denies any worsening pain. Pt denies any loss of bladder control. Pt states that norco and robaxin are not helping [facility] for her pain osteopenia1 Pt has been taki ng calcium and vitamin D Pt had bone density done which showed osteopenia, which is not worse. Pt does not have osteoporosis. Pt denies any spontaneous fracture back pain1 Pt has chronic l ow back pain. Pt c/o sciatica both lateral thigh area radiationg from her low back. Pt also feels parestheisa around lower leg. Pt has above symptmos for several months Pt is doing PT now. Pt states that her leg sometimes feels shaky and weak. Pt denies any loss of bladder control pancreatic lesion1 Pt has a panc reatic lesion and she just had MRCP done by GI. Pt wants to know the result. Pt denies any abd pain Pt has rather severe GERD and she is taking omerpzole. Pt is seeing GI now and she was started zantac and was told to go higher on omerpzole and also she was given misoprostol to help her stomach. COPD1 Pt has COPD. Pt started incruase daily and is helping Pt uses albuterol 1-2 per month only now. Pt denies any acute sob GERD1 Pt has chronic G ERD Pt unable to tolerate zantac. her insurance does not cover omeprazole. Pt states that she has GERD without omeprazole osteopenia1 Pt has osteopeni a. Pt has been taking calicum and vitamin D and is doing weight bearing exercise. Pt denies any fracture insomnia1 Pt has chornic i nsomnia. Pt does not have sleep apnea. Pt states that traozdone does not work at all her insomnia. pt wants to go back to ambien. Pt is on lexapro also. Pt sees psychiatirst. pt told me she wants to blessing her psychiatrist and comes to see me for her anxiety and depression. Pt denies any suicidal or homicidal thought tobacco1 Pt smokes tobacc o. Pt failed patch. Pt still smoking. Pt is not ready to quit tobacco. Pt has COPD Pt sees pulmonary and she uses albuterol daily. Pt is not using any other prophylactic meds. for COPD GERD1 Pt has GERd Pt s tates that zantac does not help. pt has severe GERD with zantac and she had to go to ER for it last friday. Pt was given protonix but not covered either. Pt denies any abd pain. Pt unable to sleep due to GERD. tobacco1 Pt has not start ed the patch yet. Pt told me she is smoking close to 1 ppd now. Pt wants to know if she needs higher dose of the patch back pain1 Pt c/o chronic l ow back pain with scaitcia down to left hip pt denies any loss of bowel or bladder control. Pt denies anyworsening pain Pt notices sharp and dullache. Pt had xray done recenlty bug left ear Pt notices bug i nside left ear canal since last friday. Pt tried to pick on her left ear and notices a bug shape material and then a leg Pt denies any ear pain or bleeding or drainage. Pt denies any hearing loss. Pt notices some left ear stuffiness and hearing loss GERD1 Pt has chronic G ERD Pt has gastiritis. Her insurance does not cover omperzole. Pt yayo any abd pain CAD1 Pt has CAD with stent. Pt is on ranexa, isosorbide, brlinta, mag, pravastatin, coreg and losartan. Her BP is ok today. Pt denies any chest pain. Pt is off lipitor from cardiology insomnia1 Pt no longer randi ing ambien per pt. Pt is on trazodone from her psychiatrist and doing ok Pt denies any snoring or any trouble with breathing at night lumbago1 Pt has intermitt ent low back pain with left sciatica and left leg numbness for 6 months. No injury. . Pt also has left wrist pain Pt recenlty has left wrsit fracture and she is seeing ortho and is wearing wrist splint now. Pt denies any loss of bladder control vertigo vertigo1 Pt states that s he had acute episodes of vertigo attack last and she fell and broke left wrist and right ankle and tailbone Pt denies any head injury. Pt denies any neurologic deficit pt did not pass out. Pt is seeing ortho now for the wrist fraxture. Pt was told nothing needs to be done for ankle fracture back pain1 Pt has chornic l ow back pain with left sciatica. Pt denies any worsening pain Pt denies any loss of bladder control COPD1 Pt has COPD on c hest Ct Pt feels SOB occassionally, especially with exertion. Pt states that she uses albuterol at least once per day. Pt still smoking Pt denies any acute SOB dizziness1 Pt has intemritt ent dizziness and also positional vertigo chronically. Pt states that sometimes she feels dizzy when standing up from sitting position also. Pt also notices dizy when she look up and down Physical Pt needs annual physical Pt has chronic and acute low back pain with left sciatica for sevearl months, worse during last week. Pt fell down steps last week by accident and she went to urgent care and had negative lumbar spien xrays. Pt states that both leg feels numnbess sometimes. Pt states that her low back pain has been worse since the fall. Pt denies any loss of bladder control Pt also has chornic insomnia pt takes ambien. Pt takes CAD and she takes imdur, losarrtan and coreg. Pt takes lipitor for HLP. Pt also takes calcium and vitami D for osteopenia. pt denies any fx. Pt also takes lexapro and klonpin from psychiatrist for anxiety and depression Pt states that she notices mild vertigo feeling when turning head lastely. PT denies any headache Pt denies any syncope. Pt denies any tinnitusPt denies any other complaints. anxiety1 Pt has chronic a nxiety and depression Pt takes celexa and buspar and doing ok .Pt denies any suicidal or homicidal thought GERD1 Pt has gastritis Pt failed zantac. Pt states that only omeprazole helps her daily GERD symptoms HLP Pt has HLP. Pt t akes lipitor and doing ok Her lipid profile is normal. Pt denies any myalgia insomnia1 Pt takes ambien qhs PRN and doing ok. Pt had sleep study which failed to show sleep apnea. Pt has limb movement at night and she is seeing sleep physicain for it LFT Pt has mildly el evated LFT pt has negative hepatitis and ultrasound Pt quit alcohol recently. NO abd pain or jaundice knee pain1 Pt has knee and hip pain due to arthritis Tylenol #3 does not work anxiety1 Pt has chronic a nxiety and depression .Pt takes celexa and buspar and doing ok Pt denies any suicidal or homicdial thought. Pt denies any crying spells knee pain1 Pt has knee pian due to arthritis pt takes tylenol #3 PRN for pain and doing ok sleep disorder1 Pt has severe li mb movement during sleep. Pt does not have sleep apnea. Pt is taking muscle relaxant per sleep physician and doing ok CAD Pt takes coreg, losartan and imdur. Pt sees cardiology. Pt denies any chest apin anxiety1 Pt has chronic a nxiety and depression. Pt has been taking celexa and buspar for the past month. Pt still feels slighlty depressed and jittery with medication. Pt denies any suicidal or homicidal thought. joint pain1 Pt has chronic j oint pain including knee and hip and ankle. Pt had xray done which showed some degenerative disease. Pt has been taking tylenol #3 PRN which helps. Pt denies any worsening pain GERD1 Pt has been doin g ok with 20 mg omeprazole osteopenia1 Pt has osteopeni a. pt takes calcium and vitamin D and doing ok. Pt denies any spontaneous fx insomnia1 Pt has chornic i nsomnia. Pt states that she snores and sometimes has trouble with breathing at night. Pt never did the sleep study GERD1 Pt has mild etta riris. Pt has chronic GERD. Pt has been taking omeprazole 40 mg daily and no symptoms. NO abd pain CAD Pt has history o f HTN and CAD. Pt takes coreg, losartan 100 mg and imdur from cardiology. Pt denies any chest pain or SOB. Pt denies any headache chronic pian1 Pt c/o bilateral hip pain, worse on right side, right ankle pain for several months. Pt denies any injury. Pt c/o bilatearl knee pain Pt denies any swelling. Pt denies any back pain or any sciatica anxiety1 Pt has been havi ng anxiety and panic attacks for several years. Pt feels depressed Pt has crying spells. Pt denies any sucidal or homicidal thought. leg pain sleep study1 Pt c/o snorning and sometimes unable to breath at night. Pt has had the symptmos for several years . Pt feels fatigeu restless leg1 Pt c/o restless leg at night for several months. Pt states that she has difficulty sleeping due to above. Pt has the urge to move both legs at night. HLP1 Pt has mildly el evated TG. Pt takes lipitor. Pt denies any myalgia leg pain1 Pt has midial ri ght ankle and heel pain and some radiation of pain to her right lower leg. pt denies any calf pain. Pt states that she feels pain most likely around tibfib Pt states that she had the pain for several months Pt notices the pain after returning from [place]. Pt denies any calf pain. No injury Physical1 Pt needs annual physical. Pt c/o sinus congestion and pururlent drainage for one week. Pt has sinus headache. Pt has osteopnia but she does not want to take fosamax Pt takes calcium and vimtain D. Pt is trying weight bearing exercise. Pt also has insomnia and she takes ambien qhs and doing ok Pt just had two more cardiac stent. Pt atkes lipitor, isosorb nitrate Pt denies any chset pain. Pt sees cardiology. Pt c/o medial right ankle pain for one week, but getting better per patient. Pt denies any chset pain, SOB or calf pain. Pt denies other complaints osteopenia Additional infor mation: Pt has osteopenia. GERD Associated sympt oms include heartburn. Pertinent negatives include back pain, blood in stool, constipation, diarrhea, dyspnea, fever, hematuria, rash, vaginal discharge, vomiting, weight gain and weight loss.Additional information:Pt has GERD. Pt takes omeprzole and stable. Pt denies any acute symptoms. insomnia The patient pres ents for insomnia. Relevant history: a BMI of 33.30. The patient has the following risk factors for insomnia: use of alcohol. The patient is experiencing heartburn. The patient denies depression, weight gain or wheezing. Additional information: Pt has insomnia and she takes ambien and stable. fibular fx Pt has left dist al fibular fx. Pt is seeing ortho now and is wearing boot GERD Additional infor mation:Pt takes omerapzole and doing ok. Pt denies any abd pain or GERd symptoms. insomia Pt has insomnia. Pt takes ambien qhs PRN and doing ok abd pain Pt has intermitt ent left flank pain and also some vague pelvic pain for several months. Pt denies any diarrhea, nauea, vomiting. Pt had benign CT recenlty. Pt had benign colonosocpy and EGD last year. Instructions Date Instruction Additional Infor mation Increase physical activity Relat ed to Fatigue Quit smoking Related to Fatig ue Weight management Related to Fat igue Special diet education Related t o Body mass index (BMI) 31.0-31.9, adult Weight management Related to Lum bago with sciatica, right side Special diet education Related t o Body mass index (BMI) 32.0-32.9, adult Increase physical activity Relat ed to Lumbago with sciatica, right side Quit smoking Related to Lumba go with sciatica, right side Weight management Related to Ins omnia Quit smoking Related to Insom aimee Increase physical activity Relat ed to Insomnia Special diet education Related t o Body mass index (BMI) 32.0-32.9, adult Special diet education Related t o Body mass index (BMI) 32.0-32.9, adult Perform monthly self breast examinations. Related to Encntr for general adult medical exam w/o abnormal findings Quit smoking. Related to Encnt r for general adult medical exam w/o abnormal findings Increase activity. Related to En cntr for general adult medical exam w/o abnormal findings Special diet education Related t o Body mass index (BMI) 33.0-33.9, adult Quit smoking Related to Lumba go with sciatica, left side Special diet education Related t o Body mass index (BMI) 31.0-31.9, adult Quit smoking Related to Renal disease Special diet education Related t o Body mass index (BMI) 30.0-30.9, adult Special diet education Related t o Body mass index (BMI) 32.0-32.9, adult Quit smoking Related to Encnt r for general adult medical exam w/o abnormal findings Prescribed Activity and Exercise Education Related to Dietary Surveillance and Counseling Prescribed Diet Educ ation/Lifestyle Education Regarding Diet Related to Dietary Surveillance and Counseling Avoid provocative fo ods: citrus, alcohol, coffee, chocolate, mints Related to GERD w/o esophagitis Eat smaller meals, n o eating three hours prior to bedtime Related to GERD w/o esophagitis Elevate head of bed prior to sle ep Related to GERD w/o esophagitis Weight management Related to Ins omnia, unspecified Quit smoking Related to Insom aimee, unspecified Increase physical activity Relat ed to Insomnia, unspecified Prescribed Diet Educ ation/Lifestyle Education Regarding Diet Related to Dietary Surveillance and Counseling Prescribed Activity and Exercise Education Related to Dietary Surveillance and Counseling Quit smoking Related to Other spondylosis, lumbar region Prescribed Diet Educ ation/Lifestyle Education Regarding Diet Related to Dietary Surveillance and Counseling Prescribed Activity and Exercise Education Related to Dietary Surveillance and Counseling Quit smoking Related to Disor mar[place] of bone density and structure, unspecified Prescribed Activity and Exercise Education Related to Dietary Surveillance and Counseling Prescribed Diet Educ ation/Lifestyle Education Regarding Diet Related to Dietary Surveillance and Counseling Prescribed Activity and Exercise Education Related to Dietary Surveillance and Counseling Prescribed Diet Educ ation/Lifestyle Education Regarding Diet Related to Dietary Surveillance and Counseling Prescribed Activity and Exercise Education Related to Dietary Surveillance and Counseling Prescribed Diet Educ ation/Lifestyle Education Regarding Diet Related to Dietary Surveillance and Counseling Prescribed Activity and Exercise Education Related to Dietary Surveillance and Counseling Prescribed Diet Educ ation/Lifestyle Education Regarding Diet Related to Dietary Surveillance and Counseling Prescribed Activity and Exercise Education Related to Dietary Surveillance and Counseling Prescribed Diet Educ ation/Lifestyle Education Regarding Diet Related to Dietary Surveillance and Counseling Prescribed Activity and Exercise Education Related to Dietary Surveillance and Counseling Prescribed Diet Educ ation/Lifestyle Education Regarding Diet Related to Dietary Surveillance and Counseling Prescribed Activity and Exercise Education Related to Dietary Surveillance and Counseling Prescribed Diet Educ ation/Lifestyle Education Regarding Diet Related to Dietary Surveillance and Counseling Prescribed Activity and Exercise Education Related to Dietary Surveillance and Counseling Prescribed Diet Educ ation/Lifestyle Education Regarding Diet Related to Dietary Surveillance and Counseling Prescribed Activity and Exercise Education Related to Dietary Surveillance and Counseling Prescribed Diet Educ ation/Lifestyle Education Regarding Diet Related to Dietary Surveillance and Counseling Prescribed Activity and Exercise Education Related to Dietary Surveillance and Counseling Prescribed Diet Educ ation/Lifestyle Education Regarding Diet Related to Dietary Surveillance and Counseling Prescribed Activity and Exercise Education Related to Dietary Surveillance and Counseling Prescribed Diet Educ ation/Lifestyle Education Regarding Diet Related to Dietary Surveillance and Counseling Physical activity counseling Rel ated to Dietary surveillance counseling Decrease caloric intake Related to Dietary surveillance counseling Physical activity counseling Rel ated to Dietary surveillance counseling Decrease caloric intake Related to Dietary surveillance counseling Dietary counseling Related to Di etary surveillance counseling Decrease caloric intake Related to Dietary surveillance counseling Dietary counseling Related to Di etary surveillance counseling Decrease caloric intake Related to Dietary surveillance counseling Assessments Type Assessment Date No Information
--- OUTSIDE RECORDS SUMMARY | 2024-11-09 09:12 | XMS_ITS | Encounter Summary ---
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
--- OUTSIDE RECORDS SUMMARY | 2024-11-09 09:12 | XMS_ITS | Clinical Summary ---
Author Organization [facility] Address [address] [place] [address] Care Team Providers Care Windows And Doors Installer Name Role Phone Robby Dee MD Primary Care Provider [phone] Source Comments [facility],non-owned Affiliates and Associated Physician Practices is amultiple site organization consisting of ambulatory clinics and hospital sitesin [place], [place], [place] and [place]. 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 Gender Identity Not on file Sexual Orientation [...] patient's age to complete this topic Insurance [facility] S[facility] NO INSURANCE Member Subscriber Plan / Payer (Ef fective for All Dates) Name:Julia Lema Member ID:Not on file Relation to Subscriber:Not on file Name:JULIA LEMA Subscriber ID:Not on file (Home) Address: [address] [place] [id number] Payer ID:Not on file Group ID:Not on file Type:Self Pay Address: [place], [place] Care Teams Windows And Doors Installer Relationship Specialty Start Date End Date Robby Dee MD [address] [id number] [facility] - General 05/10/14
--- OUTSIDE RECORDS SUMMARY | 2024-11-09 09:12 | XMS_ITS | Clinical Summary ---
Author Organization [facility] Address [address] [place] [address] Care Team Providers Care Private Eye Name Role Phone Unavailable Primary Care Provider [...] (1 - 1-dose 75+ series) 11/01/2035 Insurance [facility] PLAN MEDICAID
--- OUTSIDE RECORDS SUMMARY | 2024-11-09 09:12 | XMS_ITS | Clinical Summary ---
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 DISSOLVE ONE [...] use distraction techniques - Information given regarding [place] Tobacco Quit line: 3-377-NSEY-YES for free services - 6 minutes spent discussing cessation She has tried and failed Wellbutrin, varenicline, lozenges, gum, generic patches The only thing she had success with in the past was the Nicoderm CQ patches I have placed an order for these today in a titrating fashion She qualifies for annual screening, next due 02/2025 Assessment & Plan (04/20/2024 2:45 PM HOSPICE VOLUNTEER COORDINATOR): - Smoking cessation counseling and techniques reviewed at length - Avoid triggers and use distraction techniques - Information given regarding [place] Tobacco Quit line: 0-311-[id number] for free services - 5 minutes spent [...] tested Assessment & Plan (04/20/2024 2:49 PM HOSPICE VOLUNTEER COORDINATOR): She is MZ with good last levels [...] index 31.0-31.9, adult 07/03/2017 Coronary atherosclerosis of [place] coronary emily ry 07/03/2017 Cervicalgia 07/03/2017 Chronic [...] care Assessment & Plan (04/20/2024 2:48 PM HOSPICE VOLUNTEER COORDINATOR): Continue Stiolto two puffs daily for now [...] Resolved Date Atherosclerotic heart diseas e of [place] coronary artery without angina pectoris 07/03/2017 12/10/2022 Hyperlipidemia 07/03/2017 12/10/2022 Pure hypertriglyceridemia 07/03/2017 Pure hyperglyceridemia 04/21/201402/11 Coronary arteriosclerosis in [place] artery 02/15/2014 02/11/2023 Encounters Date Type Department Care Team Description 10/06/2024 10:15 AM CDT Office Visit [facility] [place] [facility] [address] [place] [address] Medical Office [facility] [address] [place] [address] Jay Campos MD Thrombocytopenia (Primary Dx); Pancreatic lesion 10/06/2024 9:45 AM CDT Lab [facility] [address] [facility] [address] [place] [address] Thrombocytopenia; Pancreatic lesion 10/05/2024 Telephone [facility] [place] [facility] [address] [place] [address] Office [facility] [address] [place] [address] Tatianna Reese CLT 09/29/[address] [facility] Cardiology [address] [facility] [address] [place] [phone] Marcus Redd MD 09/19/2024 12:30 PM CDT Office Visit [facility] [place] [address] [facility] [place] [id number] Berta Gill, KWADWO Acute otitis externa of right ear, unspecified type (Primary Dx); Non-recurrent acute suppurative otitis media of left ear with spontaneous rupture of tympanic membrane; Impacted cerumen of right ear 09/17/2024 6:[address] [facility] Virtual Care [address] [place] [address] Ana Coley MD Acute otitis externa of right ear, unspecified type (Primary Dx) 09/17/2024 Patient Self-Triage [facility] [address] [place] [address] Mychart, Generic Provider 09/03/2024 11:00 AM CDT Office Visit [facility] [place] [facility] [address] [place] [address] Medical Office [address] [place] [address] Jay Campos MD Thrombocytopenia (Primary Dx); Pancreatic lesion 09/03/2024 10:30 AM CDT Lab [address] [place] [address] Thrombocytopenia, unspecified (Primary Dx); Thrombocytopenia; Pancreatic lesion 09/03/2024 Results Follow-Up [facility] [place] [facility] [address] [place] [address] Medical Office [facility] [address] [place] [address] Chana Smith, TERESE CBC with auto differential 08/19/2024 7:33 AM CDT - 08/19/2024 11:59 PM CDT Hospital Encounter [address] [address] Dizziness and giddiness Discharge Disposition: Discharge to home or self care 08/19/2024 7:33 AM CDT - 08/19/2024 11:59 PM CDT Hospital Encounter [address] [address] Upper abdominal pain, unspecified; Thrombocytopenia, unspecified Discharge Disposition: Discharge to home or self care 08/13/2024 Telephone [facility] [place] [facility] [address] [place] [address] Medical Office [facility] [address] [place] [address] Adwoa Garcia CLT from Last 3 Months [...] on file Legal Sex Female 5:32 PM HOSPICE VOLUNTEER COORDINATOR Gender Identity Not on file Sexual Orientation [...] Tdap) 02/23/203112/2020 Medical Devices Implanted Type Area [employer] Recruiter Device Identifier Shelf Expiration Date Model / Serial / Lot wywy Angio-Seal Vip 6fr Closere Device [id number] - [id number] Implanted:Qty: 1 on 01/21/2022 by Blake Ham MD at [facility] wywy 10/14/2022 [id number] / / [id number] Procedures Procedure Name Priority Date/Time Associated Diagnosis Comments MAGNESIUM Routine 10/06/2024 9:00 AM CDT Thrombocytopenia Pancreatic lesion DIFFERENTIAL AUTO Routine 10/06/2024 9:0 0 AM CDT Thrombocytopenia Pancreatic lesion CBC WITH AUTO DIFFERENTIAL Routine 10/06/2024 9:00 AM CDT Thrombocytopenia Pancreatic lesion [place] REMOVAL IMPACTED CERUMEN INSTRUMENTATION UNILAT Routine 09/19/2024 [...] Read Routine (OP Routine) 03/02/2024 4:42 PM HOSPICE VOLUNTEER COORDINATOR Nicotine dependence, cigarettes, uncomplicated from Last 3 Months or Most Recently Relevant to Health Maintenance Results * Differential, auto (10/06/2024 9:00 AM CDT) Neutrophil abs 4.22 1.50 - 6.50 K/cumm YAEL TILLMAN (INGOMAR) Comment:Testing performed by : [facility] [address], Medical Office [facility] [address], [place] [address] Imm gran abs 0.01 0.00 - 0.10 K/cumm YAEL TILLMAN (INGOMAR) Comment:Testing performed by : [facility] [address], Medical Office [facility] [address], [place] [address] Lymphocyte abs 1.25 0.80 - 3.30 K/cumm [facility] ([place]) Comment:Testing performed by : [facility] [address], Medical Office [address], [place] [address] Monocyte abs 0.50 0.20 - 0.80 K/cumm [facility] ([place]) Comment:Testing performed by : [facility] [address], Medical Office [address], [place] [address] Eosinophil abs 0.23 0.00 - 0.50 K/cumm [facility] ([place]) Comment:Testing performed by : [facility] [address], Medical Office [address], [place] [address] Basophil abs 0.05 0.00 - 0.10 K/cumm [facility] ([place]) Comment:Testing performed by : [facility] [address], Medical Office dg [address], [place] [address] Neutrophil pct 67.3 % [facility] ([place]) Comment: Interpretive Data Percent cell count reference ranges are not reported, since discordance with absolute values may lead to misinterpretation of CBC data. Current Interpretive Data was last revised on 2022. Testing performed by: [facility] [address], Medical Office [facility] [address], [place] [address] Imm gran pct 0.2 % [facility] ([place]) Comment: Interpretive Data Percent cell count reference ranges are not reported, since discordance with absolute values may lead to misinterpretation of CBC data. Current Interpretive Data was last revised on 2022. Testing performed by: [facility] [address], Medical Office [facility] [address], [place] [address] Lymphocyte pct 20.0 % [facility] ([place]) Comment: Interpretive Data Percent cell count reference ranges are not reported, since discordance with absolute values may lead to misinterpretation of CBC data. Current Interpretive Data was last revised on 2022. Testing performed by: [facility] [address], Medical Office [address], [place] [address] Monocyte pct 8.0 % [facility] ([place]) Comment: Interpretive Data Percent cell count reference ranges are not reported, since discordance with absolute values may lead to misinterpretation of CBC data. Current Interpretive Data was last revised on 2022. Testing performed by: [facility] [address], Medical Office [facility] [address], [place] [address] Eosinophil pct 3.7 % ALEXIA TILLMAN (SVETLANA) Comment: Interpretive Data Percent cell count reference ranges are not reported, since discordance with absolute values may lead to misinterpretation of CBC data. Current Interpretive Data was last revised on 2022. Testing performed by: [facility] [address], Medical Office [facility] [address], [place] [address] Basophil pct 0.8 % YAEL TILLMAN ([place]ETLA[place]) Comment: Interpretive Data Percent cell count reference ranges are not reported, since discordance with absolute values may lead to misinterpretation of CBC data. Current Interpretive Data was last revised on 2022. Testing performed by: [facility] [address], Medical Office [facility] B [facility] [address], [place] [address] Blood 10/06/2024 9:00 AM CDT 10/06/2024 9:05 AM CDT us Jay Campos MD LAB BLOOD ORDERABLES Final Re sult YAEL TILLMAN ([place]) [address] [facility] Department [place] [address] * (ABNORMAL) CBC with auto differential (10/06/2024 9:00 AM CDT) WBC 6.26 3.80 - 9.90 K/cumm YAEL TILLMAN ([place]) Comment:Testing performed by : [facility] [address], Medical Office [facility] [address], [place] [address] Hgb 13.6 11.9 - 15.5 g/dL YAEL TILLMAN ([place]) Comment:Testing performed by : [facility] [address], Medical Office [facility] [address], [place] [address] Hct 42.0 35.6 - 45.5 % YAEL TILLMAN ([place]ETLANA) Comment:Testing performed by : [facility] [address], Medical Office [facility] B [facility] [address], [place] [address] Plt 135(L) 150 - 400 K/cumm [facility] ([place]) Comment:Testing performed by : [facility] [address], Medical Office [facility] B [facility] [address], [place] [address] MPV 12.4(H) 9.1 - 12.3 fL [facility] ([place]) Comment:Testing performed by : [facility] [address], Medical Office [facility] [address], [place] [address] RBC 4.17 3.90 - 5.20 M/cumm [facility] ([place]) Comment:Testing performed by : [facility] [address], Medical Office [facility] B [facility] [address], [place] [address] MCV 100.7(H) 81.3 - 96.4 fL [facility] ([place]) Comment:Testing performed by : [facility] [address], Medical Office [facility] B [facility] [address], [place] [address] MCH 32.6 27.1 - 33.3 pg [facility] ([place]) Comment:Testing performed by : [facility] [address], Medical Office [facility] [address] [facility] [address], [place] [address] MCHC 32.4 32.3 - 35.7 g/dL [facility] ([place]) Comment:Testing performed by : [facility] [address], Medical Office [facility] [address], [place] [address] RDW CV 13.3 11.1 - 14.9 % [facility] ([place]) Comment:Testing performed by : [facility] [address], Medical Office [facility] [address], [place] [address] RDW SD 50.2(H) 35.7 - 48.1 fL [facility] ([place]) Comment:Testing performed by : [facility] [address], Medical Office [facility] [address], [place] [address] Blood 10/06/2024 9:00 AM CDT 10/06/2024 9:05 AM CDT Jay Campos MD LAB BLOOD ORDERABLES Final Re sult YAEL TILLMAN (INGOMAR) [address] [facility] [place] [address] * Magnesium (10/06/2024 9:00 AM CDT) Magnesium 1.7 1.4 - 2.5 mg/dL Y[facility]EL [facility] (INGOMAR) Blood 10/06/2024 9:00 AM CDT 10/06/2024 11:15 AM CDT Jay Campos MD LAB BLOOD ORDERABLES Final Re sult Performing Organization Address [facility] Co de Phone Number YAEL TILLMAN (INGOMAR) [address] [place] [address] * [place] REMOVAL IMPACTED CERUMEN INSTRUMENTATION UNILAT (09/19/2024 12:30 [...] 40(H) 28 - 38 sec YAEL TILLMAN (INGOMAR) Comment: Interpretive Data Heparin therapeutic range: 66.0 - 100.0 seconds. Range based on correlation with therapeutic heparin activity range of 0.3 - 0.7 Units/mL. Current interpretive data was last revised on 2022. Testing performed by: [place], [address] Blood 09/03/2024 11:3 5 AM CDT 09/03/2024 11:45 AM CDT Jay Campos MD LAB BLOOD ORDERABLES Final Re sult Performing Organization Address City/[facility]/ZIP Co de Phone Number CARLITAWES TILLMAN (INGOMAR) [address] [place] [address] Department of [place] [address] * Protime-INR (09/03/2024 11:35 AM CDT) PT 10.9 9.7 - 13.0 sec YAEL TILLMAN (INGOMAR) Comment:Testing performed by : [place], [address] INR 1.01 0.90 - 1.20 YAEL TILLMAN (INGOMAR) Comment: Interpretive data Oral anticoagulant therapeutic ranges: Venous thromboembolism prophylaxis or treatment: 2.0-3.0 CARDIOLOGY Standard range: 2.0-3.0 High-intensity range: 2.5-3.5 Refer to indication-specific guidelines for appropriate target ranges for prosthetic heart valve replacement. Current interpretive data was last revised on 2019. Testing performed by: [place], [address] Blood 09/03/2024 11:3 5 AM CDT 09/03/2024 11:59 AM CDT Jay Campos MD LAB BLOOD ORDERABLES Final Re sult YAEL PRIMO (INGOMAR) [address] [facility] Department of [place] [address] * (ABNORMAL) Fibrinogen (09/03/2024 11:35 AM CDT) Fibrinogen 457(H) 170 - 400 mg/dL YAEL TILLMAN (INGOMAR) Comment:Testing performed by : [facility], [place], [address] Blood 09/03/2024 11:3 5 AM CDT 09/03/2024 11:59 AM CDT Jay Campos MD LAB BLOOD ORDERABLES Final Re sult YAEL TILLMAN (INGOMAR) [address] [place] [address] Department [place] [address] * (ABNORMAL) Fibrinogen (09/03/2024 11:35 AM CDT) Fibrinogen 457(H) 170 - 400 mg/dL YAEL TILLMAN (INGOMAR) Comment:Testing performed by : [place], [address] Blood 09/03/2024 11:3 5 AM CDT 09/03/2024 11:45 AM CDT Jay Campos MD LAB BLOOD ORDERABLES Final Re sult Performing Organization Address [facility]/ZIP Co de Phone Number YAEL TILLMAN (INGOMAR) [address] [place] [address] Department of [place] [address] * Folate (09/03/2024 11:35 AM CDT) Folic acid >20.0 >=5.0 ng/mL Comment: Slightly Hemolyzed Specimen. Results may be affected. Testing performed by: [place], [address] Blood 09/03/2024 11:3 5 AM CDT 09/03/2024 11:59 AM CDT Jay Campos MD LAB BLOOD ORDERABLES Final Re sult YAEL TILLMAN (INGOMAR) [address] [facility] Department [place] [address] * Vitamin B12 (09/03/2024 11:35 AM CDT) Vitamin B12 1,192 230 - 1,250 pg/mL Comment:Testing performed by : [place], [address] Blood 09/03/2024 11:3 5 AM CDT 09/03/2024 11:59 AM CDT Jay Campos MD LAB BLOOD ORDERABLES Final Re sult [facility] ([place]) [address] [facility] Department [place] [address] * (ABNORMAL) CBC with auto differential (09/03/2024 10:30 AM CDT) Pathologist [facility] WBC 5.68 3.80 - 9.90 K/cumm Comment:Testing performed by : [place], [address] Hgb 13.5 11.9 - 15.5 g/dL [facility] ([place]) Comment:Testing performed by : [facility], [place], [address] Hct 41.6 35.6 - 45.5 % [facility] ([place]) Comment:Testing performed by : [place], [address] Plt 141(L) 150 - 400 K/cumm [facility] ([place]) Comment:Testing performed by : [place], [address] MPV 11.9 9.1 - 12.3 fL [facility] ([place]) Comment:Testing performed by : [place], [address] RBC 4.13 3.90 - 5.20 M/cumm [facility] ([place]) Comment:Testing performed by : [place], [address] MCV 100.7(H) 81.3 - 96.4 fL [facility] ([place]) Comment:Testing performed by : [place], [address] MCH 32.7 27.1 - 33.3 pg [facility] ([place]) Comment:Testing performed by : [facility], [facility], [place], [address] MCHC 32.5 32.3 - 35.7 g/dL [facility] ([place]) Comment:Testing performed by : [facility], [place], [address] RDW CV 12.8 11.1 - 14.9 % [facility] ([place]) Comment:Testing performed by : [facility], [place], [address] RDW SD 47.5 35.7 - 48.1 fL [facility] ([place]) Comment:Testing performed by : [facility], [place], [address] NRBC abs 0.00 0.00 - 0.01 K/cumm [facility] ([place]) Comment:Testing performed by : [facility], [place], [address] Blood 09/03/2024 10:3 0 AM CDT 09/03/2024 10:39 AM CDT us Jay Campos MD LAB BLOOD ORDERABLES Final Re sult YAEL TILLMAN ([place]) [address] [facility] Department [place] [address] * Manual Differential (09/03/2024 10:30 AM CDT) Differential Manual Comment:Testing performed by : [facility], [place], [address] Cells Counted 100 [facility] ([place]) Comment:Testing performed by : [facility], [place], [address] Neutrophil abs 3.92 1.50 - 6.50 K/cumm [facility] ([place]) Comment:Testing performed by : [facility], [place], [address] Lymphocyte abs 1.53 0.80 - 3.30 K/cumm [facility] ([place]) Comment:Testing performed by : [facility], [place], [address] Monocyte abs 0.23 0.20 - 0.80 K/cumm [facility] ([place]) Comment:Testing performed by : [facility], [place], [address] Neutrophil pct 68.0 % [facility] ([place]) Comment: Interpretive Data Percent cell count reference ranges are not reported, since discordance with absolute values may lead to misinterpretation of CBC data. Current Interpretive Data was last revised on 2017. Testing performed by: [place], [address] Lymphocyte pct 27.0 % [facility] ([place]) Comment: Interpretive Data Percent cell count reference ranges are not reported, since discordance with absolute values may lead to misinterpretation of CBC data. Current Interpretive Data was last revised on 2017. Testing performed by: [place], [address] Monocyte pct 4.0 % [facility] ([place]) Comment: Interpretive Data Percent cell count reference ranges are not reported, since discordance with absolute values may lead to misinterpretation of CBC data. Current Interpretive Data was last revised on 2017. Testing performed by: [facility], [place], [address] Band Neutrophil pct 1.0 0.0 - 5.0 % [facility] ([place]) Comment:Testing performed by : [place], [address] RBC morphology Consistent with RBC Indicies YAEL TILLMAN ([place]) Comment:Testing performed by : [place], [address] Platelet estimate Automated Count Confirmed YAEL TILLMAN (INGOMAR) Comment:Testing performed by : [place], [address] Blood 09/03/2024 10:3 0 AM CDT 09/03/2024 10:39 AM CDT us Jay Campos MD LAB BLOOD ORDERABLES Final Re sult YAEL TILLMAN ([place]) 1 [facility] Department [place] [address] * US RUQ (08/19/2024 8:51 AM CDT) [...] by David He M.D. JR: Report ID: [id number] Reading Location: [id number] Procedure Note David He MD - 08/30/2024 [...] by David He M.D. JR: Report ID: [id number] Reading Location: [place] [address] us Chana Agosto ERP CONSULTANT IMG US PROCEDURES Final Resu lt * [...] by David He M.D. JR: Report ID: [id number] Reading Location: [place] [address] Procedure Note David He MD - 08/30/2024 [...] by David He M.D. JR: Report ID: [id number] Reading Location: [place] [address] us Chana Agosto ERP CONSULTANT IMG US PROCEDURES Final Resu lt * CT Lung Cancer Screening (03/02/2024 4:42 PM HOSPICE VOLUNTEER COORDINATOR) Anatomical Region Laterality Modality Chest N/A Computed Tomogra phy 03/09/2024 1:20 PM HOSPICE VOLUNTEER COORDINATOR Narrative 03/09/2024 1:25 PM HOSPICE VOLUNTEER COORDINATOR EXAM DESCRIPTION: CT LUNG CANCER SCREENING REASON [...] Janet Franco D.O. PS: PS Report ID: [id number] Reading Location: [id number] Procedure Note Janet Francop, DO - 03/09/2024 [...] Janet Franco D.O. PS: PS Report ID: [id number] Reading Location: [place] [address] Ben Stratton MD IM CT PROCEDURES Final Result from Last 3 Months or Most Recently Relevant to Health Maintenance Insurance [facility] Advance Directives For more information, please contact: [phone] * Full Code (Latest Code Status on File) Date Activated Date Inactivated Comments 01/21/2022 4:32 PM 01/21/2022 8:36 PM Care Teams Salesperson [employer] Relationship Specialty Start Date End Date Surinder Walters DO PCP - General Internal Medicine 10/30/23 Robby Dee MD Family Medicine 06/27/22
[2024-11-09 10:08] LABS: IFOB Positive Control Positive; Immunochemical Fecal Occult Bl Negative (N)
== END 2024-11-09 09:00 | disposition home or self-care (01) ==
PROVIDERS: PCP Clinical Nurse Specialist; Visit Provider Clinical Nurse Specialist
DX: I12.9 Hypertensive chronic kidney disease with stage 1 through stage 4 chronic kidney disease, or unspecified chronic kidney disease (principal); I25.10 Atherosclerotic heart disease of native coronary artery without angina pectoris; E78.2 Mixed hyperlipidemia; D69.6 Thrombocytopenia, unspecified; R63.4 Abnormal weight loss; N18.31 Chronic kidney disease, stage 3a; D50.9 Iron deficiency anemia, unspecified; M25.541 Pain in joints of right hand; M25.542 Pain in joints of left hand; J44.9 Chronic obstructive pulmonary disease, unspecified
CPT/HCPCS: 82274

== ENCOUNTER 2024-11-11 15:24 | Outpatient (CLI) | payer OTHER, SELFPAY ==
--- OUTSIDE RECORDS SUMMARY | 2018-12-01 05:52 | XMS_ITS | Continuity of Care Document ---
Author Organization [facility] Address [address] [place] [address] [place] [address] Phone Care Team Providers Care Gis Specialist Name Role Phone Robby Dee MD Unavailable Unavailable Allergies, Adverse Reactions, Alerts Substance Reaction Status Criticality No Known Allergies Active No Inform ation Medications Medication Instructions Dosage Effective Dates (start - stop) Status Comments Zantac 150 mg tablet take 1 tablet by oral route 2 times every day - Active [place] 7.5 mg-325 mg tablet take 1 tablet [...] Diagnoses Date Provider Providers Copied on Encounter [facility], [address], [place], [address], [place] tel:[phone] [facility] No Information 9 Luiz Bustamante. [address], [place], [place], [address] , [place]. tel:[phone] OFFICE/OUTPA TIENT VISIT, [facility], [address], [place], [place], [address], [place] [phone] [facility] osteopenia1 (chief complaint)b ack pain1 (chief complaint)f atigue1 (chief complaint) FatigueOther specified disorder of bone densityChronic pain syndromeGERD w/o esophagitisOther cholelithiasis without obstruction 9 Luiz Bustamante. [address], [place], [place], [address] , [place]. tel:[phone] Referring Provider: Jeanette Roberts [address], [place], [place], [address]. tel:[phone] OFFICE/OUTPA TIENT VISIT, [facility], [address], [place], [place], [address], [place] tel:[phone] [facility] back pain1 (chief complaint)g allstone1 (chief complaint)C AD (chief complaint)a nemia1 (chief complaint)G ERd1 (chief complaint) Lumbago with sciatica, right sideAnemiaCAD of [place] coronary artery without angina pectorisOther cholelithiasis without obstructionGERD w/o esophagitis 9 Luiz Granda [address], [place], [place], [address] , [place]. tel:[phone] Referring Provider: Jeanette Roberts [address], [place], [place], [address]. tel:[phone] OFFICE/OUTPA TIENT VISIT, [facility], [address], [place], [place], [address], [place] tel:[phone] [facility] anxiety1 (chief complaint) InsomniaGeneralize d Anxiety Disorder 9 Luiz Granda [address], [place], [place], [address] , [place]. tel:[phone] Referring Provider: Robby Dee, [address], [place], [place], [address]. tel:[phone] PREV VISIT, EST, AGE 40-64 [facility], [address], [place], [place], [address], [place] [phone] [facility] Physical (chief complaint) Encntr for general adult medical exam w/o abnormal findings 9 Luiz Bustamante. [address], [place], [place], [address] , [place]. [phone] Referring Provider: Jeanette Roberts [address], [place], [place], [address]. tel:[phone] OFFICE/OUTPA TIENT VISIT, [facility], [address], [place], [place], [address], [place] tel:[phone] [facility] back pain1 (chief complaint)H TN (chief complaint) Lumbago with sciatica, left sideEssential (primary) hypertension 8 Luiz Bustamante. [address], [place], [place], [address] , [place]. [phone] Referring Provider: Jeanette Roberts [address], [place], [place], [address]. tel:[phone] OFFICE/OUTPA TIENT VISIT, [facility], [address], [place], [address], [place] tel:[phone] [facility] foot pain1 (chief complaint)r enal1 (chief complaint)i nsomnia1 (chief complaint) Insomnia, unspecifiedRenal diseaseLumbago with sciatica, left sidePain in left foot 8 Luiz Bustamante. [address], [place], [place], [address] , [place]. tel:[phone] Referring Provider: Robby Dee [address], [place], [place], [address]. tel:[phone] OFFICE/OUTPA TIENT VISIT, [facility], [address], [place], [place], [address], [place] tel:[phone] [facility] syncope1 (chief complaint)r ib fracture1 (chief complaint)t obacco1 (chief complaint)e lbow 1 (chief complaint) Syncope and collapseTachycardi aOlecranon bursitis, left elbowRenal disease 8 Luiz Bustamante. [address], [place], [place], [address] , [place]. tel:[phone] Referring Provider: Robby Dee [address], [place], [place], [address]. tel:[phone] PREV VISIT, EST, AGE 40-64 [facility], [address], [place], [place], [address], [place] tel:[phone] [facility] PHysical (chief complaint) Encntr for general adult medical exam w/o abnormal findings 8 Luiz Bustamante. [address], [place], [place], [address] , [place]. tel:[phone] Referring Provider: Jeanette Roberts [address], [place], [place], [address]. tel:[phone] OFFICE/OUTPA TIENT VISIT, [facility], [address], [place], [place], [address], [place] tel:[phone] [facility] insomnia1 (chief complaint)G ERd1 (chief complaint)C OPD1 (chief complaint)a nxiety1 (chief complaint)b ack pain1 (chief complaint)i ncontinnece 1 (chief complaint) GERD w/o esophagitisInsomni aEmphysemaMixed incontinence 7 Luiz Bustamante. [address], [place], [place], [address] , [place]. tel:[phone] Referring Provider: Jeanette Roberts [address], [place], [place], [address]. tel:[phone] OFFICE/OUTPA TIENT VISIT, [facility], [address], [place], [place], [address], [place] tel:[phone] [facility] wrist fracture1 (chief complaint)b ack pain1 (chief complaint)G ERD1 (chief complaint)i nsomnia1 (chief complaint) Insomnia, unspecifiedGERD w/o esophagitisMeralgi a paresthetica, bilateral lower limbsRestless legs syndrome Nov-2 7 Luiz Bustamante. [address], [place], [place], [address] , [place]. tel:[phone] Referring Provider: Robby Dee [address], [place], [place], [address]. tel:[phone] OFFICE/OUTPA TIENT VISIT, [facility], [address], [place], [place], [address], [place] [phone] [facility] back pain1 (chief complaint) Other spondylosis, lumbar regionLumbago Oct- 7 Luiz Bustamante. [address], [place], [place], [address] , [place]. [phone] Referring Provider: Jeanette Roberts [address], [place], [place], [address]. tel:[phone] OFFICE/OUTPA TIENT VISIT, [facility], [address], [place], [place], [address], [place] tel:[phone] [facility] osteopenia1 (chief complaint)b ack pain1 (chief complaint)p ancreatic lesion1 (chief complaint)C OPD1 (chief complaint) Pancreatic endocrine cell hyperplasiaMeralgi a paresthetica, bilateral lower limbsDisorder of bone density and structure, unspecifiedCOPD Oct-0 7 Luiz Granda [address], [place], [place], [address] , [place]. tel:[phone] Referring Provider: Jeanette Roberts [address], [place], [place], [address]. tel:[phone] OFFICE/OUTPA TIENT VISIT, [facility], [address], [place], [place], [address], [place] tel:[phone] [facility] GERD1 (chief complaint)t obacco1 (chief complaint)o steopenia1 (chief complaint)i nsomnia1 (chief complaint) InsomniaOth disrd of bone density and structure, multiple sitesGastritis, unspecified, without bleedingTobacco use 7 Luiz Bustamante. [address], [place], [place], [address] , [place]. tel:[phone] Referring Provider: Jeanette Roberts [address], [place], [place], [address]. tel:[phone] OFFICE/OUTPA TIENT VISIT, [facility], [address], [place], [place], [address], [place] tel:[phone] [facility] Medicine bug left ear (chief complaint)t obacco1 (chief complaint)b ack pain1 (chief complaint)G ERD1 (chief complaint) GERD w/o esophagitisTobacco useLumbagoImpacted cerumen, left ear 7 Luiz Bustamante. [address], [place], [place], [address] , [place]. tel:[phone] Referring Provider: Jeanette Roberts [address], [place], [place], [address]. tel:[phone] OFFICE/OUTPA TIENT VISIT, [facility], [address], [place], [place], [address], [place] tel:[phone] [facility] GERD1 (chief complaint)C AD1 (chief complaint)i nsomnia1 (chief complaint)l umbago1 (chief complaint) Acute gastritis without bleedingLumbago with sciatica, left sideHyperlipidemia Atherosclerotic heart disease of [place] coronary artery without angina pectoris 7 Luiz Bustamante. [address], [place], [place], [address] , [place]. tel:[phone] Referring Provider: Jeanette Roberts [address], [place], [place], [address]. tel:[phone] OFFICE/OUTPA TIENT VISIT, [facility], [address], [place], [place], [address], [place] tel:[phone] [facility] vertigo (chief complaint)v ertigo1 (chief complaint)b ack pain1 (chief complaint)C OPD1 (chief complaint)d izziness1 (chief complaint) DizzinessCOPDLumba go 7 Luiz Bustamante. [address], [place], [place], [address] , [place]. [phone] Referring Provider: Robby Dee, [address] [place] [address] A, [place], [place], [address]. tel:[phone] PREV VISIT, [facility], AGE 40-64 [facility], [address], [place], [place], [address], [place] tel:[phone] [facility] Physical (chief complaint) Encounter for general adult medical exam w abnormal findingsLumbago with sciatica, left sideDizzinessInsom aimee 7 [facility]. [facility] [place], [place], [address] , [place]. tel:[phone] Referring Provider: Jeanette Roberts [facility], [place], [place], [address]. tel:[phone] OFFICE/OUTPA TIENT VISIT, [facility], [address], [place], [place], [address], [place] tel:[phone] [facility] anxiety1 (chief complaint)G ERD1 (chief complaint)H LP (chief complaint)i nsomnia1 (chief complaint)L FT (chief complaint)k nee pain1 (chief complaint) Chronic pain syndromeGeneralize d anxiety disorderInsomniaLi charles disease 6 Luiz Bustamante. [address], [place], [place], [address] , [place]. tel:[phone] Referring Provider: Jeanette Roberts [facility], [place], [place], [address]. tel:[phone] OFFICE/OUTPA TIENT VISIT, [facility], [address], [place], [place], [address], [place] tel:[phone] [facility] anxiety1 (chief complaint)k nee pain1 (chief complaint)s leep disorder1 (chief complaint)C AD (chief complaint) Atherosclerotic heart disease of [place] coronary artery without angina pectorisChronic pain syndromeGeneralize d anxiety disorderSleep disorder 6 Luiz Bustamante. [address], [place], [place], [address] , [place]. [phone] Referring Provider: Robby Dee [address] [place] [address] [place], [address]. tel:[phone] OFFICE/OUTPA TIENT VISIT, [facility], [address], [place], [place], [address], [place] tel:[phone] [facility] anxiety1 (chief complaint)j oint pain1 (chief complaint)G ERD1 (chief complaint)o steopenia1 (chief complaint) Gastro-esophageal reflux disease without esophagitisGeneral ized anxiety disorderChronic pain syndromeOth disrd of bone density and structure, multiple sites 6 Luiz Bustamante. [address], [facility] A, [place], [place], [address] , [place]. [phone] Referring Provider: Robby Dee [address] [facility] [address], [place], [place], [address]. tel:[phone] OFFICE/OUTPA TIENT VISIT, [facility], [address], [place], [place], [address], [place] tel:[phone] [facility] insomnia1 (chief complaint)G ERD1 (chief complaint)C AD (chief complaint)c hronic pian1 (chief complaint)a nxiety1 (chief complaint) InsomniaChronic pain syndromeGERD w/o esophagitisGeneral ized anxiety disorder 6 Luiz Bustamante. [address], [place], [place], [address] , [place]. tel:[phone] Referring Provider: Jeanette Roberts [address], [place], [place], [address]. tel:[phone] OFFICE/OUTPA TIENT VISIT, EST [facility], [address], [place], [place], [address], tel:[phone] [facility] leg pain (chief complaint)l eg pain1 (chief complaint)r estless leg1 (chief complaint)H LP1 (chief complaint)s leep study1 (chief complaint) Mixed hyperlipidemiaPain in right lower legRestless Legs SyndromeSleep apnea 5 Luiz Bustamante. [address] [facility] A, [place], [place], [address] , [place]. [phone] Referring Provider: Jeanette Roberts [facility], [place], [place], [address]. tel:[phone] PREV VISIT, EST, AGE 40-64 [facility], [address], [place], [place], [address], [place] tel:[phone] [facility] Physical1 (chief complaint) Encntr for general adult medical exam w/o abnormal findings 5 Luiz Bustamante. [address] [facility] [address], [place], [place], [address] , [place]. [phone] Referring Provider: Jeanette Roberts [facility], [place], [place], [address]. tel:[phone] OFFICE/OUTPA TIENT VISIT, EST [facility], [address], [place], [place], [address], [place] tel:[phone] [facility] osteopenia (chief complaint)G ERD (chief complaint)i nsomnia (chief complaint)f ibular fx (chief complaint) Dietary surveillance and counselingEsophage al refluxInsomnia, unspecifiedClosed tibial and fibular fractureOsteopenia 5 Luiz Granda [address], [place], [place], [address] , [place]. tel:[phone] Referring Provider: Robby Dee, [address], [place], [place], [address]. tel:[phone] OFFICE/OUTPA TIENT VISIT, [facility], [address], [place], [place], [address], [place] tel:[phone] [facility] GERD (chief complaint)i nsomia (chief complaint)a bd pain (chief complaint) Dietary surveillance and counselingInsomnia , unspecifiedAbdomin al painHypokalemia 5 Luiz Bustamante. [address], [place], [place], [address] , [place]. [phone] Referring Provider: Jeanette Roberts [address] [facility] A, [place], [place], [address]. tel:[phone] OFFICE/OUTPA TIENT VISIT, [facility], [address], [place], [place], [address], [place] tel:[phone] [facility] hematuria (chief complaint)n brenna pain (chief complaint)o besity (chief complaint) HEMATURIA NOSDietary surveillance and counselingCervical giaBody Mass Index 31.0-31.9, adultPain in joint involving pelvic region and thigh 5 Luiz Bustamante. [address], [place], [place], [address] , [place]. [phone] Referring Provider: Jeanette Roberts [facility], [place], [place], [address]. tel:[phone] OFFICE/OUTPA TIENT VISIT, [facility], [address], [place], [place], [address], [place] [phone] [facility] insomnia (chief complaint)L FT (chief complaint)G ERD (chief complaint)h ematuria (chief complaint) HEMATURIA NOSDietary surveillance and counselingInsomnia , OtherHypertriglyce ridemiaGERD 5 Luiz Bustamante. [address], [place], [place], [address] , [place]. [phone] Referring Provider: Jeanette Roberts [address], [address]. tel:[phone] OFFICE/OUTPA TIENT VISIT, EST [facility], [address] [place], [place], [address], tel:[phone] [facility] Medicine insomnia (chief complaint)G ERD (chief complaint)C AD (chief complaint)l iver (chief complaint) Dietary surveillance and counselingInsomnia , OtherGERDUnspecifi ed chronic liver disease without mention of alcoholCAD, [place] 4 Luiz Bustamante. [address], [place], [place], [address] , [place]. tel:[phone] Referring Provider: Robby Dee, [address] [facility] [address], [place], [place], [address]. tel:[phone] PREV VISIT, NEW, AGE 40-64 [facility], [address], [place], [address], [place] tel:[phone] [facility] Medicine PHysical (chief complaint) Dietary surveillance and counselingRoutine Medical ExamRoutine Medical Exam 4 Luiz Bustamante. [address], [place], [place], [address] , [place]. tel:[phone] Family History Family Member Type Diagnosis Age At Onset Mother Problem (finding) respiratory failure Brother Problem (finding) Hypertension Father Problem (finding) Cancer, lung Payers Payer name Insurance type Covered green party ID Authoriza tion(s) No Information Social History Type Description Quantity Date Captured Comments Alcohol Use Details Unknown Caffeine Use Details Unknown Tobacco Use Status Smoking Status No Information Sex Female Chief Complaint And Reason For Visit No Information Plan Of Treatment Date Type Action Status Goal Special diet education compl eted Goal Tobacco cessation counseling completed Goal Tobacco cessation counseling completed Goal Special [...] Paniagua MD [address]
[place], [address] Ordered: Referrals: Eduardo Paniagua MD. Evaluate and treat ordered Referral Ordered: Eduardo Paniagua -[facility]opathic & Osteopathic Physicians : Neurological Surgery (related to Lumbago with sciatica, left side) ordered Referral Referred To: Eduardo Paniagua [address] [place], [phone] Ordered: Referrals: [facility]opathic [facility] Osteopathic Physicians : Neurological Surgery. Eduardo Paniagua. Evaluate and treat ordered Referral Ordered: Vinnie Kessler -[facility]opathic Physicians : Orthopaedic Surgery (related to Olecranon bursitis, left elbow) ordered Referral Referred To: Vinnie Kessler [facility] [address] [facility] [address] [place], [place] [id number] Ordered: Referrals: Allopathic & Osteopathic Physicians : Orthopaedic Surgery. Vinnie Kessler. Evaluate and treat ordered Referral Ordered: [facility] ordered Referral Ordered: Vinnie Kessler (related to GERD w/o esophagitis) ordered Referral Referred To: Vinnie Kessler [facility] [address] [facility] [address] [place], [phone] Ordered: Referrals: Vinnie Kessler. Evaluate and treat [...] any fever CAD Pt recently went to [place] due to her [place]. Pt had another episode of chest pain while in [place] and was diagnosed with NSTEMI pt just seen her cardiology last week and she is doing ok currently pt denies any chest pain. Pt denies any sob anemia1 Pt told me she w as found to be anemic while in [place] Pt denies any bleeding GERd1 Pt has daily REBEL d Pt failed zantac pt takes omeprazole daily. Pt has daily GERD without omeprazole. Insurance not paying for omeprazole again anxiety1 Pt has chronic a nxiety and depression. Pt takes wellbutrin, lexapro and seroquel. Pt sees psychiatrist. Pt has been under severe stress lately. She just found out that her daughter who lives in [place] committed suicide several days ago. Pt feels extremely sad and she can not stop crying. ,Pt has been having panic attacks. Pt wants some nerve pills for short term to help her with above. Pt is off klonopin. Pt has difficulty sleeping and she feels extremely anxious. Pt wants to try some valium, which helped her in the past Pt is traveling to [place] tomorrow and she could not get in [...] prescribing OT but she changed insurance to [employer] and she needs a new ortho and [...] that norco and robaxin are not helping [facility] for her pain osteopenia1 Pt has [...] ue Weight management Related to Fat igue Weight management Related to Lum bago with [...] Related to Other spondylosis, lumbar region Prescribed Activity and Exercise Education Related to Dietary Surveillance and Counseling Prescribed Diet Educ ation/Lifestyle Education Regarding Diet Related to Dietary Surveillance and Counseling Quit [...]
--- NOTE | ~2024-11-11 | MR_ITS ---
EXAMINATION: MR abdomen wo/w con DATE: 11/11/2024 17:53 INDICATION: Other specified disease of pancreas TECHNIQUE: Magnetic resonance imaging (MRI) of the abdomen was performed without and with 15 mL Multihance intravenous contrast. Sequences included coronal T2- weighted SS-FSE, coronal T2-weighted FS SS-FSE, coronal T2-weighted FS FIESTA, axial T2-weighted FS FIESTA, axial T2-weighted FIESTA, sagittal T2-weighted SS- FSE, axial T1-weighted dual-echo FSPGR, axial T2-weighted SS-FSE, axial T1- weighted LAVA, axial T2-weighted STIR FSE. Thick-slab T2-weighted FRFSE-XL images were obtained for magnetic resonance cholangiopancreatography (MRCP). Rotating maximum intensity projection 3-D reconstructions of the volumetric data were created by the technologist. Postcontrast sequences included a time course of axial T1-weighted LAVA. COMPARISON: CT dated 12/11/2023, 03/03/2008 and MRI dated 10/16/2016 FINDINGS: Heart size is normal. No pericardial or pleural effusion. The common bile duct is mildly dilated 7-8 mm which is within normal limits post cholecystectomy. No intraluminal filling defects to suggest choledocholithiasis. Liver, spleen, bilateral adrenal glands and left kidney are normal. 7 mm cyst at the lower pole the right kidney. No significant interval change since 2016 in a 8 mm cystic lesion which appears contiguous with a small direct communication into the main pancreatic duct. No evident solid enhancing soft tissue component. Pancreas is otherwise normal. Visualized bowels are normal. No pathologically enlarged abdominal or upper pelvic lymphadenopathy. Bone marrow signal is normal througho ut. IMPRESSION: 1. No significant interval change since 2007 in a likely benign 8 mm cystic lesion at the neck of the pancreas without solid enhancing soft tissue component. Reviewed, dictated and finalized at location A. IMPRESSION: 1. No significant interval change since 2007 in a likely benign 8 mm cystic les ion at the neck of the pancreas without solid enhancing soft tissue component.
--- OUTSIDE RECORDS SUMMARY | 2024-11-11 15:28 | XMS_ITS | Encounter Summary ---
Author Organization [facility] Healthcare Address [address] [place] [address] Care Team Providers Care Outside Deliverer Name Role Phone Robby Dee MD Unavailable [phone] Surinder Walters DO Primary Care Provider [phone] Encounter Details Date Type Department Care Team (Late st Contact Info) Description 12/12/2023 Documentation [facility] Medical Group [place] [id number] [place] [address] Flaca Ann MD [facility] [place] [address] Social History Tobacco Use Types Packs/Day Years Used Date Smoking Tobacco: Every Day Cigarettes 1 53.7 Started: 1972 Smokeless Tobacco: Current Alcohol Use [...] on file Legal Sex Female 5:32 PM VOCATIONAL COORDINATOR Gender Identity Not on file Sexual Orientation Not on file documented as of this encounter Plan of Treatment Not on file documented as of this encounter Visit Diagnoses Not on filedocumented in this encounter Additional Health Concerns Infection Onset Date Last Indicated Resolved Time COVID: Suspected 04/15/2024 04/15/2024 04/15/2024 3:47 PM VOCATIONAL COORDINATOR documented as of this encounter Care Teams Outside Deliverer Relationship Specialty Start Date End Date Surinder Walters DO PCP - General Internal Medicine 10/30/23 Robby Dee MD Family Medicine 06/27/22 documented as of this encounter
--- OUTSIDE RECORDS SUMMARY | 2024-11-11 15:28 | XMS_ITS | Encounter Summary ---
Author Organization [facility] Address [address] [place] [address] Care Team Providers Care Candy Dipper Hand Name Role Phone Uziel López MD Primary Care Provider Evan mccain None, Provider Primary Care Provider Diana Zhang NP Primary Care Provider [phone] Encounter Details Date Type Department Care Team (Latest Contact Info) Description 01/20/2018 Abstract [facility] Dano Viveros MD Social [...] Rule Out 03/02/2021 03/02/2021 03/02/2021 1:20 PM VENEER TRIMMER COVID-19 Rule Out 04/06/2021 04/06/2021 04/07/2021 3:47 PM VENEER TRIMMER COVID-19 Rule Out 10/02/2021 10/02/2021 10/02/2021 1:14 PM CDT documented as of this encounter Care Teams Candy Dipper Hand Relationship Specialty Start Date End Date Uziel López MD PCP - General 09/27/15 02/20/21 None, ProviderMD PCP - General 02/21/21 10/01/21 Diana Simmons NP [address] [place] [address] PCP - General NURSE PRACTITIONER 10/02/21 documented as of this encounter
--- OUTSIDE RECORDS SUMMARY | 2024-11-11 15:28 | XMS_ITS | Clinical Summary ---
Author Organization [facility] Address [address] [address] Care Team Providers Care Internal Recruiter Name Role Phone Robby Dee MD Primary Care Provider [phone] Source Comments [facility],non-owned Affiliates and Associated Physician Practices is amultiple site organization consisting of ambulatory clinics and hospital sitesin [place], [place], [place] and [place]. This disclosure is being madepursuant to the Care Everywhere program and may not contain all information available regarding this patient. 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 Gender Identity Not on file Sexual Orientation [...] patient's age to complete this topic Insurance [facility] NO INSURANCE Member Subscriber Plan / Payer (Ef fective for All Dates) Name:Julia Lema Member ID:Not on file Relation to Subscriber:Not on file Name:JULIA LEMA Subscriber ID:Not on file (Home) Address: [address] [place] [id number] Payer ID:Not on file Group ID:Not on file Type:Self Pay Address: [place], [place] Care Teams Internal Recruiter Relationship Specialty Start Date End Date Robby Dee MD [address] [id number] [facility] - General 05/10/14
--- OUTSIDE RECORDS SUMMARY | 2024-11-11 15:28 | XMS_ITS | Clinical Summary ---
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 DISSOLVE ONE [...] Information given regarding [place] Tobacco Quit line: [id number] for free services - 6 minutes spent discussing cessation She has tried and failed Wellbutrin, varenicline, lozenges, gum, generic patches The only thing she had success with in the past was the Nicoderm CQ patches I have placed an order for these today in a titrating fashion She qualifies for annual screening, next due 02/2025 Assessment & Plan (04/20/2024 2:45 PM POULTRY FIELD SERVICE TECHNICIAN): - Smoking cessation counseling and techniques reviewed at length - Avoid triggers and use distraction techniques - Information given regarding [place] Tobacco Quit line: [id number] for free services - 5 minutes spent [...] tested Assessment & Plan (04/20/2024 2:49 PM POULTRY FIELD SERVICE TECHNICIAN): She is MZ with good last levels [...] index 31.0-31.9, adult 07/03/2017 Coronary atherosclerosis of [place] coronary emily ry 07/03/2017 Cervicalgia 07/03/2017 Chronic [...] care Assessment & Plan (04/20/2024 2:48 PM POULTRY FIELD SERVICE TECHNICIAN): Continue Stiolto two puffs daily for now [...] Resolved Date Atherosclerotic heart diseas e of [place] coronary artery without angina pectoris 07/03/2017 12/10/2022 Hyperlipidemia 07/03/2017 12/10/2022 Pure hypertriglyceridemia 07/03/2017 Pure hyperglyceridemia 04/21/201402/11 Coronary arteriosclerosis in [place] artery 02/15/2014 02/11/2023 Encounters Date Type Department Care Team Description 10/06/2024 10:15 AM CDT Office Visit [facility] [place] [facility] [address] [place] [address] Medical Office [facility] [address] [place] [address] Jay Campos MD Thrombocytopenia (Primary Dx); Pancreatic lesion 10/06/2024 9:45 AM CDT Lab [facility] [address] [facility] [address] [place] [address] Thrombocytopenia; Pancreatic lesion 10/05/2024 Telephone [facility] [place] [facility] [address] [place] [address] Office [facility] [address] [place] [address] Tatianna Reese CLT 09/29/2024 Telephone [facility] Cardiology [address] [facility] [address] [place] [phone] Marcus Redd MD 09/19/2024 12:30 PM CDT Office Visit [facility] Care at [place] [address] [facility] [place] [phone] Berta Glil, KWADWO Acute otitis externa of right ear, unspecified type (Primary Dx); Non-recurrent acute suppurative otitis media of left ear with spontaneous rupture of tympanic membrane; Impacted cerumen of right ear 09/17/2024 6:45 PM CDT Telemedicine [facility] Virtual Care [address] [place] [phone] Ana Coley MD Acute otitis externa of right ear, unspecified type (Primary Dx) 09/17/2024 Patient Self-Triage [facility] [address] [place] [address] Mychart, Generic Provider 09/03/2024 11:00 AM CDT Office Visit [facility] [place] [facility] [address] [place] [address] Medical Office [address] [place] [address] Jay Campos MD Thrombocytopenia (Primary Dx); Pancreatic lesion 09/03/2024 10:30 AM CDT Lab [address] [place] [address] Thrombocytopenia, unspecified (Primary Dx); Thrombocytopenia; Pancreatic lesion 09/03/2024 Results Follow-Up [facility] [place] [facility] [address] [place] [address] Medical Office [facility] [address] [place] [address] Chana Smith, TERESE CBC with auto differential 08/19/2024 7:33 AM CDT - 08/19/2024 11:59 PM CDT Hospital Encounter [address] [address] Dizziness and giddiness Discharge Disposition: Discharge to home or self care 08/19/2024 7:33 AM CDT - 08/19/2024 11:59 PM CDT Hospital Encounter [address] [address] Upper abdominal pain, unspecified; Thrombocytopenia, unspecified Discharge Disposition: Discharge to home or self care 08/13/2024 Telephone [facility] [place] [facility] [address] [place] [address] Medical Office [facility] [address] [place] [phone] Adwoa Garcia CLT from Last 3 Months [...] Date Smoking Tobacco: Every Day Cigarettes 0.8 53.7 Started: 1971 Smokeless Tobacco: Current Tobacco Cessation:Ready [...] on file Legal Sex Female 5:32 PM POULTRY FIELD SERVICE TECHNICIAN Gender Identity Not on file Sexual Orientation [...] Tdap) 02/23/203112/2020 Medical Devices Implanted Type Area Fiberglass Grinder Device Identifier Shelf Expiration Date Model / Serial / Lot [employer] Angio-Seal Vip 6fr Closere Device [id number] - [id number] Implanted:Qty: 1 on 01/21/2022 by Blake Ham MD at [facility] [employer] 10/14/2022 [id number] / / [id number] Procedures Procedure Name Priority Date/Time Associated Diagnosis Comments MAGNESIUM Routine 10/06/2024 9:00 AM CDT Thrombocytopenia Pancreatic lesion DIFFERENTIAL AUTO Routine 10/06/2024 9:0 0 AM CDT Thrombocytopenia Pancreatic lesion CBC WITH AUTO DIFFERENTIAL Routine 10/06/2024 9:00 AM CDT Thrombocytopenia Pancreatic lesion NM REMOVAL IMPACTED CERUMEN INSTRUMENTATION UNILAT Routine 09/19/2024 [...] Read Routine (OP Routine) 03/02/2024 4:42 PM POULTRY FIELD SERVICE TECHNICIAN Nicotine dependence, cigarettes, uncomplicated from Last 3 Months or Most Recently Relevant to Health Maintenance Results * Differential, auto (10/06/2024 9:00 AM CDT) Neutrophil abs 4.22 1.50 - 6.50 K/cumm YAEL TILL[facility] ([place]) Comment:Testing performed by : [facility] [address], Medical Office [facility] [address], [place] [address] Imm gran abs 0.01 0.00 - 0.10 K/cumm YAEL TILLMAN ([place]) Comment:Testing performed by : [facility] [address], Medical Office [facility] [address], [place] [address] Lymphocyte abs 1.25 0.80 - 3.30 K/cumm [facility] ([place]) Comment:Testing performed by : [facility] [address], Medical Office [address], [place] [address] Monocyte abs 0.50 0.20 - 0.80 K/cumm [facility] ([place]) Comment:Testing performed by : [facility] [address], Medical Office [address], [place] [address] Eosinophil abs 0.23 0.00 - 0.50 K/cumm [facility] ([place]) Comment:Testing performed by : [facility] [address], Medical Office [address], [place] [address] Basophil abs 0.05 0.00 - 0.10 K/cumm [facility] ([place]) Comment:Testing performed by : [facility] [address], Medical Office dg [address], [place] [address] Neutrophil pct 67.3 % [facility] ([place]) Comment: Interpretive Data Percent cell count reference ranges are not reported, since discordance with absolute values may lead to misinterpretation of CBC data. Current Interpretive Data was last revised on 2022. Testing performed by: [facility] [address], Medical Office [facility] [address], [place] [address] Imm gran pct 0.2 % [facility] ([place]) Comment: Interpretive Data Percent cell count reference ranges are not reported, since discordance with absolute values may lead to misinterpretation of CBC data. Current Interpretive Data was last revised on 2022. Testing performed by: [facility] [address], Medical Office [facility] [address], [place] [address] Lymphocyte pct 20.0 % [facility] ([place]) Comment: Interpretive Data Percent cell count reference ranges are not reported, since discordance with absolute values may lead to misinterpretation of CBC data. Current Interpretive Data was last revised on 2022. Testing performed by: [facility] [address], Medical Office [address], [place] [address] Monocyte pct 8.0 % [facility] ([place]) Comment: Interpretive Data Percent cell count reference ranges are not reported, since discordance with absolute values may lead to misinterpretation of CBC data. Current Interpretive Data was last revised on 2022. Testing performed by: [facility] [address], Medical Office [facility] [address], [place] [address] Eosinophil pct 3.7 % ALEXIA TILLMAN ([place]) Comment: Interpretive Data Percent cell count reference ranges are not reported, since discordance with absolute values may lead to misinterpretation of CBC data. Current Interpretive Data was last revised on 2022. Testing performed by: [facility] [address], Medical Office [facility] [address], [place] [address] Basophil pct 0.8 % YAEL TILLMAN ([place]) Comment: Interpretive Data Percent cell count reference ranges are not reported, since discordance with absolute values may lead to misinterpretation of CBC data. Current Interpretive Data was last revised on 2022. Testing performed by: [facility] [address], Medical Office [facility] B [facility] [address], [place] [address] Blood 10/06/2024 9:00 AM CDT 10/06/2024 9:05 AM CDT us Jya Campos MD LAB BLOOD ORDERABLES Final Re sult YAEL TILLMAN ([place]) [address] [facility] Department [place] [address] * (ABNORMAL) CBC with auto differential (10/06/2024 9:00 AM CDT) WBC 6.26 3.80 - 9.90 K/cumm YAEL TILLMAN ([place]) Comment:Testing performed by : [facility] [address], Medical Office [facility] [address], [place] [address] Hgb 13.6 11.9 - 15.5 g/dL YAEL TILLMAN ([place]) Comment:Testing performed by : [facility] [address], Medical Office [facility] [address], [place] [address] Hct 42.0 35.6 - 45.5 % YAEL TILLMAN ([place]) Comment:Testing performed by : [facility] [address], Medical Office [facility] B [facility] [address], [place] [address] Plt 135(L) 150 - 400 K/cumm [facility] ([place]) Comment:Testing performed by : [facility] [address], Medical Office [facility] B [facility] [address], [place] [address] MPV 12.4(H) 9.1 - 12.3 fL [facility] ([place]) Comment:Testing performed by : [facility] [address], Medical Office [facility] B [facility] [address], [place] [address] RBC 4.17 3.90 - 5.20 M/cumm [facility] ([place]) Comment:Testing performed by : [facility] [address], Medical Office [facility] B [facility] [address], [place] [address] MCV 100.7(H) 81.3 - 96.4 fL [facility] ([place]) Comment:Testing performed by : [facility] [address], Medical Office [facility] B [facility] [address], [place] [address] MCH 32.6 27.1 - 33.3 pg [facility] ([place]) Comment:Testing performed by : [facility] [address], Medical Office [facility] B [facility] [address], [place] [address] MCHC 32.4 32.3 - 35.7 g/dL [facility] ([place]) Comment:Testing performed by : [facility] [address], Medical Office [facility] B [facility] [address], [place] [address] RDW CV 13.3 11.1 - 14.9 % [facility] ([place]) Comment:Testing performed by : [facility] [address], Medical Office [facility] B [facility] [address], [place] [address] RDW SD 50.2(H) 35.7 - 48.1 fL [facility] ([place]) Comment:Testing performed by : [facility] [address], Medical Office [facility] B [facility] [address], [place] [address] Blood 10/06/2024 9:00 AM CDT 10/06/2024 9:05 AM CDT Jay Campos MD LAB BLOOD ORDERABLES Final Re sult YAEL [facility] ([place]) 1 [facility] [place] [address] * Magnesium (10/06/2024 9:00 AM CDT) Magnesium 1.7 1.4 - 2.5 mg/dL Y[facility] ([place]) Blood 10/06/2024 9:00 AM CDT 10/06/2024 11:15 AM CDT Jay Campos MD LAB BLOOD ORDERABLES Final Re sult Performing Organization Address [facility] Co de Phone Number YAEL TILLMAN ([place]) [address] [place] [address] * NM REMOVAL IMPACTED CERUMEN INSTRUMENTATION UNILAT (09/19/2024 12:30 [...] 40(H) 28 - 38 sec YAEL TILLMAN ([place]) Comment: Interpretive Data Heparin therapeutic range: 66.0 - 100.0 seconds. Range based on correlation with therapeutic heparin activity range of 0.3 - 0.7 Units/mL. Current interpretive data was last revised on 2022. Testing performed by: [place], [address] Blood 09/03/2024 11:3 5 AM CDT 09/03/2024 11:45 AM CDT Jay Campos MD LAB BLOOD ORDERABLES Final Re sult Performing Organization Address City/[facility]/ZIP Co de Phone Number CARLITAWES TILLMAN ([place]) [address] [place] [address] Department [place] [address] * Protime-INR (09/03/2024 11:35 AM CDT) PT 10.9 9.7 - 13.0 sec YAEL TILLMAN ([place]) Comment:Testing performed by : [place], [address] INR 1.01 0.90 - 1.20 YAEL TILLMAN ([place]) Comment: Interpretive data Oral anticoagulant therapeutic ranges: Venous thromboembolism prophylaxis or treatment: 2.0-3.0 CARDIOLOGY Standard range: 2.0-3.0 High-intensity range: 2.5-3.5 Refer to indication-specific guidelines for appropriate target ranges for prosthetic heart valve replacement. Current interpretive data was last revised on 2019. Testing performed by: [place], [address] Blood 09/03/2024 11:3 5 AM CDT 09/03/2024 11:59 AM CDT Jay Campos MD LAB BLOOD ORDERABLES Final Re sult YAEL PRIMO ([place]) [address] [facility] Department [place] [address] * (ABNORMAL) Fibrinogen (09/03/2024 11:35 AM CDT) Fibrinogen 457(H) 170 - 400 mg/dL YAEL TILLMAN ([place]) Comment:Testing performed by : [facility], [place], [address] Blood 09/03/2024 11:3 5 AM CDT 09/03/2024 11:59 AM CDT Jay Campos MD LAB BLOOD ORDERABLES Final Re sult YAEL TILLMAN ([place]) [address] [place] [address] Department [place] [address] * (ABNORMAL) Fibrinogen (09/03/2024 11:35 AM CDT) Fibrinogen 457(H) 170 - 400 mg/dL YAEL TILLMAN ([place]) Comment:Testing performed by : [place], [address] Blood 09/03/2024 11:3 5 AM CDT 09/03/2024 11:45 AM CDT Jay Campos MD LAB BLOOD ORDERABLES Final Re sult Performing Organization Address [facility]/ZIP Co de Phone Number YAEL TILLMAN ([place]) [address] [place] [address] [place] [address] * Folate (09/03/2024 11:35 AM CDT) Folic acid >20.0 >=5.0 ng/mL Comment: Slightly Hemolyzed Specimen. Results may be affected. Testing performed by: [place], [address] Blood 09/03/2024 11:3 5 AM CDT 09/03/2024 11:59 AM CDT Jay Campos MD LAB BLOOD ORDERABLES Final Re sult YAEL TILLMAN ([place]) [address] [facility] Department [place] [address] * Vitamin B12 (09/03/2024 11:35 AM CDT) Vitamin B12 1,192 230 - 1,250 pg/mL Comment:Testing performed by : [place], [address] Blood 09/03/2024 11:3 5 AM CDT 09/03/2024 11:59 AM CDT Jay Campos MD LAB BLOOD ORDERABLES Final Re sult [facility] ([place]) [address] [facility] Department [place] [address] * (ABNORMAL) CBC with auto differential (09/03/2024 10:30 AM CDT) Pathologist [facility] WBC 5.68 3.80 - 9.90 K/cumm Comment:Testing performed by : [place], [address] Hgb 13.5 11.9 - 15.5 g/dL [facility] ([place]) Comment:Testing performed by : [facility], [place], [address] Hct 41.6 35.6 - 45.5 % [facility] ([place]) Comment:Testing performed by : [place], [address] Plt 141(L) 150 - 400 K/cumm [facility] ([place]) Comment:Testing performed by : [place], [address] MPV 11.9 9.1 - 12.3 fL [facility] ([place]) Comment:Testing performed by : [place], [address] RBC 4.13 3.90 - 5.20 M/cumm [facility] ([place]) Comment:Testing performed by : [place], [address] MCV 100.7(H) 81.3 - 96.4 fL [facility] ([place]) Comment:Testing performed by : [place], [address] MCH 32.7 27.1 - 33.3 pg [facility] ([place]) Comment:Testing performed by : [facility], [facility], [place], [address] MCHC 32.5 32.3 - 35.7 g/dL [facility] ([place]) Comment:Testing performed by : [facility], [place], [address] RDW CV 12.8 11.1 - 14.9 % [facility] ([place]) Comment:Testing performed by : [facility], [place], [address] RDW SD 47.5 35.7 - 48.1 fL [facility] ([place]) Comment:Testing performed by : [facility], [place], [address] NRBC abs 0.00 0.00 - 0.01 K/cumm [facility] ([place]) Comment:Testing performed by : [facility], [place], [address] Blood 09/03/2024 10:3 0 AM CDT 09/03/2024 10:39 AM CDT us Jay Campos MD LAB BLOOD ORDERABLES Final Re sult YAEL TILLMAN ([place]) [address] [facility] Department [place] [address] * Manual Differential (09/03/2024 10:30 AM CDT) Differential Manual Comment:Testing performed by : [facility], [place], [address] Cells Counted 100 [facility] ([place]) Comment:Testing performed by : [facility], [place], [address] Neutrophil abs 3.92 1.50 - 6.50 K/cumm [facility] ([place]) Comment:Testing performed by : [facility], [place], [address] Lymphocyte abs 1.53 0.80 - 3.30 K/cumm [facility] ([place]) Comment:Testing performed by : [facility], [place], [address] Monocyte abs 0.23 0.20 - 0.80 K/cumm [facility] ([place]) Comment:Testing performed by : [facility], [place], [address] Neutrophil pct 68.0 % [facility] ([place]) Comment: Interpretive Data Percent cell count reference ranges are not reported, since discordance with absolute values may lead to misinterpretation of CBC data. Current Interpretive Data was last revised on 2017. Testing performed by: [place], [address] Lymphocyte pct 27.0 % [facility] ([place]) Comment: Interpretive Data Percent cell count reference ranges are not reported, since discordance with absolute values may lead to misinterpretation of CBC data. Current Interpretive Data was last revised on 2017. Testing performed by: [place], [address] Monocyte pct 4.0 % [facility] ([place]) Comment: Interpretive Data Percent cell count reference ranges are not reported, since discordance with absolute values may lead to misinterpretation of CBC data. Current Interpretive Data was last revised on 2017. Testing performed by: [facility], [place], [address] Band Neutrophil pct 1.0 0.0 - 5.0 % [facility] ([place]) Comment:Testing performed by : [place], [address] RBC morphology Consistent with RBC Indicies YAEL TILLMAN ([place]) Comment:Testing performed by : [place], [address] Platelet estimate Automated Count Confirmed YAEL TILLMAN ([place]) Comment:Testing performed by : [place], [address] Blood 09/03/2024 10:3 0 AM CDT 09/03/2024 10:39 AM CDT us Jay Campos MD LAB BLOOD ORDERABLES Final Re sult YAEL TILLMAN ([place]) [address] [facility] Department [place] [address] * US RUQ (08/19/2024 8:51 AM CDT) [...] by David He M.D. JR: Report ID: [id number] Reading Location: [id number] Procedure Note David He MD - 08/30/2024 [...] by David He M.D. JR: Report ID: [id number] Reading Location: [place] [address] us Chana Agosto CLINICAL COORDINATOR IMG US PROCEDURES Final Resu lt * [...] by David He M.D. JR: Report ID: [id number] Reading Location: [place] [address] Procedure Note David He MD - 08/30/2024 [...] by David He M.D. JR: Report ID: [id number] Reading Location: [place] [address] us Chana Agosto CLINICAL COORDINATOR IMG US PROCEDURES Final Resu lt * CT Lung Cancer Screening (03/02/2024 4:42 PM POULTRY FIELD SERVICE TECHNICIAN) Anatomical Region Laterality Modality Chest N/A Computed Tomogra phy 03/09/2024 1:20 PM POULTRY FIELD SERVICE TECHNICIAN Narrative 03/09/2024 1:25 PM POULTRY FIELD SERVICE TECHNICIAN EXAM DESCRIPTION: CT LUNG CANCER SCREENING REASON [...] Janet Franco D.O. PS: PS Report ID: [id number] Reading Location: [id number] Procedure Note Janet Francop, DO - 03/09/2024 [...] Janet Franco D.O. PS: PS Report ID: [id number] Reading Location: [place] [address] Ben Stratton MD IM CT PROCEDURES Final Result from Last 3 Months or Most Recently Relevant to Health Maintenance Insurance [facility] Advance Directives For more information, please contact: [phone] * Full Code (Latest Code Status on File) Date Activated Date Inactivated Comments 01/21/2022 4:32 PM 01/21/2022 8:36 PM Care Teams Waste Disposal Attendant Relationship Specialty Start Date End Date Surinder Walters DO PCP - General Internal Medicine 10/30/23 Robby Dee MD Family Medicine 06/27/22
--- OUTSIDE RECORDS SUMMARY | 2024-11-11 15:28 | XMS_ITS | Clinical Summary ---
Author Organization [facility] Address [address] [place] [address] Care Team Providers Care Triage Specialist Name Role Phone Diana Simmons NP Primary Care Provider [phone] Allergies No known active allergies Medications ezetimibe [...] 88.5 kg (195 lb) 03/29/2022 3:22 PM [employer]ICAL OFFIC[employer] Height 158.8 cm (5' 2.5) 03/29/2022 3:22 PM [employer] TE[employer]ICAL OFFICER Body Mass Index 35.1 03/29/2022 3:22 PM [employer] TECH[employer]ICAL OFFICER Plan of Treatment Health Maintenance Due Date [...] Escoto, TERESE Medical Devices Implanted Type Area Crusher Machine Operator Device Identifier Shelf Expiration Date Model / Serial / Lot Graft Bone Bonus Triad Cancellous Cortical 5cc Allograft - [id number] Implanted:Qty: 1 on 04/07/2021 by Yuko Nguyễn MD at [facility] Bone [employer] 07/19/2025 [id number] / [id number] / NA Plate Myranda Fibular Distal Lateral 8h 132mm Left - [id number] Implanted:Qty: 1 on 04/07/2021 by Yuko Nguyễn MD at [facility] Plate Left: Ankle [employer] [id number] / / NA Screw Locking Myranda 2.7 X 12mm - [id number] Implanted:Qty: 2 on 04/07/2021 by Yuko Nguyễn MD at [facility] Screw Left: Ankle [employer] [id number] / / NA Screw Locking Myranda 2.7 X 14mm - [id number] Implanted:Qty: 2 on 04/07/2021 by Yuko Nguyễn MD at [facility] Screw Left: Ankle [employer] [id number] / / NA Screw Biomet 4.0 Cancellous Fully Threaded 46mm - [id number] Implanted:Qty: 1 on 04/07/2021 by Yuko Nguyễn MD at [facility] Screw Left: Ankle [employer] [id number] / / NA Screw Biomet 3.5 Cortical 50mm - [id number] Implanted:Qty: 1 on 04/07/2021 by Yuko Nguyễn MD at [facility] Screw Left: Ankle [employer] [id number] / / NA Screw Myranda Elb Fib Periloc 3.8 X 10mm - [id number] Implanted:Qty: 1 on 04/07/2021 by Yuko Nguyễn MD at [facility] Screw Left: Ankle [employer] [id number] / / NA Screw Myranda Elb Fib Periloc 3.5 X 12mm - [id number] Implanted:Qty: 2 on 04/07/2021 by Yuko Nguyễn MD at [facility] Screw Left: Ankle [employer] [id number] / / NA Screw Biomet 4.0 Cancellous Fully Threaded 60mm - [id number] Implanted:Qty: 2 on 04/07/2021 by Yuko Nguyễn MD at [facility] Screw Left: Ankle [employer] [id number] / / NA [place] Pins 5 X 150 X 40mm Implanted:Qty: 2 on 02/23/2021 by Ben Baig MD at [facility] Left: Ankle [employer] DIV AMY JUDITH 5018-5-150 / / Self-Drilling Hybrid Half-Pin, 4/5 X 150mm Implanted:Qty: 1 on 02/23/2021 by Ben Baig MD at [facility] Left: Ankle [employer] 5026-1-150 / / Transfixing Pin, Threaded, 5/6 X 300mm Implanted:Qty: 1 on 02/23/2021 by Ben Baig MD at [facility] Left: Ankle [employer] 5050-4-300 / / End Caps Implanted:Qty: 1 on 02/23/2021 by Ben Baig MD at [facility] Left: Ankle [employer] 5027-1-050 / / Delta Coupling, Ferny-To-Ferny Or Ferny-To-Pin, 07/22/10 Ferny Or 5mm Pin Implanted:Qty: 4 on 02/23/2021 by Ben Baig MD at [facility] Left: Ankle [employer] 4922-1-010 / / Delta Coupling, Pin-To-Ferny, 07/22/10 Ferny Or 4/5/6mm Pin Implanted:Qty: 2 on 02/23/2021 by Ben Baig MD at [facility] Left: Ankle [employer] 4922-1-020 / / Connecting Rods Implanted:Qty: 1 on 02/23/2021 by Ben Baig MD at [facility] Left: Ankle [employer] 4922-8-150 / / 5-Hole Pin Clamp W/ Two 11mm 30deg Angled Posts, [id number] Implanted:Qty: 1 on 02/23/2021 by Ben Baig MD at [facility] Left: Ankle [employer] 4922-2-240 / / 11 X 350mm Connecting Rods Implanted:Qty: 2 on 02/23/2021 by Ben Baig MD at [facility] Left: Ankle [employer] 4922-8-350 / / Explanted Type Area Crusher Machine Operator Device Identifier Shelf Expiration Date Model / Serial / Lot Drill Bit Myranda 2.7mm - [id number] Explanted:Qty: 1 on 04/07/2021 by Yuko Nguyễn MD at [facility] Drill Left: Ankle [employer] [id number] / / NA Drill Bit Myranda 2.0mm Qc - [id number] Explanted:Qty: 1 on 04/07/2021 by Yuko Nguyễn MD at [facility] Drill Left: Ankle [employer] [id number] / / NA Drill Bit Myranda 2.5mm - [id number] Explanted:Qty: 1 on 04/07/2021 by Yuko Nguyễn MD at [facility] Drill Left: Ankle [employer] [id number] / / NA Drill Cannulated 2.9 X 70mm - [id number] Explanted:Qty: 2 on 04/07/2021 by Yuko Nguyễn MD at [facility] Drill Left: Ankle [employer] [id number] / / NA Wire Myranda Ayala 1.6mm X 150mm - [id number] Explanted:Qty: 3 on 04/07/2021 by Yuko Nguyễn MD at [facility] Wire Left: Ankle [employer] [id number] / / NA K-Wire Threaded Tip 1.6mm - [id number] Explanted:Qty: 3 on 04/07/2021 by Yuko Nguyễn MD at [facility] Wire Left: Ankle [employer] [id number] / / NA Cortical Screw 3.5 X 55mm Explanted:Qty: 1 on 04/07/2021 at [facility] Left: Ankle [employer] [id number] / / NA Description:[facility] [employer] Insurance [place] Care Teams Triage Specialist Relationship Specialty Start Date End Date Diana Simmons NP [address] [place] [address] PCP - General NURSE PRACTITIONER 10/02/21
--- OUTSIDE RECORDS SUMMARY | 2024-11-11 15:28 | XMS_ITS | Clinical Summary ---
Author Organization [facility] Address [address] [place] [address] Care Team Providers Care R Programmer Name Role Phone Unavailable Primary Care Provider [...] (1 - 1-dose 75+ series) 11/01/2035 Insurance [facility] [employer] MEDICAID
== END 2024-11-11 15:25 | disposition home or self-care (01) ==
LOC: CHSIMG 15:26
PROVIDERS: PCP Clinical Nurse Specialist; Visit Provider Clinical Nurse Specialist
DX: K86.89 Other specified diseases of pancreas (principal)
CPT/HCPCS: 74183

== ENCOUNTER 2024-11-17 10:59 | Outpatient (CLI) | payer OTHER, SELFPAY ==
--- NOTE | ~2024-11-17 | XR_ITS ---
XR hand LT min 3V 11/17/2024 11:12 INDICATION: Left hand pain PROCEDURE: 3 views left hand COMPARISON: 09/19/2016 FINDINGS: Fracture, dislocation or subluxation is not identified. There is polyarticular osteoarthritis. Osteopenia. The soft tissues appear within normal limits. No foreign bodies are identified. IMPRESSION: 1: NO ACUTE BONE OR JOINT ABNORMALITY IDENTIFIED. Reviewed, dictated and finalized at location O.
== END 2024-11-17 11:00 | disposition home or self-care (01) ==
PROVIDERS: PCP Clinical Nurse Specialist; Visit Provider Plastic Surgery
DX: M79.645 Pain in left finger(s) (principal)
CPT/HCPCS: 73130

== ENCOUNTER 2024-12-29 11:41 | Outpatient (CLI) | payer OTHER, SELFPAY ==
[2024-12-29 12:55] LABS: Hematocrit 44.3 % (37.0-47.0); Hemoglobin 14.3 g/dL (12.0-15.0); Immature Granulocyte Percent A 0.3 % (0-0.5); Lymphocytes Absolute Auto 1.48 K/mm3 (0.9-3.2); Mean Corpuscular HGB Conc 32.3 g/dl (32-36); Mean Corpuscular Hemoglobin 31.9 pg (26-34); Mean Corpuscular Volume 98.9 fl (80-100); Nucleated Red Blood Cells Absolute Auto 0.000 K/mm3 (0.0-0.012); Nucleated Red Blood Cells Perc 0.0 % (0.0-0.2); Platelet Count Result 123 k/mm3 (150-375); Red Blood Count 4.48 M/mm3 (4.2-5.4); White Blood Count 5.8 K/mm3 (4.5-10.0)
[2024-12-29 13:07] LABS: Alanine Aminotransferase 118 U/L (6-35); Albumin Level 4.1 g/dL (3.5-5.1); Alkaline Phosphatase 87 U/L (38-126); Anion Gap 5 mmol/L (4-12); Aspartate Amino Transferase 146 U/L (14-36); Bilirubin,Total 0.9 mg/dL (0.2-1.3); Blood Urea Nitrogen 28 mg/dL (7-17); Calcium 10.1 mg/dL (8.4-10.2); Carbon Dioxide 28 mmol/L (22-30); Chloride 106 mmol/L (98-107); Estimated Glomerular Filt Rate > 60; Glucose 91 mg/dL (65-110); Potassium 5.2 mmol/L (3.4-5.0); Sodium 139 mmol/L (137-145); Total Protein 7.2 g/dL (6.3-8.2)
[2024-12-29 13:22] LABS: Parathyroid Intact 18.3 pg/mL (14.5-75.2)
[2024-12-29 13:44] LABS: Thyroid Stimulating Hormone 0.652 uIU/mL (0.465-4.680)
--- OUTSIDE RECORDS SUMMARY | 2024-12-29 13:44 | XMS_ITS | Data Portability ---
Author Organization [facility] [place] Address [address] [place] [address] [place] [address] Care Team Providers Care Acetylene Gas Compressor Name Role Phone KORYMESFIN FANG Primary Care Provider [phone] Assessment No assessment recorded. Plan of Treatment Reminders Order Date Submit Date Provider Last Modified By Organization Details Last Modified Time Details Appointments None recorded. Lab None recorded. Referral None recorded. Procedures None recorded. Surgeries None recorded. Imaging US, pelvis 2024 025 [email or web address] [place], [address], [place], [address], 22:54:00 US, transvagina l 2024 025 [email or web address] [place], [address], [place], [address], 22:54:00 US, pelvis, complete 2024 025 [email or web address] [place], [address], [place], [address], 5 12:58:23 US, pelvis 2023 024 [email or web address] [place] [facility] [address], [place], [address], 4 20:16:33 US, transvagina l 2023 024 [email or web address] [place], [address], [address], [place], [address], 20:16:33 Medication Orders None recorded. Patient TargetsNo targets recorded. Patient InstructionsNo instructions recorded. Reason for Referral None Reported. Results Created Date Observation Date Name Description Value Unit Range Abnormal Flag Note LastModifiedBy Organization Detail LastModifiedTime 02/05/20 24 02/05/2024 IMAGE GUIDE D PAP AND HPV REGAR DLESS image guided Pap, HPV regardless of Pap result SEE RESULT S BELOW CASE REPOR T: Cytol ogy Gynec ologi walter Repor t Case: [id number] Autho kaiden g Provi marina: Mary Chirinos, KWADWO Colle cted: 02/04 1300 Order ing Locat ion: [place] Patho log[facility] Recei rajwinder: 02/05 0153 First Scree n: Rashel lopez, Isabella ed, CT Rescr een: Saul palma, Gil mclain, CT Speci men: Scree cooper Pap - Image d, Cervi x STATE MENT OF ADEQU ACY: Satis facto ry for evalu ation Trans forma tion zone compo nent absen t The absen ce of an endoc ervic al compo nent was confi rmed by an addit ional scree ner. ----- ----- ----- ----- ----- ----- ----- ----- ----- ----- ----- ----- ----- ----- ----- ----- ----- ---- FINAL DIAGN OSIS: Negat lemuel for Intra epith elibello reynolds or Tanner chester (NIL) . Elect ekaterina guidry d by Gil Amador am, CT on 2023 at 5:40 AM ----- ----- ----- ----- ----- ----- ----- ----- ----- ----- ----- ----- ----- ----- ----- ----- ----- ---- HPV RESUL TS: HPV mRNA E6/E7 : No HPV mRNA Detec pee NOTE: This high risk HPV mRNA assay detec ts fourt een high- risk HPV types (16, 18, 31, 33, 35, 39, 45, 51, 52, 56, 58, 59, 66, 68) witho ut diffe renti ation . COMME NT: This speci men was revie wed by a Cytot echno logis t and/o r Patho logis t (as indic ated in this repor t) after evalu ation using the Thinp rep Imagi ng Syste m. CLINI WALTER INFOR MATIO N: Menst rual Statu s: LMP (if appli cable ): Clini walter Histo ry/Pr eviou s Pap: Type of Neopl carla (if appli cable ): Signi fican t Clini walter Findi ngs: Other Histo ry: Hormo giancarlo (if appli cable ): PAP EDUCA KERA L NOTE: The Pap Test is a scree cooper test with an inher ent false negat lemuel rate. Liqui d-bas ed sampl ing may decre ase, but will not elimi gavin, false negat lemuel resul ts. A negat lemuel resul t does not precl ude the prese nce and/o r devel opmen t of disea se, since the prese nce of abnor mal cells in the sampl e depen ds on the locat ion of the lesio n and sampl ing techn ique. Sonya nued regul ar scree cooper is the best metho d of cance r preve ntion . If repor pee cytol ogic findi ng do not corre late with physi walter and/o r histo rical findi ngs, furth er inves tigat ion is recom bandar d, as kyi donya rodriguez nted. Not Available [facility] (Lab) [address], [place], [address], 02/18/2024 06:43:13 10/09/[birth year]10/08/2024 SURGI WALTER PATHO LOGY surgical pathology SEE RESULT S BELOW CASE REPOR T: Surgi walter Patho logy Repor t Case: [id number] Autho kaiden falguni Provi marina: Sandee Lopez MD Colle cted: 10/08 1552 Order ing Locat ion: [place] Patho [place] Recei rajwinder: 10/09 0308 Patho logis t: Judy Low MD Speci men: Endom etriu m, EMB ----- ----- ----- ----- ----- ----- ----- ----- ----- ----- ----- ----- ----- ----- ----- ----- ----- ---- FINAL DIAGN OSIS: Endom etriu m, biops y: - Fragm ents of inact lemuel endom etriu m. - Hyper plasi a and carci noma are not ident ified . Elect ekaterina francois by Judy Low MD on 2024 at 1024 CDT ----- ----- ----- ----- ----- ----- ----- ----- ----- ----- ----- ----- ----- ----- ----- ----- ----- ---- CLINI WALTER INFOR MATIO N: Abnor mal uteri ne bleed ing MICRO SCOPI C DESCR IPTIO N: A micro scopi c exami natio n was perfo rmed. GROSS DESCR IPTIO N: A. Endom etriu m. The speci men is label ed with the patie nt's name and demog raphi cs only. Recei rajwinder in forma babs is a 0.2 x 0.2 x 0.[address] of mucus and minut e white tissu e. The entir e speci men is submi tted in one casse tte. Note the tissu e may not survi ve proce ssing . Gross ed by Domingo Cooper on Not Available [facility] (Lab) [address], [place], [address], 10/11/2024 11:27:32 02/16/20 24 02/17/2024 US, pelvi s No observ ation record ed. [email or web address] [place] [address], [place], [address], 02/17/2024 13:03:14 02/16/20 24 02/17/2024 US, trans vagin al No observ ation record ed. [email or web address] [address], [place], [address], 02/17/2024 13:03:24 02/16/20 24 02/16/2024 US, pelvi s No observ ation record ed. [email or web address] [address], [place], [address], 02/26/2024 16:35:11 09/09/19 25 09/08/2024 US, pelvi s No observ ation record ed. [facility] [address], [place], [address], 09/08/2024 12:43:30 09/09/19 25 09/08/2024 US, trans vagin al No observ ation record ed. [facility] [address], [place], [address], 09/08/2024 12:43:39 09/09/19 25 09/08/2024 US, pelvi s No observ ation record ed. [email or web address] [address], [place], [address], 09/14/2024 16:14:29 Result Notes None recorded. Problems Name Problem SNOMED Code Status Onset Date Resolution Date Notes Provider Name and Address Organization Details Recorded Time Postmenopa usal bleeding 71799927 Active 2013 Postmenopa usal bleeding;R ecorded Elsewhere: No Locatio n: [facility] Angelica rce: EHR Chroni c: N Practice ID: [id number] Billa ble Time: 01:00:00 PM Not Available [facility] 0 18:54:39 Acquired atrophy of uterus 58770953 Active 2016 Other specified noninflamm atory disorders of uterus;Pra ctice ID: [id number] Not Available [facility] 0 18:54:41 Problem Notes None recorded. Procedures Surgical History Date Name Laterality Status Provider Name and Address Organization Details Recorded Time 10/09/19 25 Endometrial Biopsy completed Andrea Lopez MD [address], [place], [address], [facility] 10/08/2024 17:03:40 10/09/19 25 Endometrial Biopsy completed Jael Dawkins [facility] 10/08/2024 11:47:24 02/05/20 24 Date of Last Pap Smear completed [facility] 09/06/2024 14:05:05 01/06/20 24 Date of Last Mammogram completed [facility] 09/06/2024 14:05:32 09/15/19 22 placement of stent in cardiac conduit completed GRETCHEN Flaherty [address], [place], [address], [facility] 10/02/2022 15:05:46 03/17/19 22 procedure on ankle completed [facility] 10/02/2022 14:47:46 02/24/20 21 procedure on foot completed [facility] 10/02/2022 14:47:59 03/17/18 83 [facility] 14:48:08 Imaging Results None recorded. Procedure Notes None recorded. Medical Equipment None Reported. Allergies No known drug allergies Medications Name Sig Start Date Stop Date Status Note LastModified by Organization Details LastModified Time cyclobenz aprine 10 mg tablet TAKE 1 TABLET BY MOUTH THREE TIMES DAILY NEEDED FOR MUSCLE SPASM active Not Available Not Available No t Available atorvasta tin 40 mg tablet TAKE 1 TABLET BY MOUTH ONCE DAILY active Not Available Not Available No t Available atorvasta tin 80 mg tablet Take 1 tablet every day by oral route. 02/04 completed Not Available Not Available Not Available nystatin 100,000 unit/mL oral suspensio n TAKE 5ML BY MOUTH 4 TIMES DAILY FOR 10 DAYS 09/06 completed Not Available Not Available Not Available ropinirol e 1 mg tablet TAKE 1 TABLET BY MOUTH ONCE DAILY AT BEDTIME active Not Available Not Available No t Available albuterol sulfate 2.5 mg/3 mL (0.083 %) solution for nebulizat ion USE 1 VIAL IN NEBULIZE R 4 TIMES DAILY NEEDED FOR WHEEZING active Not Available Not Available No t Available trazodone 50 mg tablet TAKE 1 TABLET BY MOUTH EVERY DAY AT BEDTIME NEEDED FOR SLEEP 02/04 completed Not Available Not Available Not Available cetirizin e 10 mg tablet Take 1 tablet every day by oral route. active Not Available Not Available No t Available aspirin 325 mg tablet take 1 tablet by oral route every day 10/02 completed Prescrib ed Elsewher e: Yes Loca tion: [facility] M odify By: matt delgado DateTime : 01/28/20 14 01:45:00 PM Not Available Not Available Not Available hydrocodo ne 5 mg-acetam inophen 325 mg tablet TAKE 1 TABLET BY MOUTH EVERY 6 HOURS NEEDED FOR PAIN 02/04 completed Not Available Not Available Not Available isosorbid e mononitra te ER 30 mg tablet,ex tended release 24 hr 02/04 completed Not Available Not Available Not Available alendrona te 70 mg tablet TAKE 1 TABLET BY MOUTH ONCE A WEEK 02/04 completed Not Available Not Available Not Available clonazepa m 0.5 mg tablet take 1 tablet by oral route 3 times every day 10/02 completed Prescrib ed Elsewher e: Yes Loca tion: [facility] odify By: dada roque DateTime : 10/18/19 17 09:00:00 AM Not Available Not Available Not Available Seroquel 25 mg tablet take 1 tablet by oral route 2 times every day 10/02 completed Prescrib ed Elsewher e: Yes Loca tion: [facility] odify By: dada newsomeuntinocente DateTime : 06/25/19 18 04:30:00 PM Not Available Not Available Not Available Elmiron 100 mg capsule take 1 capsule by oral route 3 times every day with water, 1 hour before or 2 hours after a meal 10/02 completed Prescrib ed Elsewher e: Yes Loca tion: [facility] odify By: dada newsomeuntinocente DateTime : 06/25/19 18 04:30:00 PM Not Available Not Available Not Available acetamino phen 300 mg-codein e 30 mg tablet 09/06 completed Not Available Not Available Not Available Plavix 75 mg tablet take 1 tablet by oral route every day 05/07 completed Prescrib ed Elsewher e: Yes Loca tion: [facility] odify By: dada roque DateTime : 01/28/20 14 01:45:00 PM Not Available Not Available Not Available peg-elect rolyte solution 420 gram oral solution TAKE DIRECTED BY OFFICE 02/04 completed Not Available Not Available Not Available tramadol 50 mg tablet TAKE 1 TABLET BY MOUTH EVERY 8 HOURS NEEDED FOR PAIN WITH FOOD WITH 500 MG OF ACETAMIN OPHEN WITH EACH DOSE 09/06 completed Not Available Not Available Not Available carvedilo l 3.125 mg tablet TAKE 1 TABLET BY MOUTH ONCE DAILY active Not Available Not Available No t Available Macrobid 100 mg capsule take 1 capsule by oral route every 12 hours with food, as directed 03/23 completed Prescrib ed Elsewher e: No Locat ion: [facility] odify By: william roque DateTime : 06/25/19 18 04:30:00 PM Not Available Not Available Not Available oxycodone -acetamin ophen 5 mg-325 mg tablet TAKE 1 TO 2 TABLETS BY MOUTH EVERY 8 HOURS NEEDED FOR PAIN 02/04 completed Not Available Not Available Not Available isosorbid e mononitra te ER 60 mg tablet,ex tended release 24 hr TAKE 1 TABLET BY MOUTH TWICE DAILY 02/04 completed Not Available Not Available Not Available omeprazol e 10 mg capsule,d elayed release take 2 capsule by oral route every day before a meal 10/02 completed Prescrib ed Elsewher e: Yes Loca tion: [facility] odify By: dada roque DateTime : 05/07/19 17 09:00:00 AM Not Available Not Available Not Available metoclopr amide 5 mg tablet TAKE 1 TABLET BY MOUTH 4 TIMES DAILY TO HELP TREAT HEADACHE AND OCCASION AL NAUSEA. active Not Available Not Available No t Available pravastat in 10 mg tablet take 1 tablet by oral route every day 10/02 completed Prescrib ed Elsewher e: Yes Loca tion: [facility] odify By: dada roque DateTime : 05/07/19 17 09:00:00 AM Not Available Not Available Not Available gabapenti n 800 mg tablet TAKE 1 TABLET BY MOUTH THREE TIMES DAILY active Not Available Not Available No t Available trazodone 100 mg tablet TAKE 1 TABLET BY MOUTH EVERY DAY AT BEDTIME NEEDED FOR INSOMNIA active Not Available Not Available No t Available Klor-Con 8 mEq tablet,ex tended release take 1 tablet by oral route 2 times every day with food 05/07 completed Prescrib ed Elsewher e: Yes Loca tion: [facility] odify By: dada roque DateTime : 01/28/20 14 01:45:00 PM Not Available Not Available Not Available Flagyl 500 mg tablet take 1 tablet by oral route every 12 hours 05/25 completed Prescrib ed Elsewher e: No Locat ion: [facility] odify By: william roque DateTime : 04/23/19 10:25:11 AM Not Available Not Available Not Available dexametha sone 4 mg tablet TAKE 1 TABLET BY MOUTH ONCE DAILY WITH BREAKFAS T FOR 7 DAYS 09/06 completed Not Available Not Available Not Available prednison e 50 mg tablet 02/04 completed Not Available Not Available Not Available promethaz ine 25 mg tablet TAKE 1/2 (ONE-LINDSAY F) TABLET BY MOUTH EVERY 6 HOURS NEEDED FOR NAUSEA 02/04 completed Not Available Not Available Not Available losartan 25 mg tablet TAKE 1 TABLET BY MOUTH ONCE DAILY active Not Available Not Available No t Available nicotine 21 mg/24 hr daily transderm al patch active Not Available Not Available Not Available nitroglyc meagan 0.4 mg sublingua l tablet DISSOLVE ONE TABLET UNDER THE TONGUE EVERY 5 MINUTES NEEDED FOR CHEST PAIN. DO NOT EXCEED A TOTAL OF 3 DOSES IN 15 MINUTES active Not Available Not Available No t Available gabapenti n 300 mg capsule 02/04 completed Not Available Not Available Not Available omeprazol e 20 mg capsule,d elayed release TAKE 1 CAPSULE BY MOUTH ONCE DAILY active Not Available Not Available No t Available folic acid 1 mg tablet TAKE 1 TABLET BY MOUTH ONCE DAILY active Not Available Not Available No t Available isosorbid e mononitra te 10 mg tablet take 1 tablet by oral route 2 times every day given 7 hours apart 10/02 completed Prescrib ed Elsewher e: Yes Loca tion: [facility] odify By: matt Mcgillte r DateTime : 01/28/20 14 01:45:00 PM Not Available Not Available Not Available zolpidem 5 mg tablet take 1 tablet by oral route every day at bedtime 10/02 completed Prescrib ed Elsewher e: Yes Loca tion: [facility] odify By: matt Mcgillte r DateTime : 02/09/20 14 02:45:00 PM Not Available Not Available Not Available gabapenti n 100 mg capsule take 3 capsule by oral route 3 times every day 10/02 completed Prescrib ed Elsewher e: Yes Loca tion: [facility] odify By: dada newsomeuntinocente DateTime : 06/25/19 18 04:30:00 PM Not Available Not Available Not Available ibuprofen 600 mg tablet TAKE 1 TABLET BY MOUTH EVERY 6 HOURS NEEDED FOR PAIN 02/04 completed Not Available Not Available Not Available methylpre dnisolone 4 mg tablets in a dose pack TAKE BY MOUTH DIRECTED ON INSIDE OF PACKAGE 09/06 completed Not Available Not Available Not Available albuterol sulfate HFA 90 mcg/actua tion aerosol inhaler INHALE 2 PUFFS BY MOUTH EVERY 4 HOURS NEEDED FOR SHORTNES S OF BREATH OR WHEEZING OR COUGH active Not Available Not Available No t Available Lipitor 10 mg tablet take 1 tablet by oral route every day 05/07 completed Prescrib ed Elsewher e: Yes Loca [facility]ion: [facility] odify By: dada roque DateTime : 01/28/20 14 01:45:00 PM Not Available Not Available Not Available fluticaso ne propionat e 50 mcg/actua tion nasal spray,celso pension USE 2 SPRAY(S) IN EACH NOSTRIL ONCE DAILY NEEDED FOR NASAL CONGESTI ON active Not Available Not Available No t Available lisinopri l 2.5 mg tablet take 1 tablet by oral route every day 07/04 completed Prescrib ed Elsewher e: Yes [facility] By: matt delgado DateTime : 01/28/20 14 01:45:00 PM Not Available Not Available Not Available amoxicill in 875 mg-potass ium clavulana te 125 mg tablet TAKE 1 TABLET BY MOUTH TWICE DAILY FOR 7 DAYS 10/01 completed Not Available Not Available Not Available Benadryl 25 mg capsule take 2 capsule by oral route every 4 - 6 hours as needed 10/02 completed Prescrib ed Elsewher e: Yes Loca [facility]ion: [facility] odify By: dada roque DateTime : 05/07/19 17 09:00:00 AM Not Available Not Available Not Available neomycin- polymyxin -hydrocor t 3.5 mg-10,000 unit/mL-1 % ear drops,celso p INSTILL 2 TO 3 DROPS IN AFFECTED EAR(S) FOUR TIMES DAILY FOR 7 DAYS. STOP AND CALL MD IF EARDRUM RUPTURES . 10/01 completed Not Available Not Available Not Available escitalop sugey 10 mg tablet TAKE 1 TABLET BY MOUTH ONCE DAILY active Not Available Not Available No t Available Asprin Ec Low Dose 81 mg tablet,de layed release Take 1 tablet every day by oral route. 02/04 completed Not Available Not Available Not Available ezetimibe 10 mg tablet TAKE 1 TABLET BY MOUTH ONCE DAILY active Not Available Not Available No t Available Vitamin D3 25 mcg (1,000 unit) capsule 10/02 completed Prescrib ed Elsewher e: Yes [facility] By: dada roque DateTime : 05/07/19 17 09:00:00 AM Not Available Not Available Not Available melatonin 1 mg tablet 10/02 completed Prescrib ed Elsewher e: Yes Loca tion: [facility] odify By: matt delgado DateTime : 02/09/20 14 02:45:00 PM Not Available Not Available Not Available Lexapro 5 mg tablet take 1 tablet by oral route every day 10/02 completed Prescrib ed Elsewher e: Yes Loca tion: [facility] odify By: dada roque DateTime : 05/07/19 17 09:00:00 AM Not Available Not Available Not Available metoprolo l tartrate 25 mg tablet take 1 tablet by oral route 2 times every day 05/07 completed Prescrib ed Elsewher e: Yes Loca tion: [facility] odify By: dada roque DateTime : 01/28/20 14 01:45:00 PM Not Available Not Available Not Available hydrocodo ne 10 mg-acetam inophen 300 mg tablet take 1 tablet by oral route every 6 hours as needed 10/02 completed Prescrib ed Elsewher e: Yes [facility] odify By: dada roque DateTime : 05/07/19 17 09:00:00 AM Not Available Not Available Not Available fenofibra te 160 mg tablet TAKE 1 TABLET BY MOUTH ONCE DAILY active Not Available Not Available No t Available Benadryl BID active Not Available Not Avai lable Not Available Tylenol PRN 09/06 completed Not Available Not Available Not Available Nitro PRN 09/06 completed Not Available Not Available Not Available Ranexa 500 mg tablet,ex tended release take 1 tablet by oral route 2 times every day 10/02 completed Prescrib ed Elsewher e: Yes Loca tion: [facility] odify By: dada newsomeunter DateTime : 10/18/19 17 09:00:00 AM Not Available Not Available Not Available FeroSul 325 mg (65 mg iron) tablet TAKE 1 TABLET BY MOUTH ONCE DAILY active Not Available Not Available No t Available ranolazin e ER 1,000 mg tablet,ex tended release,1 2 hr TAKE 1 TABLET BY MOUTH TWICE DAILY 02/04 completed Not Available Not Available Not Available Fish Oil 300 mg capsule 10/02 completed Prescrib ed Elsewher e: Yes Loca tion: [facility] odify By: dada newsomeuntinocente DateTime : 05/07/19 17 09:00:00 AM Not Available Not Available Not Available melatonin (bulk) active Not Available Not Available Not Available Probiotic 10 billion cell capsule 10/02 completed Prescrib ed Elsewher e: Yes Loca tion: [facility] odify By: dada newsomeunter DateTime : 05/07/19 17 09:00:00 AM Not Available Not Available Not Available Stiolto Respimat 2.5 mcg-2.5 mcg/actua tion solution for inhalatio n INHALE 2 PUFFS BY MOUTH ONCE DAILY active Not Available Not Available No t Available Brilinta 60 mg tablet TAKE 1 TABLET BY MOUTH TWICE DAILY 02/04 completed Not Available Not Available Not Available Compact Space Chamber DIRECTED WITH ALBUTERO L INHALER 10/01 completed Not Available Not Available Not Available Vitals Date Recorded Body height Body mass index (BMI) Body weight Systolic And Diastolic Provider Name and Address Organization Details Last Updated DateTime 09/06/2024 157.48 cm 31.6 kg/m2 07339.48 g 124/85 mm[Hg] Kayce De Anda [facility] 09/06/2024 14:02:38 Date Recorded Body height Body mass index (BMI) Body weight Systolic And Diastolic Provider Name and Address Organization Details Last Updated DateTime 10/01/2024 157.48 cm 31.5 kg/m2 13582.89 g 139/91 mm[Hg] Jael [facility] 10/01/2024 10:21:48 Date Recorded Body height Body mass index (BMI) Body weight Systolic And Diastolic Provider Name and Address Organization Details Last Updated DateTime 10/08/2024 157.48 cm 30.9 kg/m2 69173.11 g 130/84 mm[Hg] Jael [facility] 10/08/2024 11:46:42 Social History Question Answer Notes LastModified by [employer] Details LastModified Time Tobacco Smoking Status Current Every Day Smoker Roxie gamino, [facility] 10/02/2022 14:47:26 Are You Blind Or Do You Have Difficulty Seeing? No Information n ot available 10/02/2022 In The 14 Days Before Symptom Onset, Have You Had Close Contact With A Laboratory-confirm ed COVID-19 While That Case Was Ill? No Information n ot available 10/02/2022 In The 14 Days Before Symptom Onset, Have You Had Close Contact With A Person Who Is Under Investigation For COVID-19 While That Person Was Ill? No Information not available 10/02/2022 Have You Been To An Area Known To Be High Risk For COVID-19? No Information not available 10/02/2022 Are You Deaf Or Do You Have Serious Difficulty Hearing? No Information not available 10/02/2022 How Much Tobacco Do You Smoke? 1 PPD Information not available 10/02/2022 Do You Have Difficulty Walking Or Climbing Stairs? No Information not available 10/02/2022 Sex: Unknown Functional Status Question Answer Note LastModified by [employer] Details LastModified Time What is your level of alcohol consumption? Occasional Information not available 10/02/2022 Are you able to walk independently without assistance or assistive devices? YESWOREST Information not available 10/02/2022 Are you able to care for yourself independently? Yes Information not available 10/02/2022 Do you have difficulty dressing, bathing, grooming, or toileting? No Information not available 10/02/2022 Mental Status None recorded. Family History Relationship Description Onset Age of this Age Resolved Age Notes LastModified by Organization Details LastModified Time Sister Pulmonary embolism Not available 2022 14:47:07 Medical History Condition Response Allergies (Food, seasonal, environmental ) N Other N Breast Cancer N Drug/Latex Allergies/Reactions N Blood Transfusion N Dermatologic Disorders N Lung Disease Y Defects or Inherited Disease N Breast Problem N Gestational Diabetes N Hematologic disorders Y Anesthesia Complications N History of STI N Deep Vein Thrombosis N Polycystic ovary syndrome Y Anxiety Disorder N Autoimmune disease N Arthritis N Infertility N Polyps N Acid Reflux (GERD) N History of abnormal pap N Cancer N Stroke N Varicosities N Neurologic/Epilepsy N Endometriosis N High Cholesterol Y Headaches N Fibromyalgia N Kidney Disease N Heart Problems Y Kidney or Bladder Problems N Thyroid Problems N GI Problems N Eating Disorder N Anemia Y Art (IVF or FET) N Psychiatric Illness N Ovarian Cancer N Diabetes N Pulmonary (TB, Asthma) Y Hepatitis/Liver Disease N No Past Medical History N Eczema N Urinary Tract Infection N Abuse/Domestic Violence N Asthma N Trauma/Violence N Depression/ depression N Heart Disease Y Pre-Eclampsia N Hypertension Y Osteoporosis Y Thrombophilias N Gynecological History Statement/Question Response Abnormal Pap N Date of Last Mammogram 01/06/2024 STIs/STDs N HPV Vaccine N Current Control Method Menopause If Post Menopausal, Age at Menopause 49 Date of Last Colonoscopy Sexually Active? N Menses Monthly N Date of DEXA bone scan Age of first menstrual cycle 11 Date of Last Pap Smear 02/05/2024 Sexual Problems? N LMP Unknown Obstetrics History GPAL:G 5 P 5 0 0 5 Type Value Full Term 5 Living 5 Total 5 Past Encounters Encounter ID Performer Location Encounter Start Date Encounter Closed Date Diagnosis/Indication Diagnosis SNOMED-CT Code Diagnosis ICD10 Code Diagnosis IMO Codes Diagnosis Note [id number] GRETCHEN Flaherty [facility] [address] [address] 10/02/2022 14:07:10 10/02/2022 15:34:12 Breast lump 62713303 N63.0 bilateral tenderness in upper outer quadrantsi maging ordered Tenderness of breast 552 79506 N64.4 Abdominal pain 43270185 R10.9 would like pelvic u/s to r/o gyne source of pain Gynecologi c examination 39824995 Z01.419 Take Calcium with Vitamin D 12-1500mg daily. Do monthly self breast exams. It is advised to get annual flu shot in the fall and she could obtain at [facility] or [facility] care clinic. If you haven't received the Tdap vaccine in the last 10 years you should obtain one as well. Have mammogram yearly, bone density every 2-3 years and colonoscop y every 5-10 years depending on findings and history. Engage in daily exercise of low impact aerobic exercise 45-60 minutes 4-5 times weekly. Avoid tobacco and illicit drugs as well as using moderation with alcohol intake less than 1-2 8 oz beverages daily. This lifestyle behavior pattern will lead to less health conditions and longer life span. If BMI greater than 25 weight watchers or dietary consult advised. Questions have been answered. Patient appears to understand instructio ns, but if you have any further questions call or respond to this email WWEpostmen opausalhx of abnormal pap years ago, no procedures requiredla st pap 4-5 years agopap updatedSTI testing declineddi agnostic breast imaging ordereddex a UTD - on alendronat e managed by PCPcolonos copy scheduled Time spent in visit is a total of 30 mins with at least 50% of visit consisting of counseling and review of plan of care. [id number] Andrea Lopez MD [facility] [address] [address] 10/11/2022 15:00:38 10/14/2022 12:30:31 Pain in pelvis 86575955 R10.2 R10.9 [id number] Andrea Lopez MD [facility] [address] [address] 11/07/2022 14:18:50 11/07/2022 15:11:44 Cyst of ovary 56386705 N83.209 62-year-ol d female with back pain when pelvic ultrasound . We reviewed the pelvic ultrasound . She has 1 very small cyst on her left ovary. This should not be there but appears benign. We will repeat in 3 months normal we will discuss. Nothing on ultrasound explain her back pain. [id number] GRETCHEN Flaherty [facility] [address] [address] 02/05/2024 12:17:53 02/05/2024 13:57:55 Gynecologic examination 41701611 Z01.419 wwepostmen opausalpap updated per pt preference declined STI screenmamm ogram UTDcolonos copy UTDdexa UTD/PCPsmo avi cessation encouraged Do monthly self breast exams. It is advised to get annual flu shot in the fall and she could obtain at local pharmacy. If you haven't received the Tdap vaccine in the last 10 years you should obtain one as well. Have mammogram yearly, bone density every 2-3 years and stay up to date on colon cancer screening. Engage in regular exercise. Avoid tobacco and illicit drugs. This lifestyle behavior pattern will lead to less health conditions and longer life span. If BMI greater than 25 dietary consult advised. Questions have been answered. Breast lump [id number] N63 .0 offered breast specialist referral d/t persistant tenderness and breast lump - declinedup dated u/s ordered Pain in pelvis 37700540 R10.2 updated pelvic u/s ordered [id number] Andrea Lopez MD [facility] [address] [address] 02/16/2024 17:01:28 02/17/2024 06:25:15 Cyst of left ovary [id number] N83.292 [id number] GRETCHEN Flaherty [facility] [address] [address] 09/06/2024 13:41:52 09/07/2024 15:52:12 Postmenopausal bleeding 11830838 N95.0 [id number] discussed PMB which warrants further evaluation pelvic u/s ordered, discussed EMB pending u/s resultspre cautions reviewed, questions answered Time spent in visit is a total of 22 mins with at least 50% of visit consisting of counseling and review of plan of care. [id number] Andrea Lopez MD [facility] [address] [address] 09/08/2024 11:23:19 09/08/2024 12:07:19 Postmenopausal bleeding 48206005 N95.0 [id number] MD Waylon Doll [address] [address] 10/01/2024 09:59:16 10/04/2024 09:37:25 Postmenopausal bleeding 90910996 N95.0 [id number] 63-year-ol d female with postmenopa usal bleeding. She has had ultrasound evaluation . We reviewed her ultrasound evaluation . We have agreed to perform endonmetri al biopsy. She will return for endometria l biopsy. We discussed the procedure In detail. [id number] Andrea Lopez MD [facility] [address] [address] 10/08/2024 11:09:52 10/08/2024 17:12:18 Postmenopausal bleeding 97621941 N95.0 [id number] endometria l biopsy performed without complicati ons. She tolerated it well. Health Concerns Section Related Observation LastModified by Organization Detai ls LastModified Time None Recorded Concern Status LastModified by Organization Details LastModified Time None Recorded Advance Directives Directive None Recorded Payers Insurance Date Sequence Insurance Name Policy Number Policy Busby Covered Member ID Busby Member ID Guarantor Name 10/11/2024 1 [facility] - DOS ON OR AFTER 20 (MEDICAID REPLACEMENT - HMO) Julia Lema [id number] Julia Lema Notes Date Note Type Note Provider Name and Address Organization Details Recorded Time 09/06/2024 text/html Beer - Abnormal BleedingReported by Patient 63yopresents today for postmenopausal bleedingLMP around age 49. Pt states no bleeding until a few weeks ago, noticed 1 day of light spotting and cramping.no current bleeding or painshe is not SA, denies any dryness/irritation/it richie last pap 01/2024 : nilm, HPV (-) GRETCHEN Flaherty [address], [place], [address], [place] [facility] 09/07/2024 11:37:23 10/01/2024 text/html 63-year-old female with postmenopausal bleeding. She has had ultrasound evaluation. We reviewed her ultrasound evaluation. We have agreed to perform endonmetrial biopsy. She will return for endometrial biopsy. We discussed the procedure In detail. Andrea Lopez MD [address], [place], [address], [facility] 10/02/2024 22:40:28 10/08/2024 text/html Patient presents for endometrial biopsy for postmenopausal bleeding. The procedure was explained to the patient in detail. She understands the procedure. She understands the risks, benefits, and alternatives. She has completed the informed consent process and is ready to proceed. Andrea Lopez MD [address], [place], [address], [facility] 10/08/2024 17:04:30 OBGyn Episode Ob Episode Information Episode Created Date Number of Fetuses Patient Bloodtype Patient rh Status Prepregnancy Weight lbs Domestic Partner Domestic Partner Phone Father Name Manager Intelligence Status 10/03/19 23 1 CLOSED Fetus Data First Name Last Name Admitted to NICU Weight (g) Sex Living Outcome Pediatric Complications Fetus ID Race Codes Race Delivery Type F Full Term Tony Calculation Initial Tony Date Initial Exam Date Initial Exam Provider Initial Ultrasound Date Last Menstrual Period Date Ultra Sound Weeks Gestation 0 Eighteen To Twenty Week Tony Update Ultra Sound Date Fundal Height At Umbil Quickening Date Ultra Sound Latest Weeks Gestation Final Tony Confirmed By Final Tony Confirmed Date Final Tony Date Ultra Sound Latest Days Gestation 0 0 Menstrual History Last Menstrual Date Menses Monthly On Bcp Conception Prior Menses Frequency Hcg Plus Date Menarche Onset Age Delivery Information Delivery Date Delivery Type Labor Anesthesia Weeks Gestation Incision Type Labor Labor Length Hrs Delivered By Post Complications Tubal Sterilization Discharge Date Comments 4 Discharge Information Feeding Method Contraceptive Method Maternal HG B and HCT Levels Ob Episode Information Episode Created Date Number of Fetuses Patient Bloodtype Patient rh Status Prepregnancy Weight lbs Domestic Partner Domestic Partner Phone Father Name Manager Intelligence Status 10/03/19 23 1 CLOSED Fetus Data First Name Last Name Admitted to NICU Weight (g) Sex Living Outcome Pediatric Complications Fetus ID Race Codes Race Delivery Type F Full Term Tony Calculation Initial Tony Date Initial Exam Date Initial Exam Provider Initial Ultrasound Date Last Menstrual Period Date Ultra Sound Weeks Gestation 0 Eighteen To Twenty Week Tony Update Ultra Sound Date Fundal Height At Umbil Quickening Date Ultra Sound Latest Weeks Gestation Final Tony Confirmed By Final Tony Confirmed Date Final Tony Date Ultra Sound Latest Days Gestation 0 0 Menstrual History Last Menstrual Date Menses Monthly On Bcp Conception Prior Menses Frequency Hcg Plus Date Menarche Onset Age Delivery Information Delivery Date Delivery Type Labor Anesthesia Weeks Gestation Incision Type Labor Labor Length Hrs Delivered By Post Complications Tubal Sterilization Discharge Date Comments 6 Discharge Information Feeding Method Contraceptive Method Maternal HG B and HCT Levels Ob Episode Information Episode Created Date Number of Fetuses Patient Bloodtype Patient rh Status Prepregnancy Weight lbs Domestic Partner Domestic Partner Phone Father Name Manager Intelligence Status 10/03/19 1 CLOSED Fetus Data First Name Last Name Admitted to NICU Weight (g) Sex Living Outcome Pediatric Complications Fetus ID Race Codes Race Delivery Type F Full Term Tony Calculation Initial Tony Date Initial Exam Date Initial Exam Provider Initial Ultrasound Date Last Menstrual Period Date Ultra Sound Weeks Gestation 0 Eighteen To Twenty Week Tony Update Ultra Sound Date Fundal Height At Umbil Quickening Date Ultra Sound Latest Weeks Gestation Final Tony Confirmed By Final Tony Confirmed Date Final Tony Date Ultra Sound Latest Days Gestation 0 0 Menstrual History Last Menstrual Date Menses Monthly On Bcp Conception Prior Menses Frequency Hcg Plus Date Menarche Onset Age Delivery Information Delivery Date Delivery Type Labor Anesthesia Weeks Gestation Incision Type Labor Labor Length Hrs Delivered By Post Complications Tubal Sterilization Discharge Date Comments 5 Discharge Information Feeding Method Contraceptive Method Maternal HG B and HCT Levels Ob Episode Information Episode Created Date Number of Fetuses Patient Bloodtype Patient rh Status Prepregnancy Weight lbs Domestic Partner Domestic Partner Phone Father Name Manager Intelligence Status 10/03/19 1 CLOSED Fetus Data First Name Last Name Admitted to NICU Weight (g) Sex Living Outcome Pediatric Complications Fetus ID Race Codes Race Delivery Type M Full Term Tony Calculation Initial Tony Date Initial Exam Date Initial Exam Provider Initial Ultrasound Date Last Menstrual Period Date Ultra Sound Weeks Gestation 0 Eighteen To Twenty Week Tony Update Ultra Sound Date Fundal Height At Umbil Quickening Date Ultra Sound Latest Weeks Gestation Final Tony Confirmed By Final Tony Confirmed Date Final Tony Date Ultra Sound Latest Days Gestation 0 0 Menstrual History Last Menstrual Date Menses Monthly On Bcp Conception Prior Menses Frequency Hcg Plus Date Menarche Onset Age Delivery Information Delivery Date Delivery Type Labor Anesthesia Weeks Gestation Incision Type Labor Labor Length Hrs Delivered By Post Complications Tubal Sterilization Discharge Date Comments 3 Discharge Information Feeding Method Contraceptive Method Maternal HG B and HCT Levels Ob Episode Information Episode Created Date Number of Fetuses Patient Bloodtype Patient rh Status Prepregnancy Weight lbs Domestic Partner Domestic Partner Phone Father Name Manager Intelligence Status 10/03/19 23 1 CLOSED Fetus Data First Name Last Name Admitted to NICU Weight (g) Sex Living Outcome Pediatric Complications Fetus ID Race Codes Race Delivery Type F Full Term Tony Calculation Initial Tony Date Initial Exam Date Initial Exam Provider Initial Ultrasound Date Last Menstrual Period Date Ultra Sound Weeks Gestation 0 Eighteen To Twenty Week Tony Update Ultra Sound Date Fundal Height At Umbil Quickening Date Ultra Sound Latest Weeks Gestation Final Tony Confirmed By Final Tony Confirmed Date Final Tony Date Ultra Sound Latest Days Gestation 0 0 Menstrual History Last Menstrual Date Menses Monthly On Bcp Conception Prior Menses Frequency Hcg Plus Date Menarche Onset Age Delivery Information Delivery Date Delivery Type Labor Anesthesia Weeks Gestation Incision Type Labor Labor Length Hrs Delivered By Post Complications Tubal Sterilization Discharge Date Comments 9 Discharge Information Feeding Method Contraceptive Method Maternal HG B and HCT Levels
[2024-12-29 14:07] LABS: Vitamin B12 > 1000.0 pg/mL (239-931)
[2024-12-30 16:08] LABS: Calcium, Ionized 5.5 mg/dL (4.5-5.6)
== END 2024-12-29 11:42 | disposition home or self-care (01) ==
LOC: ANHGOSHLAB 11:42
PROVIDERS: PCP Clinical Nurse Specialist; Visit Provider Clinical Nurse Specialist
DX: I10 Essential (primary) hypertension (principal); D69.6 Thrombocytopenia, unspecified; R74.01 Elevation of levels of liver transaminase levels; E83.52 Hypercalcemia; R41.3 Other amnesia
CPT/HCPCS: 36415; 80053; 82330; 82607; 83970; 84443; 85025

== ENCOUNTER 2025-01-05 09:33 | Outpatient (CLI) | payer OTHER, SELFPAY ==
--- OUTSIDE RECORDS SUMMARY | 2025-01-05 10:54 | XMS_ITS | Clinical Summary ---
Author Organization [facility] Address [address] [place] [address] Care Team Providers Care Cloud Engineer Name Role Phone Unavailable Primary Care Provider [...] (1 - 1-dose 75+ series) 11/01/2035 Insurance [facility] [employer] MEDICAID
--- OUTSIDE RECORDS SUMMARY | 2025-01-05 10:54 | XMS_ITS | Clinical Summary ---
Author Organization [facility] Address [address] [place] [address] Care Team Providers Care Comic Book Artist Name Role Phone Robby Dee MD Primary Care Provider [phone] Source Comments [facility],non-owned Affiliates and Associated Physician Practices is amultiple site organization consisting of ambulatory clinics and hospital sitesin [place], [place], [place] and [place]. This disclosure is being madepursuant to the Care Everywhere program and may not contain all information available regarding this patient. 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 Gender Identity Not on file Sexual Orientation [...] 2010 ZOSTER VACCINE (1 of 2) 2010 DEPRESSION SCREENING 03/17/2024 COVID-19 VACCINE (1 - 2023-2 5 season) 2024 INFLUENZA VACCINE (#1) 2024 Respiratory Syncytial Virus [...] patient's age to complete this topic Insurance [facility] SELF PAY NO INSURANCE Member Subscriber Plan / Payer (Ef fective for All Dates) Name:Julia Lema Member ID:Not on file Relation to Subscriber:Not on file Name:JULIA LEMA Subscriber ID:Not on file (Home) Address: [address] [place] [id number] Payer ID:Not on file Group ID:Not on file Type:Self Pay Address: [place], [place] Care Teams Comic Book Artist Relationship Specialty Start Date End Date Robby Dee MD [address] [id number] [facility] - General 05/10/14
--- OUTSIDE RECORDS SUMMARY | 2025-01-05 10:54 | XMS_ITS | Clinical Summary ---
Author Organization [facility] Address [address] [place] [address] Care Team Providers Care Surveyor'S Assistant Name Role Phone Robby Dee MD Unavailable [phone] Surinder Walters DO Primary Care Provider Allergies No known active allergies Medications fish nen-vorfj-6-vit C-vit E 2,000-650-12 mg/2.5 gram emulsion in [...] 24 hours 30 patch 07/21/19 25 Active Additional Information Patient not taking.Reported on 11/29/2024 nicotine (NICODERM CQ) [address] 1 patch on the skin daily for 24 hours 30 patch 1 07/21/19 25 Active Additional Information Patient not taking.Reported on 11/29/2024 nicotine (NICODERM CQ) [address] 1 patch on the skin daily for 24 hours 30 patch 1 07/21/19 25 Active Additional Information Patient not taking.Reported on 11/29/2024 metoclopramide (REGLAN) 5 mg tabletIndication s:Acute intractable [...] 0.4 mg SL tabletIndication s: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 DO NOT EXCEED A TOTAL OF 3 DOSES IN 15 MINUTES 25 tablet 09/28/19 25 Active Active Problems Problem Noted Date Diagnosed Date Sensation of fullness in both ears 11/29/2024 Assessment & Plan (11/29/2024 2:55 PM CDT): Suspect sinus or jaw contribution, Hearing was normal Personal interpretation of CT Head 07/2024: sinuses, middle ear and mastoids were clear Sensorineural hearing loss (SNHL) of both ears 0 11/29/2024 Assessment & Plan (11/29/2024 2:55 PM CDT): Normal hearing Chronic maxillary sinusitis 11/29/2024 Assessment & Plan (11/29/2024 9:08 AM CDT): Nasal saline spray (Simply saline, Little Remedies, [place], [place]) 2 second sprays or 2 squeezes into each nostril while looking down over the sink, do not need to sniff in. Flonase 2 sprays into each nostril while looking down over the sink, do not sniff in or blow nose after use for at least 30 minutes daily Start Cetirizine 10mg (Zyrtec) daily Hearing test today Closed fracture of nasal bones 11/29/2024 Assessment & Plan (11/29/2024 9:09 AM CDT): Mild left sided deviation, discussed that we are passed the initial window for closed nasal bone fracture reduction and minimize nose blowing Weight loss 11/19/2024 Encounter for screening colonoscopy 11/19/2024 Acute intractable tension-type headache 07/25/19 25 Thrombocytopenia [...] use distraction techniques - Information given regarding [place] Tobacco Quit line: 2-300-RANF-YES for free services - 6 minutes spent discussing cessation She has tried and failed Wellbutrin, varenicline, lozenges, gum, generic patches The only thing she had success with in the past was the Nicoderm CQ patches I have placed an order for these today in a titrating fashion She qualifies for annual screening, next due 02/2025 Assessment & Plan (04/20/2024 2:45 PM SOLAR SALES REPRESENTATIVE): - Smoking cessation counseling and techniques reviewed at length - Avoid triggers and use distraction techniques - Information given regarding [place] Tobacco Quit line: 2-662-OYRP-YES for free services - 5 minutes spent [...] tested Assessment & Plan (04/20/2024 2:49 PM SOLAR SALES REPRESENTATIVE): She is MZ with good last levels [...] index 31.0-31.9, adult 07/03/2017 Coronary atherosclerosis of [place] coronary emily ry 07/03/2017 Cervicalgia 07/03/2017 Chronic [...] care Assessment & Plan (04/20/2024 2:48 PM SOLAR SALES REPRESENTATIVE): Continue Stiolto two puffs daily for now [...] Resolved Date Atherosclerotic heart diseas e of [place] coronary artery without angina pectoris 07/03/2017 12/10/2022 Hyperlipidemia 07/03/2017 12/10/2022 Pure hypertriglyceridemia 07/03/2017 Pure hyperglyceridemia 04/21/201402/11 Coronary arteriosclerosis in [place] artery 02/15/2014 02/11/2023 Encounters Date Type Department Care Team Description 12/20/2024 Telephone [facility] of [address] Office [facility] [address] [place] [address] Adwoa Garcia, JUSTIN 11/29/2024 9:30 AM CDT Procedure visit [facility] at [address] [place] [address] Idania Craig Au.D. Sensorineural hearing loss (SNHL), bilateral (Primary Dx) 11/29/2024 8:45 AM CDT Office Visit [facility] - [address] [place] [address] Serena Sinha, Sensation of fullness in both ears (Primary Dx); Sensorineural hearing loss (SNHL) of both ears; Chronic maxillary sinusitis; Closed fracture of nasal bone, initial encounter 11/19/2024 Telephone [facility] at [address] [place] [address] Radhames Guerrero MD 10/06/2024 10:15 AM CDT Office Visit [facility] [place] [facility] [address] [place] [address] Office [facility] [address] [place] [address] Jay Campos MD Thrombocytopenia (Primary Dx); Pancreatic lesion 10/06/2024 9:45 AM CDT Lab [address] [place] [address] Thrombocytopenia; Pancreatic lesion 10/05/2024 Telephone [facility] [address] Office [facility] [address] [place] [address] Tatianna Reees, CLT from Last 3 Months Immunizations Immunization [...] Date Smoking Tobacco: Every Day Cigarettes 0.8 53.8 Started: 1971 Smokeless Tobacco: Current Tobacco Cessation:Ready [...] on file Legal Sex Female 5:32 PM SOLAR SALES REPRESENTATIVE Gender Identity Not on file Sexual Orientation Not on file Obstetrics History Last Filed Vital Signs Vital Sign Reading Time Taken Comments Blood Pressure 142/82 11/29/2024 8:46 AM CDT Pulse 75 11/29/2024 8:46 AM CDT Temperature 36.8 C (98.2 F) 10/06/2024 9:58 AM CDT Respiratory Rate 18 11/29/2024 8:46 AM CDT Oxygen Saturation 99% 11/29/2024 8:46 AM CDT Inhaled Oxygen Concentration - - Weight 76.7 kg (169 lb) 11/29/2024 8:46 AM CDT Height 157.5 cm (5' 2.01) 11/29/2024 8:46 AM CD T Body Mass Index 30.9 11/29/2024 8:46 AM CDT Plan of Treatment Upcoming Encounters Date Type Department Care Team (Late st Contact Info) Description 02/07/2025 8:00 AM SOLAR SALES REPRESENTATIVE Hospital Encounter [facility] [address] [place] [address] Radhames Guerrero MD [address] [facility] [place] [address] 02/07/2025 8:00 AM SOLAR SALES REPRESENTATIVE - 02/07/2025 8:30 AM SOLAR SALES REPRESENTATIVE Surgery [address] [address] Radhames Guerrero MD [address] [facility] [place] [place] [address] COLONOSCOPY Scheduled Procedures Name Priority Associated Diagnoses Date/Ti me COLONOSCOPY Weight loss Encounter for screening colonoscopy 02/07/2025 8:00 AM SOLAR SALES REPRESENTATIVE Health Maintenance Due Date Last Done Comments Breast Cancer Screening-Mammogram 1960 Cervical Cancer Screening 1960 Colon Cancer Screening-Colonoscopy 1960 Depression Screening 1960 Hepatitis C Screening 1960 Hepatitis B Screening 1978 Regular Well Visit/Exam 18-64 1978 Pneumococcal vaccine <65 (1 of 2 - PCV) 11/01/1979 Zoster Vaccine (1 of 2) 2010 Covid-19 Vaccine (3 - season) 11/15/202411/2020, 07/26/2020 Influenza Vaccine (#1) 2024 04/09/2021 Lung Cancer Screening 03/03/2025 03/02/2024 DTaP/Tdap/Td Vaccine (2 - Td or Tdap) 02/23/203112/2020 Medical Devices Implanted Type Area Rechecker Device Identifier Shelf Expiration Date Model / Serial / Lot [employer] Angio-Seal Vip 6fr Closere Device [id number] - [id number] Implanted:Qty: 1 on 01/21/2022 by Blake Ham MD at [facility] [employer] [facility] 10/14/2022 [id number] / / [id number] Procedures Procedure Name Priority Date/Time Associated Diagnosis Comments AUDIOGRAM Routine 11/29/2024 9:30 AM CDT Sensorineural hearing loss (SNHL), bilateral MAGNESIUM Routine 10/06/2024 9:00 AM CDT Thrombocytopenia Pancreatic lesion DIFFERENTIAL AUTO Routine 10/06/2024 9:0 0 AM CDT Thrombocytopenia Pancreatic lesion CBC WITH AUTO DIFFERENTIAL Routine 10/06/2024 9:00 AM CDT Thrombocytopenia Pancreatic lesion CT LUNG CANCER SCREENING Schedule Routine, Read Routine (OP Routine) 03/02/2024 4:42 PM SOLAR SALES REPRESENTATIVE Nicotine dependence, cigarettes, uncomplicated from Last 3 Months or Most Recently Relevant to Health Maintenance Results * AUDIOGRAM (11/29/2024 9:30 AM CDT) Narrative Idania Craig Au.D. - 11/29/2024 9:30 AM CDT Idania Craig Au.D. 11/29/2024 10:38 AM Audiogram Performed by: Idania Craig Au.D. Authorized by: Serena Sinha DO us Serena Sinha DO AUDIOLOGY SERVICES ORDERABLE S Edited Result - Final * Differential, auto (10/06/2024 9:00 AM CDT) Neutrophil abs 4.22 1.50 - 6.50 K/cumm YAEL TILLMAN ([place]) Comment:Testing performed by : [facility] [address], Medical Office [address], [place] [address] Imm gran abs 0.01 0.00 - 0.10 K/cumm YAEL TILLMAN ([place]) Comment:Testing performed by : [facility] [address], Medical Office [facility] [address], [place] [address] Lymphocyte abs 1.25 0.80 - 3.30 K/cumm [facility] ([place]) Comment:Testing performed by : [facility] [address], Medical Office [facility] [address], [place] [address] Monocyte abs 0.50 0.20 - 0.80 K/cumm [facility] ([place]) Comment:Testing performed by : [facility] [address], Medical Office [facility] [address], [place] [address] Eosinophil abs 0.23 0.00 - 0.50 K/cumm [facility] ([place]) Comment:Testing performed by : [facility] [address], Medical Office [facility] [address], [place] [address] Basophil abs 0.05 0.00 - 0.10 K/cumm [facility] ([place]) Comment:Testing performed by : [facility] [address], Medical Office [facility] [address], [place] [address] Neutrophil pct 67.3 % [facility] ([place]) Comment: Interpretive Data Percent cell count reference ranges are not reported, since discordance with absolute values may lead to misinterpretation of CBC data. Current Interpretive Data was last revised on 2022. Testing performed by: [facility] [address], Medical Office [facility] [address], [place] [address] Imm gran pct 0.2 % [facility] ([place]) Comment: Interpretive Data Percent cell count reference ranges are not reported, since discordance with absolute values may lead to misinterpretation of CBC data. Current Interpretive Data was last revised on 2022. Testing performed by: [facility] [address], Medical Office [facility] [address], [place] [address] Lymphocyte pct 20.0 % [facility] ([place]) Comment: Interpretive Data Percent cell count reference ranges are not reported, since discordance with absolute values may lead to misinterpretation of CBC data. Current Interpretive Data was last revised on 2022. Testing performed by: [facility] [address], Medical Office [facility] [address], [place] [address] Monocyte pct 8.0 % [facility] ([place]) Comment: Interpretive Data Percent cell count reference ranges are not reported, since discordance with absolute values may lead to misinterpretation of CBC data. Current Interpretive Data was last revised on 2022. Testing performed by: [facility] [address], Medical Office [facility] [address], [place] [address] Eosinophil pct 3.7 % ALEXIA TILLMAN ([place]) Comment: Interpretive Data Percent cell count reference ranges are not reported, since discordance with absolute values may lead to misinterpretation of CBC data. Current Interpretive Data was last revised on 2022. Testing performed by: [facility] [address], Medical Office [facility] [address], [place] [address] Basophil pct 0.8 % YAEL TILLMAN ([place]) Comment: Interpretive Data Percent cell count reference ranges are not reported, since discordance with absolute values may lead to misinterpretation of CBC data. Current Interpretive Data was last revised on 2022. Testing performed by: [facility] [address], Medical Office [facility] [address], [place] [address] Blood 10/06/2024 9:00 AM CDT 10/06/2024 9:05 AM CDT Jay Campos MD LAB BLOOD ORDERABLES Final Re sult YAEL TILLMAN ([place]) 1 [facility] [place] [address] * (ABNORMAL) CBC with auto differential (10/06/2024 9:00 AM CDT) WBC 6.26 3.80 - 9.90 K/cumm YAEL TILLMAN ([place]) Comment:Testing performed by : [facility] [address], Medical Office [facility] [address], [place] [address] Hgb 13.6 11.9 - 15.5 g/dL YAEL TILLMAN ([place]) Comment:Testing performed by : [facility] [address], Medical Office [facility] [address], [place] [address] Hct 42.0 35.6 - 45.5 % [facility] ([place]) Comment:Testing performed by : [facility] [address], Medical Office [address], [place] [address] Plt 135(L) 150 - 400 K/cumm [facility] ([place]) Comment:Testing performed by : [facility] [address], Medical Office [address], [place] [address] MPV 12.4(H) 9.1 - 12.3 fL [facility] ([place]) Comment:Testing performed by : [facility] [address], Medical Office [facility] [address], [place] [address] RBC 4.17 3.90 - 5.20 M/cumm [facility] ([place]) Comment:Testing performed by : [facility] [address], Medical Office [address], [place] [address] MCV 100.7(H) 81.3 - 96.4 fL [facility] ([place]) Comment:Testing performed by : [facility] [address], Medical Office [facility] [address], [place] [address] MCH 32.6 27.1 - 33.3 pg [facility] ([place]) Comment:Testing performed by : [facility] [address], Medical Office [facility] [address], [place] [address] MCHC 32.4 32.3 - 35.7 g/dL [facility] ([place]) Comment:Testing performed by : [facility] [address], Medical Office [facility] [address], [place] [address] RDW CV 13.3 11.1 - 14.9 % [facility] ([place]) Comment:Testing performed by : [facility] [address], Medical Office [address], [place] [address] RDW SD 50.2(H) 35.7 - 48.1 fL [facility] ([place]) Comment:Testing performed by : [facility] [address], Medical Office [facility] [address], [place] [address] Blood 10/06/2024 9:00 AM CDT 10/06/2024 9:05 AM CDT Jay Campos MD LAB BLOOD ORDERABLES Final Re sult YAEL ELIZABETH) 1 [facility] [place] [address] * Magnesium (10/06/2024 9:00 AM CDT) Magnesium 1.7 1.4 - 2.5 mg/dL YAEL TILLMAN ([place]) Blood 10/06/2024 9:00 AM CDT 10/06/2024 11:15 AM CDT Jay Campso MD LAB BLOOD ORDERABLES Final Re sult Performing Organization Address [facility] Co de Phone Number YAEL ArringtonSVETLANA) 1 [facility] [place] [address] * CT Lung Cancer Screening (03/02/2024 4:42 PM SOLAR SALES REPRESENTATIVE) Anatomical Region Laterality Modality Chest N/A Computed Tomogra phy 03/09/2024 1:20 PM SOLAR SALES REPRESENTATIVE Narrative 03/09/2024 1:25 PM SOLAR SALES REPRESENTATIVE EXAM DESCRIPTION: CT LUNG CANCER SCREENING REASON [...] Janet Franco D.O. PS: PS Report ID: [id number] Reading Location: [place] [address] Procedure Note Janet Franco, DO - 03/09/2024 [...] Janet Franco D.O. PS: PS Report ID: [id number] Reading Location: [place] [address] Ben Stratton MD [facility] PROCEDURES Final Result from Last 3 Months or Most Recently Relevant to Health Maintenance Insurance [facility] Advance Directives For more information, please contact: [phone] * Full Code (Latest Code Status on File) Date Activated Date Inactivated Comments 01/21/2022 4:32 PM 01/21/2022 8:36 PM Care Teams Surveyor'S Assistant Relationship Specialty Start Date End Date Surinder Walters DO PCP - General Internal Medicine 10/30/23 Robby Dee MD Family Medicine 06/27/22
--- NOTE | 2025-01-05 11:00 | NEURO_ITS ---
Impression: # Complains of numbness of all extremities. Non-diabetic. ? # Bilateral Carpal Tunnel Syndrome, left more than right. ? # No ulnar neuropathy. ? # Left Sural Neuropathy. ? # Normal needle/EMG exam. Nerve Conduction Studies ?Stim Site NR Peak (ms) P-T Amp (?V) Site1 Site2 Delta-P (ms) Dist (cm) Bijan (m/s) Left Median Anti Sensory (2-3nd Digit) Wrist ? 5.0 14.4 Wrist 2-3nd Digit 5.0 14.0 28 Wrist ? 5.3 13.2 Wrist 2-3nd Digit 5.0 14.0 28 Right Median Anti Sensory (2-3nd Digit) Wrist ? 4.0 13.7 Wrist 2-3nd Digit 4.0 14.0 35 Wrist ? 4.3 33.0 Wrist 2-3nd Digit 4.0 14.0 35 Left Radial Anti Sensory (Base 1st Digit) Wrist ? 2.0 24.8 Wrist Base 1st Digit 2.0 0.0 Right Radial Anti Sensory (Base 1st Digit) Wrist ? 2.6 17.8 Wrist Base 1st Digit 2.6 0.0 Left Sup Fibular Anti Sensory (Ant Lat Mall) 14 cm ? 3.2 19.3 14 cm Ant Lat Mall 3.2 16.0 50 Right Sup Fibular Anti Sensory (Ant Lat Mall) 14 cm ? 3.6 11.9 14 cm Ant Lat Mall 3.6 16.0 44 Left Sural Anti Sensory (Lat Mall)??? NO RESPONSE Calf NR Calf Lat Mall 16.0 Right Sural Anti Sensory (Lat Mall) Calf ? 3.8 15.0 Calf Lat Mall 3.8 16.0 42 Left Ulnar Anti Sensory (5th Digit) Wrist ? 2.6 43.7 Wrist 5th Digit 2.6 14.0 54 Right Ulnar Anti Sensory (5th Digit) Wrist ? 2.5 28.5 Wrist 5th Digit 2.5 14.0 56 ?Stim Site NR Onset (ms) O-P Amp (mV) Site1 Site2 Delta-0 (ms) Dist (cm) Bijan (m/s) Left Median Motor (Abd Poll Brev) Wrist ? 4.0 4.8 Elbow Wrist 5.1 28.0 55 Elbow ? 9.1 5.3 Right Median Motor (Abd Poll Brev) Wrist ? 4.1 2.2 Elbow Wrist 4.4 26.0 59 Elbow ? 8.5 2.6 Left Peroneal Motor (Vastus Med) Ankle ? 3.6 0.6 Popit Ankle 7.7 37.0 48 Popit ? 11.3 0.6 Right Peroneal Motor (Vastus Med) Ankle ? 3.6 2.5 Popit Ankle 7.7 37.0 48 Popit ? 11.3 2.0 Left Tibial Motor (Abd Carbajal Brev) Ankle ? 4.3 10.6 Knee Ankle 7.9 39.0 49 Knee ? 12.2 11.1 Right Tibial Motor (Abd Carbajal Brev) Ankle ? 4.0 7.2 Knee Ankle 7.7 37.0 48 Knee ? 11.7 5.2 Left Ulnar Motor (Abd Dig Minimi) Wrist ? 2.7 5.6 A Elbow Wrist 5.0 29.0 58 A Elbow ? 7.7 9.3 B Elbow Wrist 3.7 21.0 57 B Elbow ? 6.4 8.4 Right Ulnar Motor (Abd Dig Minimi) Wrist ? 2.6 6.8 A Elbow Wrist 4.9 28.0 57 A Elbow ? 7.5 7.7 B Elbow Wrist 3.4 19.0 56 B Elbow ? 6.0 8.2 F Wave Studies ?NR F-Lat (ms) L-R F-Lat (ms) Left Median (Mrkrs) (Abd Poll Brev) ? 29.87 1.53 Right Median (Mrkrs) (Abd Poll Brev) ? 28.34 1.53 Left Peroneal (Mrkrs) (EDB) ? 53.06 1.79 Right Peroneal (Mrkrs) (EDB) ? 54.85 1.79 Left Tibial (Mrkrs) (Abd Hallucis) ? 53.59 0.11 Right Tibial (Mrkrs) (Abd Hallucis) ? 53.48 0.11 Left Ulnar (Mrkrs) (Abd Dig Min) ? 29.22 0.59 Right Ulnar (Mrkrs) (Abd Dig Min) ? 28.63 0.59 Electromyography ?Side Muscle Nerve Root Ins Act Fibs Amp Dur Recrt Comment Right 1stDorInt Ulnar C8-T1 Nml Nml Nml Nml Nml Right Ext Indicis Radial (Post Int) C7-8 Nml Nml Nml Nml Nml Right Ext Digitorum Radial (Post Int) C7-8 Nml Nml Nml Nml Nml Right BrachioRad Radial C5-6 Nml Nml Nml Nml Nml Right PronatorTeres Median C6-7 Nml Nml Nml Nml Nml Right Abd Poll Brev Median C8-T1 Nml Nml Nml Nml Nml Right ABD Dig Min Ulnar C8-T1 Nml Nml Nml Nml Nml Right FlexPolLong Median (Ant Int) C7-8 Nml Nml Nml Nml Nml Right Abd Poll Long Radial (Post Int) C7-8 Nml Nml Nml Nml Nml Right AntTibialis Dp Br Fibular L4-5 Nml Nml Nml Nml Nml Right Gastroc Tibial S1-2 Nml Nml Nml Nml Nml Right Fibularis Long Sup Br Fibular L5-S1 Nml Nml Nml Nml Nml Right Flex Dig Long Tibial L5-S2 Nml Nml Nml Nml Nml Right Ext Dig Brev Dp Br Fibular L5, S1 Nml Nml Nml Nml Nml Right QuadratusFem QuadFemoris L4-5, S1 Nml Nml Nml Nml Nml Left AntTibialis Dp Br Fibular L4-5 Nml Nml Nml Nml Nml Left Gastroc Tibial S1-2 Nml Nml Nml Nml Nml Left Fibularis Long Sup Br Fibular L5-S1 Nml Nml Nml Nml Nml Left Flex Dig Long Tibial L5-S2 Nml Nml Nml Nml Nml Left Ext Dig Brev Dp Br Fibular L5, S1 Nml Nml Nml Nml Nml Left QuadratusFem QuadFemoris L4-5, S1 Nml Nml Nml Nml Nml Left 1stDorInt Ulnar C8-T1 Nml Nml Nml Nml Nml Left Ext Indicis Radial (Post Int) C7-8 Nml Nml Nml Nml Nml Left Ext Digitorum Radial (Post Int) C7-8 Nml Nml Nml Nml Nml Left BrachioRad Radial C5-6 Nml Nml Nml Nml Nml Left PronatorTeres Median C6-7 Nml Nml Nml Nml Nml Left Abd Poll Brev Median C8-T1 Nml Nml Nml Nml Nml Left ABD Dig Min Ulnar C8-T1 Nml Nml Nml Nml Nml Left FlexPolLong Median (Ant Int) C7-8 Nml Nml Nml Nml Nml Left Abd Poll Long Radial (Post Int) C7-8 Nml Nml Nml Nml Nml
== END 2025-01-05 09:34 | disposition home or self-care (01) ==
LOC: ANHNEURO 09:34
PROVIDERS: PCP Clinical Nurse Specialist; Visit Provider Clinical Nurse Specialist
DX: G25.81 Restless legs syndrome (principal); R20.0 Anesthesia of skin; R20.2 Paresthesia of skin; G56.03 Carpal tunnel syndrome, bilateral upper limbs
CPT/HCPCS: 95886; 95913

== ENCOUNTER 2025-02-04 17:50 | Outpatient (CLI) | payer OTHER, SELFPAY ==
--- OUTSIDE RECORDS SUMMARY | 2025-02-04 17:53 | XMS_ITS | Data Portability ---
Author Organization [facility] [place] Address [address] [place] [address] [place] [address] Care Team Providers Care Timber Management Specialist Name Role Phone KORYMESFIN FANG Primary Care Provider Assessment No assessment recorded. Plan of Treatment Reminders Order Date Submit Date Provider Last Modified By Organization Details Last Modified Time Details Appointments None recorded. Lab None recorded. Referral None recorded. Procedures None recorded. Surgeries None recorded. Imaging US, pelvis 2024 025 [email or web address] [place], [address], [place], [address], 22:54:00 US, transvagina l 2024 025 [email or web address] [place], [address], [place], [address], 22:54:00 US, pelvis, complete 2024 025 [email or web address] [place], [address], [place], [address], 5 12:58:23 US, pelvis 2023 024 [email or web address] [place] [facility] [address], [place], [address], 4 20:16:33 US, transvagina l 2023 024 [email or web address] [place], [address], [address], [place], [address], 20:16:33 Medication Orders None recorded. Patient TargetsNo [...] as kyi donya rodriguez nted. Not Available [facility] ([facility]) [address], [place], [address], 02/18/2024 06:43:13 10/09/1910/08/2024 SURGI WALTER PATHO LOGY surgical pathology SEE RESULT S BELOW CASE REPOR T: Surgi walter Patho logy Repor t Case: [id number] Autho kaiden falguni Provi marina: Sandee [...] ed by Domingo Cooper on Not Available [facility] ([facility]) [address], [place], [address], 10/11/2024 11:27:32 02/16/20 24 02/17/2024 US, pelvi s No observ ation record ed. [email or web address] [place] [address], [place], [address], 02/17/2024 13:03:14 02/16/20 24 02/17/2024 US, trans vagin al No observ ation record ed. [email or web address] [place] [address], [place], [address], 02/17/2024 13:03:24 02/16/20 24 02/16/2024 US, pelvi s No observ ation record ed. [email or web address] [address], [place], [address], 02/26/2024 16:35:11 09/09/19 25 09/08/2024 US, pelvi s No observ ation record ed. [facility] [address], [place], [address], 09/08/2024 12:43:30 09/09/19 25 09/08/2024 US, trans vagin al No observ ation record ed. [facility] [address], [place], [address], 09/08/2024 12:43:39 09/09/19 25 09/08/2024 US, pelvi s No observ ation record ed. [email or web address] [address], [place], [address], 09/14/2024 16:14:29 Result Notes None recorded. 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 Procedures Surgical History Date Name Laterality Status Provider Name and Address Organization Details Recorded Time 10/09/19 25 Endometrial Biopsy completed Andrea Lopez MD [address], [place], [address], [facility] 10/08/2024 17:03:40 10/09/19 25 Endometrial Biopsy completed Jael Dawkins [facility] 10/08/2024 11:47:24 02/05/20 24 Date of Last Pap Smear completed [facility] 09/06/2024 14:05:05 01/06/20 24 Date of Last Mammogram completed [facility] 09/06/2024 14:05:32 09/15/19 22 placement of stent in cardiac conduit completed GRETCHEN Flaherty [address], [place], [address], [facility] 10/02/2022 15:05:46 03/17/19 22 procedure on ankle completed [facility] 10/02/2022 14:47:46 02/24/20 21 procedure on foot completed [facility] 10/02/2022 14:47:59 03/17/18 83 [facility] 10/02/2022 14:48:08 Imaging Results None recorded. [...] Prescrib ed Elsewher e: Yes Loca tion: [facility] M odify By: matt delgado DateTime : [...] Elsewher e: Yes Loca tion: Angela gerardo [facility] odify By: dada roque DateTime : 10/18/19 17 09:00:00 AM Not Available Not Available Not Available Seroquel 25 mg tablet take 1 tablet by oral route 2 times every day 10/02 completed Prescrib ed Elsewher e: Yes Loca tion: Angela gerardo [facility] odify By: dada roque DateTime : 06/25/19 18 04:30:00 PM Not Available Not Available Not Available Elmiron 100 mg capsule take 1 capsule by oral route 3 times every day with water, 1 hour before or 2 hours after a meal 10/02 completed Prescrib ed Elsewher e: Yes Loca tion: Angela gerardo [facility] odify By: dada roque DateTime : 06/25/19 18 04:30:00 PM Not Available Not Available Not Available acetamino phen 300 mg-codein e 30 mg tablet 09/06 completed Not Available Not Available Not Available Plavix 75 mg tablet take 1 tablet by oral route every day 05/07 completed Prescrib ed Elsewher e: Yes Loca tion: Angela gerardo [facility] odify By: dada roque DateTime : [...] Elsewher e: No Locat ion: Angela gerardo [facility] odify By: william roque DateTime : 06/25/19 [...] Elsewher e: Yes Loca tion: Angela gerardo [facility] odify By: dada roque DateTime : [...] Elsewher e: Yes Loca tion: Angela gerardo [facility] odify By: dada roque DateTime : [...] Elsewher e: Yes Loca tion: Angela gerardo [facility] odify By: dada roque DateTime : 01/28/20 14 01:45:00 PM Not Available Not Available Not Available Flagyl 500 mg tablet take 1 tablet by oral route every 12 hours 05/25 completed Prescrib ed Elsewher e: No Locat ion: Angela gerardo [facility] odify By: tmryan E ncounter DateTime : 04/23/19 10:25:11 AM Not Available [...] Prescrib ed Elsewher e: Yes Loca tion: Serenanelidasylvester gerardo [facility] odify By: matt Mcgillte r DateTime : 01/28/20 14 01:45:00 PM Not Available Not Available Not Available zolpidem 5 mg tablet take 1 tablet by oral route every day at bedtime 10/02 completed Prescrib ed Elsewher e: Yes Loca tion: Angela gerardo [facility] odify By: matt Mcgillte r DateTime : 02/09/20 14 02:45:00 PM Not Available Not Available Not Available gabapenti n 100 mg capsule take 3 capsule by oral route 3 times every day 10/02 completed Prescrib ed Elsewher e: Yes [facility] By: dada newsomeunter DateTime : 06/25/19 18 04:30:00 PM Not [...] Prescrib ed Elsewher e: Yes Loca tion: Mary akin [facility] odify By: dada roque DateTime : [...] Prescrib ed Elsewher e: Yes [facility] odify By: matt delgado DateTime : [...] Prescrib ed Elsewher e: Yes [facility] By: dada roque DateTime : 05/07/19 17 09:00:00 AM Not Available Not Available Not Available neomycin- polymyxin -hydrocor t 3.5 mg-10,000 unit/mL-1 % ear drops,celso p INSTILL 2 TO 3 DROPS IN AFFECTED EAR(S) FOUR TIMES DAILY FOR 7 DAYS. STOP AND CALL IF EARDRUM RUPTURES . 10/01 completed Not [...] Prescrib ed Elsewher e: Yes [facility] By: dada newsomeuntinocente DateTime : 05/07/19 17 09:00:00 AM Not Available Not Available Not Available melatonin 1 mg tablet 10/02 completed Prescrib ed Elsewher e: Yes [facility] By: matt delgado DateTime : 02/09/20 14 02:45:00 PM Not Available Not Available Not Available Lexapro 5 mg tablet take 1 tablet by oral route every day 10/02 completed Prescrib ed Elsewher e: Yes Loca tion: [facility] odify By: dada roque DateTime : 05/07/19 17 09:00:00 AM Not Available Not Available Not Available metoprolo l tartrate 25 mg tablet take 1 tablet by oral route 2 times every day 05/07 completed Prescrib ed Elsewher e: Yes Loca tion: [facility] odify By: dada roque DateTime : 01/28/20 14 01:45:00 PM Not Available Not Available Not Available hydrocodo ne 10 mg-acetam inophen 300 mg tablet take 1 tablet by oral route every 6 hours as needed 10/02 completed Prescrib ed Elsewher e: Yes [facility] By: dada roque DateTime : [...] Prescrib ed Elsewher e: Yes Loca tion: [facility] odify By: dada newsomeunter DateTime : 10/18/19 [...] Prescrib ed Elsewher e: Yes Loca tion: [facility] odify By: dada newsomeunter DateTime : 05/07/19 17 09:00:00 AM Not Available Not Available Not Available melatonin (bulk) active Not Available Not Available Not Available Probiotic 10 billion cell capsule 10/02 completed Prescrib ed Elsewher e: Yes Loca tion: [facility] odify By: dada newsomeunter DateTime : 05/07/19 [...] Updated DateTime 09/06/2024 157.48 cm 31.6 kg/m2 44519.48 g 124/85 mm[Hg] Kayce De Anda [facility] 09/06/2024 14:02:38 Date Recorded Body height Body mass index (BMI) Body weight Systolic And Diastolic Provider Name and Address Organization Details Last Updated DateTime 10/01/2024 157.48 cm 31.5 kg/m2 75325.89 g 139/91 mm[Hg] Jael [facility] 10/01/2024 10:21:48 Date Recorded Body height Body mass index (BMI) Body weight Systolic And Diastolic Provider Name and Address Organization Details Last Updated DateTime 10/08/2024 157.48 cm 30.9 kg/m2 88454.11 g 130/84 mm[Hg] Jael [facility] 10/08/2024 11:46:42 Social History Question Answer Notes LastModified by [facility] Details LastModified Time Tobacco Smoking Status Current Every Day Smoker Roxie gamino, [facility] 10/02/2022 14:47:26 Are You Blind Or [...] Functional Status Question Answer Note LastModified by [employer] Details LastModified Time What is your [...] ICD10 Code Diagnosis IMO Codes Diagnosis Note [id number] GRETCHEN Flaherty [place] [address] [address] 10/02/2022 14:07:10 10/02/2022 15:34:12 Breast lump 07196178 N63.0 bilateral tenderness in upper outer quadrantsi maging ordered Tenderness of breast 552 76909 N64.4 Abdominal pain 48994939 R10.9 would like pelvic u/s to r/o gyne source of pain Gynecologi c examination 56268388 Z01.419 Take Calcium with Vitamin D 12-1500mg daily. Do monthly self breast exams. It is advised to get annual flu shot in the fall and she could obtain at [facility] or [facility]. If you haven't received the [...] counseling and review of plan of care. [id number] Andrea Lopez MD [place] [address] [address] 10/11/2022 15:00:38 10/14/2022 12:30:31 Pain in pelvis 69293669 R10.2 R10.9 [id number] Andrea Lopez MD [place] [address] [address] 11/07/2022 14:18:50 11/07/2022 15:11:44 Cyst of ovary 64869335 N83.209 62-year-ol d female with back pain when pelvic ultrasound . We reviewed the pelvic ultrasound . She has 1 very small cyst on her left ovary. This should not be there but appears benign. We will repeat in 3 months normal we will discuss. Nothing on ultrasound explain her back pain. [id number] GRETCHEN Flaherty [place] [address] [address] 02/05/2024 12:17:53 02/05/2024 13:57:55 Gynecologic examination 34108174 Z01.419 wwepostmen opausalpap updated per pt preference [...] advised. Questions have been answered. Breast lump 46906475 N63 .0 offered breast specialist referral d/t persistant tenderness and breast lump - declinedup dated u/s ordered Pain in pelvis 43386176 R10.2 updated pelvic u/s ordered [id number] Andrea Lopez MD [place] [address] [address] 02/16/2024 17:01:28 02/17/2024 06:25:15 Cyst of left ovary 0225710238 1999724 N83.292 [id number] GRETCHEN Flaherty [place] [address] [address] 09/06/2024 13:41:52 09/07/2024 15:52:12 Postmenopausal bleeding 61293702 N95.0 [id number] discussed PMB which warrants further evaluation pelvic u/s ordered, discussed EMB pending u/s resultspre cautions reviewed, questions answered Time spent in visit is a total of 22 mins with at least 50% of visit consisting of counseling and review of plan of care. [id number] MD Waylon Doll [address] [address] 09/08/2024 11:23:19 09/08/2024 12:07:19 Postmenopausal bleeding 63644199 N95.0 [id number] MD Waylon Doll [address] [address] 10/01/2024 09:59:16 10/04/2024 09:37:25 Postmenopausal bleeding 74070491 N95.0 [id number] 63-year-ol d female with postmenopa usal bleeding. She has had ultrasound evaluation . We reviewed her ultrasound evaluation . We have agreed to perform endonmetri al biopsy. She will return for endometria l biopsy. We discussed the procedure In detail. [id number] MD Waylon Doll [address] [address] 10/08/2024 11:09:52 10/08/2024 17:12:18 Postmenopausal bleeding 60877568 N95.0 [id number] endometria l biopsy performed without complicati ons. She tolerated it well. Health Concerns Section Related Observation LastModified by Organization Detai ls LastModified Time None Recorded Concern Status LastModified by Organization Details LastModified Time None Recorded Advance Directives Directive None Recorded Payers Insurance Date Sequence Insurance Name Policy Number Policy Busby Covered Member ID Busby Member ID Guarantor Name 10/11/2024 1 [facility] - DOS ON OR AFTER 20 (MEDICAID REPLACEMENT - HMO) Julia Lema [id number] Julia Lema Notes Date Note Type Note [...] HPV (-) GRETCHEN Flaherty [address], [place], [address], [facility] 09/07/2024 11:37:23 10/01/2024 text/html 63-year-old female with postmenopausal bleeding. She has had ultrasound evaluation. We reviewed her ultrasound evaluation. We have agreed to perform endonmetrial biopsy. She will return for endometrial biopsy. We discussed the procedure In detail. Andrea Lopez MD [address], [place], [address], [facility] 10/02/2024 22:40:28 10/08/2024 text/html Patient presents for endometrial biopsy for postmenopausal bleeding. The procedure was explained to the patient in detail. She understands the procedure. She understands the risks, benefits, and alternatives. She has completed the informed consent process and is ready to proceed. Andrea Lopez MD [address], [place], [address], [facility] 10/08/2024 17:04:30 OBGyn Episode Ob Episode Information Episode Created Date Number of Fetuses Patient Bloodtype Patient rh Status Prepregnancy Weight lbs Domestic Partner Domestic Partner Phone Father Name Explosive Specialist Status 10/03/19 23 1 CLOSED Fetus Data First Name Last Name Admitted to NICU Weight (g) Sex Living Outcome Pediatric Complications Fetus ID Race Codes Race Delivery Type F Full Term [id number] Tony Calculation Initial Tony Date Initial Exam [...] Domestic Partner Domestic Partner Phone Father Name Explosive Specialist Status 10/03/19 23 1 CLOSED Fetus Data [...] Domestic Partner Domestic Partner Phone Father Name Explosive Specialist Status 10/03/19 1 CLOSED Fetus Data First [...] Domestic Partner Domestic Partner Phone Father Name Explosive Specialist Status 10/03/19 23 1 CLOSED Fetus Data [...] Domestic Partner Domestic Partner Phone Father Name Explosive Specialist Status 10/03/19 23 1 CLOSED Fetus Data [...]
== END 2025-02-04 17:51 | disposition home or self-care (01) ==
LOC: ANHLAB 17:51
PROVIDERS: PCP Clinical Nurse Specialist; Visit Provider Clinical Nurse Specialist
DX: R19.7 Diarrhea, unspecified (principal)
CPT/HCPCS: 87045; 87046; 87177; 87427

== ENCOUNTER 2025-02-22 09:39 | Outpatient (CLI) | payer OTHER, SELFPAY ==
--- NOTE | ~2025-02-22 | CT_ITS ---
EXAMINATION: CT lung screening DATE: 02/22/2025 10:04 INDICATION: Z72.0 - Tobacco use TECHNIQUE: Computed tomography (CT) of the chest was performed without intravenous contrast. Additional 3D reconstructions utilizing coronal maximum intensity projection (MIP) were performed. Automated exposure control and iterative reconstruction technique were employed. The dose-length product was 98 .98 mGy-cm. COMPARISON: 12/13/2023 FINDINGS: Unchanged 4 mm nodule at the basilar left lower lobe. No other suspicious pulmonary nodules, pulmonary edema, pneumonia or pleural effusion. Heart size is normal. Atherosclerotic coronary artery calcific location. No pericardial effusion. Thoracic aorta is normal in caliber. No pathologically enlarged thoracic lymphadenopathy. Cholecystectomy clips the gallbladder fossa. Unchanged chronic T7 burst fracture with 20% posterior and 40% anterior vertebral body height loss. Additional mild superior endplate compression fracture at T2. IMPRESSION: 1. Lung-RADS category 2: Benign appearance or behavior. Continue annual screening with noncontrast low-dose chest CT in 12 months. Reviewed, dictated and finalized at location A. NG MACHINE OPERATOR IMPRESSION: 1. Lung-RADS category 2: Benign appearance or behavior. Continue annual screeni ng with noncontrast low-dose chest CT in 12 months.
== END 2025-02-22 09:40 | disposition home or self-care (01) ==
PROVIDERS: PCP Clinical Nurse Specialist; Visit Provider Clinical Nurse Specialist
DX: Z72.0 Tobacco use (principal)
CPT/HCPCS: 71271

== ENCOUNTER 2025-02-23 11:37 | Outpatient (CLI) | payer OTHER, SELFPAY ==
[2025-02-23 12:38] LABS: Toxigenic C. Diff NEGATIVE (NEGATIVE)
== END 2025-02-23 11:38 | disposition home or self-care (01) ==
LOC: ANHLAB 11:37
PROVIDERS: PCP Clinical Nurse Specialist; Visit Provider Clinical Nurse Specialist
DX: R19.7 Diarrhea, unspecified (principal)
CPT/HCPCS: 87493